=== PATIENT | female | born 1935 | race Caucasian/White ===

== ENCOUNTER 2016-09-07 10:32 | Emergency (ER) | payer OTHER ==
[2016-09-07 10:42] VITALS: PULSE 94
--- NOTE | 2016-09-07 11:22 | EDPHY ---
HPI/HX/ROS/PE/MDM Narrative: CHIEF COMPLAINT: Cough, myalgia. HPI: The patient is an 80-year-old female who presents with bloody cough and myalgia since yesterday. She does have a chronic cough from her asthma but yesterday she began to cough up bloody streaks. She admits chest pain from the coughing. She has a mild fever. She denies diarrhea, chills, or other complaints. REVIEW OF SYSTEMS: Aside from elements discussed in the HPI, a comprehensive 10-point review of systems was reviewed and is negative. PMH: Asthma. SOCIAL HISTORY: . PHYSICAL EXAM: General: Patient is alert, in no acute distress. ENT: Eyes are normal to inspection. ENT inspection normal. Neck: Normal inspection. Full range of motion. Respiratory: No respiratory distress. Breath sounds normal bilaterally. Scattered rhonchi and rales bilaterally. Cardiovascular: Regular rate and rhythm. Strong peripheral pulses. Abdomen: The abdomen is nontender to palpation. There are no peritoneal signs. There are normal bowel sounds. Back: Normal to inspection. No tenderness to palpation. Skin: Normal color. No rash. Warm and dry. Extremities: Normal appearance. Full range of motion. Neuro: Oriented x3. Normal motor function. Normal sensory function. Portions of this note were transcribed by an ED scribe. I personally performed the history, physical exam, and medical decision making; and confirm the accuracy of the information in the transcribed note. ED Course: An IV was established and labs ordered. Chest x-ray and EKG obtained. WBC elevated at 11.05. Patient negative for influenza. EKG was ordered and interpreted by myself. Please see [facility] system for official reading. Study: PA and Lateral Chest X-ray Indication: Trauma, Chest pain Results: I viewed the images myself on the PACS system. The radiologist interpretation is: New multilobar bibasilar airspace consolidation. Bronchopneumonia versus aspiration. MDM: This is an 80-year-old female with low-grade fever, significant coughing with mild blood streaks since yesterday. Chest x-ray is suspicious for bronchopneumonia which I believe is consistent with her symptoms. I considered acute coronary syndrome but the patient has a normal troponin and EKG and chest pain does not seem typical for cardiac disease. I also considered PE, but the patient does not have any risk factors for PE, she is not hypoxic nor tachycardic, she does not have a troponin leak, and her chest pain is not pleuritic. Her flu swab is negative. I will treat the patient with azithromycin and she will require close follow-up as an outpatient. I offered her admission to the hospital for observation and further workup but she declines. - Data Points Laboratory Results: Laboratory Results 09/07/16 11:25 09/07/16 11:25 09/07/16 09/07/16 09/07/16 11:35 11:25 11:25 WBC 11.05 10^3/uL H 10^3/uL (3.80-9.50) RBC 3.65 10^6/uL L 10^6/uL (4.18-5.33) Hgb 11.5 g/dL L g/dL (12.6-16.3) Hct 33.4 % L % (38.0-47.0) MCV 91.5 fL fL (81.5-99.8) MCH 31.5 pg pg (27.9-34.1) MCHC 34.4 g/dL g/dL (32.4-36.7) RDW 13.4 % % (11.5-15.2) Plt Count 169 10^3/uL 10^3/uL (150-400) MPV 9.9 fL fL (8.7-11.7) Neut % (Auto) 83.3 % H % (39.3-74.2) Lymph % (Auto) 8.1 % L % (15.0-45.0) Ralls % (Auto) 5.2 % % (4.5-13.0) Eos % (Auto) 2.3 % % (0.6-7.6) Baso % (Auto) 0.3 % % (0.3-1.7) Nucleat RBC Rel Count 0.0 % % (0.0-0.2) Absolute Neuts (auto) 9.20 10^3/uL H 10^3/uL (1.70-6.50) Absolute Lymphs (auto) 0.90 10^3/uL L 10^3/uL (1.00-3.00) Absolute Monos (auto) 0.58 10^3/uL 10^3/uL (0.30-0.80) Absolute Eos (auto) 0.25 10^3/uL 10^3/uL (0.03-0.40) Absolute Basos (auto) 0.03 10^3/uL 10^3/uL (0.02-0.10) Absolute Nucleated RBC 0.00 10^3/uL 10^3/uL (0-0.01) Immature Gran % 0.8 % % (0.0-1.1) Immature Gran # 0.09 10^3/uL 10^3/uL (0.00-0.10) Sodium 132 mEq/L L mEq/L (134-144) Potassium 4.0 mEq/L mEq/L (3.5-5.2) Chloride 100 mEq/L mEq/L (97-110) Carbon Dioxide 24 mEq/l mEq/l (22-31) Anion Gap 8 mEq/L mEq/L (8-16) BUN 14 mg/dL mg/dL (7-23) Creatinine 0.7 mg/dL mg/dL (0.6-1.0) Estimated GFR > 60 Glucose 105 mg/dL H mg/dL (70-100) Calcium 8.8 mg/dL mg/dL (8.5-10.4) Troponin I 0.012 ng/mL ng/mL (0-0.034) Influenza Typ A,B (DFA) NEGATIVE FOR FLU (NEGATIVE) General Time Seen by Provider: 09/07/16 11:21 Initial Vital Signs: Initial Vital Signs Temperature (C) 36.6 C 09/07/16 10:35 Heart Rate 94 09/07/16 10:35 Respiratory Rate 18 09/07/16 10:35 Blood Pressure 126/100 H 09/07/16 10:35 O2 Sat (%) 95 09/07/16 10:35 O2 Delivery Mode Room Air Allergies/Adverse Reactions: methadone Allergy (Mild, Verified 09/07/16 10:44) GI upset oxycodone HCl [From OxyContin] Allergy (Mild, Verified 09/07/16 10:44) GI upset topiramate Allergy (Mild, Verified 09/07/16 10:44) Other-Enter Comments BRITNEY Inhibitors Allergy (Verified 09/07/16 10:37) Other-Enter Comments amitriptyline Allergy (Verified 09/07/16 10:37) Other-Enter Comments moxifloxacin HCl [From Avelox] Allergy (Verified 09/07/16 10:37) Vomiting IODINE DYE Allergy (Severe, Uncoded 09/07/16 10:44) Swelling/neck,face,throat all narcotics Allergy (Uncoded 01/01/15 14:54) "I don't do well with them" Home Medications: Medication Instructions Recorded Atorvastatin Calcium [Lipitor 10 10 mg PO DAILY 01/01/15 mg (*)] Beclomethasone Qvar 40 [Qvar 40 1 puffs [facility] 01/01/15 (*)] Fluticasone Propionate [Flovent 50 mcg [facility] 01/01/15 [place]] Levothyroxine [Synthroid 75 mcg 75 mcg PO DAILY06 01/01/15 (*)] Omeprazole [Prilosec 20 mg] 20 mg PO DAILY 01/01/15 Raloxifene HCl [Evista] 60 mg PO DAILY 01/01/15 Zolpidem Tartrate [Ambien 5MG (*)] 5 mg PO HS PRN 01/01/15 Ascorbic Acid [Vitamin C 500 mg 1,000 mg PO DAILY 11/20/15 (*)] Calcium Carbonate/Vitamin D3 1 each PO DAILY 11/20/15 [Calcium 600 + Vit D 400 Softgl] Cholecalciferol Vit D3 [Vitamin D3 2,000 units PO DAILY 11/20/15 2000 units] Glucosamine HCl 1,500 mg PO DAILY 11/20/15 Magnesium Oxide [Magnesium Oxide 400 mg PO DAILY 11/20/15 400 mg (*)] Multivitamins [Multivitamin (*)] 1 each PO DAILY 11/20/15 Brea-3 Fatty Acids/Fish Oil 1 each PO DAILY 11/20/15 [Brea 3 1,000 mg Softgel] Oxymetazoline HCl [Afrin Nasal 1 spray [place]ACH[place]ARE BID 11/20/15 [place]] AZITHROMYCIN [Z-PACK] 250 mg PO DAILY #6 tab 09/07/16 Gabapentin [Neurontin 300 MG (*)] 300 mg PO HS 09/07/16 Departure - Departure Disposition: Home, Routine, Self-Care Clinical Impression: Pneumonia Qualifiers: Pneumonia type: due to unspecified organism Laterality: unspecified laterality Lung location: unspecified part of lung Qualified Code(s): J18.9 - Pneumonia, unspecified organism Condition: Good Instructions: Pneumonia (ED) Additional Instructions: Take the antibiotics as prescribed. Follow up with your primary care provider in the next 2-3 days if symptoms are not improving. Return to the emergency department for any serious worsening of condition. Referrals: Yany Berg MD [Primary Care Provider] - As per Instructions Prescriptions: AZITHROMYCIN [Z-PACK] 250 mg PO DAILY #6 tab Report Scribed for: Vincent Newman Report Scribed by: George Kovacs Date of Report: 09/07/16 Time of Report: 11:22
[2016-09-07 11:39] LABS: % IMMATURE GRANULYOCYTES 0.8 % (0.0-1.1); ABSOLUTE IMMATURE GRANULOCYTES 0.09 10^3/uL (0.00-0.10); ADD DIFF? NO; ADD MORPH? NO; ADD SCAN? NO; ATYPICAL LYMPHOCYTE FLAG 10 (0-99); FRAGMENT RBC FLAG 0 (0-99); HEMATOCRIT 33.4 % (38.0-47.0); HEMOGLOBIN 11.5 g/dL (12.6-16.3); LEFT SHIFT FLG 10 (0-99); LIPEMIA HEMOLYSIS FLAG 90 (0-99); MEAN CELL HEMOGLOBIN 31.5 pg (27.9-34.1); MEAN CELL HEMOGLOBIN CONCENTR. 34.4 g/dL (32.4-36.7); MEAN CELL VOLUME 91.5 fL (81.5-99.8); MEAN PLATELET VOLUME 9.9 fL (8.7-11.7); PLATELET CLUMPS FLAG 20 (0-99); PLATELET COUNT 169 10^3/uL (150-400); RED BLOOD CELL COUNT 3.65 10^6/uL (4.18-5.33); RED CELL DISTRIBUTION WIDTH 13.4 % (11.5-15.2)
[2016-09-07 12:01] LABS: ANION GAP 8 mEq/L (8-16); CALCIUM 8.8 mg/dL (8.5-10.4); CARBON DIOXIDE 24 mEq/l (22-31); CHLORIDE 100 mEq/L (97-110); CREATININE 0.7 mg/dL (0.6-1.0); GLOMERULAR FILTRATION RATE > 60; GLUCOSE 105 mg/dL (70-100); SODIUM 132 mEq/L (134-144)
[2016-09-07 12:12] LABS: TROPONIN I 0.012 ng/mL (0-0.034)
--- NOTE | 2016-09-07 12:12 | CPEKG ---
Heart Rate: 90 RR Interval: 667 P-R Interval: 164 QRSD Interval: 84 QT Interval: 372 QTC Interval: 455 P [place]: 59 QRS [place]: 37 T Wave [place]: 36 EKG Severity - NORMAL ECG - EKG Impression: SINUS RHYTHM Electronically Signed By: Vincent Newman 07-Sep-2016 14:49:06
[2016-09-07 14:16] VITALS: BP 149/93; RESP 16; TEMP 98.6; O2SAT 93
== END 2016-09-07 14:16 | disposition home or self-care (01) ==
DX: J18.9 Pneumonia, unspecified organism (principal); J45.909 Unspecified asthma, uncomplicated

== ENCOUNTER → 2016-10-07 | Outpatient (CLI) | payer OTHER | LOC: BMCIMAGING 14:26 | PROVIDERS: ATTEND Internal Medicine | DX: Z13.83 Encounter for screening for respiratory disorder NEC (principal) ==

== ENCOUNTER 2017-01-06 15:51 | Emergency (ER) | payer OTHER ==
[2017-01-06] MEDS ORDERED: ASPIRIN 81 MG CHEWABLE TAB PO ONE (16:09)
[2017-01-06] MEDS ORDERED: NITROGLYCERIN 0.4 MG BTL SL PRN (16:09)
--- NOTE | 2017-01-06 16:11 | EDPHY ---
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 She states that she has had chest pressure for the entire week that she attributed to her esophagitis however today it turned into more pain in her left upper chest and axilla. No neck or back pain. She denies shortness of breath. She denies any diaphoresis. She does feel slightly nauseous and lightheaded. Symptoms are worsened by lying flat. They are not worsened by exertion. REVIEW OF SYSTEMS: Constitutional: denies: chills, fever, recent illness, recent injury EENTM: denies: blurred vision, double vision, nose congestion Respiratory: denies: cough, shortness of breath Cardiac: See HPI Gastrointestinal/Abdominal: denies: abdominal pain, diarrhea, nausea, vomiting, blood streaked stools Genitourinary: denies: dysuria, frequency, hematuria, pain Musculoskeletal: denies: joint pain, muscle pain Skin: denies: lesions, rash, jaundice, bruising Neurological: denies: headache, numbness, paresthesia, tingling, dizziness, weakness Hematologic/Lymphatic: denies: blood clots, easy bleeding, easy bruising Immunologic/allergic: denies: HIV/AIDS, transplant EXAM: GENERAL: Well-appearing, well-nourished and in no acute distress. HEAD: Atraumatic, normocephalic. EYES: Pupils equal round and reactive to light, extraocular movements intact, sclera anicteric, conjunctiva are normal. ENT: TMs normal, nares patent, oropharynx clear without exudates. Moist mucous membranes. NECK: Normal range of motion, supple without lymphadenopathy or JVD. LUNGS: Breath sounds clear to auscultation bilaterally and equal. No wheezes rales or rhonchi. HEART: Regular rate and rhythm without murmurs, rubs or gallops. ABDOMEN: Soft, nontender, normoactive bowel sounds. No guarding, no rebound. No masses appreciated. BACK: No CVA tenderness, no spinal tenderness, step-offs or deformities EXTREMITIES: Normal range of motion, no pitting or edema. No clubbing or cyanosis. NEUROLOGICAL: Cranial nerves II through XII grossly intact. Normal speech, normal gait. 5/5 strength, normal movement in all extremities, normal sensation PSYCH: Normal mood, normal affect. SKIN: Warm, dry, normal turgor, no visible rashes or lesions. Source: Patient, Family, Old records - Personal History Current Tetanus/Diphtheria Vaccine: Unsure Current Tetanus Diphtheria and Acellular Pertussis (TDAP): Unsure - Medical/Surgical History Hx Asthma: Yes Hx Chronic Respiratory Disease: No Hx Diabetes: No Hx Cardiac Disease: No Hx Renal Disease: No Hx Cirrhosis: No Hx Alcoholism: No Hx HIV/AIDS: No Hx Splenectomy or Spleen Trauma: No Other PMH: BILAT MASECTOMY 2013,2005, KNEE SURGERY. 5 BOUTS OF CANCER,COPD, CHF , Mitral valve stenosis, HTN, Hyperlipidemia - Family History Significant Family History: No pertinent family hx - Social History Smoking Status: Never smoked Alcohol Use: Sober Drug Use: None Constitutional: Initial Vital Signs Temperature (C) 36.3 C 01/06/17 15:55 Heart Rate 82 01/06/17 15:55 Respiratory Rate 16 01/06/17 15:55 Blood Pressure 160/80 H 01/06/17 15:55 O2 Sat (%) 96 01/06/17 15:55 O2 Delivery Mode Room Air Allergies/Adverse Reactions: Iodine and Iodide Containing Produc Allergy (Severe, Verified 01/06/17 18:58) Swelling/neck,face,throat methadone Allergy (Mild, Verified 09/07/16 10:44) GI upset oxycodone HCl [From OxyContin] Allergy (Mild, Verified 09/07/16 10:44) GI upset topiramate Allergy (Mild, Verified 09/07/16 10:44) Other-Enter Comments BRITNEY Inhibitors Allergy (Verified 09/07/16 10:37) Other-Enter Comments amitriptyline Allergy (Verified 09/07/16 10:37) Other-Enter Comments moxifloxacin HCl [From Avelox] Allergy (Verified 09/07/16 10:37) Vomiting IODINE DYE Allergy (Severe, Uncoded 09/07/16 10:44) Swelling/neck,face,throat all narcotics Allergy (Uncoded 01/01/15 14:54) "I don't do well with them" Home Medications: Medication Instructions Recorded Albuterol [Proventil Inhaler HFA 1 - 2 puffs IH Q4H PRN 01/06/17 (*)] Atorvastatin Calcium [Lipitor 10 10 mg PO DAILY 01/06/17 mg (*)] Beclomethasone Qvar 80 [Qvar 80 1 puffs IH BIDI 01/06/17 (*)] Cholecalciferol Vit D3 [Vitamin D3 2,000 units PO DAILY 01/06/17 (*)] DILTIAZEM HCL [DILTIAZEM 24HR ER] 180 mg PO DAILY 01/06/17 Dexlansoprazole [Dexilant] 60 mg PO DAILY 01/06/17 Gabapentin [Neurontin 300 MG (*)] 300 mg PO DAILY PRN 01/06/17 Herbals/Supplements -Info Only 1 ea PO DAILY 01/06/17 Levothyroxine [Synthroid 75 mcg 75 mcg PO DAILY06 01/06/17 (*)] Ranitidine HCl 300 mg PO DAILY 01/06/17 Zolpidem Tartrate [Ambien 5MG (*)] 5 mg PO HS PRN 01/06/17 Medical Decision Making - Diagnostics EKG Interpretation: An EKG obtained and was read and documented in trace view. Please see trace view for full reading and report. Sinus rhythm, unchanged from previous Imaging Results: Imaging Impressions Chest X-Ray 01/06/17 16:09 Impression: Nothing acute identified. No evidence for recurrent pneumonia. ED Course/Re-evaluation: 5:45 p.m. we discussed the test results. Patient is reassured. She is pain- free after nitroglycerin. I recommended admission for further rule out. The patient agrees. She would like to have a echo done. Her last 1 was last year. 6:00 p.m. I discussed the case with Dr. Barboza who will admit to the medical service. 7:00 p.m. the patient was seen by Dr. Barboza who will discharge her with GI cocktail and increased proton pump inhibitor. Differential Diagnosis: Partial list of the Differential diagnosis considered include but were not limited to; acute coronary disease, CHF exacerbation, esophagitis and although unlikely based on the history and physical exam, I also considered PE, pneumonia , dissection. - Data Points Laboratory Results: Laboratory Results 01/06/17 16:07 01/06/17 16:07 01/06/17 01/06/17 01/06/17 16:07 16:07 16:07 WBC 4.82 10^3/uL 10^3/uL (3.80-9.50) RBC 4.18 10^6/uL 10^6/uL (4.18-5.33) Hgb 12.8 g/dL g/dL (12.6-16.3) Hct 38.2 % % (38.0-47.0) MCV 91.4 fL fL (81.5-99.8) MCH 30.6 pg pg (27.9-34.1) MCHC 33.5 g/dL g/dL (32.4-36.7) RDW 13.2 % % (11.5-15.2) Plt Count 198 10^3/uL 10^3/uL (150-400) MPV 9.2 fL fL (8.7-11.7) Neut % (Auto) 59.3 % % (39.3-74.2) Lymph % (Auto) 26.8 % % (15.0-45.0) [place] % (Auto) 10.8 % % (4.5-13.0) Eos % (Auto) 2.1 % % (0.6-7.6) Baso % (Auto) 0.6 % % (0.3-1.7) Nucleat RBC Rel Count 0.0 % % (0.0-0.2) Absolute Neuts (auto) 2.86 10^3/uL 10^3/uL (1.70-6.50) Absolute Lymphs (auto) 1.29 10^3/uL 10^3/uL (1.00-3.00) Absolute Monos (auto) 0.52 10^3/uL 10^3/uL (0.30-0.80) Absolute Eos (auto) 0.10 10^3/uL 10^3/uL (0.03-0.40) Absolute Basos (auto) 0.03 10^3/uL 10^3/uL (0.02-0.10) Absolute Nucleated RBC 0.00 10^3/uL 10^3/uL (0-0.01) Immature Gran % 0.4 % % (0.0-1.1) Immature Gran # 0.02 10^3/uL 10^3/uL (0.00-0.10) PT 13.2 SEC SEC (12.0-15.0) INR 1.01 (0.83-1.16) APTT 25.4 SEC SEC (23.0-38.0) D-Dimer < 0.27 ug/mLFEU ug/mLFEU (0.00-0.50) Sodium 138 mEq/L mEq/L (134-144) Potassium 4.1 mEq/L mEq/L (3.5-5.2) Chloride 100 mEq/L mEq/L (97-110) Carbon Dioxide 28 mEq/l mEq/l (22-31) Anion Gap 10 mEq/L mEq/L (8-16) BUN 14 mg/dL mg/dL (7-23) Creatinine 0.8 mg/dL mg/dL (0.6-1.0) Estimated GFR > 60 Glucose 86 mg/dL mg/dL (70-100) Calcium 9.1 mg/dL mg/dL (8.5-10.4) Total Bilirubin 0.8 mg/dL mg/dL (0.1-1.4) Conjugated Bilirubin 0.3 mg/dL mg/dL (0.0-0.5) Unconjugated Bilirubin 0.5 mg/dL mg/dL (0.0-1.1) AST 22 IU/L IU/L (14-46) ALT 29 IU/L IU/L (9-52) Alkaline Phosphatase 35 IU/L L IU/L (38-126) Troponin I < 0.012 ng/mL ng/mL (0-0.034) NT-Pro-B Natriuret Pep 569 pg/mL H pg/mL (0-450) Total Protein 6.8 g/dL g/dL (6.3-8.2) Albumin 4.3 g/dL g/dL (3.5-5.0) Lipase 66.0 IU/L IU/L (23-300) Medications Given: Discontinued Medications Al Hydroxide/Mg Hydroxide (Maalox Susp) 30 ml PO ONCE ONE Stop: 01/06/17 19:01 Last Admin: 01/06/17 19:12 Dose: 30 ml Aspirin (Aspirin) 324 mg PO EDNOW ONE Stop: 01/06/17 16:10 Last Admin: 01/06/17 16:25 Dose: Not Given Hyoscyamine Sulfate (Levsin, Hyomax-Sl) 0.25 mg PO ONCE ONE Stop: 01/06/17 19:01 Last Admin: 01/06/17 19:13 Dose: 0.25 mg Lidocaine (Lidocaine 2% Viscous) 15 ml PO ONCE ONE Stop: 01/06/17 19:01 Last Admin: 01/06/17 19:12 Dose: 15 ml Departure - Departure Disposition: Home, Routine, Self-Care Clinical Impression: GERD with esophagitis Chest pain Qualifiers: Chest pain type: unspecified Qualified Code(s): R07.9 - Chest pain, unspecified Condition: Fair
--- NOTE | 2017-01-06 16:14 | CPEKG ---
Heart Rate: 75 RR Interval: 800 P-R Interval: 172 QRSD Interval: 86 QT Interval: 392 QTC Interval: 438 P Cl[place]: 60 QRS [place]: 37 T Wave [place]: 35 EKG Severity - ABNORMAL ECG - EKG Impression: SINUS RHYTHM EKG Impression: similar to previous Electronically Signed By: Jasiel Vasquez 06-Jan-2017 16:32:17
[2017-01-06 16:20] LABS: % IMMATURE GRANULYOCYTES 0.4 % (0.0-1.1); ABSOLUTE IMMATURE GRANULOCYTES 0.02 10^3/uL (0.00-0.10); ADD DIFF? NO; ADD MORPH? NO; ADD SCAN? NO; ATYPICAL LYMPHOCYTE FLAG 20 (0-99); FRAGMENT RBC FLAG 0 (0-99); HEMATOCRIT 38.2 % (38.0-47.0); HEMOGLOBIN 12.8 g/dL (12.6-16.3); LEFT SHIFT FLG 0 (0-99); LIPEMIA HEMOLYSIS FLAG 80 (0-99); MEAN CELL HEMOGLOBIN 30.6 pg (27.9-34.1); MEAN CELL HEMOGLOBIN CONCENTR. 33.5 g/dL (32.4-36.7); MEAN CELL VOLUME 91.4 fL (81.5-99.8); MEAN PLATELET VOLUME 9.2 fL (8.7-11.7); PLATELET CLUMPS FLAG 0 (0-99); PLATELET COUNT 198 10^3/uL (150-400); RED BLOOD CELL COUNT 4.18 10^6/uL (4.18-5.33); RED CELL DISTRIBUTION WIDTH 13.2 % (11.5-15.2)
[2017-01-06 16:28] LABS: ALANINE AMINOTRANSFERASE 29 IU/L (9-52); ALBUMIN 4.3 g/dL (3.5-5.0); ALKALINE PHOSPHATASE 35 IU/L (38-126); ANION GAP 10 mEq/L (8-16); APTT 25.4 SEC (23.0-38.0); ASPARTATE AMINOTRANSFERASE 22 IU/L (14-46); BILIRUBIN,TOTAL 0.8 mg/dL (0.1-1.4); BILIRUBIN-CONJUGATED 0.3 mg/dL (0.0-0.5); BILIRUBIN-UNCONJUGATED 0.5 mg/dL (0.0-1.1); CALCIUM 9.1 mg/dL (8.5-10.4); CARBON DIOXIDE 28 mEq/l (22-31); CHLORIDE 100 mEq/L (97-110); CREATININE 0.8 mg/dL (0.6-1.0); GLOMERULAR FILTRATION RATE > 60; GLUCOSE 86 mg/dL (70-100); INR 1.01 (0.83-1.16); POTASSIUM 4.1 mEq/L (3.5-5.2); PROTIME(PATIENT) 13.2 SEC (12.0-15.0); SODIUM 138 mEq/L (134-144); TOTAL PROTEIN 6.8 g/dL (6.3-8.2)
[2017-01-06 16:40] LABS: TROPONIN I < 0.012 ng/mL (0-0.034)
[2017-01-06] MEDS ORDERED: ONDANSETRON DISINTEGRATING 4 MG TAB PO PRN (18:16)
[2017-01-06] MEDS ORDERED: ONDANSETRON 4 MG/2 ML VIAL IVP PRN (18:16)
[2017-01-06] MEDS ORDERED: ACETAMINOPHEN 325 MG TAB PO PRN (18:16)
[2017-01-06] MEDS ORDERED: ALBUTEROL 200 PUFFS/18 GM MDI IH PRN (18:18)
[2017-01-06] MEDS ORDERED: ZOLPIDEM TARTRATE 5 MG TAB PO PRN (18:18)
[2017-01-06] MEDS ORDERED: GABAPENTIN 300 MG CAP PO PRN (18:18)
[2017-01-06] MEDS ORDERED: BECLOMETHASONE QVAR 80 MDI IH SCH (18:30)
[2017-01-06] MEDS ORDERED: MAG HYDROX/AL HYDROX/SIMETH 30 ML UDCUP PO ONE (19:00)
[2017-01-06] MEDS ORDERED: HYOSCYAMINE SULFATE 0.125 MG TAB PO ONE (19:00)
[2017-01-06] MEDS ORDERED: LIDOCAINE 2% VISCOUS 15 ML UDCUP PO ONE (19:00)
--- NOTE | 2017-01-06 19:42 | PDGENHP ---
History and Physical - Chief Complaint Acute chest pain - History of Present Illness consultation history and physical Consulting provider: Dr. Vasquez Reason for consultation: Acute chest pain HPI: 81-year-old female presenting with acute chest pain characterized as burning pain located in her left chest radiating into her left axilla with associated nausea and lightheadedness, exacerbated by lying supine no exertional component. She reports to me that the character of her symptoms is exactly the same as her chronic esophagitis and on the day of presentation it has been increasing in severity and not responding to a combination of daily proton pump inhibitor, nightly H2 sushant, PRN gaviscon, and PRN Tums. She reports that the onset of symptoms was at least 1 week ago and duration has been constant thereafter. The symptoms escalate in the afternoons. She reports that the discomfort was somewhat alleviated by sublingual nitroglycerin received in the emergency department. She has not recently seen any of her outpatient medical providers for this issue. She has not been taking any nonsteroidal anti-inflammatory medications she has noted that her bilateral knee pain has been chronically worsening without any access to any as needed pain medications. History Information - Allergies/Home Medication List Allergies/Adverse Reactions: Iodine and Iodide Containing Produc Allergy (Severe, Verified 01/06/17 18:58) Swelling/neck,face,throat methadone Allergy (Mild, Verified 09/07/16 10:44) GI upset oxycodone HCl [From OxyContin] Allergy (Mild, Verified 09/07/16 10:44) GI upset topiramate Allergy (Mild, Verified 09/07/16 10:44) Other-Enter Comments BRITNEY Inhibitors Allergy (Verified 09/07/16 10:37) Other-Enter Comments amitriptyline Allergy (Verified 09/07/16 10:37) Other-Enter Comments moxifloxacin HCl [From Avelox] Allergy (Verified 09/07/16 10:37) Vomiting IODINE DYE Allergy (Severe, Uncoded 09/07/16 10:44) Swelling/neck,face,throat all narcotics Allergy (Uncoded 01/01/15 14:54) "I don't do well with them" Home Medications: Albuterol [Proventil Inhaler HFA (*)] 1 - 2 puffs IH Q4H PRN 01/06/17 [Last Taken Unknown] Atorvastatin Calcium [Lipitor 10 mg (*)] 10 mg PO DAILY 01/06/17 [Last Taken 12/18] Beclomethasone Qvar 80 [Qvar 80 (*)] 1 puffs IH BIDI 01/06/17 [Last Taken ] Cholecalciferol Vit D3 [Vitamin D3 (*)] 2,000 units PO DAILY 01/06/17 [Last Taken 01/06/17] DILTIAZEM HCL [DILTIAZEM 24HR ER] 180 mg PO DAILY 01/06/17 [Last Taken 01/06/17] Dexlansoprazole [Dexilant] 60 mg PO DAILY 01/06/17 [Last Taken 01/06/17] Gabapentin [Neurontin 300 MG (*)] 300 mg PO DAILY PRN 01/06/17 [Last Taken Unknown] Herbals/Supplements -Info Only 1 ea PO DAILY 01/06/17 [Last Taken Unknown] Levothyroxine [Synthroid 75 mcg (*)] 75 mcg PO DAILY06 01/06/17 [Last Taken 12/18] Ranitidine HCl 300 mg PO DAILY 01/06/17 [Last Taken 01/06/17] Zolpidem Tartrate [Ambien 5MG (*)] 5 mg PO HS PRN 01/06/17 [Last Taken Unknown] I have personally reviewed and updated: family history, medical history, social history, surgical history - Past Medical History Additional medical history: Mild to moderate mitral valve stenosis, moderate to severe mitral regurgitation. Pulmonary hypertension. Lymphoma in remission. Asthma/ COPD. Breast cancer status post radiation therapy. Radiation induced esophagitis - Surgical History Additional surgical history: mastectomy. Bilateral total knee replacement. Cardiac catheterization 2010 - Family History Additional family history: no recent sick family contacts, many first-degree relatives with coronary artery disease all after age 65 - Social History Smoking Status: Never smoked Alcohol Use: Sober Drug Use: None Additional social history: independent in her ADLs comma get shortness of breath with ambulating stairs Review of Systems ROS: 10pt was reviewed & negative except for what was stated in HPI & below Cardiac: Reports: chest pain Respiratory: Reports: shortness of breath Gastrointestinal: Reports: nausea Physical Exam Temp Pulse Resp BP Pulse Ox 36.3 C 74 16 149/76 H 94 01/06/17 15:55 01/06/17 18:00 01/06/17 18:00 01/06/17 18:00 01/06/17 18:00 Constitutional: no apparent distress, appears nourished, not in pain Eyes: PERRL, anicteric sclera, EOMI Ears, Nose, Mouth, Throat: moist mucous membranes, hearing normal, ears appear normal, no oral mucosal ulcers Cardiovascular: systolic murmur ( 2/6 systolic murmur at the apex), No irregularly irregular, No tachycardia, No edema Respiratory: no respiratory distress, no rales or rhonchi, clear to auscultation Gastrointestinal: normoactive bowel sounds, soft, non-tender abdomen ( in the midepigastric area), no palpable masses, No distension Skin: warm, normal color, no rashes or abrasions, no fluctuance, no induration, other ( no vesicular lesions over the chest), No mottled Musculoskeletal: other ( no tenderness to palpation over the anterior chest wall , full range of motion of the shoulders without any pain) Neurologic: AAOx3, sensation intact bilaterally, No weakness Psychiatric: interacting appropriately, not anxious, not encephalopathic, thought process linear Lab Data & Imaging Review 01/06/17 16:07 01/06/17 16:07 WBC 4.82 10^3/uL (3.80-9.50) 01/06/17 16:07 RBC 4.18 10^6/uL (4.18-5.33) 01/06/17 16:07 Hgb 12.8 g/dL (12.6-16.3) 01/06/17 16:07 Hct 38.2 % (38.0-47.0) 01/06/17 16:07 MCV 91.4 fL (81.5-99.8) 01/06/17 16:07 MCH 30.6 pg (27.9-34.1) 01/06/17 16:07 MCHC 33.5 g/dL (32.4-36.7) 01/06/17 16:07 RDW 13.2 % (11.5-15.2) 01/06/17 16:07 Plt Count 198 10^3/uL (150-400) 01/06/17 16:07 MPV 9.2 fL (8.7-11.7) 01/06/17 16:07 Neut % (Auto) 59.3 % (39.3-74.2) 01/06/17 16:07 Lymph % (Auto) 26.8 % (15.0-45.0) 01/06/17 16:07 [place] % (Auto) 10.8 % (4.5-13.0) 01/06/17 16:07 Eos % (Auto) 2.1 % (0.6-7.6) 01/06/17 16:07 Baso % (Auto) 0.6 % (0.3-1.7) 01/06/17 16:07 Nucleat RBC Rel Count 0.0 % (0.0-0.2) 01/06/17 16:07 Absolute Neuts (auto) 2.86 10^3/uL (1.70-6.50) 01/06/17 16:07 Absolute Lymphs (auto) 1.29 10^3/uL (1.00-3.00) 01/06/17 16:07 Absolute Monos (auto) 0.52 10^3/uL (0.30-0.80) 01/06/17 16:07 Absolute Eos (auto) 0.10 10^3/uL (0.03-0.40) 01/06/17 16:07 Absolute Basos (auto) 0.03 10^3/uL (0.02-0.10) 01/06/17 16:07 Absolute Nucleated RBC 0.00 10^3/uL (0-0.01) 01/06/17 16:07 Immature Gran % 0.4 % (0.0-1.1) 01/06/17 16:07 Immature Gran # 0.02 10^3/uL (0.00-0.10) 01/06/17 16:07 PT 13.2 SEC (12.0-15.0) 01/06/17 16:07 INR 1.01 (0.83-1.16) 01/06/17 16:07 APTT 25.4 SEC (23.0-38.0) 01/06/17 16:07 D-Dimer < 0.27 ug/mLFEU (0.00-0.50) 01/06/17 16:07 Sodium 138 mEq/L (134-144) 01/06/17 16:07 Potassium 4.1 mEq/L (3.5-5.2) 01/06/17 16:07 Chloride 100 mEq/L (97-110) 01/06/17 16:07 Carbon Dioxide 28 mEq/l (22-31) 01/06/17 16:07 Anion Gap 10 mEq/L (8-16) 01/06/17 16:07 BUN 14 mg/dL (7-23) 01/06/17 16:07 Creatinine 0.8 mg/dL (0.6-1.0) 01/06/17 16:07 Estimated GFR > 60 01/06/17 16:07 Glucose 86 mg/dL (70-100) 01/06/17 16:07 Calcium 9.1 mg/dL (8.5-10.4) 01/06/17 16:07 Total Bilirubin 0.8 mg/dL (0.1-1.4) 01/06/17 16:07 Conjugated Bilirubin 0.3 mg/dL (0.0-0.5) 01/06/17 16:07 Unconjugated Bilirubin 0.5 mg/dL (0.0-1.1) 01/06/17 16:07 AST 22 IU/L (14-46) 01/06/17 16:07 ALT 29 IU/L (9-52) 01/06/17 16:07 Alkaline Phosphatase 35 IU/L (38-126) L 01/06/17 16:07 Troponin I < 0.012 ng/mL (0-0.034) 01/06/17 16:07 NT-Pro-B Natriuret Pep 569 pg/mL (0-450) H 01/06/17 16:07 Total Protein 6.8 g/dL (6.3-8.2) 01/06/17 16:07 Albumin 4.3 g/dL (3.5-5.0) 01/06/17 16:07 Lipase 66.0 IU/L (23-300) 01/06/17 16:07 Visualized and Interpreted Chest x-ray results: Yes Chest X-Ray results: no infiltrate ( hiatal hernia present) Visualized and Interpreted EKG results: Yes EKG Interpretation: Positive for: other ( normal sinus rhythm, Q-wave in leads V2 and V3) Assessment & Plan Assessment: 81-year-old female presenting with acute chest pain in the setting of radiation induced esophagitis and hiatal hernia Plan: 1. Chest pain. Acute, new problem this provider, no further workup indicated. Patient ruled out for acute coronary syndrome with negative troponin and no ischemic changes on EKG, ruled out for pulmonary embolism with negative D-dimer , ruled out for infectious process with normal chest x-ray and normal labs. -I suspect that the most likely cause is gastrointestinal in origin, either esophagitis or reflux from hiatal hernia -reviewed outside records including 10/28/[address] Cyril Goins, demonstrating absolutely no coronary artery disease -reviewed outside records including discharge summary by Dr. Shannon Delong, indicates that patient had PACs but no Afib during observation o/n on tele -per patient report, she underwent a stress test 1 year ago and was reportedly normal -I believe that the possibility of her symptoms being cardiac in origin is exceptionally low given that she has been experiencing them for the past week and she has no elevation in her cardiac enzymes -I believe that further cardiac risk stratification at this point would be low yield and if such risk stratification is to be pursued, does not need to be pursued urgently at this time and the patient can have her symptoms reassessed from GI standpoint as that is the most likely etiology 2. Esophagitis. Acute worsening, new problem this provider, further workup is indicated. Patient reports a history of radiation-induced esophagitis and she also has reported and radiographic history of hiatal hernia. She has been taking a combination of proton pump inhibitor and scheduled H2 sushant without notable benefit. -recommended to the patient that she temporarily increase her proton pump inhibitor to twice daily and continue her H2 sushant -discussed with Dr. Vasquez, recommended he give her a GI cocktail containing lidocaine and then, if successful, provide her with a prescription for this as needed medication moving forward -also recommended to the patient that she contact her regular gastroenterology office of Dr. Pepe and that she schedule an outpatient appointment or upper endoscopy in the near future -if her symptoms continue despite upper endoscopy not revealing active esophagitis, then would consider the possibility of esophageal spasm given her response to sublingual nitroglycerin and further manometry testing may be indicated 3. Mitral regurgitation. Moderate to severe, with resultant pulmonary hypertension, with RVSP 60 mmHg last year, normal EF -recommend that she have her annual screening echocardiogram performed as an outpatient as there is no clear connection to her current symptoms and her underlying pulmonary hypertension and valvulopathy -discussed possible cardiothoracic surgery options with the patient and she will either pursue the practice in [place] verses consider evaluation locally by Dr. Bower Counseled the patient and her regarding the issues outlined above and after full discussion, we all agreed that further observation and diagnostic workup are not indicated and the patient should safely follow up with her outpatient GI and Cardiology providers to obtain the after mentioned testing modalities.
[2017-01-06 20:03] VITALS: BP 146/72; PULSE 76; RESP 18; TEMP 98.4; O2SAT 96
[2017-01-07] MEDS ORDERED: LEVOTHYROXINE 75 MCG TAB PO SCH (06:00)
[2017-01-07] MEDS ORDERED: DILTIAZEM CD 180 MG CAP PO SCH (09:00)
[2017-01-07] MEDS ORDERED: ENOXAPARIN 40 MG/0.4 ML SYR SC SCH (09:00)
[2017-01-07] MEDS ORDERED: Herbals/Supplements -Info Only PO SCH (09:00)
[2017-01-07] MEDS ORDERED: PANTOPRAZOLE SODIUM 40 MG TAB PO SCH (09:00)
[2017-01-07] MEDS ORDERED: FAMOTIDINE 20 MG TAB PO SCH (09:00)
[2017-01-07] MEDS ORDERED: CHOLECALCIFEROL VIT D3 2,000 UNITS TAB/CAP PO SCH (09:00)
[2017-01-07] MEDS ORDERED: ATORVASTATIN CALCIUM 10 MG TAB PO SCH (09:00)
== END 2017-01-06 20:02 | disposition home or self-care (01) ==
LOC: UNDOADMOB 18:08
DX: K21.0 Gastro-esophageal reflux disease with esophagitis (principal); J45.909 Unspecified asthma, uncomplicated; I11.0 Hypertensive heart disease with heart failure; I50.9 Heart failure, unspecified; Z85.3 Personal history of malignant neoplasm of breast
CPT/HCPCS: J1650

== ENCOUNTER 2017-01-17 05:50 | Day surgery (SDC) | payer OTHER ==
[2017-01-17] MEDS ORDERED: LIDOCAINE 1% 2 ML INJ ONE (06:04)
[2017-01-17] MEDS ORDERED: LIDOCAINE 1% 2 ML INJ ID PRN (06:18)
[2017-01-17] MEDS ORDERED: LR 1,000 ML IV ONE (06:18)
[2017-01-17] MEDS ORDERED: MIDAZOLAM 2 MG/2 ML VIAL IVP ONE (07:18)
--- NOTE | 2017-01-17 07:18 | PDANEPAE ---
ANE History of Present Illness Heartburn ANE Past Medical History - Cardiovascular History Hx Hypertension: No Hx Arrhythmias: Yes Hx Chest Pain: No Hx Coronary Artery / Peripheral Vascular Disease: Yes Hx CHF / Valvular Disease: Yes Hx Palpitations: No Cardiovascular History Comment: cad. pvd. rheumatic heart disease. hyperlipidemia. tricupsid regurgitation. aortic stenosis. mitral stenosis. mitral regurgitation - Pulmonary History Hx COPD: No Hx Asthma/Reactive Airway Disease: Yes Hx Recent Upper Respiratory Infection: No Hx Oxygen in Use at Home: No Hx Sleep Apnea: No Sleep Apnea Screening Result - Last Documented: Negative Pulmonary History Comment: asthma uses inhalers- instructed her to bring to hospital - Neurologic History Hx Cerebrovascular Accident: No Hx Seizures: No Hx Dementia: No Neurologic History Comment: headaches/ migraines occ - Endocrine History Hx Diabetes: No Endocrine History Comment: hypothyroidism - Renal History Hx Renal Disorders: No - Liver History Hx Hepatic Disorders: No - Neurological & Psychiatric Hx Hx Neurological and Psychiatric Disorders: Yes Neurological / Psychiatric History Comment: insomnia - Cancer History Hx Cancer: Yes Cancer History Comment: breast cancer 2013, 06/2005. lumpectomy. radiation after lumpectomy. 4 weeks of chemo with lymphoma - Congenital Disorder History Hx Congenital Disorders: No - GI History Hx Gastrointestinal Disorders: Yes Gastrointestinal History Comment: reflux since radiation. constipation uses mg to stay regular - Other Health History Other Health History: none - Chronic Pain History Chronic Pain: Yes (bilateral knee pain) - Surgical History Prior Surgeries: bilateral mastectomy. bilateral total knee arthroplasty. 6 total knee surgeries. rita ANE Review of Systems - Exercise capacity METS (RN): 2 METS (SOB with flight of stairs) ANE Patient History - Allergies Allergies/Adverse Reactions: Iodine and Iodide Containing Produc Allergy (Severe, Verified 01/06/17 18:58) Swelling/neck,face,throat methadone Allergy (Mild, Verified 09/07/16 10:44) GI upset oxycodone HCl [From OxyContin] Allergy (Mild, Verified 09/07/16 10:44) GI upset topiramate Allergy (Mild, Verified 09/07/16 10:44) Other-Enter Comments BRITNEY Inhibitors Allergy (Verified 09/07/16 10:37) Other-Enter Comments amitriptyline Allergy (Verified 09/07/16 10:37) Other-Enter Comments moxifloxacin HCl [From Avelox] Allergy (Verified 09/07/16 10:37) Vomiting IODINE DYE Allergy (Severe, Uncoded 09/07/16 10:44) Swelling/neck,face,throat all narcotics Allergy (Uncoded 01/01/15 14:54) "I don't do well with them" - Home Medications Home Medications: Albuterol [Proventil Inhaler HFA (*)] 1 - 2 puffs IH Q4H PRN 01/06/17 [Last Taken 01/17/17 05:00] Atorvastatin Calcium [Lipitor 10 mg (*)] 10 mg PO DAILY 01/06/17 [Last Taken 20:00] Beclomethasone Qvar 80 [Qvar 80 (*)] 1 puffs IH BIDI 01/06/17 [Last Taken 05:00] Cholecalciferol Vit D3 [Vitamin D3 (*)] 2,000 units PO DAILY 01/06/17 [Last Taken 01/07/17] DILTIAZEM HCL [DILTIAZEM 24HR ER] 180 mg PO DAILY 01/06/17 [Last Taken 01/16/17 20:00] Dexlansoprazole [Dexilant] 60 mg PO DAILY 01/06/17 [Last Taken 01/16/17 14:00] Gabapentin [Neurontin 300 MG (*)] 300 mg PO DAILY PRN 01/06/17 [Last Taken 01/16 20:00] Herbals/Supplements -Info Only 1 ea PO DAILY 01/06/17 [Last Taken 01/07/17] Levothyroxine [Synthroid 75 mcg (*)] 75 mcg PO DAILY06 01/06/17 [Last Taken 08:00] Ranitidine HCl 300 mg PO DAILY 01/06/17 [Last Taken 01/16/17 20:00] Zolpidem Tartrate [Ambien 5MG (*)] 5 mg PO HS PRN 01/06/17 [Last Taken 01/16/17 20:00] - NPO status NPO Since - Liquids (Date): 01/16/17 NPO Since - Liquids (Time): 23:00 NPO Since - Solids (Date): 01/16/17 NPO Since - Solids (Time): 18:00 - Anes Hx Anes Hx: no prior problems - Smoking Hx Smoking Status: Never smoked - Family Anes Hx Family Hx Anesthesia Complications: none ANE Labs/Vital Signs - Vital Signs Blood Pressure: 174/76 Heart Rate: 86 Respiratory Rate: 20 O2 Sat (%): 97 Height: 170.18 cm Weight: 62.596 kg ANE Physical Exam - Airway Neck exam: FROM Mallampati Score: Class 2 Mouth exam: normal dental/mouth exam - Pulmonary Pulmonary: no respiratory distress - Cardiovascular Cardiovascular: regular rate and rhythym - ASA Status ASA Status: III ANE Anesthesia Plan Anesthesia Plan: MAC
[2017-01-17] MEDS ORDERED: PROPOFOL 200 MG/20 ML VIAL ONE ×2 (07:58)
[2017-01-17] MEDS ORDERED: LIDOCAINE 2% 5 ML SDV ONE (08:52)
--- NOTE | 2017-01-17 08:58 | PDGENHP ---
History & Physical Chief Complaint: cc: chest pain/heartburn History of Present Illness: 81 year old female presents with GERD/heartburn Pertinent Past, Social, Family History: FaMHx: No CRC. SoHx: No cigs. PMHx: hypothyrodism + Pulmonary HTN, Relevant Physical Exam: HEENT: anicteric. CV: RRR +s1s2. Lungs: CTAB No w/r/ r. ABD: soft, nt, + BS. No guarding or rebound Cardiorespiratory Assessment: ASA3
[2017-01-17] MEDS ORDERED: INDOMETHACIN 50 MG SUPP PR PRN (09:00)
[2017-01-17] MEDS ORDERED: NS 500 ML IV SCH (09:00)
--- NOTE | 2017-01-17 09:16 | POSTANESTH ---
Post Anesthetic Evaluation Cardiovascular Status: Normal, Stable Respiratory Status: Normal, Stable Level of Consciousness/Mental Status: Can Participate in Eval Pain Control: Adequate, Prn Tx Ordered Nausea/Vomiting Control: Adequate, Prn Tx Ordered
[2017-01-17] MEDS ORDERED: ONDANSETRON 4 MG/2 ML VIAL IVP PRN (09:17)
[2017-01-17] MEDS ORDERED: NALOXONE HCL 0.4 MG/ML INJ IVP PRN (09:17)
--- NOTE | 2017-01-17 09:25 | POSTOPPROG ---
Post Op Note Date of Operation: 01/17/17 Surgeon: Dayo Tsang Anesthesia: IV Sedation Pre-op Diagnosis: heartburn Post-op Diagnosis: heartburn, hh, gastic polys, gastritis Indication: heartburn Procedure: egd with bx Findings: hh, + gastric polyps, gastritis Inf/Abcess present in the surg proc area at time of surgery?: No
[2017-01-17 09:36] VITALS: BP 144/83; RESP 18; O2SAT 96
[2017-01-17 10:32] VITALS: TEMP 97.9
[2017-01-17 10:34] VITALS: PULSE 71
--- NOTE | 2017-01-17 14:14 | GPN ---
[f rep st] PROCEDURE NOTE DATE OF PROCEDURE: 01/17/2017 PROCEDURE PERFORMED: Esophagogastroduodenoscopy with biopsy. INDICATION: The patient is an 81-year-old female who presents for evaluation of heartburn/epigastric abdominal pain. She presents for further evaluation. CONSENT: Risks, benefits, and alternatives of the procedure were discussed in great detail with the patient. Risks of infection, bleeding, perforation, and sedation were discussed. All questions answered and informed consent obtained. MEDICATIONS: Propofol. Please see Anesthesiology record for details. ESTIMATED BLOOD LOSS: Insignificant. ESOPHAGOGASTRODUODENOSCOPY EXAMINATION: The Olympus upper endoscope was introduced into the mouth and advanced to the esophagus. The proximal, mid, and distal esophagus were normal in appearance. Biopsies taken from mid esophagus to rule out eosinophilic esophagitis. The stomach was entered and closely examined, including retroflexed views of the angulus, cardia, and fundus. The patient was noted to have a large hiatal hernia. In the stomach, the mucosa in the antrum and body of stomach was erythematous in a patchy distribution and biopsies were taken. Multiple small gastric polyps were seen along the greater curvature and biopsies were taken. The duodenal bulb and second portion of the duodenum were normal in appearance. IMPRESSION: 1. Biopsies taken to rule out eosinophilic esophagitis. 2. Hiatal hernia. 3. Gastric polyps status post biopsy. 4. Gastritis, status post biopsies. RECOMMENDATIONS: 1. Suspect her symptoms may be secondary to gastroesophageal reflux disease due to her significant hiatal hernia. Would recommend full-dose PPI therapy twice a day for 6 weeks than daily. 2. Await biopsy results. 3. Follow up in the office if symptoms dont resolve. /[id number]/MODL MTDD
== END 2017-01-17 10:35 | disposition home or self-care (01) ==
LOC: FSGY 05:50
PROVIDERS: ATTEND Internal Medicine Gastroenterology
PROC: 0DJ08ZZ Inspection of Upper Intestinal Tract, Via Natural or Artificial Opening Endoscopic (ICD-10-PCS; principal; 2017-01-17 07:30)
PROC: 0DB58ZX Excision of Esophagus, Via Natural or Artificial Opening Endoscopic, Diagnostic (ICD-10-PCS; principal; 2017-01-17 07:30)
PROC: 0DB68ZX Excision of Stomach, Via Natural or Artificial Opening Endoscopic, Diagnostic (ICD-10-PCS; principal; 2017-01-17 07:30)
DX: K44.9 Diaphragmatic hernia without obstruction or gangrene (principal); R12 Heartburn; K31.7 Polyp of stomach and duodenum; K31.9 Disease of stomach and duodenum, unspecified; I27.2 Other secondary pulmonary hypertension; I35.0 Nonrheumatic aortic (valve) stenosis
CPT/HCPCS: J2704

== ENCOUNTER 2017-02-23 13:34 | Inpatient (IN) | payer OTHER ==
--- NOTE | 2017-02-23 14:04 | EDPHY ---
H & P Stated Complaint: "coughing up blood" Time Seen by Provider: 02/23/17 13:48 HPI/ROS: CHIEF COMPLAINT: Hemoptysis HISTORY OF PRESENT ILLNESS: The patient is an 81-year-old female presenting with hemoptysis that started last night and continued this morning. The patient has a chronic cough, but states her cough has worsened. Her cough is loose and productive. She states it feels similar to previous pneumonia. She has associated lightheadedness and mid chest pain. The patient was admitted 01/06/17 with chest pain related to her radiation induced esophagitis. She had a normal work up at that time and followed up with her architectural drafter, Dr. Tsang. He performed an EGD 01/17/17 and discovered an ulcer. Patient denies abdominal pain, dysuria, or bloody stool. No lower extremity pain or swelling at night. REVIEW OF SYSTEMS: A 10 point review of systems was performed and is negative with the exception of the elements mentioned in the history of present illness. Past Medical History: Asthma, Hypertension, Mitral valve stenosis, Lymphoma in remission, Breast cancer s/p radiation therapy, Radiation induced esophagitis. PCP: Dr. Berg Past Surgical History: Cardiac catheterization 2010, Lumpectomy, Bilateral Mastectomy Family History: Noncontributory. Social History: Nonsmoker. No alcohol. at bedside. Adult Physical: General Appearance: Alert, no acute distress. Pulse ox 91% on room air. Eyes: Pupils equal and round, no conjunctival injection, no discharge. ENT, Mouth: Mucous membranes are moist, no oropharyngeal erythema or edema. Neck: No lymphadenopathy, supple. Respiratory: Diminished breath sounds at the left base. Cardiovascular: Regular rate and rhythm; 3/6 holosystolic murmur. Gastrointestinal: Abdomen is soft and non tender, no masses or organomegaly, bowel sounds normal. Skin: Warm and dry, no rashes, normal color. Back: Nontender to palpation over the thoracolumbar spine. Extremities: No lower extremity edema, no calf tenderness or swelling. Neurological: Alert and oriented. Moving all four extremities easily and equally. Psychiatric: Normal affect. Source: Patient - Personal History Current Tetanus Diphtheria and Acellular Pertussis (TDAP): Yes - Medical/Surgical History Hx Asthma: Yes Hx Chronic Respiratory Disease: Yes Hx Diabetes: No Hx Cardiac Disease: No Hx Renal Disease: No Hx Cirrhosis: No Hx Alcoholism: No Hx HIV/AIDS: No Hx Splenectomy or Spleen Trauma: No Other PMH: BILAT MASECTOMY 2013,2004, KNEE SURGERY. 5 BOUTS OF CANCER,COPD, CHF , Mitral valve stenosis, HTN, Hyperlipidemia, ulcerated esophagus - Social History Smoking Status: Never smoked Constitutional: Initial Vital Signs Temperature (C) 36.9 C 02/23/17 13:40 Heart Rate 99 02/23/17 13:40 Respiratory Rate 18 02/23/17 13:40 Blood Pressure 114/62 02/23/17 13:40 O2 Sat (%) 91 L 02/23/17 13:40 O2 Delivery Mode Nasal Cannula O2 (L/minute) 2 Allergies/Adverse Reactions: BRITNEY Inhibitors Allergy (Severe, Verified 02/25/17 08:25) Swelling/neck,face,throat Iodine and Iodide Containing Produc Allergy (Severe, Verified 01/06/17 18:58) Swelling/neck,face,throat methadone Allergy (Mild, Verified 09/07/16 10:44) GI upset oxycodone HCl [From OxyContin] Allergy (Mild, Verified 09/07/16 10:44) GI upset topiramate Allergy (Mild, Verified 09/07/16 10:44) Other-Enter Comments amitriptyline Allergy (Verified 09/07/16 10:37) Other-Enter Comments moxifloxacin HCl [From Avelox] Allergy (Verified 09/07/16 10:37) Vomiting all narcotics Allergy (Uncoded 01/01/15 14:54) "I don't do well with them" Home Medications: Medication Instructions Recorded Albuterol [Proventil Inhaler HFA 1 - 2 puffs IH Q4H PRN 01/06/17 (*)] Atorvastatin Calcium [Lipitor 10 10 mg PO DAILY 01/06/17 mg (*)] Beclomethasone Qvar 80 [Qvar 80 1 puffs IH BIDI 01/06/17 (*)] Cholecalciferol Vit D3 [Vitamin D3 2,000 units PO DAILY 01/06/17 (*)] DILTIAZEM HCL [DILTIAZEM 24HR ER] 180 mg PO HS 01/06/17 Gabapentin [Neurontin 300 MG (*)] 600 mg PO HS PRN 01/06/17 Herbals/Supplements -Info Only 1 ea PO DAILY 01/06/17 Levothyroxine [Synthroid 75 mcg 75 mcg PO DAILY06 01/06/17 (*)] Ranitidine HCl 300 mg PO HS 01/06/17 Zolpidem Tartrate [Ambien 5MG (*)] 5 mg PO HS PRN 01/06/17 Multivitamins [Multivitamin (*)] 1 each PO DAILY 02/23/17 Omeprazole [Prilosec 20 mg] 20 mg PO DAILY 02/23/17 Raloxifene HCl [Evista] 60 mg PO DAILY 02/23/17 Azithromycin 500 mg PO DAILY #5 tablet 02/25/17 Cefuroxime Axetil [Ceftin (*)] 500 mg PO BID #20 tab 02/25/17 Medical Decision Making - Diagnostics Imaging: Discussed imaging studies w/ adoption manager Radiologist, I viewed and interpreted images myself ED Course/Re-evaluation: Patient presents with hemoptysis. I reviewed her medical records from her last visit to the ED, 01/06/17. Patient's symptoms were related to her esophagitis at that time. She was discharged home. She had EGD 01/17/17. Plan today includes lab work--CBC, Chem, and PT/INR. Chest x-ray ordered. The 12 lead EKG was interpreted by myself: Sinus rhythm. Similar to previous. See hard copy and/or "tracemaster" electronic copy for interpretation. 3:04 p.m.: Patient's lab work is unremarkable. She has some light red colored sputum in a cup at her bedside. Chest x-ray shows left sided pneumonia and possible right sided pneumonia. 3:20 p.m.: I discussed findings with the patient. Plan to admit the patient for treatment of her pneumonia. Patient and her agree with the plan. She was given ceftriaxone and azithromycin for community-acquired pneumonia. Think that her hemoptysis is related to the ammonia. I do not think that she has a GI bleed. 3:33 p.m.: I spoke to the hospitalist, Dr. Davis, who accepts the patient for admission. Oxygen saturation 91% on room air. Differential Diagnosis: Shortness of breath including but not limited to pulmonary infectious process, COPD, asthma, pulmonary embolus and congestive heart failure. - Data Points Laboratory Results: Laboratory Results 02/24/17 05:15 02/24/17 05:15 Microbiology Results: MICROBIOLOGY 02/23/17 20:00 Unspecified - Final 02/23/17 20:00 Unspecified Sputum Culture - Preliminary Yeast Species Medications Given: Discontinued Medications Acetaminophen (Tylenol 650/20.3ml Oral Liquid) 650 mg PO Q4 PRN PRN Reason: Pain, Mild/Fever, Can Take PO Stop: 08/22/17 19:14 Last Admin: 02/24/17 22:09 Dose: 650 mg Atorvastatin Calcium (Lipitor) 10 mg PO DAILY ANDREI Stop: 08/23/17 08:59 Last Admin: 02/25/17 09:39 Dose: 10 mg Azithromycin (Zithromax) 500 mg PO DAILY ANDREI PRN Reason: Protocol Stop: 03/26/17 15:44 Last Admin: 02/25/17 09:39 Dose: 500 mg Beclomethasone Dipropionate (Qvar 80) 1 puffs IH BID ANDREI Stop: 08/22/17 20:59 Last Admin: 02/25/17 09:00 Dose: 1 puffs Cholecalciferol (Vitamin D) 2,000 units PO DAILY ANDREI Stop: 08/23/17 08:59 Last Admin: 02/25/17 09:42 Dose: 2,000 units Diltiazem HCl (Cardizem Er Q24hr) 180 mg PO HS ANDREI Stop: 08/22/17 20:59 Last Admin: 02/24/17 22:03 Dose: 180 mg Enoxaparin Sodium (Lovenox) 40 mg SC DAILY ANDREI Stop: 08/23/17 08:59 Last Admin: 02/25/17 09:38 Dose: 40 mg Furosemide (Lasix Injection) 20 mg IVP ONCE ONE Stop: 02/23/17 18:29 Last Admin: 02/23/17 19:54 Dose: 20 mg Gabapentin (Neurontin) 600 mg PO HS PRN PRN Reason: NEUROPATHY Stop: 08/22/17 18:31 Last Admin: 02/24/17 23:01 Dose: 600 mg Azithromycin 500 mg/ Dextrose 255 mls @ 255 mls/hr IV EDNOW ONE PRN Reason: Protocol Stop: 02/23/17 16:54 Last Admin: 02/23/17 17:48 Dose: 255 mls Ceftriaxone Sodium/Dextrose (Rocephin 1 Gm (Premix)) 50 mls @ 100 mls/hr IV EDNOW ONE PRN Reason: Protocol Stop: 02/23/17 16:24 Last Admin: 02/23/17 16:08 Dose: 50 mls Ceftriaxone Sodium/Dextrose (Rocephin 1 Gm (Premix)) 50 mls @ 100 mls/hr IV DAILY ANDREI PRN Reason: Protocol Stop: 03/26/17 15:59 Last Admin: 02/25/17 09:38 Dose: 50 mls Levothyroxine Sodium (Synthroid) 75 mcg PO DAILY06 ANDREI Stop: 08/23/17 05:59 Last Admin: 02/25/17 06:58 Dose: 75 mcg Miscellaneous Medication (Ranitidine Hcl [Ranitidine Hcl]) 300 mg PO HS ANDREI Stop: 08/22/17 20:59 Last Admin: 02/25/17 05:23 Dose: Not Given Multivitamins (Tab-A-Hellen) 1 each PO DAILY ANDREI Stop: 08/23/17 08:59 Last Admin: 02/25/17 09:40 Dose: 1 each Pantoprazole Sodium (Protonix) 40 mg PO DAILY ANDREI Stop: 08/23/17 08:59 Last Admin: 02/25/17 09:40 Dose: 40 mg Raloxifene HCl (Evista) 60 mg PO DAILY ANDREI Stop: 08/23/17 08:59 Last Admin: 02/25/17 09:42 Dose: 60 mg Zolpidem Tartrate (Ambien) 5 mg PO HS PRN PRN Reason: Sleep/Insomnia Stop: 08/22/17 18:31 Last Admin: 02/24/17 22:08 Dose: 5 mg Departure - Departure Disposition: [facility] Inpatient Acute Clinical Impression: Pneumonia Qualifiers: Pneumonia type: due to unspecified organism Laterality: left Lung location: lower lobe of lung Qualified Code(s): J18.1 - Lobar pneumonia, unspecified organism Condition: Fair Report Scribed for: Tiffanie Kirby Report Scribed by: Kate Penaloza Date of Report: 02/23/17 Time of Report: 14:04 Physician Review and Approval Statement: 02/23/17 14:04 Portions of this note were transcribed by the medical manager. I, Dr. Tiffanie Kirby, personally performed the history, physical exam, and medical decision- making; and confirmed the accuracy of the information in the transcribed note.
[2017-02-23 14:15] LABS: % IMMATURE GRANULYOCYTES 0.4 % (0.0-1.1); ABSOLUTE IMMATURE GRANULOCYTES 0.03 10^3/uL (0.00-0.10); ADD DIFF? NO; ADD MORPH? NO; ADD SCAN? NO; ATYPICAL LYMPHOCYTE FLAG 0 (0-99); FRAGMENT RBC FLAG 0 (0-99); HEMATOCRIT 35.7 % (38.0-47.0); HEMOGLOBIN 12.2 g/dL (12.6-16.3); LEFT SHIFT FLG 70 (0-99); LIPEMIA HEMOLYSIS FLAG 90 (0-99); MEAN CELL HEMOGLOBIN CONCENTR. 34.2 g/dL (32.4-36.7); MEAN CELL VOLUME 90.8 fL (81.5-99.8); MEAN PLATELET VOLUME 9.5 fL (8.7-11.7); PLATELET CLUMPS FLAG 0 (0-99); PLATELET COUNT 199 10^3/uL (150-400); RED BLOOD CELL COUNT 3.93 10^6/uL (4.18-5.33); RED CELL DISTRIBUTION WIDTH 13.2 % (11.5-15.2)
[2017-02-23 14:24] LABS: ANION GAP 9 mEq/L (8-16); CALCIUM 8.7 mg/dL (8.5-10.4); CARBON DIOXIDE 23 mEq/l (22-31); CHLORIDE 96 mEq/L (97-110); CREATININE 0.7 mg/dL (0.6-1.0); GLOMERULAR FILTRATION RATE > 60; GLUCOSE 110 mg/dL (70-100); SODIUM 128 mEq/L (134-144)
[2017-02-23 14:29] LABS: INR 1.27 (0.83-1.16); PROTIME(PATIENT) 15.9 SEC (12.0-15.0)
--- NOTE | 2017-02-23 14:50 | CPEKG ---
Heart Rate: 85 RR Interval: 706 P-R Interval: 168 QRSD Interval: 88 QT Interval: 388 QTC Interval: 462 P Mantol[place]: 49 QRS Mantoloking: 35 T Wave Mantoloking: 22 EKG Severity - OTHERWISE NORMAL ECG - EKG Impression: SINUS RHYTHM EKG Impression: MINIMAL ST ELEVATION, ANTERIOR LEADS Electronically Signed By: Tiffanie Kirby 23-Feb-2017 21:04:13
[2017-02-23] MEDS ORDERED: AZITHROMYCIN IV 500 MG in D5W 250 ML IV ONE (15:55)
--- NOTE | 2017-02-23 18:21 | PDGENHP ---
History and Physical - Chief Complaint cough, SOB - History of Present Illness 81-year-old female with cough and hemoptysis over the last 2 days. She has a hx of Asthma but does not report any asthma exacerbation in years. She has valvular insufficiency, but no diagnosed CHF. She has not had a fever. She denies CP, palpitations, or leg swelling. She reports dyspnea on exertion. She denies orthopnea. She denies wheezing The patient was admitted 01/06/17 with chest pain related to her radiation induced esophagitis. She had a normal work up at that time and followed up with her room service manager, Dr. Tsang. He performed an EGD 01/17/17 and found an ulcer. Patient denies abdominal pain, dysuria, or bloody stool. CXR showed left sided and possibly right sided pneumonia. There was no leukocytosis. She was started on Rocephin and Azithromycin. Past Medical History: Asthma, Hypertension, Mitral valve stenosis, Lymphoma in remission, Breast cancer s/p radiation therapy, Radiation induced esophagitis. Valvular insufficiency Past Surgical History: Cardiac catheterization 2010, Lumpectomy, Mastectomy Family History: Noncontributory. Social History: Nonsmoker. No alcohol. History Information - Allergies/Home Medication List Allergies/Adverse Reactions: Iodine and Iodide Containing Produc Allergy (Severe, Verified 01/06/17 18:58) Swelling/neck,face,throat methadone Allergy (Mild, Verified 09/07/16 10:44) GI upset oxycodone HCl [From OxyContin] Allergy (Mild, Verified 09/07/16 10:44) GI upset topiramate Allergy (Mild, Verified 09/07/16 10:44) Other-Enter Comments BRITNEY Inhibitors Allergy (Verified 09/07/16 10:37) Other-Enter Comments amitriptyline Allergy (Verified 09/07/16 10:37) Other-Enter Comments moxifloxacin HCl [From Avelox] Allergy (Verified 09/07/16 10:37) Vomiting IODINE DYE Allergy (Severe, Uncoded 09/07/16 10:44) Swelling/neck,face,throat all narcotics Allergy (Uncoded 01/01/15 14:54) "I don't do well with them" Home Medications: Albuterol [Proventil Inhaler HFA (*)] 1 - 2 puffs IH Q4H PRN 01/06/17 [Last Taken 02/23/17] Atorvastatin Calcium [Lipitor 10 mg (*)] 10 mg PO DAILY 01/06/17 [Last Taken ] Beclomethasone Qvar 80 [Qvar 80 (*)] 1 puffs IH BIDI 01/06/17 [Last Taken ] Cholecalciferol Vit D3 [Vitamin D3 (*)] 2,000 units PO DAILY 01/06/17 [Last Taken 4 Days Ago] DILTIAZEM HCL [DILTIAZEM 24HR ER] 180 mg PO HS 01/06/17 [Last Taken 02/22/17] Gabapentin [Neurontin 300 MG (*)] 600 mg PO HS PRN 01/06/17 [Last Taken 02/22/17 ] Herbals/Supplements -Info Only 1 ea PO DAILY 01/06/17 [Last Taken 4 Days Ago] Levothyroxine [Synthroid 75 mcg (*)] 75 mcg PO DAILY06 01/06/17 [Last Taken ] Ranitidine HCl 300 mg PO HS 01/06/17 [Last Taken 02/22/17] Zolpidem Tartrate [Ambien 5MG (*)] 5 mg PO HS PRN 01/06/17 [Last Taken 02/22/17] Multivitamins [Multivitamin (*)] 1 each PO DAILY 02/23/17 [Last Taken 4 Days Ago ] Omeprazole [Prilosec 20 mg] 20 mg PO DAILY 02/23/17 [Last Taken 02/23/17] Raloxifene HCl [Evista 60mg (RX)] 60 mg PO DAILY 02/23/17 [Last Taken 4 Days Ago ] I have personally reviewed and updated: family history, medical history, social history - Past Medical History Additional medical history: Mild to moderate mitral valve stenosis, moderate to severe mitral regurgitation. Pulmonary hypertension. Lymphoma in remission. Asthma/ COPD. Breast cancer status post radiation therapy. Radiation induced esophagitis - Surgical History Additional surgical history: mastectomy. Bilateral total knee replacement. Cardiac catheterization 2010 - Family History Additional family history: no recent sick family contacts, many first-degree relatives with coronary artery disease all after age 65 - Social History Smoking Status: Never smoked Additional social history: independent in her ADLs comma get shortness of breath with ambulating stairs Review of Systems ROS: 10pt was reviewed & negative except for what was stated in HPI & below Physical Exam Temp Pulse Resp BP Pulse Ox 36.6 C 73 16 129/56 H 92 02/23/17 16:55 02/23/17 16:55 02/23/17 16:55 02/23/17 16:55 02/23/17 16:55 O2 (L/minute) 2 Constitutional: no apparent distress, appears nourished, not in pain Eyes: PERRL, EOMI Ears, Nose, Mouth, Throat: moist mucous membranes, hearing normal, ears appear normal, No dry mucous membranes Cardiovascular: regular rate and rhythym, systolic murmur, edema (trace LE edema ), No JVD Respiratory: reduced air movement, rhonchi, No expiratory wheeze Gastrointestinal: normoactive bowel sounds, soft, non-tender abdomen Skin: warm, normal color Neurologic: AAOx3, sensation intact bilaterally Psychiatric: interacting appropriately, not anxious, not encephalopathic, thought process linear Lab Data & Imaging Review 02/23/17 14:02 02/23/17 14:02 WBC 8.49 10^3/uL (3.80-9.50) 02/23/17 14:02 RBC 3.93 10^6/uL (4.18-5.33) L 02/23/17 14:02 Hgb 12.2 g/dL (12.6-16.3) L 02/23/17 14:02 Hct 35.7 % (38.0-47.0) L 02/23/17 14:02 MCV 90.8 fL (81.5-99.8) 02/23/17 14:02 MCH 31.0 pg (27.9-34.1) 02/23/17 14:02 MCHC 34.2 g/dL (32.4-36.7) 02/23/17 14:02 RDW 13.2 % (11.5-15.2) 02/23/17 14:02 Plt Count 199 10^3/uL (150-400) 02/23/17 14:02 MPV 9.5 fL (8.7-11.7) 02/23/17 14:02 Neut % (Auto) 86.2 % (39.3-74.2) H 02/23/17 14:02 Lymph % (Auto) 6.8 % (15.0-45.0) L 02/23/17 14:02 [place] % (Auto) 6.1 % (4.5-13.0) 02/23/17 14:02 Eos % (Auto) 0.0 % (0.6-7.6) L 02/23/17 14:02 Baso % (Auto) 0.5 % (0.3-1.7) 02/23/17 14:02 Nucleat RBC Rel Count 0.0 % (0.0-0.2) 02/23/17 14:02 Absolute Neuts (auto) 7.32 10^3/uL (1.70-6.50) H 02/23/17 14:02 Absolute Lymphs (auto) 0.58 10^3/uL (1.00-3.00) L 02/23/17 14:02 Absolute Monos (auto) 0.52 10^3/uL (0.30-0.80) 02/23/17 14:02 Absolute Eos (auto) 0.00 10^3/uL (0.03-0.40) L 02/23/17 14:02 Absolute Basos (auto) 0.04 10^3/uL (0.02-0.10) 02/23/17 14:02 Absolute Nucleated RBC 0.00 10^3/uL (0-0.01) 02/23/17 14:02 Immature Gran % 0.4 % (0.0-1.1) 02/23/17 14:02 Immature Gran # 0.03 10^3/uL (0.00-0.10) 02/23/17 14:02 PT 15.9 SEC (12.0-15.0) H 02/23/17 14:02 INR 1.27 (0.83-1.16) H 02/23/17 14:02 APTT 29.0 SEC (23.0-38.0) 02/23/17 14:02 Sodium 128 mEq/L (134-144) L 02/23/17 14:02 Potassium 4.0 mEq/L (3.5-5.2) 02/23/17 14:02 Chloride 96 mEq/L (97-110) L 02/23/17 14:02 Carbon Dioxide 23 mEq/l (22-31) 02/23/17 14:02 Anion Gap 9 mEq/L (8-16) 02/23/17 14:02 BUN 19 mg/dL (7-23) 02/23/17 14:02 Creatinine 0.7 mg/dL (0.6-1.0) 02/23/17 14:02 Estimated GFR > 60 02/23/17 14:02 Glucose 110 mg/dL (70-100) H 02/23/17 14:02 Calcium 8.7 mg/dL (8.5-10.4) 02/23/17 14:02 Assessment & Plan Assessment: #? Pneumonia vs other process related to vascular insufficiency #Cough #Hyponatremia, acute to subacute #Weakness and Deconditioning Plan: Admit Rocephin and Azithromycin were started earlier today and I will not continue them yet until further w/u is sent. She does not report pedal edema but has trace edema. She has wet cough. No Leukocytosis or fever. Given her Hyponatremia and her pulm/CV presentation, I suspect that she may have volume overload possibly CHF from her valvular insufficiency. I will do a trial of Lasix 20mg IV x 1. She does not have any active wheezing. Will check a procalcitonin and BNP. PC should be able to guide need for ongoing abx in a pt that may have another reason for her symptoms. check TTE If Na does not respond and volume status becomes euvolemic, then consider obtaining urine studies Cont appropriate meds DVT proph Full code (confirmed today)
[2017-02-23] MEDS ORDERED: ALBUTEROL 3 ML DEYVIAL IH PRN (18:28)
[2017-02-23] MEDS ORDERED: FUROSEMIDE 20 MG/2 ML VIAL IVP ONE (18:28)
[2017-02-23] MEDS ORDERED: ONDANSETRON DISINTEGRATING 4 MG TAB PO PRN (18:28)
[2017-02-23] MEDS ORDERED: ACETAMINOPHEN 325 MG TAB PO PRN (18:28)
[2017-02-23] MEDS ORDERED: ONDANSETRON 4 MG/2 ML VIAL IVP PRN (18:28)
[2017-02-23 19:59] LABS: PROCALCITONIN 0.52 ng/mL (0.02-0.10)
[2017-02-23] MEDS: BECLOMETHASONE QVAR 80 MDI IH SCH (20:01)
[2017-02-23] MEDS: GABAPENTIN 300 MG CAP PO PRN (20:53)
[2017-02-23] MEDS: ZOLPIDEM TARTRATE 5 MG TAB PO PRN (20:53)
[2017-02-23] MEDS: DILTIAZEM CD 180 MG CAP PO SCH (20:53)
[2017-02-23] MEDS: ACETAMINOPHEN 650 MG/20.3 ML UDCUP PO PRN (20:54)
[2017-02-23] MEDS: RANITIDINE HCL 300 MG PO SCH (20:56)
[2017-02-24] MEDS: LEVOTHYROXINE 75 MCG TAB PO SCH (05:00)
[2017-02-24 05:46] LABS: % IMMATURE GRANULYOCYTES 0.6 % (0.0-1.1); ABSOLUTE IMMATURE GRANULOCYTES 0.04 10^3/uL (0.00-0.10); ADD DIFF? NO; ADD MORPH? NO; ADD SCAN? NO; ATYPICAL LYMPHOCYTE FLAG 0 (0-99); FRAGMENT RBC FLAG 0 (0-99); HEMATOCRIT 31.2 % (38.0-47.0); HEMOGLOBIN 10.5 g/dL (12.6-16.3); LEFT SHIFT FLG 40 (0-99); LIPEMIA HEMOLYSIS FLAG 80 (0-99); MEAN CELL HEMOGLOBIN 31.1 pg (27.9-34.1); MEAN CELL HEMOGLOBIN CONCENTR. 33.7 g/dL (32.4-36.7); MEAN CELL VOLUME 92.3 fL (81.5-99.8); MEAN PLATELET VOLUME 9.8 fL (8.7-11.7); PLATELET CLUMPS FLAG 0 (0-99); PLATELET COUNT 155 10^3/uL (150-400); RED BLOOD CELL COUNT 3.38 10^6/uL (4.18-5.33); RED CELL DISTRIBUTION WIDTH 13.2 % (11.5-15.2)
[2017-02-24 06:06] LABS: ANION GAP 7 mEq/L (8-16); CALCIUM 7.9 mg/dL (8.5-10.4); CARBON DIOXIDE 25 mEq/l (22-31); CHLORIDE 98 mEq/L (97-110); CREATININE 0.7 mg/dL (0.6-1.0); GLOMERULAR FILTRATION RATE > 60; GLUCOSE 89 mg/dL (70-100); SODIUM 130 mEq/L (134-144)
[2017-02-24] MEDS: ENOXAPARIN 40 MG/0.4 ML SYR SC SCH (08:09)
[2017-02-24] MEDS: MULTIVITAMINS 1 EACH TAB PO SCH (08:10)
[2017-02-24] MEDS: PANTOPRAZOLE SODIUM 40 MG TAB PO SCH (08:10)
[2017-02-24] MEDS: RALOXIFENE HCL 60 MG TAB PO SCH (08:10)
[2017-02-24] MEDS: CHOLECALCIFEROL VIT D3 2,000 UNITS TAB/CAP PO SCH (08:10)
[2017-02-24] MEDS: ATORVASTATIN CALCIUM 10 MG TAB PO SCH (08:10)
[2017-02-24] MEDS: BECLOMETHASONE QVAR 80 MDI IH SCH ×2 (08:13→21:58)
[2017-02-24] MEDS ORDERED: Herbals/Supplements -Info Only PO SCH (09:00)
--- NOTE | 2017-02-24 15:47 | HOSPPROG ---
Hospitalist Progress Note Assessment/Plan: * Hemoptysis/cough/SOB -pneumonia vs. mitral stenosis vs. PE -CT chest most c/w pneumonia -PE less likely and IV contrast allergy - hold off on V/Q * Pneumonia -Ceftriaxone, azithro * Severe MS with severe pulm HTN -question contribution of MS to hemoptysis -consult cardiology - d/w [place] * Breast Ca s/p bilateral mastectomy * Lymphoma - in remission * Radiation induces esophagitis/ulcer Subjective: Feeling better Objective: Vital Signs Temp Pulse Resp BP Pulse Ox 36.6 C 80 16 132/59 H 99 02/24/17 12:01 02/24/17 12:01 02/24/17 12:01 02/24/17 12:01 02/24/17 12:01 Microbiology 02/23/17 20:00 - Final Unspecified Laboratory Results 02/24/17 05:15 02/24/17 05:15 02/23/17 02/24/17 02/25/17 05:59 05:59 05:59 Intake Total 1205 Output Total 1000 Balance 205 PT 15.9 SEC (12.0-15.0) H 02/23/17 14:02 INR 1.27 (0.83-1.16) H 02/23/17 14:02 CT chest - most c/w PNA - Physical Exam Constitutional: no apparent distress, appears nourished, not in pain Cardiovascular: regular rate and rhythym, no murmur, rub, or gallop Respiratory: no respiratory distress, no rales or rhonchi, clear to auscultation Gastrointestinal: normoactive bowel sounds, soft, non-tender abdomen, no palpable masses Skin: no rashes or abrasions, no fluctuance, no induration Neurologic: AAOx3, sensation intact bilaterally Psychiatric: interacting appropriately, not anxious, not encephalopathic, thought process linear ICD10 Worksheet Patient Problems: Problems Problem Status Onset Pneumonia Acute Chest pain Acute Chronic sinus infection Acute GERD with esophagitis Acute
[2017-02-24] MEDS: AZITHROMYCIN 250 MG TAB PO SCH (16:05)
--- NOTE | 2017-02-24 17:51 | GCON ---
[f rep st] CONSULTATION CARDIOLOGY CONSULTATION DATE OF CONSULTATION: 02/24/2017 INDICATIONS: Valvular heart disease, current admission with pneumonia. HISTORY OF PRESENT ILLNESS: The patient is 81 years old. She is typically followed as an outpatien t by Dr. Pankaj Encinas. Her cardiovascular history is significant for known rheumatic heart disease. She has known moderate to severe mitral stenosis, which has been followed now for number of years da ting back to 2010, at which point it was discovered. She has never had a history of atrial fibrilla tion. She has no history of coronary artery disease. She is currently admitted with left-sided pne umonia involving the lingula and left lower lobe. She states that she has had problems with mild exertional dyspnea now for several months. She notic es this mostly when she is going up and down the stairs. She has no resting symptoms and denies ort hopnea, PND, and edema. She does have reactive airway disease. Over the last 2 days, she has felt significantly worse. She has had worsening shortness of breath associated with cough productive of brownish-reddish sputum. She has also felt extremely fatigued and spent most of the day yesterday i n bed. Because of severe weakness and the above symptoms, she came to the emergency department here . On arrival here, she was hemodynamically stable. Room air saturations were 91%. She was afebril e here, although did note a temperature up to almost 100 degrees at home. Her initial chest x-ray d emonstrated a fairly dense consolidation of the left lingula and left lower lobe and suggestion of r ight lower lobe infiltrate. Subsequently, she was started on antibiotics to include azithromycin. She states that she feels a little bit better today. She has never had difficulties with pneumonia in the past. She denies anginal quality chest discomfort. She notes that she has not had significa nt palpitations, dizziness, or lightheadedness. She was seen by Dr. Encinas fairly recently. An echocardiogram was performed on February 09. This demo nstrated a normal ejection fraction of 60% to 65% with pseudonormalized mitral inflows and normal wa ll motion. There was evidence of moderate aortic stenosis with a mean transaortic pressure gradient in the 20s. There was severe mitral stenosis with a mean gradient of 11 and a calculated mitral va lve area 1.8 sq cm. Additionally, she had moderate to severe tricuspid regurgitation and severely e levated estimated right ventricular systolic pressures at 70-75 mmHg. PAST MEDICAL HISTORY: 1. Rheumatic heart disease as described above. It should be noted that her valvular heart disease dates back to 2010. At that time, she underwent a transesophageal echocardiogram indicating mild rh eumatic mitral stenosis and moderate to severe mitral and tricuspid insufficiency with a normal ejec tion fraction. Cardiac catheterization done during that same time frame indicated a mean transmitra l pressure gradient of 9 mmHg consistent with moderate mitral stenosis. Coronary angiography did no t indicate any significant coronary artery disease. Her mean pulmonary artery pressure was 28 mmHg with a peak pulmonary artery pressure of 40 and a pulmonary capillary wedge pressure of 18 mmHg. 2. History of reactive airway disease. 3. Hypertension. 4. Hypothyroidism. 5. History of esophagitis. 6. History of breast cancer. This was initially diagnosed in the . Apparently, she had a lumpe ctomy and XRT done. She has never had chemotherapy. Subsequently in the to early , she had a bilateral mastectomy done due to recurrent malignancy. 7. History of lymphoma, status post chemotherapy, currently in remission. PAST SURGICAL HISTORY: She has had bilateral total knee arthroplasties. Apparently, she has multip le redo operations on her right knee. Additionally, she has had bilateral mastectomies. ALLERGIES: To iodine. SOCIAL HISTORY: She is and accompanied by her . Apparently, they work very part-luis e currently. She is a nonsmoker, uses alcohol rarely. She used to exercise, however, currently ruvalcaba s not exercise as she is limited by knee pain. CURRENT MEDICATIONS: These are detailed on the chart and not repeated here. FAMILY HISTORY: At this point is noncontributory. REVIEW OF SYSTEMS: A full 10-point review of systems was performed and is otherwise negative. PHYSICAL EXAMINATION: VITAL SIGNS: Blood pressure of 132/59 with a mean of 83, heart rate is 80, O 2 saturations are 99% on 2 L nasal cannula oxygen, 91% on room air. GENERAL: She is a very thin wh ite female, in no acute distress. Her current weight is 62.5 kg. HEENT: Normocephalic, atraumatic . She has anicteric sclerae. Pharynx unremarkable. Carotids 2+ bilaterally with no bruits. She h as no jugular venous distention. RESPIRATORY: She speaks in full sentences. She is breathing easi ly. On auscultation, she has clear lung parker bilaterally. CARDIAC: Precordial inspection is rem arkable for residual changes from her bilateral mastectomy. On auscultation, she has a regular rate and rhythm with a 2/6 mid peaking systolic ejection murmur at the right upper sternal border and a 2/6 holosystolic murmur at the left lower sternal border. No 3rd or 4th heart sounds are noted. Fr equent ectopy is appreciated. ABDOMEN: Soft, nontender, without masses. EXTREMITIES: Well perfus ed with no lower extremity edema. VASCULATURE: She has 2+ radial, dorsal pedal, and posterior tibi al pulses with nonpalpable aorta. DATABASE: Her electrocardiogram demonstrates normal sinus rhythm without significant ST or T change s. Heart rate is 85 beats per minute. Her chest x-ray demonstrates a dense infiltrate in the left lingula and left lower lobe and possibly in the right lower lobe. She had a chest CT scan done afte r I interviewed her. This demonstrates multilobular broncho pneumonia, worse on the left than the r ight. There is no indication of congestive heart failure. She has a large hiatal hernia. White bl ood cell count 6.25, hematocrit 31.2 (on arrival 35.7), platelet count is 155,000. INR is 1.27. Ch emistry indicates sodium 140, potassium 4.0, BUN 16, creatinine 0.7, and terminal proBNP 3630. Proc alcitonin 0.52. IMPRESSION: The patient is a pleasant 81-year-old female currently admitted with left-sided communi ty-acquired pneumonia involving predominantly the lingula and left lower lobe pneumonia. She presen ts initially with cough and hemoptysis. She appears to be responding to appropriate antibiotic ther apy. She does have significant valvular heart disease characterized by severe mitral stenosis, mode rate to severe aortic stenosis, moderate mitral regurgitation, and moderate to severe tricuspid regu rgitation. This appears to be complicated by significant elevations in her estimated right ventricu lar systolic pressure now at 70 mmHg. Despite this, there is no clear indication of overt congestiv e heart failure at the present time. She does have a history of dyspnea in the months leading up to this current presentation. Previous echocardiogram, echocardiography in the distant past, and righ t heart catheterization demonstrated only mild to moderate pulmonary hypertension, which has clearly worsened recently. Additionally, she has multiple other comorbidities, which include her history o f breast cancer with recurrence treated with radiation therapy and surgery and history of lymphoma t reated with chemotherapy, as well as primary pulmonary disease. Additionally, she appears to be cayden y frail. RECOMMENDATIONS: 1. I will defer to her primary team regarding treatment of her bronchopneumonia. She appears to be responding. 2. Once she is discharged from the hospital, I have encouraged her to follow up with Dr. Pankaj Encinas for ongoing management of her valvular heart disease. 3. I explained to her and her family that based on her echocardiogram there is a high likelihood th at her valvular heart disease has progressed over the last several years now to the point when one w ould consider surgical intervention in light of her developing pulmonary hypertension and tricuspid regurgitation. I also stated to them that at the present time it is not clear to me whether or not she is truly a candidate for this type of operation given her overall health, frail stature, and hiren or chest wall surgery and radiation. 4. During this hospitalization, I do not think she needs any escalation of care, particularly chio f[place]on at her cardiovascular disease. Thank you for this consultation. /[id number]/MODL
[2017-02-24] MEDS: DILTIAZEM CD 180 MG CAP PO SCH (22:03)
[2017-02-24] MEDS: ZOLPIDEM TARTRATE 5 MG TAB PO PRN (22:08)
[2017-02-24] MEDS: ACETAMINOPHEN 650 MG/20.3 ML UDCUP PO PRN (22:09)
[2017-02-24] MEDS: GABAPENTIN 300 MG CAP PO PRN (23:01)
[2017-02-25 05:16] LABS: % IMMATURE GRANULYOCYTES 0.4 % (0.0-1.1); ABSOLUTE IMMATURE GRANULOCYTES 0.02 10^3/uL (0.00-0.10); ADD DIFF? NO; ADD MORPH? NO; ADD SCAN? NO; ATYPICAL LYMPHOCYTE FLAG 0 (0-99); FRAGMENT RBC FLAG 0 (0-99); HEMATOCRIT 31.2 % (38.0-47.0); HEMOGLOBIN 10.4 g/dL (12.6-16.3); LEFT SHIFT FLG 0 (0-99); LIPEMIA HEMOLYSIS FLAG 80 (0-99); MEAN CELL HEMOGLOBIN CONCENTR. 33.3 g/dL (32.4-36.7); MEAN CELL VOLUME 93.1 fL (81.5-99.8); PLATELET CLUMPS FLAG 0 (0-99); PLATELET COUNT 170 10^3/uL (150-400); RED BLOOD CELL COUNT 3.35 10^6/uL (4.18-5.33); RED CELL DISTRIBUTION WIDTH 13.2 % (11.5-15.2)
[2017-02-25] MEDS: RANITIDINE HCL 300 MG PO SCH (05:23)
[2017-02-25 05:37] LABS: ANION GAP 7 mEq/L (8-16); CALCIUM 8.4 mg/dL (8.5-10.4); CARBON DIOXIDE 26 mEq/l (22-31); CHLORIDE 101 mEq/L (97-110); CREATININE 0.6 mg/dL (0.6-1.0); GLOMERULAR FILTRATION RATE > 60; GLUCOSE 85 mg/dL (70-100); POTASSIUM 3.6 mEq/L (3.5-5.2); SODIUM 134 mEq/L (134-144)
[2017-02-25] MEDS: LEVOTHYROXINE 75 MCG TAB PO SCH (06:58)
[2017-02-25] MEDS: BECLOMETHASONE QVAR 80 MDI IH SCH (09:00)
[2017-02-25 09:02] VITALS: TEMP 97.4
[2017-02-25 09:07] VITALS: RESP 16; O2SAT 95
[2017-02-25] MEDS: ENOXAPARIN 40 MG/0.4 ML SYR SC SCH (09:38)
[2017-02-25] MEDS: ATORVASTATIN CALCIUM 10 MG TAB PO SCH (09:39)
[2017-02-25] MEDS: AZITHROMYCIN 250 MG TAB PO SCH (09:39)
[2017-02-25] MEDS: PANTOPRAZOLE SODIUM 40 MG TAB PO SCH (09:40)
[2017-02-25] MEDS: MULTIVITAMINS 1 EACH TAB PO SCH (09:40)
[2017-02-25] MEDS: RALOXIFENE HCL 60 MG TAB PO SCH (09:42)
[2017-02-25] MEDS: CHOLECALCIFEROL VIT D3 2,000 UNITS TAB/CAP PO SCH (09:42)
--- NOTE | 2017-02-25 10:44 | SOAPPROG ---
SOAP Progress Note Assessment/Plan: Assessment: Mrs. Park is an 81-year-old female admitted with left lingular and lower lobe community-acquired pneumonia. She has extensive and severe valvular heart disease as noted on her echocardiogram. Based on review of serial echocardiograms appears that her valvular heart disease has progressed now to the point where she has developed pulmonary hypertension. Certainly, this would generally indicate the need for surgical management of her valvular heart disease. At a minimum, it looks as if she would require a mitral valve replacement, aortic valve replacement and tricuspid valve repair. The status of her coronary arteries is not entirely clear. Additionally, she does have multiple comorbidities and certainly is a little on the frail side. Therefore, having only known her for less than 1 day, I am not sure that she is a candidate for this type of cardiovascular surgery. This was discussed with her at length today. I suggested to her that her cardiovascular and pulmonary status needs more investigation and consideration could be given to performance of a right left heart catheterization, erick and full PFTs to help make this decision. Fortunately, her valvular heart disease appears to be stable and really is not contributing to her current hospitalization. She also appears to be recovering nicely from her pneumonia. Recommendations: 1. I will defer to her primary team regarding management of her pneumonia however she does appear that she might be at a point now where 1 could consider hospital discharge. 2. I did talk to her primary vegetable tester Dr. Pankaj Encinas regarding my thoughts. He will follow up with her as an outpatient her and may consider further diagnostic testing. 3. At the present time I do not think she requires any additional medical therapy tailored her valvular heart disease. 02/25/17 10:41 Subjective: She appears to be doing very well today. She is on room air at the present time. She notes that her cough has improved. She has not experienced any chest discomfort. Objective: Vital Signs Temp Pulse Resp BP Pulse Ox 36.3 C 83 16 111/69 95 02/25/17 07:25 02/25/17 09:05 02/25/17 09:05 02/25/17 07:25 02/25/17 09:05 Laboratory Results 02/25/17 03:52 02/25/17 03:52 02/24/17 02/25/17 02/26/17 05:59 05:59 05:59 Intake Total 450 Balance 450 PT 15.9 SEC (12.0-15.0) H 02/23/17 14:02 INR 1.27 (0.83-1.16) H 02/23/17 14:02 Physical Exam - Physical Exam General Appearance: WD/WN, no apparent distress Respiratory: lungs clear Cardiac/Chest: regular rate, rhythm, systolic murmur (2/6 systolic ejection murmur) Peripheral Pulses: 2+: carotid (R), carotid (L) ICD10 Worksheet Patient Problems: Problems Problem Status Onset Pneumonia Acute Chest pain Acute Chronic sinus infection Acute GERD with esophagitis Acute
[2017-02-25 11:47] VITALS: BP 141/68; PULSE 72
--- NOTE | 2017-02-25 15:59 | GDS ---
[f rep st] DISCHARGE SUMMARY DISCHARGE DIAGNOSES: 1. Community-acquired pneumonia. 2. Severe mitral stenosis. 3. Moderate to severe aortic stenosis. 4. Rheumatic heart disease. 5. Severe pulmonary hypertension. 6. Breast cancer, status post bilateral mastectomy. 7. Radiation induced esophagitis. 8. Lymphoma. HISTORY: The patient is an 81-year-old female with a history rheumatic fever as a child. She had k nown multivalvular disease for many years, but this has recently progressed quite dramatically, and she now has severe mitral stenosis and moderate to severe aortic stenosis. She follows with Dr. Melissa gordon. Her most recent echo also showed development of significant pulmonary hypertension. At this poi nt she does have indications for valve replacement surgery, which would be a mitral and aortic valve replacement and a tricuspid valve repair. She presents to the hospital with hemoptysis, cough and shortness of breath. Upon presentation, the hospital differential diagnosis includes pneumonia versus hemoptysis due to h er mitral stenosis. She had some antibiotics and a dose of IV Lasix. A subsequent CT chest really looked more consistent with bronchopneumonia. Cardiology was consulted, and they reviewed her most recent echocardiograms. It is clear consideration for valve surgery is indicated, however they do n ot believe it is contributing to her acute hospitalization, and this is all mostly pneumonia. She r eceived ceftriaxone, IV azithromycin, and transitioned to oral antibiotics at discharge. Feeling mu ch better. Cough is improved with less blood. Doing a triple valve surgery on her does require a careful consideration of risks versus benefits. She is elderly, somewhat frail, and has a history of radiation to her chest, which would all be sign ificant comorbidities. Since there are no acute issues with the valvular disease, Dr. Umaña spoke w ith Dr. Encinas. The patient will discharge and follow up with him as an outpatient to have ongoing di scussions of risks/benefit ratio and whether or not to pursue valve surgery. DISCHARGE MEDICATIONS: Please see computer record for full detailed list. NEW MEDICATIONS: 1. Ceftin 500 mg p.o. twice daily x5 days. 2. Azithromycin 500 mg p.o. daily for 5 days. DISCHARGE INSTRUCTIONS: Follow up with Dr. Encinas, Cardiology, at [facility] to discuss r isks, benefits, calculation regarding indicated valve surgery. Greater than 30 minutes' of time was spent arranging this discharge. The patient was seen and exami gricel by me on the day of discharge. /[id number]/MODL
== END 2017-02-25 13:00 | disposition home or self-care (01) | DRG 194 ==
LOC: INTOOBSV 15:34 → F1N 16:33 → OBSVTOIN 02-24 12:50 → F2W 02-24 15:55
PROVIDERS: ADMIT Family Medicine; ATTEND Family Medicine
DX: J18.9 Pneumonia, unspecified organism (principal); E87.1 Hypo-osmolality and hyponatremia; I05.0 Rheumatic mitral stenosis; J45.909 Unspecified asthma, uncomplicated; I10 Essential (primary) hypertension; J44.9 Chronic obstructive pulmonary disease, unspecified; E78.5 Hyperlipidemia, unspecified; E03.9 Hypothyroidism, unspecified; I27.2 Other secondary pulmonary hypertension; Z96.653 Presence of artificial knee joint, bilateral; Z85.3 Personal history of malignant neoplasm of breast; Z90.13 Acquired absence of bilateral breasts and nipples; Z85.72 Personal history of non-Hodgkin lymphomas
CPT/HCPCS: 96365; 96366; G0378; J0456; J0696; J1650; J1940

== ENCOUNTER → 2017-03-14 | Outpatient (CLI) | payer OTHER | LOC: BMCIMAGING 10:39 | PROVIDERS: ATTEND Internal Medicine | DX: R05 Cough (principal); R91.8 Other nonspecific abnormal finding of lung field ==

== ENCOUNTER 2017-03-23 09:40 | Day surgery (SDC) | payer OTHER ==
[2017-03-23] MEDS ORDERED: BENZOCAINE UNIT DOSE SPRAY HURRICAINE MM ONE (09:51)
[2017-03-23] MEDS ORDERED: NS 500 ML IV ONE (09:51)
--- NOTE | 2017-03-23 11:10 | PDANEPAE ---
ANE History of Present Illness here for BETH. Severe MS. Mild . pulm HTN ANE Past Medical History - Cardiovascular History Hx Hypertension: No Hx Arrhythmias: Yes Hx Chest Pain: No Hx Coronary Artery / Peripheral Vascular Disease: Yes Hx CHF / Valvular Disease: Yes Hx Palpitations: No Cardiovascular History Comment: cad. pvd. rheumatic heart disease. hyperlipidemia. tricupsid regurgitation. aortic stenosis. mitral stenosis. mitral regurgitation - Pulmonary History Hx COPD: No Hx Asthma/Reactive Airway Disease: Yes Hx Recent Upper Respiratory Infection: No Hx Oxygen in Use at Home: No Hx Sleep Apnea: No Pulmonary History Comment: asthma uses inhalers- instructed her to bring to hospital - Neurologic History Hx Cerebrovascular Accident: No Hx Seizures: No Hx Dementia: No Neurologic History Comment: headaches/ migraines occ - Endocrine History Hx Diabetes: No Endocrine History Comment: hypothyroidism - Renal History Hx Renal Disorders: No - Liver History Hx Hepatic Disorders: No - Neurological & Psychiatric Hx Hx Neurological and Psychiatric Disorders: Yes Neurological / Psychiatric History Comment: insomnia - Cancer History Hx Cancer: Yes Cancer History Comment: breast cancer 06/2005. lumpectomy. radiation after lumpectomy. 4 weeks of chemo with lymphoma - Congenital Disorder History Hx Congenital Disorders: No - GI History Hx Gastrointestinal Disorders: Yes Gastrointestinal History Comment: reflux since radiation. constipation uses mg to stay regular - Other Health History Other Health History: none - Chronic Pain History Chronic Pain: Yes (bilateral knee pain) - Surgical History Prior Surgeries: bilateral mastectomy. bilateral total knee arthroplasty. 6 total knee surgeries. rita ANE Review of Systems Review of systems is: negative Review of Systems: - Exercise capacity Exercise capacity: <4 METS ANE Patient History - Allergies Allergies/Adverse Reactions: BRITNEY Inhibitors Allergy (Severe, Verified 02/25/17 08:25) Swelling/neck,face,throat Iodine and Iodide Containing Produc Allergy (Severe, Verified 01/06/17 18:58) Swelling/neck,face,throat methadone Allergy (Mild, Verified 09/07/16 10:44) GI upset oxycodone HCl [From OxyContin] Allergy (Mild, Verified 09/07/16 10:44) GI upset topiramate Allergy (Mild, Verified 09/07/16 10:44) Other-Enter Comments amitriptyline Allergy (Verified 09/07/16 10:37) Other-Enter Comments moxifloxacin HCl [From Avelox] Allergy (Verified 09/07/16 10:37) Vomiting all narcotics Allergy (Uncoded 01/01/15 14:54) "I don't do well with them" - Home Medications Home medications: home medication list seen and reviewed Home Medications: Albuterol [Proventil Inhaler HFA (*)] 1 - 2 puffs IH Q4H PRN 01/06/17 [Last Taken 1 Day Ago ~03/22/17] Atorvastatin Calcium [Lipitor 10 mg (*)] 10 mg PO DAILY 01/06/17 [Last Taken 1 Day Ago ~03/22/17] Beclomethasone Qvar 80 [Qvar 80 (*)] 1 puffs IH BIDI 01/06/17 [Last Taken ] Cholecalciferol Vit D3 [Vitamin D3 (*)] 2,000 units PO DAILY 01/06/17 [Last Taken 1 Day Ago ~03/22/17] DILTIAZEM HCL [DILTIAZEM 24HR ER] 180 mg PO HS 01/06/17 [Last Taken 1 Day Ago ~ 03/22/17] Gabapentin [Neurontin 300 MG (*)] 600 mg PO HS PRN 01/06/17 [Last Taken 1 Day Ago ~03/22/17] Herbals/Supplements -Info Only 1 ea PO DAILY 01/06/17 [Last Taken 1 Day Ago ~] Levothyroxine [Synthroid 75 mcg (*)] 75 mcg PO DAILY06 01/06/17 [Last Taken 1 Day Ago ~03/22/17] Ranitidine HCl 300 mg PO HS 01/06/17 [Last Taken 1 Day Ago ~03/22/17] Zolpidem Tartrate [Ambien 5MG (*)] 5 mg PO HS PRN 01/06/17 [Last Taken 02/22/17] Multivitamins [Multivitamin (*)] 1 each PO DAILY 02/23/17 [Last Taken 1 Day Ago ~03/22/17] Omeprazole [Prilosec 20 mg] 20 mg PO DAILY 02/23/17 [Last Taken 1 Day Ago ~03/22] Raloxifene HCl [Evista] 60 mg PO DAILY 02/23/17 [Last Taken 1 Day Ago ~03/22/17] - NPO status NPO Status: no food or drink >8 hours - Anes Hx Anes Hx: no prior problems - Smoking Hx Smoking Status: Never smoked - Family Anes Hx Family Hx Anesthesia Complications: none ANE Labs/Vital Signs - Vital Signs Height: 170.18 cm Weight: 61.235 kg ANE Physical Exam - Airway Neck exam: FROM Mallampati Score: Class 1 - Pulmonary Pulmonary: no respiratory distress - Cardiovascular Cardiovascular: regular rate and rhythym - ASA Status ASA Status: IV ANE Anesthesia Plan Anesthesia Plan: GA with mask
[2017-03-23] MEDS ORDERED: PROPOFOL 200 MG/20 ML VIAL ONE ×2 (11:12→11:52)
--- NOTE | 2017-03-23 12:29 | POSTANESTH ---
Post Anesthetic Evaluation Cardiovascular Status: Normal, Stable Respiratory Status: Normal, Stable Level of Consciousness/Mental Status: Can Participate in Eval Pain Control: Adequate, Prn Tx Ordered Nausea/Vomiting Control: Adequate, Prn Tx Ordered Complications Possibly Related to Anesthesia: None Noted
--- NOTE | 2017-03-23 13:38 | GPN ---
[f rep st] PROCEDURE NOTE DATE OF PROCEDURE: 03/23/2017 PROCEDURE PERFORMED: Transesophageal echocardiogram. INDICATION FOR PROCEDURE: Mitral stenosis and mitral regurgitation, with symptoms of dyspnea coupled with aortic and tricuspid valve disease. PROCEDURE IN DETAIL: After informed consent was obtained, the patient was brought to the cardiac vas cular procedure suite. The patient was consented for both BETH as well as anesthesia. Once consents were signed, a bite block was in place. Once an appropriate level of sedation was achieved, a BETH probe was passed without incident. Images were obtained of all cardiac structures. Please see complete 2D echocardiogram report for details. There was evidence of severe mitral stenosis with mean gradient of 13 mmHg and severe mitral regurgit ation. There was evidence of moderate aortic stenosis, severe tricuspid regurgitation and severe pul monary hypertension with RV systolic pressure of approximately 70 mmHg. The patient tolerated the procedure well. There were no postoperative complications. I reviewed the findings with the patient as well as her . PLAN: 1. The patient will see me back in the office next week on March 31, 2017. 2. The patient will consider multivalve surgery versus ongoing medical management. /[id number]/MODL
== END 2017-03-23 13:26 | disposition home or self-care (01) ==
LOC: FCATH 09:40
PROVIDERS: ATTEND Internal Medicine Cardiovascular Disease
PROC: B245ZZ4 Ultrasonography of Left Heart, Transesophageal (ICD-10-PCS; principal; 2017-03-23)
DX: I34.0 Nonrheumatic mitral (valve) insufficiency (principal); I07.1 Rheumatic tricuspid insufficiency; I27.2 Other secondary pulmonary hypertension; I25.10 Atherosclerotic heart disease of native coronary artery without angina pectoris; E78.5 Hyperlipidemia, unspecified; I73.9 Peripheral vascular disease, unspecified; I10 Essential (primary) hypertension; J45.909 Unspecified asthma, uncomplicated; Z85.3 Personal history of malignant neoplasm of breast; Z79.51 Long term (current) use of inhaled steroids; E03.9 Hypothyroidism, unspecified; Z92.3 Personal history of irradiation
CPT/HCPCS: J2704

== ENCOUNTER 2017-06-13 20:16 | Inpatient (IN) | payer OTHER ==
--- NOTE | 2017-06-13 20:26 | EDPHY ---
H & P Stated Complaint: CP/Nausea - flulike symptoms Time Seen by Provider: 06/13/17 20:25 - Personal History Current Tetanus/Diphtheria Vaccine: Yes Current Tetanus Diphtheria and Acellular Pertussis (TDAP): Yes Tetanus Vaccine Date: April 2017 - Medical/Surgical History Hx Asthma: Yes Hx Chronic Respiratory Disease: Yes Hx Diabetes: No Hx Cardiac Disease: No Hx Renal Disease: No Hx Cirrhosis: No Hx Alcoholism: No Hx HIV/AIDS: No Hx Splenectomy or Spleen Trauma: No Other PMH: BILAT MASECTOMY 2013,2005, KNEE SURGERY. 5 BOUTS OF CANCER,COPD, CHF , Mitral valve stenosis, HTN, Hyperlipidemia, ulcerated esophagus - Social History Smoking Status: Never smoked Constitutional: Initial Vital Signs Temperature (C) 37.0 C 06/13/17 20:19 Heart Rate 102 H 06/13/17 20:19 Respiratory Rate 18 06/13/17 20:19 Blood Pressure 176/93 H 06/13/17 20:19 O2 Sat (%) 95 06/13/17 20:19 O2 Delivery Mode Room Air Allergies/Adverse Reactions: BRITNEY Inhibitors Allergy (Severe, Verified 02/25/17 08:25) Swelling/neck,face,throat Iodine and Iodide Containing Produc Allergy (Severe, Verified 01/06/17 18:58) Swelling/neck,face,throat methadone Allergy (Mild, Verified 09/07/16 10:44) GI upset oxycodone HCl [From OxyContin] Allergy (Mild, Verified 09/07/16 10:44) GI upset topiramate Allergy (Mild, Verified 09/07/16 10:44) Other-Enter Comments amitriptyline Allergy (Verified 09/07/16 10:37) Other-Enter Comments moxifloxacin HCl [From Avelox] Allergy (Verified 09/07/16 10:37) Vomiting Opioids - Morphine Analogues Allergy (Verified 06/13/17 20:23) all narcotics Allergy (Uncoded 01/01/15 14:54) "I don't do well with them" Home Medications: Medication Instructions Recorded Albuterol [Proventil Inhaler HFA 1 - 2 puffs IH Q4H PRN 01/06/17 (*)] Atorvastatin Calcium [Lipitor 10 10 mg PO DAILY 01/06/17 mg (*)] Beclomethasone Qvar 80 [Qvar 80 1 puffs IH BIDI 01/06/17 (*)] Cholecalciferol Vit D3 [Vitamin D3 2,000 units PO DAILY 01/06/17 (*)] DILTIAZEM HCL [DILTIAZEM 24HR ER] 180 mg PO HS 01/06/17 Gabapentin [Neurontin 300 MG (*)] 600 mg PO HS PRN 01/06/17 Herbals/Supplements -Info Only 1 ea PO DAILY 01/06/17 Levothyroxine [Synthroid 75 mcg 75 mcg PO DAILY06 01/06/17 (*)] Ranitidine HCl 300 mg PO HS 01/06/17 Zolpidem Tartrate [Ambien 5MG (*)] 5 mg PO HS PRN 01/06/17 Multivitamins [Multivitamin (*)] 1 each PO DAILY 02/23/17 Omeprazole [Prilosec 20 mg] 20 mg PO DAILY 02/23/17 Raloxifene HCl [Evista] 60 mg PO DAILY 02/23/17 Cefuroxime Axetil [Ceftin (*)] 500 mg PO BID #20 tab 02/25/17 Medical Decision Making ED Course/Re-evaluation: CHIEF COMPLAINT: Nausea, diarrhea, esophagitis HISTORY OF PRESENT ILLNESS: The patient is an 81 y/o female with a history of rheumatic heart disease, valvular disease, hypertension, esophagitis, breast cancer, and lymphoma complaining of nausea and malaise onset today. She developed nausea around mid day and has been unable to eat anything since breakfast. She denies vomiting, but now has diarrhea and mild abdominal cramping during bowel movements. She also describes some upper abdominal pain extending along her esophagus that feels the same as her chronic esophagitis. She used Carafate at home without improvement. She denies dyspnea, lightheadedness, diaphoresis, fever. No history of CAD. REVIEW OF SYSTEMS: A 10 point review of systems was performed and is negative with the exception of the elements mentioned in the history of present illness. PHYSICAL EXAM: HR, BP, O2 Sat, RR. Temp noted General Appearance: Alert, well hydrated, appropriate, and non-toxic appearing. Head: Atraumatic without scalp tenderness or obvious injury Eyes: Pupils equal, round, reactive to light and accommodation, EOMI, no trauma , no injection. Nose: Atraumatic, no rhinorrhea, clear. Throat: There is no erythema or exudates, no lesions, normal tonsils, mucus membranes moist. Right-sided cheilosis. Neck: Supple, nontender, no lymphadenopathy. Respiratory: No retractions, no distress, no wheezes, and no accessory muscle use. Lungs are clear to auscultation bilaterally. Cardiovascular: Regular rate and rhythm, no murmurs, rubs, or gallops. Good capillary refill all extremities. Gastrointestinal: Abdomen is soft, mild diffuse tenderness, non-distended, no masses, no rebound, no guarding, no peritoneal signs. Musculoskeletal: Normal active ROM of all extremities, atraumatic. Neurological: Alert, appropriate, and interactive. The patient has non-focal cranial nerves, motor, sensory, and cerebellar exam. Skin: No rashes, good turgor, no nodules on palpation. Past medical history: Rheumatic heart disease, lymphoma, mitral and aortic valve disease, breast cancer, chronic radiation-induced esophagitis Past surgical history: Bilateral total knee replacements, TAVR 05/17/17 at [facility], bilateral mastectomy, hysterectomy, cholecystectomy Family history: noncontributory Social history: , at bedside. Nonsmoker. Rare-alcohol use. Prior medical records reviewed including admission 02/24/17 for pneumonia. DIAGNOSTICS/PROCEDURES/CRITICAL CARE TIME: The 12 lead EKG was interpreted by myself. Sinus rhythm, low voltage V1, V2, otherwise similar to prior EKG. See hard copy and/or "tracemaster" electronic copy for interpretation. DIFFERENTIAL DIAGNOSIS: The differential diagnosis for the patient's nausea included but was not limited to gastroenteritis, gastritis, appendicitis, and medication side effect. MEDICAL DECISION MAKING: This is an 81 y/o female with a history of rheumatic heart disease and chronic radiation-induced esophagitis who presents with a several-hour history of nausea and malaise. She has some associated esophageal pain. Her exam is unremarkable. Plan for IV, labs, EKG, and symptomatic management. GI cocktail, and 4mg IV Zofran administered. Reassessed patient and discussed work up. Her esophageal pain has resolved with GI cocktail. Patient's labs show: hyponatremia 120, hypokalemia 3.4, hypochloremia 84. She will require admission for repletion. She continues to have a normal neuro exam. Plan for slow drip of 1L IV NS with [address] Barboza accepts admission. - Data Points Laboratory Results: Laboratory Results 06/13/17 20:35 06/13/17 20:35 06/13/17 06/13/17 20:35 20:35 WBC 4.93 10^3/uL 10^3/uL (3.80-9.50) RBC 3.61 10^6/uL L 10^6/uL (4.18-5.33) Hgb 11.1 g/dL L g/dL (12.6-16.3) Hct 31.3 % L % (38.0-47.0) MCV 86.7 fL fL (81.5-99.8) MCH 30.7 pg pg (27.9-34.1) MCHC 35.5 g/dL g/dL (32.4-36.7) RDW 13.2 % % (11.5-15.2) Plt Count 156 10^3/uL 10^3/uL (150-400) MPV 9.1 fL fL (8.7-11.7) Neut % (Auto) 82.0 % H % (39.3-74.2) Lymph % (Auto) 8.3 % L % (15.0-45.0) Benzie % (Auto) 8.3 % % (4.5-13.0) Eos % (Auto) 0.6 % % (0.6-7.6) Baso % (Auto) 0.6 % % (0.3-1.7) Nucleat RBC Rel Count 0.0 % % (0.0-0.2) Absolute Neuts (auto) 4.04 10^3/uL 10^3/uL (1.70-6.50) Absolute Lymphs (auto) 0.41 10^3/uL L 10^3/uL (1.00-3.00) Absolute Monos (auto) 0.41 10^3/uL 10^3/uL (0.30-0.80) Absolute Eos (auto) 0.03 10^3/uL 10^3/uL (0.03-0.40) Absolute Basos (auto) 0.03 10^3/uL 10^3/uL (0.02-0.10) Absolute Nucleated RBC 0.00 10^3/uL 10^3/uL (0-0.01) Immature Gran % 0.2 % % (0.0-1.1) Immature Gran # 0.01 10^3/uL 10^3/uL (0.00-0.10) Sodium 120 mEq/L L mEq/L (134-144) Potassium 3.4 mEq/L L mEq/L (3.5-5.2) Chloride 84 mEq/L L mEq/L (97-110) Carbon Dioxide 28 mEq/l mEq/l (22-31) Anion Gap 8 mEq/L mEq/L (8-16) BUN 7 mg/dL mg/dL (7-23) Creatinine 0.5 mg/dL L mg/dL (0.6-1.0) Estimated GFR > 60 Glucose 116 mg/dL H mg/dL (70-100) Calcium 9.0 mg/dL mg/dL (8.5-10.4) Total Bilirubin 0.7 mg/dL mg/dL (0.1-1.4) Conjugated Bilirubin 0.2 mg/dL mg/dL (0.0-0.5) Unconjugated Bilirubin 0.5 mg/dL mg/dL (0.0-1.1) AST 52 IU/L H IU/L (14-46) ALT 53 IU/L H IU/L (9-52) Alkaline Phosphatase 87 IU/L IU/L (38-126) Total Protein 6.3 g/dL g/dL (6.3-8.2) Albumin 3.8 g/dL g/dL (3.5-5.0) Lipase 34 IU/L IU/L (23-300) Medications Given: Discontinued Medications Al Hydroxide/Mg Hydroxide (Maalox Susp) 30 ml PO ONCE ONE Stop: 06/13/17 20:38 Last Admin: 06/13/17 20:43 Dose: 30 ml Hyoscyamine Sulfate (Levsin, Hyomax-Sl) 0.25 mg PO ONCE ONE Stop: 06/13/17 20:38 Last Admin: 06/13/17 20:43 Dose: 0.25 mg Lidocaine (Lidocaine 2% Viscous) 15 ml PO ONCE ONE Stop: 06/13/17 20:38 Last Admin: 06/13/17 20:43 Dose: 15 ml Ondansetron HCl (Zofran) 4 mg IVP EDNOW ONE Stop: 06/13/17 20:49 Last Admin: 06/13/17 20:50 Dose: 4 mg Departure - Departure Disposition: [facility] Inpatient Acute Clinical Impression: Hyponatremia, Lethargy, Hypochloremia, Gastroenteritis, Hypokalemia, Nausea Diarrhea Qualifiers: Diarrhea type: unspecified type Qualified Code(s): R19.7 - Diarrhea, unspecified Condition: Fair Instructions: Gastroenteritis (ED), Acute Nausea and Vomiting (ED) Additional Instructions: 1. Take Zofran as prescribed when needed for nausea and vomiting. 2. Increase fluid intake. 3. Follow up with your primary care provider for unimproved symptoms over the next 2-3 days. 4. Return to the ED for worsening of condition. Referrals: Yany Berg MD [Primary Care Provider] - As per Instructions Report Scribed for: Darek Queen Report Scribed by: Dorys Wheat Date of Report: 06/13/17 Time of Report: 20:50
--- NOTE | 2017-06-13 20:31 | CPEKG ---
Heart Rate: 104 RR Interval: 577 P-R Interval: 172 QRSD Interval: 96 QT Interval: 360 QTC Interval: 474 P [place]: 56 QRS [place]: 48 T Wave [place]: 46 EKG Severity - OTHERWISE NORMAL ECG - EKG Impression: SINUS TACHYCARDIA Electronically Signed By: Darek Queen 13-Jun-2017 20:41:27
[2017-06-13] MEDS ORDERED: LIDOCAINE 2% VISCOUS 15 ML UDCUP PO ONE (20:37)
[2017-06-13] MEDS ORDERED: MAG HYDROX/AL HYDROX/SIMETH 30 ML UDCUP PO ONE (20:37)
[2017-06-13] MEDS ORDERED: HYOSCYAMINE SULFATE 0.125 MG TAB PO ONE (20:37)
[2017-06-13] MEDS ORDERED: ONDANSETRON 4 MG/2 ML VIAL ONE (20:39)
[2017-06-13 20:44] LABS: % IMMATURE GRANULYOCYTES 0.2 % (0.0-1.1); ABSOLUTE IMMATURE GRANULOCYTES 0.01 10^3/uL (0.00-0.10); ADD DIFF? NO; ADD MORPH? NO; ADD SCAN? NO; ATYPICAL LYMPHOCYTE FLAG 10 (0-99); FRAGMENT RBC FLAG 0 (0-99); HEMATOCRIT 31.3 % (38.0-47.0); HEMOGLOBIN 11.1 g/dL (12.6-16.3); LEFT SHIFT FLG 0 (0-99); LIPEMIA HEMOLYSIS FLAG 90 (0-99); MEAN CELL HEMOGLOBIN 30.7 pg (27.9-34.1); MEAN CELL HEMOGLOBIN CONCENTR. 35.5 g/dL (32.4-36.7); MEAN CELL VOLUME 86.7 fL (81.5-99.8); MEAN PLATELET VOLUME 9.1 fL (8.7-11.7); PLATELET CLUMPS FLAG 0 (0-99); PLATELET COUNT 156 10^3/uL (150-400); RED BLOOD CELL COUNT 3.61 10^6/uL (4.18-5.33); RED CELL DISTRIBUTION WIDTH 13.2 % (11.5-15.2)
[2017-06-13] MEDS ORDERED: ONDANSETRON 4 MG/2 ML VIAL IVP ONE (20:48)
[2017-06-13 20:58] LABS: ALANINE AMINOTRANSFERASE 53 IU/L (9-52); ALBUMIN 3.8 g/dL (3.5-5.0); ALKALINE PHOSPHATASE 87 IU/L (38-126); ANION GAP 8 mEq/L (8-16); ASPARTATE AMINOTRANSFERASE 52 IU/L (14-46); BILIRUBIN,TOTAL 0.7 mg/dL (0.1-1.4); BILIRUBIN-CONJUGATED 0.2 mg/dL (0.0-0.5); BILIRUBIN-UNCONJUGATED 0.5 mg/dL (0.0-1.1); CARBON DIOXIDE 28 mEq/l (22-31); CHLORIDE 84 mEq/L (97-110); CREATININE 0.5 mg/dL (0.6-1.0); GLOMERULAR FILTRATION RATE > 60; GLUCOSE 116 mg/dL (70-100); POTASSIUM 3.4 mEq/L (3.5-5.2); SODIUM 120 mEq/L (134-144); TOTAL PROTEIN 6.3 g/dL (6.3-8.2)
[2017-06-13] MEDS ORDERED: NS W/ 20 KCl/L 1,000 ML IV SCH (21:45)
[2017-06-13] MEDS ORDERED: POTASSIUM Cl (KCl) 100 ML IV ONE (22:18)
[2017-06-13] MEDS ORDERED: NS 1,000 ML IV SCH (22:30)
[2017-06-13] MEDS ORDERED: ONDANSETRON 4 MG/2 ML VIAL IVP PRN (22:34)
[2017-06-13] MEDS ORDERED: MBX SOLN 30 ML BOTTLE PO PRN (23:03)
[2017-06-13] MEDS: ACETAMINOPHEN 325 MG TAB PO PRN (23:29)
--- NOTE | 2017-06-14 00:37 | PDGENHP ---
History and Physical - Chief Complaint Chest pain - History of Present Illness 81 yo F w/ hx of esophagitis, s/p recent TAVR, rheumatic mitral stenosis, pHTN, HTN, hypothyroid and asthma presents with chest discomfort. Patient has a known history of esophagitis and feels this has been flaring up. She takes pantoprazole 20 mg BID for this. She tried sucralfate at home but had no relief so she came to the ED. In the ED her pain was relieved by a GI cocktail. Due to this pain she has been eating poorly. She also reports an episode of loose stools on day of admission. Of note, she started HCTZ in May after a recent TAVR. Serum sodium was 120 when checked in the ED so she was admitted for management of this.l History Information - Allergies/Home Medication List Allergies/Adverse Reactions: BRITNEY Inhibitors Allergy (Severe, Verified 02/25/17 08:25) Swelling/neck,face,throat Iodine and Iodide Containing Produc Allergy (Severe, Verified 01/06/17 18:58) Swelling/neck,face,throat methadone Allergy (Mild, Verified 09/07/16 10:44) GI upset oxycodone HCl [From OxyContin] Allergy (Mild, Verified 09/07/16 10:44) GI upset topiramate Allergy (Mild, Verified 09/07/16 10:44) Other-Enter Comments amitriptyline Allergy (Verified 09/07/16 10:37) Other-Enter Comments moxifloxacin HCl [From Avelox] Allergy (Verified 09/07/16 10:37) Vomiting Opioids - Morphine Analogues Allergy (Verified 06/13/17 20:23) all narcotics Allergy (Uncoded 01/01/15 14:54) "I don't do well with them" Home Medications: Albuterol [Proventil Inhaler HFA (*)] 2 puffs IH BID 01/06/17 [Last Taken 08:00] Atorvastatin Calcium [Lipitor 10 mg (*)] 10 mg PO DAILY 01/06/17 [Last Taken 05/20 08:00] Beclomethasone Qvar 80 [Qvar 80 (*)] 1 puffs IH BIDI 01/06/17 [Last Taken 08:00] Cholecalciferol Vit D3 [Vitamin D3 (*)] 2,000 units PO DAILY 01/06/17 [Last Taken 06/13/17 08:00] Gabapentin [Neurontin 300 MG (*)] 600 mg PO HS 01/06/17 [Last Taken 06/12/17 21: 00] Herbals/Supplements -Info Only 1 ea PO DAILY 01/06/17 [Last Taken 1 Day Ago ~] Levothyroxine [Synthroid 75 mcg (*)] 75 mcg PO DAILY06 01/06/17 [Last Taken 05/20 08:00] Zolpidem Tartrate [Ambien 5MG (*)] 5 mg PO HS PRN 01/06/17 [Last Taken 06/12/17 21:00] Multivitamins [Multivitamin (*)] 1 tab PO DAILY 02/23/17 [Last Taken 06/13/17 08 :00] Raloxifene HCl [Evista] 60 mg PO DAILY 02/23/17 [Last Taken 06/13/17 08:00] Ascorbic Acid [Vitamin C 500 mg (*)] 1,000 mg PO DAILY 06/13/17 [Last Taken 05/20 08:00] Aspirin EC [Aspirin EC 81 mg (*)] 81 mg PO HS 06/13/17 [Last Taken 06/12/17 21: 00] Calcium Carb W/Vit D [Calcium Carb W/Vit D 500/200 (*)] 500 mg PO DAILY [Last Taken 06/13/17 08:00] Clopidogrel Bisulfate [Plavix (*)] 75 mg PO DAILY 06/13/17 [Last Taken 06/13/17 08:00] Diltiazem HCl [Diltiazem 24Hr Cd] 240 mg PO HS 06/13/17 [Last Taken 06/12/17 21: 00] Hydrochlorothiazide [HCTZ (*)] 25 mg PO DAILY 06/13/17 [Last Taken 06/13/17 08: 00] Pantoprazole Sodium [Protonix] 20 mg PO BID 06/13/17 [Last Taken 06/13/17 08:00] celeCOXIB [Celebrex (*)] 200 mg PO DAILY 06/13/17 [Last Taken 06/13/17 08:00] I have personally reviewed and updated: family history, medical history - Past Medical History Additional medical history: Mild to moderate mitral valve stenosis, moderate to severe mitral regurgitation. Pulmonary hypertension. Lymphoma in remission. Asthma/ COPD. Breast cancer status post radiation therapy. Radiation induced esophagitis - Surgical History Additional surgical history: mastectomy. Bilateral total knee replacement. Cardiac catheterization 2010 - Family History Additional family history: no recent sick family contacts, many first-degree relatives with coronary artery disease all after age 65 - Social History Smoking Status: Never smoked Additional social history: independent in her ADLs comma get shortness of breath with ambulating stairs Review of Systems Review of Systems: ROS: 10pt was reviewed & negative except for what was stated in HPI & below Physical Exam Physical Exam: Temp Pulse Resp BP Pulse Ox 37.1 C 98 16 155/87 H 91 L 06/13/17 22:57 06/13/17 22:57 06/13/17 22:57 06/13/17 22:57 06/13/17 22:57 Constitutional: no apparent distress, not in pain Eyes: PERRL, EOMI Ears, Nose, Mouth, Throat: moist mucous membranes, no oral mucosal ulcers Cardiovascular: regular rate and rhythym, systolic murmur Respiratory: no respiratory distress, clear to auscultation Gastrointestinal: normoactive bowel sounds, soft, non-tender abdomen Skin: warm, normal color Neurologic: AAOx3, CN II-XII Intact Psychiatric: interacting appropriately, not anxious Lab Data & Imaging Review 06/13/17 20:35 06/13/17 23:50 WBC 4.93 10^3/uL (3.80-9.50) 06/13/17 20:35 RBC 3.61 10^6/uL (4.18-5.33) L 06/13/17 20:35 Hgb 11.1 g/dL (12.6-16.3) L 06/13/17 20:35 Hct 31.3 % (38.0-47.0) L 06/13/17 20:35 MCV 86.7 fL (81.5-99.8) 06/13/17 20:35 MCH 30.7 pg (27.9-34.1) 06/13/17 20:35 MCHC 35.5 g/dL (32.4-36.7) 06/13/17 20:35 RDW 13.2 % (11.5-15.2) 06/13/17 20:35 Plt Count 156 10^3/uL (150-400) 06/13/17 20:35 MPV 9.1 fL (8.7-11.7) 06/13/17 20:35 Neut % (Auto) 82.0 % (39.3-74.2) H 06/13/17 20:35 Lymph % (Auto) 8.3 % (15.0-45.0) L 06/13/17 20:35 Weber % (Auto) 8.3 % (4.5-13.0) 06/13/17 20:35 Eos % (Auto) 0.6 % (0.6-7.6) 06/13/17 20:35 Baso % (Auto) 0.6 % (0.3-1.7) 06/13/17 20:35 Nucleat RBC Rel Count 0.0 % (0.0-0.2) 06/13/17 20:35 Absolute Neuts (auto) 4.04 10^3/uL (1.70-6.50) 06/13/17 20:35 Absolute Lymphs (auto) 0.41 10^3/uL (1.00-3.00) L 06/13/17 20:35 Absolute Monos (auto) 0.41 10^3/uL (0.30-0.80) 06/13/17 20:35 Absolute Eos (auto) 0.03 10^3/uL (0.03-0.40) 06/13/17 20:35 Absolute Basos (auto) 0.03 10^3/uL (0.02-0.10) 06/13/17 20:35 Absolute Nucleated RBC 0.00 10^3/uL (0-0.01) 06/13/17 20:35 Immature Gran % 0.2 % (0.0-1.1) 06/13/17 20:35 Immature Gran # 0.01 10^3/uL (0.00-0.10) 06/13/17 20:35 Sodium REJ 06/13/17 23:50 Potassium REJ 06/13/17 23:50 Chloride REJ 06/13/17 23:50 Carbon Dioxide REJ 06/13/17 23:50 Anion Gap REJ 06/13/17 23:50 BUN REJ 06/13/17 23:50 Creatinine REJ 06/13/17 23:50 Estimated GFR REJ 06/13/17 23:50 Glucose REJ 06/13/17 23:50 Serum Osmolality 255 mosmo/kg (280-297) L 06/13/17 20:35 Calcium REJ 06/13/17 23:50 Total Bilirubin 0.7 mg/dL (0.1-1.4) 06/13/17 20:35 Conjugated Bilirubin 0.2 mg/dL (0.0-0.5) 06/13/17 20:35 Unconjugated Bilirubin 0.5 mg/dL (0.0-1.1) 06/13/17 20:35 AST 52 IU/L (14-46) H 06/13/17 20:35 ALT 53 IU/L (9-52) H 06/13/17 20:35 Alkaline Phosphatase 87 IU/L (38-126) 06/13/17 20:35 Total Protein 6.3 g/dL (6.3-8.2) 06/13/17 20:35 Albumin 3.8 g/dL (3.5-5.0) 06/13/17 20:35 Lipase 34 IU/L (23-300) 06/13/17 20:35 Urine Osmolality 367 mosmo/kg (300-900) 06/13/17 22:20 Ur Random Sodium 140 mEq/L (30-90) H 06/13/17 22:20 Visualized and Interpreted EKG results: Yes EKG Interpretation: Positive for: other (Sinus tachycardia) Assessment & Plan Assessment: 81 yo F w/ hx of esophagitis, s/p recent TAVR, rheumatic mitral stenosis, pHTN, HTN, hypothyroid and asthma presents with hyponatremia and esophagitis. Plan: 1. Hypotonic hyponatremia - Likely hypovolemic in setting of poor PO intake 2/2 esophagitis in combination with newly started HCTZ. - Will start NS @ 100 mls/hr - Check Osms, Maria Fernanda - Recheck BMP at midnight and again in the morning to target slow correction - Hold HCTZ 2. Esophagitis - Seems poorly controlled at this time. Possible flaring due to stress of recent TAVR as well as fairly regular NSAID use to treat arthritis pain. Patient takes pantoprazole 20 mg PO BID as outpatient. - Recommend stop NSAID use - Increase PPI to 40 mg PO BID - GI cocktail PRN for symptomatic relief 3. Fatigue, diarrhea - Possibly a viral process, but appears mild noting no BMs since she has been here. I will defer infectious work-up unless significant diarrhea is noted here. 4. s/p TAVR - TAVR performed 05/17/17. She is now on DAPT for this. 5. Hx rheumatic mitral stenosis - Follows with Dr. Encinas. 6. Asthma - Well controlled, on Qvar and albuterol PRN as outpatient. 7. pHTN - Last RVSP 65-75 mm Hg. 8. Hypothyroid - On LTX as outpatient. Diet - Cardiac Code - DNR Ppx - LMWH, low dose noting age Dispo - Admit to inpatient status noting significant hyponatremia and need for slow correction and frequent lab monitoring.
[2017-06-14] MEDS ORDERED: CALCIUM CARBONATE 500 MG CHEWABLE TAB PO PRN (01:40)
[2017-06-14] MEDS ORDERED: CALCIUM CARBONATE 500 MG CHEWABLE TAB PO ONE (01:51)
[2017-06-14] MEDS: MBX SOLN 30 ML BOTTLE PO PRN ×2 (03:55→09:30)
[2017-06-14 05:51] LABS: ANION GAP 9 mEq/L (8-16); CALCIUM 8.2 mg/dL (8.5-10.4); CARBON DIOXIDE 23 mEq/l (22-31); CHLORIDE 85 mEq/L (97-110); CREATININE 0.5 mg/dL (0.6-1.0); GLOMERULAR FILTRATION RATE > 60; GLUCOSE 112 mg/dL (70-100); POTASSIUM 3.5 mEq/L (3.5-5.2)
[2017-06-14 05:56] LABS: % IMMATURE GRANULYOCYTES 0.5 % (0.0-1.1); ABSOLUTE IMMATURE GRANULOCYTES 0.02 10^3/uL (0.00-0.10); ADD DIFF? NO; ADD MORPH? NO; ADD SCAN? NO; ATYPICAL LYMPHOCYTE FLAG 30 (0-99); FRAGMENT RBC FLAG 0 (0-99); HEMATOCRIT 28.8 % (38.0-47.0); HEMOGLOBIN 10.4 g/dL (12.6-16.3); LEFT SHIFT FLG 0 (0-99); LIPEMIA HEMOLYSIS FLAG 90 (0-99); MEAN CELL HEMOGLOBIN CONCENTR. 36.1 g/dL (32.4-36.7); MEAN CELL VOLUME 85.7 fL (81.5-99.8); MEAN PLATELET VOLUME 9.3 fL (8.7-11.7); PLATELET CLUMPS FLAG 10 (0-99); PLATELET COUNT 159 10^3/uL (150-400); RED BLOOD CELL COUNT 3.36 10^6/uL (4.18-5.33); RED CELL DISTRIBUTION WIDTH 13.1 % (11.5-15.2)
[2017-06-14 06:12] LABS: SODIUM 117 mEq/L (134-144)
[2017-06-14] MEDS: PANTOPRAZOLE SODIUM 40 MG TAB PO SCH ×2 (08:42→20:34)
[2017-06-14] MEDS ORDERED: ALTEPLASE 2 MG VIAL IVP PRN (08:49)
[2017-06-14] MEDS ORDERED: ENOXAPARIN 30 MG/0.3 ML SYR SC SCH (09:00)
--- NOTE | 2017-06-14 09:29 | SOAPPROG ---
SOAP Progress Note Assessment/Plan: Assessment:Plan: Hyponatremia Symptomatic Worsening Has been given IVF overnite Now down to 115 Was on HCTZ, recently added by [facility], Dr. Encinas Now discontinued Will place pic 3% acutely due to MS symptoms and declining levels Patient at high risk for falls Discussed with RN Consult dictated 06/14/17 09:27 Objective: Vital Signs Temp Pulse Resp BP Pulse Ox 36.5 C 91 16 167/81 H 99 06/14/17 04:15 06/14/17 04:15 06/14/17 04:15 06/14/17 04:15 06/14/17 04:15 Laboratory Results 06/14/17 04:02 06/14/17 08:35 06/13/17 06/14/17 06/15/17 05:59 05:59 05:59 Intake Total 550 Output Total 250 Balance 300 ICD10 Worksheet Patient Problems: Problems Problem Status Onset Diarrhea Acute Gastroenteritis Acute Hypochloremia Acute Hypokalemia Acute Hyponatremia Acute Lethargy Acute Nausea Acute Chest pain Acute Chronic sinus infection Acute GERD with esophagitis Acute Pneumonia Acute
[2017-06-14] MEDS ORDERED: SODIUM Cl 3% 500 ML IV SCH (09:30)
--- NOTE | 2017-06-14 10:30 | GCON ---
[f rep st] CONSULTATION NEPHROLOGY CONSULT DATE OF CONSULTATION: 06/14/2017 REASON FOR CONSULTATION: Hyponatremia. ASSESSMENT: 1. Acute worsening of Hyponatremia, likely related to recent use of hydrochlorothiazide. 2. Underlying hyponatremia, possible SAIDH versus other etiology 3. History of transcatheter aortic valve replacement procedure with [address] Davila at [facility] in [place]. 4. History of breast cancer, lymphoma, and uterine cancer. Plan 1. Discontinue IV fluid. 2. Fluid restrict. 3. Frequent blood draws to monitor rate of correction 4. Placement of PICC line to permit frequent blood draws and possibly the administration of 3% saline. 5. Keep off hydrochlorothiazide and list that as an allergy. 6. Fall precautions. HISTORY: The patient is an 81-year-old female who comes in through the emergency room yesterday in the early evening, with approximately an 8-hour history of nausea. She had been eating and drinking reaonably well up until her onset of symptoms 8 hours prior to her being seen by Dr. Queen. She evidently had a good breakfast. Because of her nausea and esophageal pain, she and her had been trying to keep up a healthy amount of fluid intake which she had been able to keep down. In the emergency room her vital signs were stable.. Following admission to the emergency room, she was found to have a sodium level of 120. The presumptive diagnosis of hypovolemic hyponatremia was made. The patient was started on IV fluids. With IV fluids, the patient's sodium level came down further to a level of 117 this morning. IV fluids were discontinued. Our group was contacted by Dr. Harry to consult on the patient because of her worsening hyponatremia. The patient has no prior history of hyponatremia per her report. However, on review of her prior labs, she has had documented hyponatremia going back all the way to October of 2013 when she had a sodium level of 131. She had TAVR procedure with Dr. Davila due to rheumatic heart disease. This was done 3 weeks ago up in [place]. As part of her convalescence, she was started on diuretics in the form of hydrochlorothiazide by Dr. Encinas. Her sodium level on June 06 was 130. Yesterday when she presented to the emergency room it had gone down to 120. She was symptomatic with this level, with her reporting confusion, nausea, and some agitation. Patient's other medical problems are remarkable for mitral stenosis, pulmonary hypertension, hypothyroidism, asthma, lymphoma, breast cancer, endometrial cancer, degenerative joint disease. She has a history of hypertension and CHF. She has history of esophagitis that is ulcerative in nature and felt to be related to prior radiation therapy to her chest. She has chronic pain and discomfort related to this. She has had breast cancer, with mastectomy in 2004 as well as 2013. She has had complications with lymphoma and endometrial cancer as described. She has hyperlipidemia. Although she has a diagnosis of COPD, she has never been a smoker. She has no other lung disease on review of the chart. OUTPATIENT MEDICATIONS: Have included albuterol, atorvastatin, Qvar, vitamin D3 , diltiazem, gabapentin, herbal supplements, levothyroxine, ranitidine, zolpidem , multivitamin, omeprazole, raloxifene, and hydrochlorothiazide. ALLERGIES: Opioids, moxifloxacin, amitriptyline, topiramate, oxycodone, methadone, iodine, and BRITNEY inhibitors. SURGICAL HISTORY: TAVR procedure as described, mastectomies, hysterectomy, bilateral total knee replacements, as well as cardiac catheterization. FAMILY HISTORY: Noncontributory. SOCIAL HISTORY: She typically is independent in her ADLs. Has no cognitive difficulties per 's report. REVIEW OF SYSTEMS: Limited due to the patient's current agitated state. Her main complaint is esophageal pain. PHYSICAL EXAMINATION: VITAL SIGNS: Temp 36.5, pulse 91, respirations 16, blood pressure 167/81, satting 99% on 2 L nasal cannula. APPEARANCE: Mild distress. SKIN: Unremarkable. NEUROLOGIC: She is confused. She is perseverating. NECK: Unremarkable. HEENT: Head is atraumatic, normocephalic. HEART: Regular with a soft systolic murmur. LUNGS: Clear. ABDOMEN: Benign. Positive bowel sounds. No obvious organomegaly or masses. EXTREMITIES: No edema noted. LABS: Sodium of 117 this morning, now reported down to 115. Urine studies show a urine sodium of 140 and urine osmolality of 367. TSH has not been ordered at the present time. Random cortisol will be requested. ASSESSMENT: Hyponatremia in the face of recent addition of hydrochlorothiazide. The patient had a baseline sodium level that was low. 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 Without prior evaluation when she was experiencing thos lab values, the etiology of her chronic hyponatremia is purely speculative. Currently she has acute worsening with euvolemic hyponatremia based on examination. She has been on HCTZ, which certainly is the etiology for her acute worsening. It does not look like she has been on any other medications that would have a negative influence on sodium or fluid balance. Management will be based on fluid restriction and removal of the precipitating agent, hydrochlorothiazide. Given her symptoms and worsening hyponatremia, I think 3% is indicated. She is pretty confused. Her sodium level is falling. With hydrochlorothiazide, it is unlikely that she will reverse quickly. On review of her medications, there is nothing else obvious that would be precipitating this change in sodium level. Certainly, her history of nausea and some loose stool could contribute to additional inappropriate ADH release which she may have at baseline, but it does not explain the severity of her hyponatremia. She has no evidence for a hypovolemic component to her problem. /[id number]/MODL MTDD
[2017-06-14 10:32] LABS: CORTISOL-AM 23.6 ug/dL (4.5-22.7)
--- NOTE | 2017-06-14 10:46 | ASMTCMCOM ---
CM Note CM Note Notes: 06/14/2017 Case Management Note Met w/pt and Tray [phone]. They live in a home and have housekeeping and lawn care services. Pt has recent admission to to [facility] and was d/c independent. Per pt plans to attend cardiac rehab as recovery progresses. There are no PT or OT evals ordered at this time. Case management d/c poc: to be determined though anticipating independent d/c when medically stable. Case management to follow. Date Signed: 06/14/2017 10:46 AM Electronically Signed By:Anca Rojas RN
--- NOTE | 2017-06-14 11:06 | PDMN ---
Medical Necessity Medical necessity: Pt meets IP criteria per MD; est los >2 mn for eval/tx of significant hypotonic hyponatremia & need for slow correction/frequent lab monitoring; hx esophagitis, recent TAVR, rheumatic mitral stenosis; per H&P & order 06/14/17
--- NOTE | 2017-06-14 15:38 | CPEKG ---
Heart Rate: 105 RR Interval: 571 P-R Interval: 176 QRSD Interval: 98 QT Interval: 364 QTC Interval: 482 P Kathleen: 52 QRS Kathleen: 58 T Wave Kathleen: 44 EKG Severity - BORDERLINE ECG - EKG Impression: SINUS TACHYCARDIA WITH IRREGULAR RATE 85-127 Electronically Signed By: Yin Alford 14-Jun-2017 18:38:29
--- NOTE | 2017-06-14 16:26 | HOSPPROG ---
Hospitalist Progress Note Assessment/Plan: # Acute severe hyponatremia- patient presented with serum sodium 120-> dropped to 115 after normal saline Cause suspected to be hydrochlorothiazide outpatient with baseline mild hyponatremia- patient confused and symptomatic this a.m. - transfer to ICU - place PICC line - start 3% normal saline per Nephrology - q.4 sodium checks # acute tachycardia- heart rates elevated in the 100's EKG (personally reviewed and interpreted) appears like multifocal atrial tachycardia - continue to monitor # Chest pain thought secondary to esophagitis- recurrent complaint for this patient- oxygen saturations 93% on RA - continue twice daily PPI # s/p TAVR - TAVR performed 05/17/17 - cont ASA and plavix # Hx rheumatic mitral stenosis - Follows with Dr. Encinas. # Asthma - Well controlled - cont Qvar and albuterol # pHTN - Last RVSP 65-75 mm Hg. # Hypothyroid - On LTX as outpatient. # Diet - Cardiac # Code - DNR # Ppx - LMWH, low dose noting age # Dispo - > 2MN as requiring ICU level monitoring and care I have discussed the case with the RN - we will continue to monitor intermittent tachycardia Subjective: denies pain Objective: Vital Signs Temp Pulse Resp BP Pulse Ox 38.0 C 110 H 23 H 166/75 H 93 06/14/17 16:00 06/14/17 16:00 06/14/17 16:00 06/14/17 16:00 06/14/17 16:00 Laboratory Results 06/14/17 04:02 06/13/17 06/14/17 06/15/17 05:59 05:59 05:59 Intake Total 550 Output Total 250 Balance 300 - Physical Exam Constitutional: appears nourished Eyes: anicteric sclera Ears, Nose, Mouth, Throat: moist mucous membranes Cardiovascular: regular rate and rhythym, systolic murmur Respiratory: no respiratory distress Gastrointestinal: normoactive bowel sounds Genitourinary: no bladder fullness Skin: warm Musculoskeletal: No asymmetric calves Neurologic: No AAOx3 Psychiatric: interacting appropriately Lymph, Heme, Immunologic: no cervical LAD ICD10 Worksheet Patient Problems: Problems Problem Status Onset Diarrhea Acute Gastroenteritis Acute Hypochloremia Acute Hypokalemia Acute Hyponatremia Acute Lethargy Acute Nausea Acute Chest pain Acute Chronic sinus infection Acute GERD with esophagitis Acute Pneumonia Acute
[2017-06-14] MEDS ORDERED: BECLOMETHASONE QVAR 80 MDI IH SCH (18:00)
[2017-06-14] MEDS: DILTIAZEM CD 120 MG CAP PO SCH (20:33)
[2017-06-14] MEDS: ASPIRIN EC 81 MG TAB PO SCH (20:33)
[2017-06-14] MEDS: GABAPENTIN 300 MG CAP PO SCH (20:33)
[2017-06-14] MEDS ORDERED: NON-FORMULARY NEW DRUG (Diltiazem Hcl [Diltiazem 24hr Cd] 240 MG) PO SCH (21:00)
[2017-06-14] MEDS ORDERED: ALBUTEROL 60 PUFFS/8 GM MDI IH SCH (21:00)
[2017-06-14] MEDS: ALBUTEROL 200 PUFFS/18 GM MDI IH SCH (21:54)
[2017-06-14] MEDS: BECLOMETHASONE QVAR 80 MDI IH SCH (21:54)
[2017-06-15 04:38] LABS: ANION GAP 9 mEq/L (8-16); CALCIUM 7.8 mg/dL (8.5-10.4); CARBON DIOXIDE 21 mEq/l (22-31); CHLORIDE 91 mEq/L (97-110); CREATININE 0.6 mg/dL (0.6-1.0); GLOMERULAR FILTRATION RATE > 60; GLUCOSE 84 mg/dL (70-100); POTASSIUM 3.1 mEq/L (3.5-5.2); SODIUM 121 mEq/L (134-144)
[2017-06-15 04:47] LABS: ALBUMIN 2.9 g/dL (3.5-5.0); MAGNESIUM 1.8 mg/dL (1.6-2.3)
[2017-06-15] MEDS: LEVOTHYROXINE 75 MCG TAB PO SCH (07:45)
[2017-06-15] MEDS: ALBUTEROL 200 PUFFS/18 GM MDI IH SCH (08:10)
[2017-06-15] MEDS: BECLOMETHASONE QVAR 80 MDI IH SCH ×2 (08:11→21:18)
[2017-06-15] MEDS: CLOPIDOGREL BISULFATE 75 MG TAB PO SCH (08:57)
[2017-06-15] MEDS: MULTIVITAMINS 1 EACH TAB PO SCH (08:57)
[2017-06-15] MEDS: ATORVASTATIN CALCIUM 10 MG TAB PO SCH (08:57)
[2017-06-15] MEDS: PANTOPRAZOLE SODIUM 40 MG TAB PO SCH ×2 (08:57→20:05)
[2017-06-15] MEDS: RALOXIFENE HCL 60 MG TAB PO SCH (08:58)
[2017-06-15] MEDS: CHOLECALCIFEROL VIT D3 1,000 UNITS TAB PO SCH (08:58)
[2017-06-15] MEDS: CALCIUM CARB W/VIT D 500 MG TAB PO SCH (08:58)
[2017-06-15] MEDS: ENOXAPARIN 40 MG/0.4 ML SYR SC SCH (08:58)
[2017-06-15] MEDS ORDERED: Herbals/Supplements -Info Only PO SCH (09:00)
[2017-06-15] MEDS: ACETAMINOPHEN 325 MG TAB PO PRN (10:05)
[2017-06-15] MEDS ORDERED: POTASSIUM CL 20 MEQ TAB PO ONE (10:27)
[2017-06-15] MEDS ORDERED: PROTOCOL POTASSIUM 1 DOSE MISC PRN (10:28)
[2017-06-15] MEDS ORDERED: PROTOCOL MAGNESIUM 1 DOSE IV PRN (10:28)
--- NOTE | 2017-06-15 11:48 | SOAPPROG ---
SOAP Progress Note Assessment/Plan: Assessment: 1. Hyponatremia. TSH nl. Ur lytes c/w SIADH or thiazide. Correcting slowly. Had 3% yesterday. Goal Na 126 or less by this evening. Some risk of rapid correction once thiazide wears off. q4h Na levels today. 1.5 L FR. Plan: 06/15/17 11:46 Subjective: Confusion better this am per . Legs still feel a little weak. Objective: Vital Signs Temp Pulse Resp BP Pulse Ox 36.6 C 87 12 112/65 96 06/15/17 10:00 06/15/17 10:00 06/15/17 10:00 06/15/17 10:00 06/15/17 10:00 Laboratory Results 06/14/17 04:02 06/15/17 07:55 06/14/17 06/15/17 06/16/17 05:59 05:59 05:59 Intake Total 550 868 Output Total 250 400 Balance 300 468 Comfortable older wf in bed RRR, no m/g/r CTAB Abdom soft, nt No edema ICD10 Worksheet Patient Problems: Problems Problem Status Onset Chronic sinus infection Acute Chest pain Acute GERD with esophagitis Acute Pneumonia Acute Gastroenteritis Acute Hyponatremia Acute Lethargy Acute Hypochloremia Acute Hypokalemia Acute Nausea Acute Diarrhea Acute
--- NOTE | 2017-06-15 17:49 | HOSPPROG ---
Hospitalist Progress Note Assessment/Plan: # Acute severe hyponatremia- patient presented with serum sodium 120-> dropped to 115 -> improved to 122 this am after 3% NS Cause suspected to be hydrochlorothiazide outpatient with baseline mild hyponatremia- patient confused and symptomatic transferred to ICU for 3% - used 3% normal saline per Nephrology overnight - fluid restriction - encourage solute intake - q.4 sodium checks - nephrology following # Acute encephalopathy 2/2 severe hyponatremia - patient mentation markedly improved with sodium at 122 - A& Ox3 this am - cont to monitor # acute tachycardia- heart rates elevated in the 100's - settled some overnight EKG (personally reviewed and interpreted) sinus 70-90's - continue to monitor # Chest pain thought secondary to esophagitis- recurrent complaint for this patient- oxygen saturations 93% on RA - continue twice daily PPI # s/p TAVR - TAVR performed 05/17/17 - cont ASA and plavix # Hx rheumatic mitral stenosis - Follows with Dr. Encinas. # Asthma - Well controlled - cont Qvar and albuterol # pHTN - Last RVSP 65-75 mm Hg. # Hypothyroid - On LTX as outpatient. # Diet - Cardiac # Code - DNR # Ppx - LMWH, low dose noting age # Dispo - > 2MN as requiring ICU level monitoring and care I have discussed the case with Dr. Barros - we will transfer to SDU as sodiums improved continue close monitoring Subjective: feeling much better Objective: Vital Signs Temp Pulse Resp BP Pulse Ox 36.9 C 70 68 H 111/57 L 19 L 06/15/17 16:00 06/15/17 16:00 06/15/17 16:00 06/15/17 16:00 06/15/17 16:00 Laboratory Results 06/14/17 04:02 06/15/17 15:45 06/14/17 06/15/17 06/16/17 05:59 05:59 05:59 Intake Total 550 868 Output Total 250 400 Balance 300 468 - Physical Exam Constitutional: no apparent distress Eyes: anicteric sclera Ears, Nose, Mouth, Throat: moist mucous membranes Cardiovascular: regular rate and rhythym, systolic murmur Respiratory: no respiratory distress, No expiratory wheeze Gastrointestinal: normoactive bowel sounds Genitourinary: no bladder fullness Skin: warm Musculoskeletal: No asymmetric calves Neurologic: AAOx3 Psychiatric: interacting appropriately Lymph, Heme, Immunologic: no cervical LAD ICD10 Worksheet Patient Problems: Problems Problem Status Onset Diarrhea Acute Gastroenteritis Acute Hypochloremia Acute Hypokalemia Acute Hyponatremia Acute Lethargy Acute Nausea Acute Chest pain Acute Chronic sinus infection Acute GERD with esophagitis Acute Pneumonia Acute
[2017-06-15] MEDS ORDERED: SODIUM Cl 3% 500 ML IV SCH (18:00)
[2017-06-15] MEDS: AZITHROMYCIN 250 MG TAB PO SCH (20:04)
[2017-06-15] MEDS: DILTIAZEM CD 120 MG CAP PO SCH (20:04)
[2017-06-15] MEDS: GABAPENTIN 300 MG CAP PO SCH (20:05)
[2017-06-15] MEDS: ASPIRIN EC 81 MG TAB PO SCH (20:09)
[2017-06-15 20:36] LABS: POTASSIUM 3.4 mEq/L (3.5-5.2)
[2017-06-15 20:37] LABS: POTASSIUM 3.4 mEq/L (3.5-5.2); SODIUM 120 mEq/L (134-144)
[2017-06-15] MEDS ORDERED: POTASSIUM CL 10 MEQ TAB PO ONE (20:39)
[2017-06-15] MEDS: ZOLPIDEM TARTRATE 5 MG TAB PO PRN (20:50)
[2017-06-15] MEDS: ALBUTEROL 200 PUFFS/18 GM MDI IH PRN (21:18)
[2017-06-15] MEDS: LEVALBUTEROL 1.25 MG/3 ML DEYVIAL IH SCH (21:18)
[2017-06-16] MEDS: ACETAMINOPHEN 325 MG TAB PO PRN ×3 (00:33→11:23)
[2017-06-16] MEDS ORDERED: D5W 1,000 ML IV ONE (01:30)
[2017-06-16] MEDS: LEVALBUTEROL 1.25 MG/3 ML DEYVIAL IH SCH ×3 (05:07→20:26)
--- NOTE | 2017-06-16 05:24 | GCON ---
[f rep st] CONSULTATION PULMONARY CRITICAL CARE CONSULTATION REASON FOR CONSULTATION: Intensive care unit evaluation and management of hyponatremia, asthma, acut e bronchitis. HISTORY: The patient is an 81-year-old, who is well known to me from the office. She was admitted o n 06/13 with altered mental status, dizziness, and nausea. She was found to have a sodium of 120. T his subsequently fell to a low of 115. She does have a history of chronic hyponatremia in the 130 ra nge. However, she was recently placed on hydrochlorothiazide which may have been the etiology of a r ecent more severe drop. She was treated with hypertonic saline and came up initially. She was 122 t his morning but has fallen back to 118. She is on a fluid restriction. Hypertonic saline is being r e-initiated. She is feeling better. Her dizziness and her lethargy seemingly as her dizziness, conf usion, and lethargy have improved. She also complains of cough and mucus. This has been increased recently. She saw her primary care matt ozuna, who was going to start her on an antibiotic yesterday, but she did not start this secondary to being in the hospital. She does say she is coughing more, bringing up some brownish mucus, has lo w-grade temperatures, and generally is feeling poorly. She did have pneumonia in February. This was m ultifocal. Followup x-ray showed significant improvement after her discharge. PAST MEDICAL HISTORY: Remarkable for mitral valve disease status post recent TAVR. Her valve diseas e has been associated with pulmonary hypertension. She has a history of asthma/reversible airways ob struction. She is on QVAR and albuterol for this. There is a history of breast cancer, lymphoma, an d esophagitis secondary to radiation. PAST SURGICAL HISTORY: Knee replacement, mastectomy. DRUG ALLERGIES: Multiple: Please see her current records. SOCIAL HISTORY: The patient is , lives with a very supportive . She did smoke cigaret sharan in the past, none recently. Alcohol is denied. She is generally followed at the [facility]. REVIEW OF SYSTEMS: A 10-point review of systems is negative except as outlined above. FAMILY HISTORY: Noncontributory. PHYSICAL EXAMINATION: GENERAL: Reveals an elderly woman who is lying comfortably in bed. She is or iented and alert, states that she is feeling better. VITAL SIGNS: Blood pressure is 115/60, heart r ate 69 with sinus rhythm on the monitor. Respiratory rate is 16. On room air saturations are 99%. She is afebrile. HEENT: Unremarkable for lymphadenopathy or thyromegaly. There is no obvious jugul ar venous distention. The. CHEST: Clear anteriorly. There are a few scattered expiratory wheezes posteriorly, with some central bronchial congestion. There is no evidence of consolidation, no rales , no rhonchi. HEART: Regular in rate and rhythm. There is systolic murmur present. There are no g allops. P2 does not appear to be significantly increased. ABDOMEN: Soft, nontender. Bowel sounds are present. There is no organomegaly. EXTREMITIES: Unremarkable for edema, cords, or tenderness. NEUROLOGIC: Examination is nonfocal. Mentation is intact. DATABASE: White blood cell count is 4300, hematocrit 28.8. Platelets are 159,000. Current sodium i s 118, down from 122 this morning. Potassium is 3.1. Calcium is 7.8, phosphorus 2.6, magnesium 1.8. Chest x-ray: Not done yet. ASSESSMENT: 1. Hyponatremia. This is being managed by Renal. She is currently on 83% sodium drip. Sodium is b eing followed closely. Hydrochlorothiazide may be contributing; however, there is also a history of chronic hyponatremia. Occult pneumonia, if present, may also be playing a role? She does have sympt oms consistent with at least acute bronchitis. She last had pneumonia in February of 2017. 2. Acute bronchitis. The patient has had increased cough, wheezing, and colored mucus over the last week or longer. She was supposed to be treated as an outpatient with oral antibiotics, amoxicillin. Antibiotics were not started because she came into the hospital. She does she does use her regular bronchodilator treatments. It is unclear if these are helping currently. Antibiotics will be added to her regimen: Azithromycin at 500 mg per day for 5 days maximum. 3. Status post recent transcatheter aortic valve replacement. Doing well. On aspirin and Plavix. History of mitral valve disease. 4. History of pulmonary hypertension secondary to valvular heart disease. PLAN AND RECOMMENDATIONS: The patient will be kept in the intensive care unit. Sodium will be follo wed. Hypertonic saline will be continued. Bronchodilator therapy will be changed to Xopenex with in creased QVAR. A chest x-ray will be obtained. Azithromycin will be started for bronchitis. Laboratory will be followed. Please see the problem specific plans as outlined above. Further plans and recommendations will be made based on her progress over the next 12-24 hours. /[id number]/MODL
[2017-06-16] MEDS: LEVOTHYROXINE 75 MCG TAB PO SCH (06:05)
[2017-06-16 07:01] LABS: ALBUMIN 2.5 g/dL (3.5-5.0); ANION GAP 7 mEq/L (8-16); CALCIUM 7.6 mg/dL (8.5-10.4); CARBON DIOXIDE 22 mEq/l (22-31); CHLORIDE 93 mEq/L (97-110); CREATININE 0.6 mg/dL (0.6-1.0); GLOMERULAR FILTRATION RATE > 60; GLUCOSE 165 mg/dL (70-100); MAGNESIUM 1.9 mg/dL (1.6-2.3); POTASSIUM 3.6 mEq/L (3.5-5.2); SODIUM 122 mEq/L (134-144)
[2017-06-16] MEDS ORDERED: POTASSIUM CL 10 MEQ TAB PO ONE (07:20)
[2017-06-16] MEDS: ONDANSETRON DISINTEGRATING 4 MG TAB PO PRN ×2 (08:07→11:24)
[2017-06-16] MEDS: ALBUTEROL 200 PUFFS/18 GM MDI IH PRN ×2 (09:05→20:27)
[2017-06-16] MEDS: CLOPIDOGREL BISULFATE 75 MG TAB PO SCH (09:13)
[2017-06-16] MEDS: AZITHROMYCIN 250 MG TAB PO SCH (09:13)
[2017-06-16] MEDS: PANTOPRAZOLE SODIUM 40 MG TAB PO SCH ×2 (09:13→20:40)
[2017-06-16] MEDS: ENOXAPARIN 40 MG/0.4 ML SYR SC SCH (09:13)
[2017-06-16] MEDS: CALCIUM CARB W/VIT D 500 MG TAB PO SCH (09:13)
[2017-06-16] MEDS: MULTIVITAMINS 1 EACH TAB PO SCH (09:13)
[2017-06-16] MEDS: CHOLECALCIFEROL VIT D3 1,000 UNITS TAB PO SCH (09:13)
[2017-06-16] MEDS: ATORVASTATIN CALCIUM 10 MG TAB PO SCH (09:13)
[2017-06-16] MEDS: RALOXIFENE HCL 60 MG TAB PO SCH (09:13)
[2017-06-16] MEDS: BECLOMETHASONE QVAR 80 MDI IH SCH ×2 (09:16→20:27)
[2017-06-16] MEDS ORDERED: BISACODYL 10 MG SUPP PR PRN (10:31)
[2017-06-16] MEDS ORDERED: MAGNESIUM HYDROXIDE 30 ML UDCUP PO PRN (10:31)
[2017-06-16] MEDS ORDERED: POLYETHYLENE GLYCOL 3350 17 GM PKT PO PRN (10:31)
[2017-06-16] MEDS ORDERED: LACTULOSE 20 GM/30 ML UDCUP PO PRN (10:31)
[2017-06-16] MEDS: MBX SOLN 30 ML BOTTLE PO PRN ×2 (12:25→16:25)
--- NOTE | 2017-06-16 14:25 | PDINTPN ---
Uke Driver Progress Note Assessment/Plan: Assessment: Hyponatremia: Sodiums continue to go up and down a bit with therapy. Currently 123. On fluid restriction. Now off of IV fluids. She does have a history of chronic mild hyponatremia. Current problems are acute on chronic, likely secondary to thiazide diuretics. Bronchitis, history of asthma. Symptoms improved today with bronchopulmonary therapies. On azithromycin. Possibly has some nausea secondary to this. Will decrease... Status post recent TAVR. Hemodynamics fine, stable. History of pulmonary hypertension: Secondary to valvular heart disease. DVT prophylaxis: On enoxaparin. History of other medical problems as outlined in the HPI: Stable. Plan: The patient will be kept in the intensive care unit for now. Sodium will be followed closely with adjustments made in fluids based on the results. Fluid restriction will be maintained. Three times daily salt tablet could be considered. Other medications will be continued. Bronchopulmonary therapies will be maintained. Azithromycin will be decreased to 250 mg per day. 25 min of critical care time spent directly with the patient. Discussed with the patient and her , hospitalist, nursing, the ICU multi disciplinary team. Subjective: Nauseated today. Otherwise feels okay. Not confused Objective: Vital Signs Temp Pulse Resp BP Pulse Ox 36.6 C 69 21 H 122/50 H 98 06/16/17 08:00 06/16/17 12:00 06/16/17 12:00 06/16/17 12:00 06/16/17 12:00 Laboratory Results 06/14/17 04:02 06/16/17 09:55 06/15/17 06/16/17 06/17/17 05:59 05:59 05:59 Intake Total 868 2350 Output Total 400 300 Balance 468 2050 Laboratory Tests 06/16/17 06:05 Calcium 7.6 L Phosphorus 1.8 L D Magnesium 1.9 Albumin 2.5 L CXR: Vague increased markings, airway thickening. No obvious pneumonia. Physical Exam - Physical Exam General Appearance: alert, no apparent distress EENT: PERRL/EOMI, other (On room air) Neck: normal inspection Respiratory: lungs clear (Anteriorly), decreased breath sounds (At the bases), rales (Few scattered rales posteriorly), wheezing (Rare, decreased), No rhonchi (No wolf rhonchi, some central congestion) Cardiac/Chest: regular rate, rhythm Abdomen: normal bowel sounds, non-tender, soft Skin: warm/dry, pallor Extremities: No pedal edema Neuro/Psych: no motor/sensory deficits, No cognition abnormalities ICD10 Worksheet Patient Problems: Problems Problem Status Onset Chronic sinus infection Acute Chest pain Acute GERD with esophagitis Acute Pneumonia Acute Gastroenteritis Acute Hyponatremia Acute Lethargy Acute Hypochloremia Acute Hypokalemia Acute Nausea Acute Diarrhea Acute
--- NOTE | 2017-06-16 14:29 | HOSPPROG ---
Hospitalist Progress Note Assessment/Plan: # Acute severe hyponatremia- patient presented with serum sodium 120-> dropped to 115 -> improved to 122 this am after 3% NS patient rapidly corrected to 129 overnight and was corrected with D5W - > 122 Cause suspected to be hydrochlorothiazide outpatient with baseline mild hyponatremia- - continue fluid restriction - encourage solute intake- anticipate self correction overnight - q.4 sodium checks - nephrology managing # Acute encephalopathy 2/2 severe hyponatremia - patient mentation markedly improved with sodium at 122 - A& Ox3 this am - cont to monitor # acute tachycardia- resolved- TELE (personally reviewed and interpreted) sinus 70-90's - continue to monitor # Acute bronchitis - oral Abx started # Chest pain thought secondary to esophagitis- recurrent complaint for this patient- oxygen saturations 93% on RA - continue twice daily PPI # s/p TAVR - TAVR performed 05/17/17 - cont ASA and plavix # Hx rheumatic mitral stenosis - Follows with Dr. Encinas. # Asthma - Well controlled - cont Qvar and albuterol # pHTN - Last RVSP 65-75 mm Hg. # Hypothyroid - On LTX as outpatient. # Diet - Cardiac # Code - DNR # Ppx - LMWH, low dose noting age # Dispo - > 2MN as requiring ICU level monitoring and care I have discussed the case with Dr. Barros - patient will remain in SDU for sodium monitoring Subjective: feels tired today Objective: Vital Signs Temp Pulse Resp BP Pulse Ox 36.6 C 69 21 H 122/50 H 98 06/16/17 08:00 06/16/17 12:00 06/16/17 12:00 06/16/17 12:00 06/16/17 12:00 Laboratory Results 06/14/17 04:02 06/16/17 09:55 06/15/17 06/16/17 06/17/17 05:59 05:59 05:59 Intake Total 868 2350 Output Total 400 300 Balance 468 2049 - Physical Exam Constitutional: appears nourished Eyes: anicteric sclera Ears, Nose, Mouth, Throat: moist mucous membranes Cardiovascular: regular rate and rhythym Respiratory: no respiratory distress, No expiratory wheeze Gastrointestinal: normoactive bowel sounds Genitourinary: no bladder fullness Skin: warm Musculoskeletal: No asymmetric calves Neurologic: AAOx3 Psychiatric: interacting appropriately Lymph, Heme, Immunologic: no cervical LAD ICD10 Worksheet Patient Problems: Problems Problem Status Onset Diarrhea Acute Gastroenteritis Acute Hypochloremia Acute Hypokalemia Acute Hyponatremia Acute Lethargy Acute Nausea Acute Chest pain Acute Chronic sinus infection Acute GERD with esophagitis Acute Pneumonia Acute
[2017-06-16] MEDS ORDERED: AZITHROMYCIN 250 MG TAB PO SCH (14:45)
[2017-06-16] MEDS ORDERED: K PHOS 20 MMOL in D5W 250 ML IV ONE (15:00)
[2017-06-16] MEDS ORDERED: PROTOCOL K PHOSPHATE 1 DOSE IV PRN (15:12)
--- NOTE | 2017-06-16 15:32 | SOAPPROG ---
SOAP Progress Note Assessment/Plan: Assessment/Plan: 1. Hyponatremia. TSH nl. Ur lytes c/w SIADH or thiazide. Correcting slowly. Had 3% yesterday then d5 due to overcorrection May allow sodium to normalize May go to q6-8h checks once >125mg/dL. 1.2L FR Hold lasix for now Monitor mental status I/O's 06/16/17 15:29 Subjective: Patient c/o some nausea. Feels that its related to reflux due to antibiotics as this happened in the past. present at bedside. No confusion today. Objective: Vital Signs Temp Pulse Resp BP Pulse Ox 36.6 C 69 21 H 122/50 H 98 06/16/17 08:00 06/16/17 12:00 06/16/17 12:00 06/16/17 12:00 06/16/17 12:00 Laboratory Results 06/14/17 04:02 06/16/17 14:55 06/15/17 06/16/17 06/17/17 05:59 05:59 05:59 Intake Total 868 2350 Output Total 400 300 Balance 468 2050 Physical Exam - Physical Exam General Appearance: alert, mild distress EENT: PERRL/EOMI, normal ENT inspection Neck: non-tender, full range of motion, supple Respiratory: chest non-tender, lungs clear, normal breath sounds Cardiac/Chest: normal peripheral pulses, regular rate, rhythm, other (No edema) Abdomen: normal bowel sounds, non-tender, soft Skin: normal color, warm/dry, pallor Extremities: normal range of motion, non-tender Neuro/Psych: no motor/sensory deficits, alert, normal mood/affect ICD10 Worksheet Patient Problems: Problems Problem Status Onset Diarrhea Acute Gastroenteritis Acute Hypochloremia Acute Hypokalemia Acute Hyponatremia Acute Lethargy Acute Nausea Acute Chest pain Acute Chronic sinus infection Acute GERD with esophagitis Acute Pneumonia Acute
[2017-06-16] MEDS ORDERED: CALCIUM CARBONATE 500 MG CHEWABLE TAB PO PRN (15:59)
[2017-06-16 19:00] LABS: POTASSIUM 4.1 mEq/L (3.5-5.2); SODIUM 124 mEq/L (134-144)
[2017-06-16] MEDS: ASPIRIN EC 81 MG TAB PO SCH (20:28)
[2017-06-16] MEDS: ZOLPIDEM TARTRATE 5 MG TAB PO PRN (21:09)
[2017-06-16] MEDS: SENNOSIDES/DOCUSATE SODIUM TAB PO SCH (21:09)
[2017-06-16] MEDS: DILTIAZEM CD 120 MG CAP PO SCH (21:09)
[2017-06-16] MEDS: GABAPENTIN 300 MG CAP PO SCH (21:09)
[2017-06-17] MEDS: LEVALBUTEROL 1.25 MG/3 ML DEYVIAL IH SCH ×2 (05:13→15:11)
[2017-06-17 07:40] LABS: ALBUMIN 2.7 g/dL (3.5-5.0); ANION GAP 8 mEq/L (8-16); CALCIUM 8.2 mg/dL (8.5-10.4); CARBON DIOXIDE 22 mEq/l (22-31); CHLORIDE 102 mEq/L (97-110); CREATININE 0.6 mg/dL (0.6-1.0); GLOMERULAR FILTRATION RATE > 60; GLUCOSE 88 mg/dL (70-100); MAGNESIUM 1.9 mg/dL (1.6-2.3); POTASSIUM 4.8 mEq/L (3.5-5.2); SODIUM 132 mEq/L (134-144)
[2017-06-17 08:03] VITALS: O2SAT 96
[2017-06-17] MEDS: BECLOMETHASONE QVAR 80 MDI IH SCH (08:19)
[2017-06-17] MEDS: PANTOPRAZOLE SODIUM 40 MG TAB PO SCH (08:46)
--- NOTE | 2017-06-17 09:14 | SOAPPROG ---
CHARLETTE Progress Note Assessment/Plan: Assessment:Plan: Hyponatremia-better -correcting appropriately now that effect of the HCTZ has worn off -continue current medications and fluid restriction -is stable or improving on labs later today, she could go home with outpatient Na levels on Tuesday -I gave her a lab slip for a standing order for this -her fluid restriction can be adjusted as an outpatient based on those levels -if recurrent low Na levels are identified as an outpatient, then urine studies can be done to see if patient has an underlying SIADH -this is very likely given her recurrent low Na levels documented since 2013 in hospital EMR lab data -given her valvular heart disease, she could have a cardiac etiology for her low Na, but this would be less likely, I think -thiazide diuretics were added to her allergy list -detailed discussion with patient and was undertaken describing etiology, aggravating factors, management etc -we will follow up by phone based on her response and lab monitoring 06/17/17 09:09 Subjective: slightly dizzy with standing Objective: Vital Signs Temp Pulse Resp BP Pulse Ox 36.6 C 68 13 120/58 L 96 06/17/17 08:00 06/17/17 08:00 06/17/17 08:00 06/17/17 08:00 06/17/17 08:00 Laboratory Results 06/14/17 04:02 06/17/17 06:15 06/16/17 06/17/17 06/18/17 05:59 05:59 05:59 Intake Total 2350 1600 Output Total 300 1450 Balance 2050 150 Physical Exam - Physical Exam General Appearance: WD/WN, alert, no apparent distress, thin EENT: normal ENT inspection Neck: normal inspection Respiratory: lungs clear, normal breath sounds, No respiratory distress Cardiac/Chest: regular rate, rhythm Abdomen: normal bowel sounds Skin: normal color, warm/dry Extremities: No swelling Neuro/Psych: no motor/sensory deficits, alert, normal mood/affect ICD10 Worksheet Patient Problems: Problems Problem Status Onset Diarrhea Acute Gastroenteritis Acute Hypochloremia Acute Hypokalemia Acute Hyponatremia Acute Lethargy Acute Nausea Acute Chest pain Acute Chronic sinus infection Acute GERD with esophagitis Acute Pneumonia Acute
[2017-06-17] MEDS: SENNOSIDES/DOCUSATE SODIUM TAB PO SCH (09:38)
[2017-06-17] MEDS: CHOLECALCIFEROL VIT D3 1,000 UNITS TAB PO SCH (09:39)
[2017-06-17] MEDS: CALCIUM CARB W/VIT D 500 MG TAB PO SCH (09:40)
[2017-06-17] MEDS: RALOXIFENE HCL 60 MG TAB PO SCH (09:40)
[2017-06-17] MEDS: LEVOTHYROXINE 75 MCG TAB PO SCH (09:40)
[2017-06-17] MEDS: ATORVASTATIN CALCIUM 10 MG TAB PO SCH (09:41)
[2017-06-17] MEDS: ENOXAPARIN 40 MG/0.4 ML SYR SC SCH (09:41)
[2017-06-17] MEDS: CLOPIDOGREL BISULFATE 75 MG TAB PO SCH (09:41)
[2017-06-17] MEDS: MULTIVITAMINS 1 EACH TAB PO SCH (09:41)
[2017-06-17 11:58] VITALS: BP 121/61; TEMP 98
[2017-06-17] MEDS ORDERED: SODIUM CHLORIDE 1,000 MG TAB PO SCH (12:00)
--- NOTE | 2017-06-17 13:22 | SOAPPROG ---
SOAP Progress Note Assessment/Plan: Assessment: Hyponatremia: Improving, sodium 132 today, to start on sodium chloride tablets. Probably home later after next sodium. She does have a history of chronic mild hyponatremia. Current problems are acute on chronic, likely secondary to thiazide diuretics. Bronchitis, history of asthma. Symptoms improved with bronchopulmonary therapies and azithromycin. Status post recent TAVR. Hemodynamics fine, stable. History of pulmonary hypertension: Secondary to valvular heart disease. DVT prophylaxis: On enoxaparin. Reflux, Hx of esophagitis History of other medical problems as outlined in the HPI: Stable. Plan: Await next sodium level. Probably home today on inhaled therapies and fluid restriction. Last dose of azithromycin to be given today in the hospital. She may go home on salt tablets: Will clarify with Renal. For outpatient sodium lab draws. Subjective: Feels better. Complains a headache. Decreased nausea. Objective: Vital Signs Temp Pulse Resp BP Pulse Ox 36.7 C 71 17 121/61 H 96 06/17/17 11:56 06/17/17 11:56 06/17/17 11:56 06/17/17 11:56 06/17/17 11:56 Laboratory Results 06/14/17 04:02 06/17/17 06:15 06/16/17 06/17/17 06/18/17 05:59 05:59 05:59 Intake Total 2350 1600 Output Total 300 1450 Balance 2050 150 Physical Exam - Physical Exam General Appearance: alert, no apparent distress EENT: other (On room air) Neck: normal inspection (No JVD) Respiratory: lungs clear (Anteriorly), wheezing (Minimal), No rales, No rhonchi Cardiac/Chest: regular rate, rhythm Abdomen: normal bowel sounds, non-tender, soft Skin: warm/dry, pallor Extremities: No pedal edema Neuro/Psych: no motor/sensory deficits, No cognition abnormalities ICD10 Worksheet Patient Problems: Problems Problem Status Onset Chronic sinus infection Acute Chest pain Acute GERD with esophagitis Acute Pneumonia Acute Gastroenteritis Acute Hyponatremia Acute Lethargy Acute Hypochloremia Acute Hypokalemia Acute Nausea Acute Diarrhea Acute
[2017-06-17 15:11] VITALS: PULSE 73; RESP 19
--- NOTE | 2017-06-18 05:25 | GDS ---
[f rep st] DISCHARGE SUMMARY DISCHARGE DIAGNOSES: 1. Hyponatremia due to hydrochlorothiazide. 2. 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 3. Metabolic encephalopathy. 4. Acute bronchitis. 5. Esophagitis with persistent chest pains. 6. Status post recent TAVR for aortic stenosis. 7. Rheumatic mitral stenosis. 8. Asthma. 9. Pulmonary hypertension. HISTORY: The patient is an 81-year-old female, who came to the emergency room complaining of chest p ain as she had recently had a TAVR and was concerned that this may be a complication of that. Her ch est pain rapidly resolved with a GI cocktail and eventually it was determined this was a chronic ches t pain for her that has been attributed to her esophagitis. Routine laboratory studies; however, xiomara wed hyponatremia with a sodium of 120 so she was admitted to the hospital. Sodium was somewhat diffi cult to resolve and she did require 3% normal saline and Nephrology saw her in consultation. She has been recently started on hydrochlorothiazide which was felt to be contributing to her hyponat remia. On the day of discharge her sodium is 131. She has been cleared by Nephrology to discharge home. Th ey are hopeful that discontinuation of hydrochlorothiazide plus fluid restriction will be enough to m aintain her sodiums within range. They are not recommending salt tablets at discharge. I recommend she liberally salt her food. She will be followed closely as an outpatient with repeat Chem 7 recomm ended this upcoming Tuesday. Regarding her esophagitis, her proton pump inhibitor was increased to Protonix 40 mg p.o. twice daily . We also discussed possible discontinuing her NSAID; however, it is essential for her to control he r knee pain so it was decided to continue it at this time; however, that should continue to be monito red. Her last EGD was here in January and was relatively unremarkable. She has really had no change in her esophagitis symptom pattern since that time. DISCHARGE MEDICATIONS: Please see computer record for full detailed list. New medications are Janine nix increased to 40 mg p.o. twice daily, hydrochlorothiazide I discontinued. ADDITIONAL DISCHARGE INSTRUCTIONS: 1. Fluid restriction 1200 cc per day. 2. Salt food liberally. 3. Recheck sodium levels this upcoming Tuesday. 4. Hydrochlorothiazide added to her allergy list due to the severe adverse reaction. Greater than 30 minutes' time spent arranging this discharge. Patient seen and examined by me on day of discharge. /[id number]/MODL
== END 2017-06-17 15:10 | disposition home or self-care (01) | DRG 640 ==
LOC: F2W 22:44 → F2N 06-14 10:47
PROVIDERS: ADMIT Internal Medicine; ATTEND Internal Medicine
PROC: 02HV33Z Insertion of Infusion Device into Superior Vena Cava, Percutaneous Approach (ICD-10-PCS; principal; 2017-06-14)
DX: E87.1 Hypo-osmolality and hyponatremia (principal); T50.2X5A Adverse effect of carbonic-anhydrase inhibitors, benzothiadiazides and other diuretics, initial encounter; G93.41 Metabolic encephalopathy; E22.2 Syndrome of inappropriate secretion of antidiuretic hormone; K20.9 Esophagitis, unspecified; J44.0 Chronic obstructive pulmonary disease with (acute) lower respiratory infection; J20.9 Acute bronchitis, unspecified; I27.20 Pulmonary hypertension, unspecified; I05.0 Rheumatic mitral stenosis; E03.9 Hypothyroidism, unspecified; E78.5 Hyperlipidemia, unspecified; Z66 Do not resuscitate; Z85.42 Personal history of malignant neoplasm of other parts of uterus; Z85.3 Personal history of malignant neoplasm of breast; Z96.653 Presence of artificial knee joint, bilateral; Z92.3 Personal history of irradiation; Z95.2 Presence of prosthetic heart valve; Z85.72 Personal history of non-Hodgkin lymphomas
CPT/HCPCS: C1751; J1650; J2405

== ENCOUNTER → 2017-08-30 | Outpatient (CLI) | payer OTHER | LOC: BMCIMAGING 09:46 | PROVIDERS: ATTEND Internal Medicine | DX: J18.1 Lobar pneumonia, unspecified organism (principal) ==

== ENCOUNTER → 2017-09-09 | Outpatient (CLI) | payer OTHER | LOC: BMCIMAGING 12:44 | PROVIDERS: ATTEND Physician Assistant Medical | DX: J32.0 Chronic maxillary sinusitis (principal) ==

== ENCOUNTER → 2017-09-21 | Outpatient (CLI) | payer OTHER | LOC: BMCIMAGING 10:56 | PROVIDERS: ATTEND Internal Medicine | DX: J98.4 Other disorders of lung (principal); K44.9 Diaphragmatic hernia without obstruction or gangrene; Z95.2 Presence of prosthetic heart valve ==

== ENCOUNTER → 2017-09-24 | Outpatient (CLI) | payer OTHER | LOC: BMCIMAGING 10:23 | PROVIDERS: ATTEND Family Medicine | DX: J18.9 Pneumonia, unspecified organism (principal) ==

== ENCOUNTER → 2017-10-31 | Outpatient (CLI) | payer OTHER | LOC: BMCIMAGING 09:15 | PROVIDERS: ATTEND Internal Medicine | DX: J18.9 Pneumonia, unspecified organism (principal); K44.9 Diaphragmatic hernia without obstruction or gangrene; I51.7 Cardiomegaly ==

== ENCOUNTER → 2017-11-22 | Outpatient (CLI) | payer OTHER | LOC: BHFA 13:15 | PROVIDERS: ATTEND Internal Medicine Cardiovascular Disease | DX: I05.0 Rheumatic mitral stenosis (principal) ==

== ENCOUNTER → 2017-12-13 | Outpatient (CLI) | payer OTHER | LOC: BHFA 13:15 | PROVIDERS: ATTEND Physician Assistant Medical | DX: I27.20 Pulmonary hypertension, unspecified (principal); I10 Essential (primary) hypertension; R11.0 Nausea; I05.0 Rheumatic mitral stenosis ==

== ENCOUNTER 2018-01-02 09:55 | Emergency (ER) | payer OTHER ==
[2018-01-02] MEDS ORDERED: ONDANSETRON 4 MG/2 ML VIAL IVP ONE (10:07)
--- NOTE | 2018-01-02 10:07 | EDPHY ---
H & P Stated Complaint: on fe infusion/now with constipation/nausea Time Seen by Provider: 01/02/18 10:05 HPI/ROS: HPI: This 82-year-old female who presents with Chief Complaint: on fe infusion/now with constipation/nausea Location: Abdomen Quality: Bloating, pain Duration: 4 days Signs and Symptoms: no fever, + nausea, no vomiting, no hematemesis, no blood in stool, no abdominal bloating, no diarrhea, no back pain, no urinary symptoms , no vaginal bleeding/discharge, no indigestion, no chest pain, no shortness of breath Timing: Worsening Severity: Moderate Context: Patient has an extensive medical history of multiple surgeries including cardiac valve replacement and is on Eliquis 2.5 mg twice daily. She is also receiving iron infusions last . She reports that she has had problems with constipation in the past uneven had a bowel obstruction. She is followed by Dr. Kaiser it has been over 10 years since she had her last colonoscopy. She has not had been able to have a bowel movement in over 4 days despite using [id number] remedies including magnesium stool softeners. Patient reports that she is only able to pass tiny hard dark palpable is a of stool daily. She was able to eat breakfast this morning without any difficulty. She has had her gallbladder removed as well as of total abdominal hysterectomy. Patient reports that she has had increased abdominal bloating associated with abdominal pain that is moderate in nature and generalized. Nothing makes the pain better or worse. Patient reports that she feels mild dizziness when changing positions from sitting to standing. Denies that the room is spinning, headache, tinnitus. Modifying Factors: See above Comment: ROS: see HPI Constitutional: No fever, no chills, no weight loss Eyes: No blurred vision Respiratory: No shortness of breath, no cough Cardiovascular: No chest pain, no palpitations Gastrointestinal: + nausea, no vomiting, no diarrhea, no hematemesis, no blood in stool Genitourinary: No dysuria, no blood in urine Extremities: No myalgias, no edema Neurologic: No weakness, no numbness Skin: No rashes, no petechiae Hematologic: No bruising, no bleeding MEDICAL/SURGICAL/SOCIAL HISTORY: Medical/Surgical history: BILAT MASTECTOMY 2013,2004, KNEE SURGERY 5 BOUTS OF CANCER,COPD, CHF, Mitral valve stenosis, HTN, Hyperlipidemia, ulcerated esophagus, cardiac valve replaced Social history: retired. Family history noncontributory. CONSTITUTIONAL: Extremely polite and cooperative elderly white female awake and alert, no obvious distress HEENT: Atraumatic and normocephalic, PERRL, EOMI. Nares patent; no rhinorrhea; no nasal mucosal edema. Tympanic membranes clear. Oropharynx clear, no exudate and moist pink mucosa. Airway patent. No lymphadenopathy. No meningismus. Cardiovascular: Normal S1/S2, regular rate, regular rhythm, without murmur rub or gallop. PULMONARY/CHEST: Symmetrical and nontender. Clear to auscultation bilaterally. Good air movement. No accessory muscle usage. ABDOMEN: Soft, mildly distended, mildly generalized tenderness, no rebound, no guarding, no peritoneal signs, no masses or organomegaly. No CVAT. Bowel sounds heard x4 EXTREMITIES: 2/2 pulses, strength 5/5, no deformities, no clubbing, no cyanosis or edema. NEUROLOGICAL: no focal neuro deficits. GCS 15. SKIN: Warm and dry, no erythema. no rash. Good capillary refill. Source: Patient, Old records Exam Limitations: No limitations - Personal History Current Tetanus Diphtheria and Acellular Pertussis (TDAP): Yes Tetanus Vaccine Date: April 2017 - Medical/Surgical History Hx Asthma: Yes Hx Chronic Respiratory Disease: Yes Hx Diabetes: No Hx Cardiac Disease: Yes Hx Renal Disease: No Hx Cirrhosis: No Hx Alcoholism: No Hx HIV/AIDS: No Hx Splenectomy or Spleen Trauma: No Other PMH: BILAT MASECTOMY 2013,2005, KNEE SURGERY. 5 BOUTS OF CANCER,COPD, CHF , Mitral valve stenosis, HTN, Hyperlipidemia, ulcerated esophagus cardiac valve replaced - Social History Smoking Status: Never smoked Constitutional: Initial Vital Signs Temperature (C) 36.4 C 01/02/18 10:03 Heart Rate 72 01/02/18 10:03 Respiratory Rate 18 01/02/18 10:03 Blood Pressure 142/93 H 01/02/18 10:03 O2 Sat (%) 96 01/02/18 10:03 O2 Delivery Mode Room Air Allergies/Adverse Reactions: BRITNEY Inhibitors Allergy (Severe, Verified 01/02/18 10:02) Swelling/neck,face,throat Iodine and Iodide Containing Produc Allergy (Severe, Verified 01/02/18 10:02) Swelling/neck,face,throat methadone Allergy (Mild, Verified 01/02/18 10:02) GI upset oxycodone HCl [From OxyContin] Allergy (Mild, Verified 01/02/18 10:02) GI upset topiramate Allergy (Mild, Verified 01/02/18 10:02) Other-Enter Comments amitriptyline Allergy (Verified 01/02/18 10:02) Other-Enter Comments moxifloxacin HCl [From Avelox] Allergy (Verified 01/02/18 10:02) Vomiting Opioids - Morphine Analogues Allergy (Verified 01/02/18 10:02) Thiazides Allergy (Verified 01/02/18 10:02) Other-Enter Comments all narcotics Allergy (Uncoded 01/01/15 14:54) "I don't do well with them" thiazide Allergy (Uncoded 06/17/17 08:30) Home Medications: Medication Instructions Recorded Albuterol [Proventil Inhaler HFA 2 puffs IH BID 01/06/17 (*)] Atorvastatin Calcium [Lipitor 10 10 mg PO DAILY 01/06/17 mg (*)] Beclomethasone Qvar 80 [Qvar 80] 1 puffs IH BIDI 01/06/17 Cholecalciferol Vit D3 [Vitamin D3 2,000 units PO DAILY 01/06/17 (*)] Gabapentin [Neurontin 300 MG (*)] 600 mg PO HS 01/06/17 Herbals/Supplements -Info Only 1 ea PO DAILY 01/06/17 Levothyroxine [Synthroid 75 mcg 75 mcg PO DAILY06 01/06/17 (*)] Zolpidem Tartrate [Ambien 5MG (*)] 5 mg PO HS PRN 01/06/17 Multivitamins [Multivitamin (*)] 1 tab PO DAILY 02/23/17 Raloxifene HCl [Evista] 60 mg PO DAILY 02/23/17 Ascorbic Acid [Vitamin C 500 mg 1,000 mg PO DAILY 06/13/17 (*)] Aspirin EC [Aspirin EC 81 mg (*)] 81 mg PO HS 06/13/17 Calcium Carb W/Vit D [Calcium Carb 500 mg PO DAILY 06/13/17 W/Vit D 500/200 (*)] Diltiazem HCl [Diltiazem 24Hr Cd] 240 mg PO HS 06/13/17 celeCOXIB [Celebrex (*)] 200 mg PO DAILY 06/13/17 Pantoprazole Sodium [Protonix 40mg 40 mg PO BID #60 tab 06/17/17 (*)] Eliquis 01/02/18 Medical Decision Making - Diagnostics Imaging Results: Imaging Impressions Abdomen CT 01/02/18 10:08 Impression: 1. Constipation. No bowel obstruction or localized intra-abdominal process. 2. Sigmoid diverticulosis. No evidence of acute diverticulitis. 3. Large hiatal hernia is unchanged. 4. Mild biliary dilation is unchanged since 2016, and may be the patient's postcholecystectomy baseline. Findings discussed with Emergency Department physician, Yesi Santos PA-C on January 02, 2018 at 1242 hours. ED Course/Re-evaluation: Vital signs reviewed and stable upon arrival. EKG, labs, CT abdomen and pelvis scan, IV medications ordered Patient given IV Zofran upon arrival. Patient has an iodine allergy but able to have contrast if she is given Solu- Medrol and Benadryl. 1020: Patient given IV Solu-Medrol 125 and IV Benadryl 50 mg EKG my read shows ST prominence but no acute ischemic changes. Reviewed with attending and compared to old ECG. Labs reviewed. No signs of leukocytosis/anemia/platelet dysfunction/DOMINIQUE/ elevated LFTs/pancreatitis. Sodium 130-no mental status changes. 1242: Called by radiologist who advised that CT abdomen and pelvis scan shows constipation. Chronic hiatal hernia. No signs of obstruction, colitis, appendicitis. 1300: Fleets enema performed with good results. Given magnesium citrate 150 mL in the emergency room. Started on MiraLax daily. This patient was seen under the supervision of my secondary supervising physician. I evaluated care for this patient independently. Discussed this patient with Dr. Queen who did not see the patient. Differential Diagnosis: Abdominal pain including but not limited to appendicitis, cholecystitis, gastritis and urinary tract infection. - Data Points Laboratory Results: Laboratory Results 01/02/18 10:27 01/02/18 10:27 01/02/18 01/02/18 10:27 10:27 WBC 6.96 10^3/uL 10^3/uL (3.80-9.50) RBC 4.75 10^6/uL 10^6/uL (4.18-5.33) Hgb 12.9 g/dL g/dL (12.6-16.3) Hct 40.3 % % (38.0-47.0) MCV 84.8 fL fL (81.5-99.8) MCH 27.2 pg L pg (27.9-34.1) MCHC 32.0 g/dL L g/dL (32.4-36.7) RDW 20.8 % H % (11.5-15.2) Plt Count 242 10^3/uL 10^3/uL (150-400) MPV 9.5 fL fL (8.7-11.7) Neut % (Auto) 80.8 % H % (39.3-74.2) Lymph % (Auto) 8.2 % L % (15.0-45.0) Moore % (Auto) 8.3 % % (4.5-13.0) Eos % (Auto) 1.4 % % (0.6-7.6) Baso % (Auto) 0.3 % % (0.3-1.7) Nucleat RBC Rel Count 0.0 % % (0.0-0.2) Absolute Neuts (auto) 5.62 10^3/uL 10^3/uL (1.70-6.50) Absolute Lymphs (auto) 0.57 10^3/uL L 10^3/uL (1.00-3.00) Absolute Monos (auto) 0.58 10^3/uL 10^3/uL (0.30-0.80) Absolute Eos (auto) 0.10 10^3/uL 10^3/uL (0.03-0.40) Absolute Basos (auto) 0.02 10^3/uL 10^3/uL (0.02-0.10) Absolute Nucleated RBC 0.00 10^3/uL 10^3/uL (0-0.01) Immature Gran % 1.0 % % (0.0-1.1) Immature Gran # 0.07 10^3/uL 10^3/uL (0.00-0.10) RBC/WBC/PLT Morphology TNP Platelet Estimate TNP Sodium 130 mEq/L L mEq/L (135-145) Potassium 4.6 mEq/L mEq/L (3.3-5.0) Chloride 94 mEq/L L mEq/L (97-110) Carbon Dioxide 26 mEq/l mEq/l (22-31) Anion Gap 10 mEq/L mEq/L (8-16) BUN 20 mg/dL mg/dL (7-23) Creatinine 0.7 mg/dL mg/dL (0.6-1.0) Estimated GFR > 60 Glucose 95 mg/dL mg/dL (70-100) Calcium 9.1 mg/dL mg/dL (8.5-10.4) Total Bilirubin 0.7 mg/dL mg/dL (0.1-1.4) Conjugated Bilirubin 0.4 mg/dL mg/dL (0.0-0.5) Unconjugated Bilirubin 0.3 mg/dL mg/dL (0.0-1.1) AST 24 IU/L IU/L (14-46) ALT 28 IU/L IU/L (9-52) Alkaline Phosphatase 49 IU/L IU/L (38-126) Total Protein 6.8 g/dL g/dL (6.3-8.2) Albumin 4.1 g/dL g/dL (3.5-5.0) Lipase 110 IU/L IU/L (23-300) Medications Given: Discontinued Medications Diphenhydramine HCl (Benadryl Injection) 50 mg IVP EDNOW ONE Stop: 01/02/18 10:19 Last Admin: 01/02/18 10:39 Dose: 50 mg Magnesium Citrate (Magnesium Citrate) 150 ml PO ONCE ONE Stop: 01/02/18 12:44 Last Admin: 01/02/18 13:35 Dose: 150 ml Methylprednisolone Sodium Succinate (Solu-Medrol) 125 mg IVP EDNOW ONE Stop: 01/02/18 10:19 Last Admin: 01/02/18 10:39 Dose: 125 mg Ondansetron HCl (Zofran) 4 mg IVP EDNOW ONE Stop: 01/02/18 10:08 Last Admin: 01/02/18 10:38 Dose: 4 mg Departure - Departure Disposition: Home, Routine, Self-Care Clinical Impression: Constipation by delayed colonic transit Condition: Good Instructions: Polyethylene Glycol 3350 (By mouth), Constipation (ED) Additional Instructions: Take MiraLax daily for the next 7 days and then use daily as needed for constipation. Mix MiraLax with Gatorade. Follow-up with Gastroenterology as needed. Referrals: Yany Berg MD [Primary Care Provider] - 3-4 days, if not improved
[2018-01-02] MEDS ORDERED: methylPREDNISolone SOD SUCC 125 MG/2 ML VIAL IVP ONE (10:18)
--- NOTE | 2018-01-02 10:21 | CPEKG ---
Heart Rate: 64 RR Interval: 938 P-R Interval: 160 QRSD Interval: 84 QT Interval: 416 QTC Interval: 430 P Lawson: 44 QRS Lawson: 61 T Wave Lawson: 63 EKG Severity - NORMAL ECG - EKG Impression: SINUS RHYTHM Electronically Signed By: Darek Queen 02-Jan-2018 13:15:52
[2018-01-02 10:46] LABS: PLATELET COUNT 242 10^3/uL (150-400)
[2018-01-02] MEDS ORDERED: IOPAMIDOL (ISOVUE-300) 100 ML BTL ONE (11:20)
[2018-01-02] MEDS ORDERED: MAGNESIUM CITRATE 300 ML BOTTLE PO ONE (12:43)
[2018-01-02 14:38] VITALS: BP 156/77
== END 2018-01-02 14:52 | disposition home or self-care (01) ==
DX: K59.01 Slow transit constipation (principal); J44.9 Chronic obstructive pulmonary disease, unspecified; I11.0 Hypertensive heart disease with heart failure; I50.9 Heart failure, unspecified; Z79.82 Long term (current) use of aspirin; Z90.49 Acquired absence of other specified parts of digestive tract; Z90.710 Acquired absence of both cervix and uterus
CPT/HCPCS: 74177; 93005; 96374; 96375; 99285; J1200; J2405; J2930; Q9967

== ENCOUNTER 2018-01-30 | Inpatient (IN) | payer OTHER | END 2018-02-18 15:52 | disposition home or self-care (01) | DRG 907 | PROVIDERS: ADMIT Surgery | PROC: 0DQN0ZZ Repair Sigmoid Colon, Open Approach (ICD-10-PCS; principal; 2018-01-30) | PROC: 0DNN0ZZ Release Sigmoid Colon, Open Approach (ICD-10-PCS; principal; 2018-01-30) | PROC: 0DBN0ZZ Excision of Sigmoid Colon, Open Approach (ICD-10-PCS; principal; 2018-01-30) | PROC: 0DB68ZX Excision of Stomach, Via Natural or Artificial Opening Endoscopic, Diagnostic (ICD-10-PCS; 2018-01-30) | PROC: 0DJD8ZZ Inspection of Lower Intestinal Tract, Via Natural or Artificial Opening Endoscopic (ICD-10-PCS; 2018-01-30) | PROC: 0DB98ZX Excision of Duodenum, Via Natural or Artificial Opening Endoscopic, Diagnostic (ICD-10-PCS; 2018-01-30) | PROC: B246ZZ4 Ultrasonography of Right and Left Heart, Transesophageal (ICD-10-PCS; 2018-02-10) | PROC: 5A2204Z Restoration of Cardiac Rhythm, Single (ICD-10-PCS; 2018-02-10) | DX: K91.71 Accidental puncture and laceration of a digestive system organ or structure during a digestive system procedure (principal); K57.20 Diverticulitis of large intestine with perforation and abscess without bleeding; K65.9 Peritonitis, unspecified; I50.31 Acute diastolic (congestive) heart failure; A04.72 Enterocolitis due to Clostridium difficile, not specified as recurrent; D62 Acute posthemorrhagic anemia; I48.0 Paroxysmal atrial fibrillation; D50.9 Iron deficiency anemia, unspecified; E87.1 Hypo-osmolality and hyponatremia; K56.7 Ileus, unspecified; K44.9 Diaphragmatic hernia without obstruction or gangrene; K59.8 Other specified functional intestinal disorders; K29.70 Gastritis, unspecified, without bleeding; I27.20 Pulmonary hypertension, unspecified; K31.7 Polyp of stomach and duodenum; E78.5 Hyperlipidemia, unspecified; E03.9 Hypothyroidism, unspecified; Z85.3 Personal history of malignant neoplasm of breast; Z95.2 Presence of prosthetic heart valve; Z96.659 Presence of unspecified artificial knee joint; Z92.3 Personal history of irradiation; Z85.72 Personal history of non-Hodgkin lymphomas | CPT/HCPCS: 97110-GP; 97116-GP; 97162-GP; 97164-GP; 97165-GO; 97530-GO; 97530-GP; 97535-GO; G8978-GP-CI; G8978-GP-CK; G8979-GP-CH; G8979-GP-CI; G8980-GP-CI; G8987-GO-CK; G8988-GO-CJ; J0696; J1100; J1170; J1335; J1650; J1885; J1940; J2405; J2543; J2550; J2704; J2765; J3010; J3475 ==

== ENCOUNTER 2018-02-27 16:01 | Inpatient (IN) | payer OTHER ==
--- NOTE | 2018-02-27 16:53 | EDPHY ---
H & P Time Seen by Provider: 02/27/18 16:35 HPI/ROS: Chief complaint. Dizzy, headache, nausea HPI. Patient is an 82-year-old female with fairly complicated recent medical history. The patient's complaints today include dizziness that are worse with standing and some nausea and headache. She also has slight fever. Slight shortness of breath. Patient in January was undergoing workup for anemia. She had an upper GI and colonoscopy. During the colonoscopy she had a colon perforation. She went to surgery and had antibiotics. She developed C difficile. She then subsequently developed atrial fibrillation. Upper GI showed an ulcerated esophagus. She was treated for C diff in her diarrhea has resolved however she now has dark black tarry stools. Her symptoms in her abdomen or worse with eating in terms of bowel movement. She has some left anterior chest discomfort. She notes that her ankles are much more swollen today than the last few days. There has been no recent head injury. She is on Coumadin. ROS Constitutional. Fever Eyes. no problems with vision ENT. no sore throat, no nasal drainage Cardiovascular. Chest discomfort Respiratory. Shortness of breath Abdominal. Black tarry stools . no problems urinating MS. no calf pain/swelling, no neck/back pain, no joint pain Skin. no rash Lymph. no swollen glands Neuro. Dizzy on standing and slight headache Past Medical/Surgical History: Past medical history is significant for non-Hodgkin's lymphoma, TAVR, mitral valve you a plasty, congestive heart failure, COPD, hypertension, dyslipidemia, ulcerated esophagus, bilateral mastectomy Social History: , nonsmoker, no alcohol Smoking Status: Never smoked Physical Exam: General Appearance: Alert well-developed female mild distress vital signs are stable significant for O2 saturation 91% Eyes: Pupils equal and round no pallor or injection. ENT, Mouth: Mucous membranes are moist. Respiratory: There are no retractions, lungs are clear to auscultation. Cardiovascular: Regular rate and rhythm. Gastrointestinal: Abdomen is soft and nontender, no masses, bowel sounds normal. Rectal exam shows scant stool in the rectum. No obvious blood. Neurological: Awake and alert, sensory and motor exams grossly normal. Skin: Warm and dry, no rashes. Musculoskeletal: Neck is supple nontender. Extremities symmetrical, full range of motion. Psychiatric: Patient is oriented X 3, there is no agitation. Constitutional: Initial Vital Signs Temperature (C) 36.6 C 02/27/18 16:07 Heart Rate 63 02/27/18 16:07 Respiratory Rate 18 02/27/18 16:07 Blood Pressure 139/91 H 02/27/18 16:07 O2 Sat (%) 91 L 02/27/18 16:07 O2 Delivery Mode Room Air Allergies/Adverse Reactions: BRITNEY Inhibitors Allergy (Severe, Verified 02/27/18 16:06) Swelling/neck,face,throat Iodine and Iodide Containing Produc Allergy (Severe, Verified 02/27/18 16:06) Swelling/neck,face,throat methadone Allergy (Mild, Verified 02/27/18 16:06) GI upset oxycodone HCl [From OxyContin] Allergy (Mild, Verified 02/27/18 16:06) GI upset topiramate Allergy (Mild, Verified 02/27/18 16:06) Other-Enter Comments amitriptyline Allergy (Verified 02/27/18 16:06) Other-Enter Comments moxifloxacin HCl [From Avelox] Allergy (Verified 02/27/18 16:06) Vomiting Opioids - Morphine Analogues Allergy (Verified 02/27/18 16:06) Thiazides Allergy (Verified 02/27/18 16:06) Other-Enter Comments all narcotics Allergy (Uncoded 01/30/18 22:34) "I don't do well with them" thiazide Allergy (Uncoded 01/30/18 22:34) Home Medications: Medication Instructions Recorded Albuterol [Proventil Inhaler HFA 2 puffs IH BID PRN 01/06/17 (*)] Atorvastatin Calcium [Lipitor 10 10 mg PO HS 01/06/17 mg (*)] Cholecalciferol Vit D3 [Vitamin D3 2,000 units PO DAILY 01/06/17 (*)] Gabapentin [Neurontin 300 MG (*)] 300 mg PO HS 01/06/17 Levothyroxine [Synthroid 75 mcg 75 mcg PO DAILY06 01/06/17 (*)] Zolpidem Tartrate [Ambien 5MG (*)] 5 mg PO HS PRN 01/06/17 Multivitamins [Multivitamin (*)] 1 tab PO DAILY 02/23/17 Raloxifene HCl [Evista] 60 mg PO DAILY 02/23/17 Aspirin EC [Aspirin EC 81 mg (*)] 81 mg PO HS 06/13/17 Pantoprazole Sodium [Protonix 40mg 40 mg PO BID #60 tab 06/17/17 (*)] Amiodarone HCl [Pacerone (*)] 200 mg PO DAILY #30 tab 02/18/18 Metoprolol Tartrate [Lopressor 50 50 mg PO BID #60 tab 02/18/18 mg (*)] Sucralfate 1 gm PO ACHS #120 tablet 02/18/18 Warfarin Sodium [Coumadin 2.5MG 1.25 mg PO DAILY16 #30 tab 02/18/18 (*)] Ascorbic Acid [C-1000] 2,000 mg PO DAILY 02/27/18 Beclomethasone Qvar 40 [Qvar 40 2 inh IH BID 02/27/18 Redihaler (*)] Calcium Carbonate/Vitamin D3 2 each PO DAILY 02/27/18 [Calcium 600 + D3 Softgel] Magnesium Oxide [Magnesium Oxide 400 mg PO HS 02/27/18 400 mg (*)] Medical Decision Making - Diagnostics EKG Interpretation: EKG interpreted by me shows normal sinus rhythm with normal interval and axis. QRS is normal. There is ST-T changes be to through the 4. Arrhythmia mild arrhythmia. Rate is 63 These anterior septal changes are new since previous EKG June 2017 Imaging Results: Imaging Impressions Chest X-Ray 02/27/18 17:20 Impression: 1. Grossly stable small left effusion with associated atelectasis. 2. Stable mild pulmonary edema. Head CT 02/27/18 18:30 Impression: 1. Mild atrophy. 2. No acute hemorrhage, hydrocephalus, or mass effect. 3. Cerebrovascular atherosclerosis. 4. No definite acute infarct. 5. Moderate microvascular ischemic gliosis. 6. Mild sinusitis with fluid in the right ethmoid and sphenoid sinuses. Findings and recommendations discussed with Emergency Department physician, Dr. Froylan Fisher at 1908 hours on February 27, 2018. Final report concurs with initial preliminary interpretation. Chest x-ray interpreted by me shows left pleural effusion that was present 3 weeks ago and appears to be about the same. Evidence of mild CHF Noncontrast head CT shows no intracranial hemorrhage. Mild sinusitis in the right ethmoid and sphenoid sinuses Procedures: IV normal saline, monitor ED Course/Re-evaluation: Hemoccult testing is negative Troponin is 0.02 Re-evaluation 6:25 p.m.. Patient, , and I discussed imaging, lab, EKG findings. We discussed treatment plan including recommendation for admission. She expresses understanding and agreement Patient is stable but continues to complain of right frontal headache. Noncontrast head CT is ordered Serial evaluations patient remained stable. The patient, her and I discussed treatment plan including recommendation for admission. They agree I consulted discussed case with Dr. Phillip brito, hospitalist, who agrees to the admission Differential Diagnosis: Patient has recent extensive complicated past medical history. She has some chest discomfort evidence of continuing left pleural effusion. Evidence for congestive heart failure. No evidence for intracranial bleeding. Right-sided headache probably explain by sinus disease. She does have EKG changes but negative troponin. I also considered GI bleed but her hemoccult testing was negative - Data Points Laboratory Results: Laboratory Results 02/27/18 16:39 02/27/18 16:39 02/27/18 02/27/18 02/27/18 18:07 16:39 16:39 WBC RBC Hgb Hct MCV MCH MCHC RDW Plt Count MPV Neut % (Auto) Lymph % (Auto) [place] % (Auto) Eos % (Auto) Baso % (Auto) Nucleat RBC Rel Count Absolute Neuts (auto) Absolute Lymphs (auto) Absolute Monos (auto) Absolute Eos (auto) Absolute Basos (auto) Absolute Nucleated RBC Immature Gran % Immature Gran # PT INR APTT Sodium 130 mEq/L L mEq/L (135-145) Potassium 4.7 mEq/L mEq/L (3.3-5.0) Chloride 98 mEq/L mEq/L (97-110) Carbon Dioxide 27 mEq/l mEq/l (22-31) Anion Gap 5 mEq/L L mEq/L (8-16) BUN 14 mg/dL mg/dL (7-23) Creatinine 0.7 mg/dL mg/dL (0.6-1.0) Estimated GFR > 60 Glucose 88 mg/dL mg/dL (70-100) Calcium 8.7 mg/dL mg/dL (8.5-10.4) POC Troponin I 0.02 ng/mL ng/mL (0.00-0.08) NT-Pro-B Natriuret Pep 1660 pg/mL H pg/mL (0-450) Stool Occult Bld Scrn NEGATIVE (NEGATIVE) 02/27/18 02/27/18 16:39 16:39 WBC 5.91 10^3/uL 10^3/uL (3.80-9.50) RBC 2.78 10^6/uL L 10^6/uL (4.18-5.33) Hgb 7.9 g/dL L g/dL (12.6-16.3) Hct 25.2 % L % (38.0-47.0) MCV 90.6 fL fL (81.5-99.8) MCH 28.4 pg pg (27.9-34.1) MCHC 31.3 g/dL L g/dL (32.4-36.7) RDW 19.5 % H % (11.5-15.2) Plt Count 334 10^3/uL 10^3/uL (150-400) MPV 9.8 fL fL (8.7-11.7) Neut % (Auto) 67.8 % % (39.3-74.2) Lymph % (Auto) 18.6 % % (15.0-45.0) [place] % (Auto) 9.0 % % (4.5-13.0) Eos % (Auto) 2.7 % % (0.6-7.6) Baso % (Auto) 0.7 % % (0.3-1.7) Nucleat RBC Rel Count 0.0 % % (0.0-0.2) Absolute Neuts (auto) 4.01 10^3/uL 10^3/uL (1.70-6.50) Absolute Lymphs (auto) 1.10 10^3/uL 10^3/uL (1.00-3.00) Absolute Monos (auto) 0.53 10^3/uL 10^3/uL (0.30-0.80) Absolute Eos (auto) 0.16 10^3/uL 10^3/uL (0.03-0.40) Absolute Basos (auto) 0.04 10^3/uL 10^3/uL (0.02-0.10) Absolute Nucleated RBC 0.00 10^3/uL 10^3/uL (0-0.01) Immature Gran % 1.2 % H % (0.0-1.1) Immature Gran # 0.07 10^3/uL 10^3/uL (0.00-0.10) PT 24.0 SEC H SEC (12.0-15.0) INR 2.15 H (0.83-1.16) APTT 36.4 SEC SEC (23.0-38.0) Sodium Potassium Chloride Carbon Dioxide Anion Gap BUN Creatinine Estimated GFR Glucose Calcium POC Troponin I NT-Pro-B Natriuret Pep Stool Occult Bld Scrn Point of Care Test Results: Chemistry 02/27/18 18:07 POC Troponin I 0.02 ng/mL ng/mL (0.00-0.08) Departure - Departure Disposition: [facility] Inpatient Acute Clinical Impression: Chest pain Qualifiers: Chest pain type: unspecified Qualified Code(s): R07.9 - Chest pain, unspecified CHF (congestive heart failure) Qualifiers: Heart failure type: unspecified Condition: Fair
[2018-02-27 17:26] LABS: PLATELET COUNT 334 10^3/uL (150-400)
--- NOTE | 2018-02-27 17:26 | CPEKG ---
Test Reason : OPEN Blood Pressure : / mmHG Vent. Rate : 063 BPM Atrial Rate : 061 BPM P-R Int : 168 ms QRS Dur : 088 ms QT Int : 455 ms P-R-T Axes : 034 034 027 degrees QTc Int : 466 ms Sinus rhythm Anteroseptal infarct, age indeterminate Confirmed by Froylan Fisher ([id number]) on 02/27/2018 5:26:02 PM Referred By: Confirmed By:Froylan Fisher
[2018-02-27 17:43] LABS: INR 2.15 (0.83-1.16)
[2018-02-27] MEDS ORDERED: ONDANSETRON DISINTEGRATING 4 MG TAB PO PRN (20:18)
[2018-02-27] MEDS ORDERED: ONDANSETRON 4 MG/2 ML VIAL IVP PRN (20:18)
[2018-02-27] MEDS ORDERED: ACETAMINOPHEN 325 MG TAB PO PRN (20:18)
[2018-02-27] MEDS ORDERED: ZOLPIDEM TARTRATE 5 MG TAB PO PRN (21:43)
[2018-02-27] MEDS ORDERED: ALBUTEROL 60 PUFFS/8 GM MDI IH PRN (21:43)
[2018-02-27] MEDS: ACETAMINOPHEN 650 MG/20.3 ML UDCUP PO PRN (22:06)
--- NOTE | 2018-02-27 22:38 | GHP ---
[f rep st] HISTORY AND PHYSICAL DATE OF ADMISSION: 02/27/2018 CC: dizziness Primary family practitioner, Dr. Encinas. HISTORY OF PRESENT ILLNESS: An 82-year-old female with severe valvular heart disease, recent C. diff infection and colonic perforation presents with dizziness and headache today. Discharged from [facility] 02/18 after prolonged hospitalization where she had rectal bleeding and underwent endoscopy 2017 that was complicated by a perforated colon. s/p emergent laparotomy and partial colectomy. Then had rapid atrial fibrillation with failed BETH cardioversion and was started on amiodarone. Positive for C. diff on 02/14; completed 2 weeks of oral vancomycin. Today, called Dr. Encinas for dizziness, mild nausea, and headache. No fevers, but dry cough. Has had substernal chest pressure all day with no associated radiation, diaphoresis, numbness, or tingling. She thinks it is indigestion or her esophagitis. Per , is eating more than when she left the hospital, taking in plenty of fluids. No dysuria. Having formed stools. Ankles and feet are more swollen than normal. REVIEW OF SYSTEMS: I completed a 10-point review of systems, negative except as noted in HPI. PMH: Severe valvular heart disease including severe MR and MS. Status post TAVR in 2017 in [place]. Mitral balloon valvuloplasty, hiatal hernia, paroxysmal atrial fibrillation, hypertension, hyperlipidemia, recent C. diff infection, colon perforation during colonoscopy, COPD, congestive heart failure , hyperlipidemia. Esophagitis, pulmonary hypertension, hypothyroidism. PAST SURGICAL HISTORY: Bilateral mastectomy, partial colectomy, bilateral knee replacement. SOCIAL HISTORY: Is independent with her ADLs. She lives with her . No alcohol, tobacco, or illicits. FAMILY HISTORY: Many first-degree relatives with coronary artery disease after age 65. HOME MEDICATIONS: Qvar 2 puffs inhaled twice daily, magnesium oxide, vitamin D3 , gabapentin 300 mg at bedtime, Protonix 40 mg twice daily, multivitamin, metoprolol 50 mg twice daily, Synthroid 75 mcg daily, Ambien 5 mg at bedtime p.r.n., Coumadin 1.25 mg daily, sucralfate 1 g with meals, Avista 60 mg daily, atorvastatin 10, aspirin 81, vitamin C 2000 daily, amiodarone 200 daily, albuterol. ALLERGIES: See medication reconciliation. PHYSICAL EXAMINATION: VITAL SIGNS: Temperature 36.7, blood pressure is 139/91 , repeat 168/75, heart rate in the 60s, respirations 20, 94% on room air. GENERAL: She is well-appearing, in no acute distress. HEENT: Mildly dry mucous membranes. CV: Regular rate and rhythm. Murmur present throughout, +1 ankle and foot edema bilateral legs. LUNGS: Decreased breath sounds, left base , but no crackles. ABDOMEN: Soft. Surgical incision healing well. Minimal epigastric tenderness. No rebound or guarding. : No suprapubic tenderness. MUSCULOSKELETAL: 5/5 upper and lower extremity strength. NEURO: 2 through 12 intact. PSYCH: Alert and oriented x3. LABS: WBC 7.9/25 (8.4/25 on 02/11), platelets 334. INR is 2, PT is 24. Sodium 131, potassium 4.7, chloride 98, carbon dioxide 27, creatinine 0.7, calcium 8.7. BNP is 1660, last 550 in October. T[address] 0[address]02. [address] head, no acute hemorrhage. Moderate microvascular ischemic gliosis. Mild sinusitis with fluid in the right ethmoid and sigmoid sinuses. Chest x-ray is personally reviewed by me. Left pleural effusion similar as on imaging 2017. EKG: T-wave inversion V1 through V4, new compared to EKG 02/10. Echocardiogram 02/08/2018: Borderline concentric LVH. Normal LV function. EF is 57. LA, moderately severely dilated. Right atrium is dilated. Moderate mitral valve calcification, moderate to severe MR. Severe MV stenosis. Aortic valve is a bioprosthesis, which is normal. Severe TR. RVSP is 83 mmHg. ASSESSMENT AND PLAN: 1. Dizziness: vague symptoms. c/o dry cough, but no signs PNA, afebrile. Normal orthostatics.Recently treated for C. difficile; having formed stools. Creatinine is normal and sodium and is stable. UA pending. Head CT is negative for acute hemorrhage. H/H slightly down, negative FOBT. /Repeat in morning, ifdown, may need transfusion. 2. Chest discomfort: New anterior T-wave inversions. Troponin is negative. Rrepeat both. Recent echo showed normal ejection fraction, no wall motion abnormalities. May warrant ischemic evaluation and could be contributing to dizziness. 3. Severe valvular heart disease: severe MR/MS. s/p TAVR, MV valvuloplasty. Feet/ankle swelling, small pleural effusion. BNP is up a bit. Start low-dose PO Lasix with h/o severe hyponatremia from diuretics in past. Consult cardiology in morning. 4. Paroxysmal atrial fibrillation: amiodarone, beta sushant. Recheck h/h, then restart Coumadin. 5. Hypertension. home medications. 6. Hyperlipidemia. Statin. 7. C. difficile. completed course of vancomycin. 8. Recent colonic perforation: s/p partial colectomy. Incision is healing well. 9. Esophagitis: PPI, Sucralfate. 10. Diet: Cardiac 2 g sodium. 11. Deep venous thrombosis prophylaxis, on Coumadin. DISPOSITION: Patient warrants inpatient admission given dizziness, new EKG changes requiring further labs and cardiac evaluation. /[id number]/MODL MTDD
[2018-02-27] MEDS ORDERED: GABAPENTIN 300 MG CAP PO SCH (23:45)
[2018-02-27] MEDS ORDERED: ATORVASTATIN CALCIUM 10 MG TAB PO SCH (23:45)
[2018-02-27] MEDS: PANTOPRAZOLE SODIUM 40 MG TAB PO SCH (23:58)
[2018-02-27] MEDS: METOPROLOL TARTRATE 50 MG TAB PO SCH (23:58)
[2018-02-28 04:31] LABS: INR 2.46 (0.83-1.16); PROTIME(PATIENT) 26.6 SEC (12.0-15.0)
[2018-02-28] MEDS ORDERED: LEVOTHYROXINE 75 MCG TAB PO SCH (06:00)
--- NOTE | 2018-02-28 08:58 | ASMTLACE ---
DONTAE Acuity / Level of Answers: Yes Care: Did the patient have an inpatient admission? Comorbidities - select Answers: Any tumor (including all that apply lymphoma or leukemia) Chronic pulmonary disease Congestive heart failure Opioid dependence / Chronic pain Other Notes: HTN; HLD # of Emergency department Answers: 1-2 visits in the last 6 months Score: 15 Date Signed: 02/28/2018 08:58 AM Electronically Signed By:Caroline Rodriguez
[2018-02-28] MEDS ORDERED: CHOLECALCIFEROL VIT D3 2,000 UNITS TAB/CAP PO SCH (09:00)
[2018-02-28] MEDS ORDERED: RALOXIFENE HCL 60 MG TAB PO SCH (09:00)
[2018-02-28] MEDS ORDERED: BECLOMETHASONE QVAR 40 REDIHALER 120 INH/10.6 GM MDI IH SCH (09:00)
[2018-02-28] MEDS ORDERED: CALCIUM CARB W/VIT D 500 MG TAB PO SCH (09:00)
[2018-02-28] MEDS ORDERED: ASCORBIC ACID 500 MG TAB PO SCH (09:00)
[2018-02-28] MEDS ORDERED: AMIODARONE HCL 200 MG TAB PO SCH (09:00)
[2018-02-28] MEDS ORDERED: FUROSEMIDE 20 MG TAB PO SCH (09:00)
[2018-02-28 09:20] VITALS: BP 138/64
[2018-02-28] MEDS: SUCRALFATE 1 GM TAB PO SCH ×2 (09:21→11:46)
[2018-02-28] MEDS: METOPROLOL TARTRATE 50 MG TAB PO SCH (09:21)
[2018-02-28] MEDS: MULTIVITAMINS 1 EACH TAB PO SCH (09:22)
[2018-02-28] MEDS: PANTOPRAZOLE SODIUM 40 MG TAB PO SCH (09:22)
--- NOTE | 2018-02-28 10:28 | PDCARPN ---
Cardiology Progress Note Chief Complaint: Dizziness was chief complaint yesterday Assessment/Plan: Assessment: Patient is an 82 y/o female with history of TAVR, mitral valve balloon valvuloplasty for MS (severe), but concomitant MR (moderate to severe) limited the level of aggressiveness attempted with the MS history, pAF (on coumadin with [id number] score of 4-5 (if "CHF is added)), breast cancer s/p radiation, colon perforation s/p partial colectomy, C. diff colitis, HTN, HLP, and COPD, who presented back to [facility] with complaints of dizziness. Chest discomfort was noted, but the patient felt that this might be her "gastritis". No cardiovascular symptoms were voiced today. Outpatient notes from Dr. Leiva (01-09-18) as well as recent inpatient notes from mid February 2018 after colonoscopy and partial colectomy were reviewed. Telemetry today with normal sinus rhythm and a rate of 60-65 bpm. The patient's was at bedside. Over the weekend, the patient's reported that she was "...not herself...", which came to a head yesterday with the dizziness that was noted. Call to [facility] yesterday (to discuss with Dr. Hiram Encinas/Huang's nurse) with recommendations , given the symptoms, to go to the ER for assessment. In the ER, chief complaint of dizziness was voiced. ECG with normal sinus rhythm. No cardiac biomarker elevation was noted, and no dynamic ST/T wave changes were noted on ECG (from the ER). Plan: (1) Would continue the patient on Amiodarone for the time being - this will/ should assist with maintenance of normal sinus rhythm (crucial given the patient 's mitral valve history) (2) Would continue therapy on lopressor for heart rate/rhythm control (3) Synthroid should continue with history of hypothyroidism (4) Statins should continue for HLP history (and maintain annual assessment of cholesterol and LFTs) (5) ASA therapy should continue - there is an elevated bleeding risk with both ASA and coumadin (6) Would cycle the troponins and obtain ECG today - if there are changes noted (elevation to biomarkers or dynamic ST/T wave changes, further discussion about invasive left heart cath should be undertaken - would consider treating the acute issues (ensure electrolytes are well within normal, hydration is good, volume status is good) - - consideration for outpatient stress testing, after further discussion about options with given results - what does the patient want? She is a "full code" but the degree of mitral valve pathology is of great concern, and she is a very elevated surgical risk for valve surgery (this being the reason TAVR was performed) (7) We will communicate with Dr. Hiram Encinas today about this patient Subjective: No cardiovascular complaints today. Patient still has mild dizziness, but feels better than yesterday Reviewed/Discussed With: hospitalist Objective: Vital Signs (8 Hrs) Temp Pulse Resp BP Pulse Ox 02/28/18 09:43 66 14 92 02/28/18 09:19 36.6 C 71 20 138/64 H 92 Intake/Output (24 Hrs) 02/27/18 02/28/18 03/01/18 05:59 05:59 05:59 Intake Total 0 Output Total 350 850 Balance -350 -850 Intake: Oral (ml) 0 Output: Urine (ml) 350 850 Toilet 350 850 Other: Weight 60.5 kg Number of Voids 1 Urinal 4 Number of Stools Urinal 0 Result Diagrams: 02/28/18 03:10 02/28/18 03:10 Cardiac Labs: Cardiac Lab Results (72 Hrs) 02/28/18 03:10 Troponin I < 0.012 Telemetry: normal sinus rhythm at 60- 65 bpm - Physical Exam Constitutional: WDWN, healthy appearing, no apparent distress, cachectic Eyes: PERRL, EOMI Ears, Nose, Mouth, Throat: moist mucous membranes Cardiovascular: regular rate and rhythm, systolic murmur (III/ RK), pulses symmetric bilat, No jugular vein distention Peripheral Pulses: 2+: dorsalis-pedis (R), dorsalis-pedis (L) Respiratory: clear to auscultate bilat, no crackles, no wheezes Gastrointestinal: normoactive bowel sounds Skin: no rashes, no edema Musculoskeletal: no muscular tenderness Neurologic: AAOx3, CN II-XII grossly intact Psychiatric: cooperative, interactive, following commands ICD10 Worksheet Patient Problems: Problems Problem Status Onset CHF (congestive heart failure) Acute Chest pain Acute Chronic sinus infection Acute Diarrhea Acute GERD with esophagitis Acute Gastroenteritis Acute Hypochloremia Acute Hypokalemia Acute Hyponatremia Acute Lethargy Acute Nausea Acute Pneumonia Acute
--- NOTE | 2018-02-28 11:42 | PDMN ---
Medical Necessity Medical necessity: [facility] Cardiology: 82 y/o w/ dizziness and chest discomfort w/ new anterior Twave inversions. Anemia H/H 7.2/22.7. Cardiology consulted. Cont to cycle troponins and further EKG testing, possible heart cath dependent on results. Recently d/c from prolonged hospitalization for colon perf, emergent surgery, developed cardiac problems. Pt warrants IP admit given dizziness, new EKG changes requiring further labs and cardiac eval. Hx COPD, CHF, Pulm HTN, hypothyroid, severe valvular heart disease w/ severe MR and MS, TAVR in 2017, recent cdiff.
[2018-02-28] MEDS: ACETAMINOPHEN 650 MG/20.3 ML UDCUP PO PRN (11:46)
--- NOTE | 2018-02-28 13:37 | PDDCSUM ---
Discharge Summary Discharge Summary: Admission Date: 02/27/2018 Discharge Date: 02/28/2018 Admission Diagnosis: Dizziness Discharge Diagnosis: Anemia, A Fib, Valvular Heart Disease Consults: Cardiology Procedure: EKG, Head CT, and CXR Followup: With PCP to recheck H/H within next 2-3 days Hospital Course: Xavier Trevino is an 82 y/o female with history of TAVR, mitral valve balloon valvuloplasty for MS (severe), but concomitant MR (moderate to severe) limited the level of aggressiveness attempted with the MS history, pAF (on coumadin with [id number] score of 4-5 (if "CHF is added)), breast cancer s/p radiation, colon perforation s/p partial colectomy, C. diff colitis, HTN, HLP, and COPD, who presented back to [facility] with complaints of dizziness. Chest discomfort was noted, but the patient felt that this might be her "gastritis". In the ER, chief complaint of dizziness was voiced. ECG with normal sinus rhythm. No cardiac biomarker elevation was noted, and no dynamic ST/T wave changes were noted on ECG. Case was discussed with cardiology who recommend continuing patient on Amiodarone, Lopressor, statin, and ASA. Due to lack of elevated troponin and ECG changes they recommended discharge with possible outpatient stress testing in the future. Patient had recent colon perforation s/p partial colectomy. Hgb 7.2 on admission and plan for this to be monitored by PCP after discharge. Time Spent on discharge was >35 minutes with >50% of time spent on education and counseling of patient and family
[2018-02-28] MEDS ORDERED: WARFARIN SODIUM 2.5 MG TAB PO SCH (16:00)
[2018-02-28] MEDS ORDERED: ASPIRIN EC 81 MG TAB PO SCH (21:00)
--- NOTE | 2018-03-01 13:10 | CPEKG ---
Test Reason : Blood Pressure : / mmHG Vent. Rate : 062 BPM Atrial Rate : 062 BPM P-R Int : 178 ms QRS Dur : 087 ms QT Int : 444 ms P-R-T Axes : 051 054 033 degrees QTc Int : 451 ms Sinus rhythm Low voltage, extremity leads Confirmed by Live Alex ([id number]) on 03/01/2018 1:10:23 PM Referred By: Confirmed By:Live Alex
--- NOTE | 2018-03-01 13:13 | CPEKG ---
Test Reason : OPEN Blood Pressure : / mmHG Vent. Rate : 066 BPM Atrial Rate : 066 BPM P-R Int : 174 ms QRS Dur : 090 ms QT Int : 441 ms P-R-T Axes : 056 052 032 degrees QTc Int : 463 ms Sinus rhythm Atrial premature complex Low voltage, extremity leads Confirmed by Live Alex ([id number]) on 03/01/2018 1:12:41 PM Referred By: Confirmed By:Live Alex
== END 2018-02-28 12:52 | disposition home or self-care (01) | DRG 812 ==
LOC: F2W 21:28
PROVIDERS: ADMIT Internal Medicine; ATTEND Internal Medicine
DX: D64.9 Anemia, unspecified (principal); I48.0 Paroxysmal atrial fibrillation; I11.0 Hypertensive heart disease with heart failure; I50.9 Heart failure, unspecified; C85.90 Non-Hodgkin lymphoma, unspecified, unspecified site; J44.9 Chronic obstructive pulmonary disease, unspecified; E03.9 Hypothyroidism, unspecified; E78.5 Hyperlipidemia, unspecified; Z95.2 Presence of prosthetic heart valve; Z79.01 Long term (current) use of anticoagulants; Z96.653 Presence of artificial knee joint, bilateral
CPT/HCPCS: 84484-PO

== ENCOUNTER 2018-03-07 20:28 | Inpatient (IN) | payer OTHER ==
--- NOTE | 2018-03-07 21:17 | EDPHY ---
H & P Stated Complaint: Poss pneumonia, fever, cough, nausea Time Seen by Provider: 03/07/18 20:59 HPI/ROS: CHIEF COMPLAINT: Fever, cough HISTORY OF PRESENT ILLNESS: The patient is an 82-year-old female who presents to the emergency department with her complaining of a cough and fever today any increased shortness of breath. She has a complicated history including severe valvular heart disease status post TAVR in 2017, paroxysmal atrial fibrillation on and amiodarone, recent C diff infection complicated by colonic perforation during colonoscopy and open laparotomy. This was 2 months ago. 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 Kaiser. Over the the 2 days she has began to have cough and today has had a fever. She is also hypoxic on room air. She typically wears oxygen at night only. She does have a history of COPD and CHF. Severity: Moderate Modifying factors: None REVIEW OF SYSTEMS: Constitutional: See HPI EENTM: denies: blurred vision, double vision, nose congestion Respiratory: See HPI Cardiac: denies: chest pain, irregular heart rate, lightheadedness, palpitations Gastrointestinal/Abdominal: denies: abdominal pain, diarrhea, nausea, vomiting, blood streaked stools Genitourinary: denies: dysuria, frequency, hematuria, pain Musculoskeletal: denies: joint pain, muscle pain Skin: denies: lesions, rash, jaundice, bruising Neurological: denies: headache, numbness, paresthesia, tingling, dizziness, weakness Hematologic/Lymphatic: denies: blood clots, easy bleeding, easy bruising Immunologic/allergic: denies: HIV/AIDS, transplant 10 systems reviewed and negative except as noted EXAM: GENERAL: no acute distress. HEAD: Atraumatic, normocephalic. EYES: Pupils equal round and reactive to light, extraocular movements intact, sclera anicteric, conjunctiva are normal. ENT: TMs normal, nares patent, oropharynx clear without exudates. Moist mucous membranes. NECK: Normal range of motion, supple without lymphadenopathy or JVD. LUNGS: Right lower lobe rhonchi, no wheezing HEART: Regular rate and rhythm without murmurs, rubs or gallops. ABDOMEN: Soft, nontender, normoactive bowel sounds. No guarding, no rebound. No masses appreciated. BACK: No CVA tenderness, no spinal tenderness, step-offs or deformities EXTREMITIES: Normal range of motion, no pitting or edema. No clubbing or cyanosis. NEUROLOGICAL: Cranial nerves II through XII grossly intact. Normal speech, normal gait. 5/5 strength, normal movement in all extremities, normal sensation , normal reflexes PSYCH: Normal mood, normal affect. SKIN: Warm, dry, normal turgor, no visible rashes or lesions. Source: Patient Exam Limitations: No limitations - Personal History Current Tetanus Diphtheria and Acellular Pertussis (TDAP): Yes Tetanus Vaccine Date: April 2017 - Medical/Surgical History Hx Asthma: Yes Hx Chronic Respiratory Disease: Yes Hx Diabetes: No Hx Cardiac Disease: Yes Hx Renal Disease: No Hx Cirrhosis: No Hx Alcoholism: No Hx HIV/AIDS: No Hx Splenectomy or Spleen Trauma: No Other PMH: BILAT MASECTOMY 2013,2004, KNEE SURGERY. 5 BOUTS OF CANCER,COPD, CHF , Mitral valve stenosis, HTN, Hyperlipidemia, ulcerated esophagus cardiac valve replaced - Family History Significant Family History: No pertinent family hx - Social History Smoking Status: Never smoked Alcohol Use: Sober Drug Use: None Constitutional: Initial Vital Signs Temperature (C) 38.1 C 03/07/18 20:35 Heart Rate 93 03/07/18 20:35 Respiratory Rate 18 03/07/18 20:35 Blood Pressure 167/78 H 03/07/18 20:35 O2 Sat (%) 85 L 03/07/18 20:35 O2 Delivery Mode Nasal Cannula O2 (L/minute) 2 Allergies/Adverse Reactions: BRITNEY Inhibitors Allergy (Severe, Verified 03/07/18 20:35) Swelling/neck,face,throat Iodine and Iodide Containing Produc Allergy (Severe, Verified 03/07/18 20:35) Swelling/neck,face,throat methadone Allergy (Mild, Verified 03/07/18 20:35) GI upset oxycodone HCl [From OxyContin] Allergy (Mild, Verified 03/07/18 20:35) GI upset topiramate Allergy (Mild, Verified 03/07/18 20:35) Other-Enter Comments amitriptyline Allergy (Verified 03/07/18 20:35) Other-Enter Comments moxifloxacin HCl [From Avelox] Allergy (Verified 03/07/18 20:35) Vomiting Opioids - Morphine Analogues Allergy (Verified 03/07/18 20:35) Thiazides Allergy (Verified 03/07/18 20:35) Other-Enter Comments all narcotics Allergy (Uncoded 03/07/18 20:35) "I don't do well with them" thiazide Allergy (Uncoded 03/07/18 20:35) Home Medications: Medication Instructions Recorded Albuterol [Proventil Inhaler HFA 2 puffs IH BID 01/06/17 (*)] Atorvastatin Calcium [Lipitor 10 10 mg PO HS 01/06/17 mg (*)] Cholecalciferol Vit D3 [Vitamin D3 2,000 units PO DAILY 01/06/17 (*)] Levothyroxine [Synthroid 75 mcg 75 mcg PO DAILY06 01/06/17 (*)] Zolpidem Tartrate [Ambien 5MG (*)] 5 mg PO HS 01/06/17 Multivitamins [Multivitamin (*)] 1 tab PO DAILY 02/23/17 Raloxifene HCl [Evista] 60 mg PO DAILY 02/23/17 Aspirin EC [Aspirin EC 81 mg (*)] 81 mg PO HS 06/13/17 Pantoprazole Sodium [Protonix 40mg 40 mg PO BID #60 tab 06/17/17 (*)] Amiodarone HCl [Pacerone (*)] 200 mg PO DAILY #30 tab 02/18/18 Metoprolol Tartrate [Lopressor 50 50 mg PO BID #60 tab 02/18/18 mg (*)] Warfarin Sodium [Coumadin 2.5MG 1.25 mg PO DAILY16 #30 tab 02/18/18 (*)] Ascorbic Acid [C-1000] 1,000 mg PO DAILY 02/27/18 Magnesium Oxide [Magnesium Oxide 400 mg PO HS 02/27/18 400 mg (*)] Amiodarone HCl [Pacerone (*)] 200 mg PO DAILY 03/07/18 Fluticasone Propionate [Flovent 100 mcg IH DAILY 03/07/18 Diskus] Gabapentin [Neurontin 300 MG (*)] 600 mg PO HS 03/07/18 Calcium Carb W/Vit D [Calcium Carb 1,000 mg PO DAILY 03/08/18 W/Vit D 500/200 (*)] Calcium Polycarbophil [FIBERCON] 1,250 mg PO HS 03/08/18 Fluticasone Propionate [Flovent 1 puffs IH BID 03/08/18 Diskus] Sucralfate 1 gm PO 1700 03/08/18 Medical Decision Making - Diagnostics Imaging: Discussed imaging studies w/ call center professional Radiologist ED Course/Re-evaluation: Patient has bilateral basilar infiltrates on x-ray consistent with her fever and cough. I will start her on cefepime for likely hospital-acquired pneumonia. She also has hyponatremic. I discussed the case with Dr. Stanford who will admit to the hospital service. She recommends Levaquin. The patient is very concerned about recurrence of C diff. Her chart lists a historical allergy to moxifloxacin but the patient does not remember this and does not think she has had an allergic reaction to that antibiotic. I have not given her saline boluses because of her hyponatremia and because of her history of CHF. Also she has been hypertensive and not tachycardic. Differential Diagnosis: Partial list of the Differential diagnosis considered include but were not limited to; pneumonia, electrolyte abnormality, sepsis and although unlikely based on the history and physical exam, I also considered severe sepsis, PE, acute coronary disease, dissection, CHF exacerbation. I discussed these differential diagnoses and the plan with the patient as well as the usual and expected course. The patient understands that the diagnosis is provisional and that in medicine we are not always correct and that further workup is often warranted. Usual and customary warnings were given. All of the patient's questions were answered. The patient was instructed to return to the emergency department should the symptoms at all worsen or return, otherwise to followup with the physician as we discussed. - Data Points Laboratory Results: Laboratory Results 03/07/18 20:52 03/07/18 20:52 Microbiology Results: MICROBIOLOGY 03/07/18 20:52 Blood Blood Culture - Preliminary Gram Positive Cocci Chains 03/07/18 20:52 Blood Blood Panel (PCR) - Final Streptococcus Pneumoniae 03/07/18 22:15 Nasal, Sinus - Swab Respiratory Panel (PCR) - Final No Organism Detected Medications Given: Acetaminophen (Tylenol 650/20.3ml Oral Liquid) 650 mg PO Q4HRS PRN PRN Reason: Pain, Mild/Fever, Can Take PO Stop: 09/04/18 10:22 Last Admin: 03/08/18 15:29 Dose: 650 mg Albuterol (Proventil Inhaler) 2 puffs IH BID ANDREI Stop: 09/04/18 09:44 Last Admin: 03/08/18 10:20 Dose: Not Given Amiodarone HCl (Amiodarone Hcl) 200 mg PO DAILY ANDREI Stop: 09/04/18 09:44 Last Admin: 03/08/18 10:04 Dose: 200 mg Ascorbic Acid (Vitamin C) 1,000 mg PO DAILY ANDREI Stop: 09/04/18 10:44 Last Admin: 03/08/18 10:41 Dose: 1,000 mg Calcium Carbonate (Tums) 500 mg PO TID PRN PRN Reason: Indigestion Stop: 09/04/18 12:04 Last Admin: 03/08/18 15:31 Dose: 500 mg Calcium/Vitamin D (Calcium Carb W/Vit D) 1,000 mg PO DAILY ANDREI Stop: 09/04/18 09:44 Last Admin: 03/08/18 10:04 Dose: 1,000 mg Cholecalciferol (Vitamin D) 2,000 units PO DAILY ANDREI Stop: 09/04/18 09:44 Last Admin: 03/08/18 10:04 Dose: 2,000 units Ceftriaxone Sodium 2 gm/ (Sodium Chloride) 50 mls @ 100 mls/hr IV DAILY ANDREI Stop: 04/07/18 11:29 Last Admin: 03/08/18 12:02 Dose: 50 mls Metoprolol Tartrate (Lopressor) 50 mg PO BID ANDREI Stop: 09/04/18 09:44 Last Admin: 03/08/18 10:05 Dose: 50 mg Multivitamins (Tab-A-Hellen) 1 each PO DAILY ANDREI Stop: 09/04/18 09:44 Last Admin: 03/08/18 10:05 Dose: 1 each Pantoprazole Sodium (Protonix) 40 mg PO BID ANDREI Stop: 09/04/18 09:44 Last Admin: 03/08/18 10:04 Dose: 40 mg Raloxifene HCl (Evista) 60 mg PO DAILY ANDREI Stop: 09/04/18 09:44 Last Admin: 03/08/18 10:04 Dose: 60 mg Warfarin Sodium (Coumadin) 1.25 mg PO DAILY16 ANDREI Stop: 09/04/18 15:59 Last Admin: 03/08/18 15:29 Dose: 1.25 mg Discontinued Medications Levofloxacin/Dextrose (Levaquin 750 Mg (Premix)) 150 mls @ 100 mls/hr IV EDNOW ONE PRN Reason: Protocol Stop: 03/07/18 23:38 Last Admin: 03/07/18 22:33 Dose: 150 mls Magnesium Sulfate (Magnesium Sulf 2 Gm (Premix)) 50 mls @ 50 mls/hr IV ONCE ONE Stop: 03/08/18 10:45 Last Admin: 03/08/18 10:05 Dose: 50 mls Miscellaneous Medication (Ascorbic Acid [C-1000]) 1,000 mg PO DAILY ANDREI Stop: 09/04/18 09:44 Last Admin: 03/08/18 10:46 Dose: Not Given Miscellaneous Medication (Fluticasone Propionate [Flovent Diskus]) 100 mcg IH DAILY ANDREI Stop: 09/04/18 09:44 Last Admin: 03/08/18 10:20 Dose: Not Given Departure - Departure Disposition: [facility] Acute Clinical Impression: Hyponatremia Sepsis Qualifiers: Sepsis type: sepsis due to unspecified organism Qualified Code(s): A41.9 - Sepsis, unspecified organism Pneumonia of both lower lobes Qualifiers: Pneumonia type: due to unspecified organism Qualified Code(s): J18.1 - Lobar pneumonia, unspecified organism Condition: Fair
[2018-03-07 21:19] LABS: PLATELET COUNT 343 10^3/uL (150-400)
[2018-03-07 21:36] LABS: INR 1.42 (0.83-1.16); PROTIME(PATIENT) 17.5 SEC (12.0-15.0)
[2018-03-07] MEDS ORDERED: ACETAMINOPHEN 325 MG TAB PO PRN (22:21)
[2018-03-07] MEDS ORDERED: ONDANSETRON 4 MG/2 ML VIAL IVP PRN (22:21)
--- NOTE | 2018-03-07 23:26 | PDGENHP ---
History and Physical - Chief Complaint Fever, shortness of breath - History of Present Illness Source-patient is able to provide majority of the history appears reliable. at bedside supplements details. EMR was reviewed and case discussed with ED provider. HPI-very pleasant 82-year-old female with a significant cardiac history while on valvular heart disease including severe MR status post mitral balloon valvuloplasty and TAVR 2016, paroxysmal atrial fibrillation, HTN, HLD, CHF, pulmonary hypertension, anemia with recent transfusion, recent hospital stays related to complications of colonoscopy with perforation status post partial colectomy and subsequent development of C diff colitis now treated who presents emergency department today with complaints of fever and shortness of breath with pleuritic chest pain that started this afternoon suddenly. Patient reports that she ate breakfast and shortly after she had pretty rapid decline including generalized weakness, fatigue, fevers, shortness of breath, pleuritic chest pain and a very minimal nonproductive cough. Patient also reports that she has noticed increasing lower extremity edema. She denies any orthopnea or PND. Patient normally wears oxygen only at HS but she tried to wear a little bit during the daytime and this did seem to improve her symptoms. Patient denies any recent sick contact exposures. She did just have transfusion in the last several days for anemia which is followed by Dr. Kaiser. In the emergency department, patient was noted to be hypoxic in the mid 80s. She developed a fever to 38.1F. She denies significant cough this generalized malaise fatigue. She has had decreased appetite since breakfast. She denies any dark concentrated urine she last voided before she left home for the ED. She denies any diarrhea, nausea, vomiting, dysuria. History Information - Allergies/Home Medication List Allergies/Adverse Reactions: BRITNEY Inhibitors Allergy (Severe, Verified 03/07/18 20:35) Swelling/neck,face,throat Iodine and Iodide Containing Produc Allergy (Severe, Verified 03/07/18 20:35) Swelling/neck,face,throat methadone Allergy (Mild, Verified 03/07/18 20:35) GI upset oxycodone HCl [From OxyContin] Allergy (Mild, Verified 03/07/18 20:35) GI upset topiramate Allergy (Mild, Verified 03/07/18 20:35) Other-Enter Comments amitriptyline Allergy (Verified 03/07/18 20:35) Other-Enter Comments moxifloxacin HCl [From Avelox] Allergy (Verified 03/07/18 20:35) Vomiting Opioids - Morphine Analogues Allergy (Verified 03/07/18 20:35) Thiazides Allergy (Verified 03/07/18 20:35) Other-Enter Comments all narcotics Allergy (Uncoded 03/07/18 20:35) "I don't do well with them" thiazide Allergy (Uncoded 03/07/18 20:35) Home Medications: Albuterol [Proventil Inhaler HFA (*)] 2 puffs IH BID PRN 01/06/17 [Last Taken 08:00] Atorvastatin Calcium [Lipitor 10 mg (*)] 10 mg PO HS 01/06/17 [Last Taken ] Cholecalciferol Vit D3 [Vitamin D3 (*)] 2,000 units PO DAILY 01/06/17 [Last Taken 02/27/18] Gabapentin [Neurontin 300 MG (*)] 300 mg PO HS 01/06/17 [Last Taken 02/26/18] Levothyroxine [Synthroid 75 mcg (*)] 75 mcg PO DAILY06 01/06/17 [Last Taken 06:00] Zolpidem Tartrate [Ambien 5MG (*)] 5 mg PO HS PRN 01/06/17 [Last Taken 02/26/18] Multivitamins [Multivitamin (*)] 1 tab PO DAILY 02/23/17 [Last Taken 02/27/18] Raloxifene HCl [Evista] 60 mg PO DAILY 02/23/17 [Last Taken 02/27/18] Aspirin EC [Aspirin EC 81 mg (*)] 81 mg PO HS 06/13/17 [Last Taken 02/26/18] Ascorbic Acid [C-1000] 2,000 mg PO DAILY 02/27/18 [Last Taken 02/27/18] Beclomethasone Qvar 40 [Qvar 40 Redihaler (*)] 2 inh IH BID 02/27/18 [Last Taken 02/27/18 09:00] Calcium Carbonate/Vitamin D3 [Calcium 600 + Vit D 400 Softgl] 2 each PO DAILY [Last Taken 02/27/18] Magnesium Oxide [Magnesium Oxide 400 mg (*)] 400 mg PO HS 02/27/18 [Last Taken 02/26/18] Amiodarone HCl [Pacerone (*)] 200 mg PO DAILY 03/07/18 [Last Taken Unknown] Apixaban [Eliquis] 2.5 mg PO BID 03/07/18 [Last Taken Unknown] Fluticasone Propionate [Flovent Diskus] 100 mcg IH DAILY 03/07/18 [Last Taken Unknown] Gabapentin [Neurontin 300 MG (*)] 300 mg PO BID 03/07/18 [Last Taken Unknown] Ondansetron Odt [Zofran Odt 4 mg (*)] 4 mg PO TID PRN 03/07/18 [Last Taken Unknown] Ranitidine HCl 300 mg PO DAILY 03/07/18 [Last Taken Unknown] I have personally reviewed and updated: family history, medical history, social history, surgical history - Past Medical History Additional medical history: severe mitral valve stenosis, moderate to severe mitral regurgitation s/p balloon valvuloplasty, status post TAVR 2016. Pulmonary hypertension. Lymphoma in remission. Asthma/ COPD. Breast cancer status post radiation therapy, mastectomy. Radiation induced esophagitis. hypothyroidism. esophagitis. CHF - normal systolic function echo 02/2018 with severe Mitral valve stenosis. HLD, HTN. hiatal hernia. c diff 02/14/2018 s/p PO vanco. gerd. Paroxysmal atrial fibrillation - Surgical History Additional surgical history: Bilateral mastectomy. Bilateral total knee replacement. Cardiac catheterization 2010. Colonoscopy with complicated by perforation status post partial colectomy - Family History Additional family history: many first-degree relatives with coronary artery disease all after age 65 - Social History Smoking Status: Never smoked Alcohol Use: Sober Drug Use: None Additional social history: Independent in her ADLs, get shortness of breath with ambulating stairs. and lives with her . Cor status-full. Advanced directives in place. Review of Systems Review of Systems: ROS: 10pt was reviewed & negative except for what was stated in HPI & below Constitutional: Reports: chills, fever, malaise, weakness (Generalized). Denies : diaphoresis, recent illness EENMT: Denies: ear discharge, blurred vision, nose congestion, sore throat Cardiac: Reports: chest pain (Pleuritic in nature central), edema (Patient notes increasing swelling in her feet and legs.). Denies: lightheadedness, palpitations, syncope Respiratory: Reports: cough (Rare nonproductive), shortness of breath. Denies: orthopnea, wheezing Gastrointestinal: Reports: no symptoms, other (Decreased appetite since breakfast.). Denies: vomitting, abdominal pain, nausea Genitourinary: Reports: no symptoms Muscolosketal: Reports: no symptoms Skin: Reports: no symptoms Neurological: Reports: headache, weakness (Generalized weakness). Denies: numbness, tingling Hematologic/Lymphatic: Reports: anemia (The recent transfusion) Physical Exam Physical Exam: Selected Entries 03/07/18 20:35 Blood Pressure Automatic Method Heart Rate 93 Respiratory 18 Rate O2 Sat (%) 85 L Temperature (C) 38.1 C Blood Pressure 167/78 H Mean Arterial 107 H Pressure (MAP) O2 Delivery Room Air Mode Temperature Oral Source Temp Pulse Resp BP Pulse Ox 37.0 C 84 20 136/65 H 96 03/07/18 22:38 03/07/18 23:13 03/07/18 22:38 03/07/18 23:13 03/07/18 23:13 O2 (L/minute) 2 Constitutional: no apparent distress, not in pain, chronically ill appearing, other Eyes: PERRL, anicteric sclera, EOMI, No scleral injection Ears, Nose, Mouth, Throat: dry mucous membranes, other (No nasal discharge), No poor dentition Cardiovascular: regular rate and rhythym (Occasional irregular beat.), systolic murmur, diastolic murmur, pulses symmetric bilaterally, edema (Trace pretibial pitting edema. Her feet do not have any edema present.), No JVD Peripheral Pulses: 2+: dorsalis-pedis (R), dorsalis-pedis (L) Respiratory: no respiratory distress, no rales or rhonchi, reduced air movement (Diminished breath sounds bibasilarly. Occasional crackles.), inspiratory crackles (Basilar), No expiratory wheeze Gastrointestinal: normoactive bowel sounds, soft, non-tender abdomen, no palpable masses, No tenderness, No distension Genitourinary: no bladder tenderness, No alex in urethra Skin: warm, no rashes or abrasions, other (Pallor), No mottled, No rash Musculoskeletal: generalized weakness (Patient requires low bit of assistance to sit up. ) Neurologic: AAOx3, other (Patient is fatigued. She does not recall all of the specific details of events earlier today home. Her is supplementing some of the details. Overall she is still fairly reliable.) Psychiatric: interacting appropriately, not encephalopathic, thought process linear, anxious, other (Patient is thought process content and questions are overall appropriate.), No depressed, No flat affect Lab Data & Imaging Review 03/08/18 03:44 03/08/18 03:44 WBC 13.00 10^3/uL (3.80-9.50) H 03/07/18 20:52 RBC 3.62 10^6/uL (4.18-5.33) L 03/07/18 20:52 Hgb 10.5 g/dL (12.6-16.3) L 03/07/18 20:52 Hct 32.2 % (38.0-47.0) L 03/07/18 20:52 MCV 89.0 fL (81.5-99.8) 03/07/18 20:52 MCH 29.0 pg (27.9-34.1) 03/07/18 20:52 MCHC 32.6 g/dL (32.4-36.7) 03/07/18 20:52 RDW 18.6 % (11.5-15.2) H 03/07/18 20:52 Plt Count 343 10^3/uL (150-400) 03/07/18 20:52 MPV 9.6 fL (8.7-11.7) 03/07/18 20:52 Neut % (Auto) 90.4 % (39.3-74.2) H 03/07/18 20:52 Lymph % (Auto) 3.8 % (15.0-45.0) L 03/07/18 20:52 [place] % (Auto) 4.7 % (4.5-13.0) 03/07/18 20:52 Eos % (Auto) 0.0 % (0.6-7.6) L 03/07/18 20:52 Baso % (Auto) 0.3 % (0.3-1.7) 03/07/18 20:52 Nucleat RBC Rel Count 0.0 % (0.0-0.2) 03/07/18 20:52 Absolute Neuts (auto) 11.75 10^3/uL (1.70-6.50) H 03/07/18 20:52 Absolute Lymphs (auto) 0.49 10^3/uL (1.00-3.00) L 03/07/18 20:52 Absolute Monos (auto) 0.61 10^3/uL (0.30-0.80) 03/07/18 20:52 Absolute Eos (auto) 0.00 10^3/uL (0.03-0.40) L 03/07/18 20:52 Absolute Basos (auto) 0.04 10^3/uL (0.02-0.10) 03/07/18 20:52 Absolute Nucleated RBC 0.00 10^3/uL (0-0.01) 03/07/18 20:52 Immature Gran % 0.8 % (0.0-1.1) 03/07/18 20:52 Immature Gran # 0.10 10^3/uL (0.00-0.10) 03/07/18 20:52 RBC/WBC/PLT Morphology TNP 03/07/18 20:52 Platelet Estimate TNP 03/07/18 20:52 PT 17.5 SEC (12.0-15.0) H 03/07/18 20:52 INR 1.42 (0.83-1.16) H 03/07/18 20:52 APTT 27.6 SEC (23.0-38.0) 03/07/18 20:52 VBG Lactic Acid 1.1 mmol/L (0.7-2.1) 03/07/18 20:52 Sodium 124 mEq/L (135-145) L 03/07/18 20:52 Potassium 4.5 mEq/L (3.3-5.0) 03/07/18 20:52 Chloride 93 mEq/L (97-110) L 03/07/18 20:52 Carbon Dioxide 23 mEq/l (22-31) 03/07/18 20:52 Anion Gap 8 mEq/L (8-16) 03/07/18 20:52 BUN 12 mg/dL (7-23) 03/07/18 20:52 Creatinine 0.6 mg/dL (0.6-1.0) 03/07/18 20:52 Estimated GFR > 60 03/07/18 20:52 Glucose 97 mg/dL (70-100) 03/07/18 20:52 Calcium 8.5 mg/dL (8.5-10.4) 03/07/18 20:52 Total Bilirubin 1.7 mg/dL (0.1-1.4) H 03/07/18 20:52 Imaging Review: AP Upright and Lateral Chest March 07, 2018 Clinical Indications: Fever, cough, and shortness of breath in an 82-year-old female; comparison to prior studies of February 27, 2018 and February 05, 2018. Findings: The heart is enlarged, and there is pulmonary venous redistribution. Small bilateral pleural effusions are suspected. Postoperative changes of valvular replacement are seen. Basilar opacities are seen bilaterally, more pronounced on the left side, and demonstrating progression compared to the older studies. An element of hyperexpansion is seen suggesting airways disease. Impression: 1. Congestive heart failure. 2. Increased left alveolar opacity could reflect superimposed pneumonia. 3. Right basilar opacity is probably atelectasis. 4. Suspect airways disease. Dictated By: Sidney Neely MD Visualized and Interpreted Chest x-ray results: Yes Visualized and Interpreted EKG results: Yes EKG additional interpertation: Normal sinus rhythm in the 80s. No acute ST changes. QTC 469. Assessment & Plan Assessment: 82-year-old female with past medical history significant for severe valvular heart disease, PAF, HTN, HLD, COPD, CHF, pulmonary hypertension, lymphoma, hypothyroidism and recent bout of C diff who presents to the emergency department today with complaints of rapidly progressive symptoms of dyspnea and fever. #Bilateral Pneumonia - s/p 1 dose levaquin. hx of recent c diff infection. ID consult also requested for abx recs as patient expresses significant concerns she may contract again. Respiratory PCR ordered. #Hypoxia - supplemental oxygen prn. #hyponatremia - available labs from 02/28/2018 showed the patient's sodium was actually normal 135. I suspect that this episode of hyponatremia is more acute. Patient does appear little bit dry on her mucous membranes but she denies any concentrated urine. She has only had declined oral intake since after lunch. Her chest x-ray does show a little bit increased pulmonary vascular congestion and cardiomegaly with effusion. This could represent some hypervolemic hyponatremia. Patient has endorsed some increased lower extremity edema recently however I noted to her that there is no edema on her feet at this time. She has denied any orthopnea. Discussed with patient consideration for some gentle IV fluid hydration via pump on manage closely however she reports a history of admission to the ICU for severe hyponatremia in 2017 and she has declined any IV fluids to run tonight. She reports that she is able to hydrate orally and she will plan to continue to do that at this time. We will obtain some urine studies. Patient's BNP is over 3000. Will repeat labs in the morning and check additional electrolytes as well. # chest pain - patient describes a pleuritic type pattern. Given her extensive cardiac history I did obtain add on troponin as well as EKG which were nondiagnostic for any acute cardiac issues ongoing. Again suspect this is mostly pleuritic related to patient's pneumonia and hypoxia with some increased work of breathing. Will continue to monitor patient on telemetry. I did not added any aspirin given her recent transfusion and anemia. # anemia - patient with recent transfusion per Dr. Kaiser on outpatient basis. She is undergoing further evaluation of her anemia. She has a previous history of lymphoma in remission. Chronic medical issues #Valvular heart disease - patient is status post have her as well as a MR balloon angioplasty but has severe mitral valve stenosis. #Hiatal hernia - sucralfate ACHS, protonix BID #PAF - currently NSR. contineu amiodarone, metoprolol #HTN - bps minimally elevated. continue home antihypertensives as per med rec #HLD - continue statin. #History C diff - patient is significantly concerned regarding lauren C diff again. She did receive a dose of Levaquin in the emergency department however she is on on amiodarone (QT prolonging) and Coumadin which may cause elevation in INR. Given patient's concerns and her just recent treatment of C diff on will request Infectious Disease consultation for recommendations regarding potential need for prophylaxis or change and antibiotic therapy for pneumonia. #COPD - continue p.r.n. Nebs. qvar, flovent #CHF - patient declines any IV fluids. She does have evidence of CHF on chest x -ray hold addition to her bilateral pneumonia. BNP is elevated. She has noted some increased swelling over the last several days. Consider trial of diuresis pending repeat sodium. #Hypothyroidism - resume patient's levothyroxine #Pulmonary hypertension - oxygen supplementation at HS. #Anemia - H&H at this time is stable. She does not require any transfusions. Will monitor CBC. No evidence of active bleeding. # hx breast ca - continue raloxifine HCL. FEN - holding IV fluids as noted above. Electrolyte monitoring replacement if needed. Cardiac diet ordered. PPX-SCDs. Patient is on Coumadin. Cor status-full Disposition-patient admitted to inpatient status on the medical floor placed in PCU overflow. Anticipate greater than 2 midnight stays given the significance of patient's hypoxia bilateral pneumonia compound by her significant chronic medical issues.
[2018-03-08] MEDS ORDERED: ALBUTEROL 3 ML DEYVIAL IH PRN (04:23)
[2018-03-08 04:26] LABS: PLATELET COUNT 291 10^3/uL (150-400)
[2018-03-08] MEDS ORDERED: CEFEPIME HCL 2 GM in NS 100 ML IV SCH ×2 (06:00→14:00)
[2018-03-08] MEDS ORDERED: FLUTICASONE PROPIONATE 100 MCG IH SCH ×2 (09:45→21:00)
[2018-03-08] MEDS ORDERED: ASCORBIC ACID 1000 MG PO SCH (09:45)
[2018-03-08] MEDS ORDERED: MAGNESIUM SULF 2 GM/WATER 50 ML IV ONE (09:46)
[2018-03-08] MEDS: CHOLECALCIFEROL VIT D3 1,000 UNITS TAB PO SCH (10:04)
[2018-03-08] MEDS: PANTOPRAZOLE SODIUM 40 MG TAB PO SCH ×2 (10:04→20:20)
[2018-03-08] MEDS: AMIODARONE HCL 200 MG TAB PO SCH (10:04)
[2018-03-08] MEDS: CALCIUM CARB W/VIT D 500 MG TAB PO SCH (10:04)
[2018-03-08] MEDS: RALOXIFENE HCL 60 MG TAB PO SCH (10:04)
[2018-03-08] MEDS: MULTIVITAMINS 1 EACH TAB PO SCH (10:05)
[2018-03-08] MEDS: METOPROLOL TARTRATE 50 MG TAB PO SCH ×2 (10:05→20:19)
--- NOTE | 2018-03-08 10:11 | HOSPPROG ---
Hospitalist Progress Note Assessment/Plan: #Strep PNA: cough, elevated WBC. Hospitalized February with perforated bowel, IV abx. Ceftriaxone (LQ/Azithro high-risk with prolonged QTc). #Strep pneumo bacteremia: CTX. ID consulted #Acute hypoxic resp failure: from PNA. Has some edema #Recent C diff: ppx Vanc while on abx #Permanent a fib: amiodarone, BB. Watch INR with coumadin + abx. Ensure K, Mg repleted #Recent bowel perforation: healed #VHD: euvolemic. h/o AVR, MV valvuloplasty #Hyponatremia: #Esophagitis: resume home meds #Compensated DHF: BNP up, but not clinically overload. #Chronic anemia: s/p transfusion Tuesday #h/o lymphoma, breast cancer: sees Dr. Kaiser #Hypothyroidism: LT4 #Diet: cardiac, 1500ml fluid #Disp: inpatient admission for IV abx, serial labs Subjective: weak today. Objective: Vital Signs Temp Pulse Resp BP Pulse Ox 37.1 C 85 16 132/66 H 94 03/08/18 07:27 03/08/18 05:00 03/08/18 05:00 03/08/18 07:27 03/08/18 05:00 Microbiology 03/07/18 22:15 Respiratory Panel (PCR) - Final Nasal, Sinus - Swab No Organism Detected Laboratory Results 03/08/18 03:44 03/08/18 03:44 03/07/18 03/08/18 03/09/18 05:59 05:59 05:59 Intake Total 550 Output Total 1200 200 Balance -650 -200 PT 17.5 SEC (12.0-15.0) H 03/07/18 20:52 INR 1.42 (0.83-1.16) H 03/07/18 20:52 - Time Spent With Patient Time Spent with Patient: greater than 35 minutes Time Spent with Patient: Greater than 35 minutes spent on this patients care, greater than 50% of time spent counseling, educating, and coordinating care regarding the above mentioned plan. - Physical Exam Constitutional: no apparent distress Eyes: PERRL Ears, Nose, Mouth, Throat: moist mucous membranes Cardiovascular: regular rate and rhythym, edema (trace) Respiratory: other (decreased BS left base) Gastrointestinal: normoactive bowel sounds Genitourinary: no bladder fullness Skin: warm Musculoskeletal: generalized weakness Neurologic: AAOx3, CN II-XII Intact Psychiatric: interacting appropriately ICD10 Worksheet Patient Problems: Problems Problem Status Onset Hyponatremia Acute Pneumonia of both lower lobes Acute Sepsis Acute chronic disease mgmt/transitional care Acute CHF (congestive heart failure) Acute Chest pain Acute Chronic sinus infection Acute Diarrhea Acute GERD with esophagitis Acute Gastroenteritis Acute Hypochloremia Acute Hypokalemia Acute Lethargy Acute Nausea Acute Pneumonia Acute
[2018-03-08] MEDS: ALBUTEROL 60 PUFFS/8 GM MDI IH SCH ×2 (10:20→20:31)
[2018-03-08] MEDS: ASCORBIC ACID 500 MG TAB PO SCH (10:41)
[2018-03-08] MEDS: ACETAMINOPHEN 650 MG/20.3 ML UDCUP PO PRN ×2 (10:41→15:29)
--- NOTE | 2018-03-08 11:53 | ASMTCASEMG ---
Living Arrangements What is your living Answers: With Spouse arrangement? Who do you live with? Type Of Residence What kind of residence do Answers: House you live in? Discharge Plan Comments Coordination Status Comments Notes: Pts case discussed in morning rounds w/ tx team. Pt is a 82 y/o female admitted for pneumonia, hyponatremia and sepsis. Pt was recently at [facility] on 02/27/18 to 02/28/18 for CP/CHF. Pt was d/c without any needs at this time. For this admission, ID has been consulted. Dr. Fisher will be ordering therapies to eval. Transitional care is following. Needs are TBD at this time. CM to follow. Plan: TBD Date Signed: 03/08/2018 11:53 AM Electronically Signed By:FREDY Davidson
[2018-03-08] MEDS: CALCIUM CARBONATE 500 MG CHEWABLE TAB PO PRN ×2 (12:23→15:31)
--- NOTE | 2018-03-08 14:40 | PDMN ---
Medical Necessity Medical necessity: [facility] M282 Pneumonia, 82 y/o w/ b/l pneumonia, ID consult, pt w / hypoxia (85% RA-oxygen required to maintain sats), hyponatremia, chest pain, serial troponins ordered, anemia. blood/sputum cx and Resp panel ordered, blood panel by PCR + for strep bacteremia pneumonia. IV antibx started, pt on fluid restrict d/t cardiac hx. elevated WBC 13.23, H/H 9.2/28.5, Na, 124, Anticipate >2MN stays given significance of patient's hypoxia, bilat pneumonia compounded by sig chronic medical issues. PT/OT consults. Sig med hx severe valvular heart disease, PAF, HTN, HLD, COPD, CHF, Pulm HTN, lymphoma, hypothyroidism, recent Cdiff
[2018-03-08] MEDS: WARFARIN SODIUM 2.5 MG TAB PO SCH (15:29)
--- NOTE | 2018-03-08 16:10 | GCON ---
INFECTIOUS DISEASE CONSULTATION REFERRING PHYSICIAN: Rachell Stanford MD REASON FOR CONSULTATION: Pneumococcal bacteremia and pneumonia. HISTORY OF PRESENT ILLNESS: This is an 82-year-old woman with multiple medical problems, including a remote history of B-cell lymphoma, multivalvular heart disease, atrial fibrillation, whose recent medical history is pertinent for a hospitalization from January 30 to February 18, following a colon perforation from colonoscopy requiring a partial colectomy. There was no gross fecal contamination, and the patient received a 7-day course of ceftriaxone and Flagyl. Patient's postoperative course was complicated by C diff diagnosed . She completed her oral vancomycin about a week or 2 prior to this current hospitalization. She was also hospitalized overnight from the to the for dizziness. Overnight, she was admitted for fever and malaise and a cough times a couple days. She had presented to the emergency room after she developed a cough. In the emergency room, she underwent a chest x-ray, which demonstrated a left lower lobe infiltrate. She also had lab work, which showed a mildly elevated white count at 13. A respiratory panel PCR was negative, and the patient was started on empiric antibiotics, given a dose of levofloxacin. Earlier today, she was transitioned to ceftriaxone due to drug interactions with Levaquin and amiodarone. Her blood cultures subsequently grew 1 out of 2 pneumococcus this morning, and her sputum is pending, but had 1+ GPCs. She states that she feels slightly improved today but still has a persistent cough. She has had increased frequency of her bowel movements, but no loose stools. She denies any chest pain. She has a productive cough for yellow sputum. PAST MEDICAL HISTORY: COPD with pulmonary hypertension, valvular heart disease , status post TAVR and mitral valve balloon valvuloplasty but has residual mitral stenosis, moderate mitral regurgitation, and moderate tricuspid regurgitation. She has atrial fibrillation, on amiodarone. She had breast cancer, status post mastectomy, lumpectomy and radiation. She has a remote history of B-cell lymphoma in 1999. PAST SURGICAL HISTORY: Cholecystectomy, hysterectomy, right mastectomy, lumpectomy, mitral valve repair, TAVR, and total knee arthroplasty. ALLERGIES: No antibiotic allergies. She has allergy to hydrochlorothiazide, iodine, and narcotics. MEDICATIONS: She got a dose of Levaquin 750 x1; now is on vancomycin 125 p.o. b.i.d.; Coumadin 1.25 daily; and ceftriaxone 2 g IV daily. FAMILY HISTORY: Positive for coronary artery disease. SOCIAL HISTORY: Patient is . She is originally from [place] but has been in [place] for 50 years. She never smoked. No recent travel. REVIEW OF SYSTEMS: A complete 10-point review of systems was performed and is negative, except as mentioned in the HPI. PHYSICAL EXAM: VITAL SIGNS: T-max 38.8, T-current 37.1, blood pressure 132/66, heart rate 85, respiratory rate 16, saturation 94% on room air when I was examining her. GENERAL: This is a pleasant, articulate woman, lying in bed, coughing intermittently. HEENT: No conjunctival hemorrhages. She had some mild pallor. Oropharynx: Fair dentition. No oral ulcerations or exudate. She had moist mucous membranes. NECK: Supple. CARDIOVASCULAR: Irregularly irregular with a blowing systolic murmur, possible diastolic murmur. CHEST: Coarse breath sounds throughout with possible decreased breath sounds in the left base. ABDOMEN: Slightly distended. Bowel sounds were present. Midline surgical scar is well healed. No tenderness. : No Myrick. No suprapubic tenderness. No flank pain. EXTREMITIES: She had no edema. No peripheral stigmata of endocarditis. NEUROLOGIC: She is alert and oriented x4, moving all 4 extremities equally. LABORATORY DATA: White count 13, hematocrit 28, platelets of 291, 88% neutrophils. Creatinine is 0.5. Sodium 127, procalcitonin 0.62. Troponin was flat. Chest x-ray was personally reviewed by me, which showed some volume overload and possible left lower lobe infiltrate. ASSESSMENT: 82-year-old woman with a complex medical history and recent hospitalization complicated by Clostridium difficile, who presents to the hospital with fever and cough, subsequently found to have a left lower lobe pneumonia and pneumococcal bacteremia. Agree with avoiding coadministration of agents that prolong the QT with ongoing amiodarone therapy. In addition, she is on Coumadin therapy. Therefore, minimizing drug-drug interactions with Coumadin. 1. Agree with ceftriaxone 2 g IV daily and discussed with patient that she will need IV antibiotics to complete her therapy of 10 days. 2. Agree with resuming vancomycin at 125 b.i.d. to prevent recurrence of Clostridium difficile. We will plan to complete continue this for 1 week after she completes ceftriaxone. 3. Discussed the risks and benefits of PICC line, as well as antibiotic toxicity with the patient at bedside. Will reassess the patient tomorrow, likely with placement of PICC line. 4. Repeat blood cultures with underlying prior valve repairs and abnormal heart exam. 5. Monitor INR closely Thank you for this consultation. We will continue to see you on a daily basis. Care coordinated with Dr. Fisher. Greater than 70 minutes spent on this patients care, greater than 50% of time spent counseling, educating, and coordinating care regarding the above mentioned plan. /[id number]/MODL MTDD
[2018-03-08] MEDS: SUCRALFATE 1 GM TAB PO SCH (18:06)
[2018-03-08] MEDS: ATORVASTATIN CALCIUM 10 MG TAB PO SCH (20:19)
[2018-03-08] MEDS: ASPIRIN EC 81 MG TAB PO SCH (20:19)
[2018-03-08] MEDS: GABAPENTIN 300 MG CAP PO SCH (20:19)
[2018-03-08] MEDS: MAGNESIUM OXIDE 400 MG TAB PO SCH (20:20)
[2018-03-08] MEDS: VANCOMYCIN 125 MG/2.5 ML UDL PO SCH (20:20)
[2018-03-08] MEDS: ZOLPIDEM TARTRATE 5 MG TAB PO SCH (20:20)
[2018-03-08] MEDS: CALCIUM POLYCARBOPHIL 1250 MG PO SCH (20:21)
[2018-03-08] MEDS: FLUTICASONE HFA 110 MCG MDI IH SCH (20:24)
[2018-03-09 04:12] LABS: INR 2.11 (0.83-1.16); PROTIME(PATIENT) 23.7 SEC (12.0-15.0)
[2018-03-09] MEDS: LEVOTHYROXINE 75 MCG TAB PO SCH (06:08)
[2018-03-09] MEDS: CHOLECALCIFEROL VIT D3 1,000 UNITS TAB PO SCH (08:41)
[2018-03-09] MEDS: MULTIVITAMINS 1 EACH TAB PO SCH (08:41)
[2018-03-09] MEDS: METOPROLOL TARTRATE 50 MG TAB PO SCH ×2 (08:42→20:21)
[2018-03-09] MEDS: PANTOPRAZOLE SODIUM 40 MG TAB PO SCH ×2 (08:42→20:20)
[2018-03-09] MEDS: ASCORBIC ACID 500 MG TAB PO SCH (08:42)
[2018-03-09] MEDS: CALCIUM CARB W/VIT D 500 MG TAB PO SCH (08:42)
[2018-03-09] MEDS: AMIODARONE HCL 200 MG TAB PO SCH (08:42)
[2018-03-09] MEDS: RALOXIFENE HCL 60 MG TAB PO SCH (08:43)
[2018-03-09] MEDS: VANCOMYCIN 125 MG/2.5 ML UDL PO SCH ×2 (09:00→20:20)
--- NOTE | 2018-03-09 09:04 | HOSPPROG ---
Hospitalist Progress Note Assessment/Plan: #Strep PNA/bacteremia: IV Ceftriaxone, Day 3/10 (LQ/Azithro high-risk with prolonged QTc). Leukocytosis resolved. #Acute hypoxic resp failure: from PNA. Small effusion, stable on RA #Recent C diff: Vanc PO BID for prophylaxis up to 1 week after complete CTX #Permanent a fib: amiodarone, BB. Watch INR with coumadin + abx. Ensure K, Mg repleted #Recent bowel perforation: healed #VHD: euvolemic. h/o AVR, MV valvuloplasty #Hyponatremia: h/o SIADH. 1500ml restriction. Up to 129 #Esophagitis: resume home meds #Compensated DHF: BNP up, but not clinically overload. #Chronic anemia: s/p transfusion Tuesday #h/o lymphoma, breast cancer: sees Dr. Kaiser #Hypothyroidism: LT4 #Diet: cardiac, 1500ml fluid #Disp: inpatient admission for IV abx, serial labs Subjective: some blood in sputum Objective: Vital Signs Temp Pulse Resp BP Pulse Ox 36.9 C 69 18 143/56 H 94 03/09/18 03:56 03/09/18 03:56 03/09/18 08:00 03/09/18 03:56 03/09/18 08:00 Microbiology 03/08/18 10:45 - Final Sputum, Expectorated Laboratory Results 03/09/18 03:43 03/09/18 03:43 03/08/18 03/09/18 03/10/18 05:59 05:59 05:59 Intake Total 550 1604 Output Total 1200 850 Balance -650 754 PT 23.7 SEC (12.0-15.0) H 03/09/18 03:43 INR 2.11 (0.83-1.16) H 03/09/18 03:43 - Physical Exam Constitutional: no apparent distress Eyes: PERRL Ears, Nose, Mouth, Throat: moist mucous membranes Cardiovascular: regular rate and rhythym, edema (trace ankle edema) Gastrointestinal: normoactive bowel sounds Genitourinary: no bladder fullness Skin: warm Musculoskeletal: full muscle strength Neurologic: AAOx3, CN II-XII Intact Psychiatric: interacting appropriately ICD10 Worksheet Patient Problems: Problems Problem Status Onset Hyponatremia Acute Pneumonia of both lower lobes Acute Sepsis Acute CHF (congestive heart failure) Acute Chest pain Acute Chronic sinus infection Acute Diarrhea Acute GERD with esophagitis Acute Gastroenteritis Acute Hypochloremia Acute Hypokalemia Acute Lethargy Acute Nausea Acute Pneumonia Acute
[2018-03-09] MEDS: ALBUTEROL 60 PUFFS/8 GM MDI IH SCH ×2 (09:29→20:45)
[2018-03-09] MEDS: FLUTICASONE HFA 110 MCG MDI IH SCH ×2 (09:29→20:45)
[2018-03-09] MEDS ORDERED: GUAIFENESIN/DM 10 ML UDCUP PO PRN (09:55)
[2018-03-09] MEDS: guaiFENesin 600 MG TAB.ER PO SCH ×2 (10:38→20:21)
[2018-03-09] MEDS ORDERED: ALTEPLASE 2 MG VIAL IVP PRN (11:01)
--- NOTE | 2018-03-09 11:06 | PCMIDPN ---
Assessment/Plan: 1. Pneumococcal pneumonia with concomitant bacteremia in patient with history of TAVR: Given presence of an artificial valve, would prefer to repeat blood cultures to document clearance. Do not feel she requires an echocardiogram. Will treat with 14 days total of ceftriaxone; inter agency formal be done today. She received the Prevnar 13 last year. Counseled her to get a flu vaccine moving forward. Will also obtain immunoglobulins today given history of lymphoma to see if this is a contributor to invasive pneumococcal disease, although she is certainly at risk given her medical history and age. Add liver function tests the lab work in the morning in the setting of ceftriaxone therapy. 2. History of C difficile: Continue oral vancomycin as is, to complete 1 week after cessation of antibiotics. Subjective: In good spirits. Feeling better. Anxious to go home. Objective: Ceftriaxone 2 g IV daily day 2 Vancomycin 125 mg p.o. Twice daily T-max 37 degrees Vital Signs Temp Pulse Resp BP Pulse Ox 36.9 C 69 17 143/56 H 95 03/09/18 03:56 03/09/18 09:30 03/09/18 09:30 03/09/18 03:56 03/09/18 09:30 Microbiology 03/08/18 10:45 - Final Sputum, Expectorated Laboratory Results 03/09/18 03:43 03/09/18 03:43 03/08/18 03/09/18 03/10/18 05:59 05:59 05:59 Intake Total 550 1604 Output Total 1200 850 Balance -650 754 Blood culture March 0708/07 bottles with Streptococcus pneumoniae, susceptibilities are pending - Physical Exam General Appearance: alert, no apparent distress, cachetic EENT: pharynx normal, No thrush Respiratory: other (Diminished breath sounds right and left base) Cardiac/Chest: regular rate, rhythm Abdomen: non-tender, soft Skin: No rash ICD10 Worksheet Patient Problems: Problems Problem Status Onset Hyponatremia Acute Pneumonia of both lower lobes Acute Sepsis Acute CHF (congestive heart failure) Acute Chest pain Acute Chronic sinus infection Acute Diarrhea Acute GERD with esophagitis Acute Gastroenteritis Acute Hypochloremia Acute Hypokalemia Acute Lethargy Acute Nausea Acute Pneumonia Acute
--- NOTE | 2018-03-09 11:10 | PDIAF ---
- Diagnosis Diagnosis: Pneumococcal pneumonia/bacteremia Code Status: Full Code - Medication Management Discharge Medications: Medications to Continue on Transfer Albuterol [Proventil Inhaler HFA (*)] 2 puffs IH BID 01/06/17 [Last Taken 08:00] Atorvastatin Calcium [Lipitor 10 mg (*)] 10 mg PO HS 01/06/17 [Last Taken ] Cholecalciferol Vit D3 [Vitamin D3 (*)] 2,000 units PO DAILY 01/06/17 [Last Taken 02/27/18] Levothyroxine [Synthroid 75 mcg (*)] 75 mcg PO DAILY06 01/06/17 [Last Taken 06:00] Zolpidem Tartrate [Ambien 5MG (*)] 5 mg PO HS 01/06/17 [Last Taken 02/26/18] Multivitamins [Multivitamin (*)] 1 tab PO DAILY 02/23/17 [Last Taken 02/27/18] Raloxifene HCl [Evista] 60 mg PO DAILY 02/23/17 [Last Taken 02/27/18] Aspirin EC [Aspirin EC 81 mg (*)] 81 mg PO HS 06/13/17 [Last Taken 02/26/18] Pantoprazole Sodium [Protonix 40mg (*)] 40 mg PO BID #60 tab 06/17/17 [Last Taken 02/27/18 09:00] Amiodarone HCl [Pacerone (*)] 200 mg PO DAILY #30 tab 02/18/18 [Last Taken 02/26] Metoprolol Tartrate [Lopressor 50 mg (*)] 50 mg PO BID #60 tab 02/18/18 [Last Taken 02/27/18 09:00] Warfarin Sodium [Coumadin 2.5MG (*)] 1.25 mg PO DAILY16 #30 tab 02/18/18 [Last Taken 02/26/18] Ascorbic Acid [C-1000] 1,000 mg PO DAILY 02/27/18 [Last Taken 02/27/18] Magnesium Oxide [Magnesium Oxide 400 mg (*)] 400 mg PO HS 02/27/18 [Last Taken 02/26/18] Amiodarone HCl [Pacerone (*)] 200 mg PO DAILY 03/07/18 [Last Taken Unknown] Fluticasone Propionate [Flovent Diskus] 100 mcg IH DAILY 03/07/18 [Last Taken Unknown] Gabapentin [Neurontin 300 MG (*)] 600 mg PO HS 03/07/18 [Last Taken Unknown] Calcium Carb W/Vit D [Calcium Carb W/Vit D 500/200 (*)] 1,000 mg PO DAILY [Last Taken Unknown] Calcium Polycarbophil [FIBERCON] 1,250 mg PO HS 03/08/18 [Last Taken Unknown] Fluticasone Hfa 110 Mcg [Flovent 110 MCG Hfa MDI (*)] 1 puffs IH BID 03/08/18 [ Last Taken Unknown] Sucralfate 1 gm PO 1700 03/08/18 [Last Taken Unknown] Car Detailer Antibiotics: Ceftriaxone 2 g IV daily Car Detailer Antibiotic Stop Date: 03/21/18 Discharge Medications: Refer to the Discharge Home Medication list for PRN reason. PICC Care - Routine: Yes - Orders Isolation Type: CDIFF Isolation, Contact Isolation - Labs/Radiology CBC w/diff Date: 03/15/18 (Fax to Dr. Gill [phone]) CMP Date: 03/15/18 (See above) - Follow Up Care Current Providers and Referrals: Yany Berg MD [Primary Care Provider] - As per Instructions Nitza Gill MD [Medical Doctor] - (At the [facility], with Yaquelin Gudino NP March 16 at 8:30 a.m. In the morning)
--- NOTE | 2018-03-09 15:18 | ASMTCMCOM ---
CM Note CM Note Notes: Pts case discussed in tx rounds. GABE spoke to Dr. Cruz regarding d/c POC. Pt will require ivabx until 03/21. Pt prefers to come to [facility] outpatient infusion center instead of having home infusion. CM arranged for pt to come to outpatient infusion for 11AM every day until 03/21. CM informed pt that she will need to check in at the emergency room area the first time she comes to infusion. No other needs at this time. CM available for changes. Plan: Independent Date Signed: 03/09/2018 03:17 PM Electronically Signed By:FREDY Davidson
[2018-03-09] MEDS: WARFARIN SODIUM 2.5 MG TAB PO SCH (16:12)
[2018-03-09] MEDS: SUCRALFATE 1 GM TAB PO SCH (17:43)
[2018-03-09] MEDS: GABAPENTIN 300 MG CAP PO SCH (20:20)
[2018-03-09] MEDS: ASPIRIN EC 81 MG TAB PO SCH (20:21)
[2018-03-09] MEDS: ATORVASTATIN CALCIUM 10 MG TAB PO SCH (20:21)
[2018-03-09] MEDS: ACETAMINOPHEN 650 MG/20.3 ML UDCUP PO PRN (21:10)
[2018-03-09] MEDS: ZOLPIDEM TARTRATE 5 MG TAB PO SCH (21:11)
[2018-03-09] MEDS: CALCIUM POLYCARBOPHIL 1250 MG PO SCH (22:00)
[2018-03-09] MEDS: MAGNESIUM OXIDE 400 MG TAB PO SCH (22:00)
[2018-03-10] MEDS: LEVOTHYROXINE 75 MCG TAB PO SCH (05:26)
[2018-03-10 06:25] LABS: INR 1.96 (0.83-1.16); PROTIME(PATIENT) 22.4 SEC (12.0-15.0)
[2018-03-10] MEDS: ASCORBIC ACID 500 MG TAB PO SCH (08:50)
[2018-03-10] MEDS: CALCIUM CARB W/VIT D 500 MG TAB PO SCH (08:52)
[2018-03-10] MEDS: guaiFENesin 600 MG TAB.ER PO SCH (08:52)
[2018-03-10] MEDS: VANCOMYCIN 125 MG/2.5 ML UDL PO SCH (08:53)
[2018-03-10] MEDS: MULTIVITAMINS 1 EACH TAB PO SCH (08:53)
[2018-03-10] MEDS: AMIODARONE HCL 200 MG TAB PO SCH (08:53)
[2018-03-10] MEDS: RALOXIFENE HCL 60 MG TAB PO SCH (08:53)
[2018-03-10] MEDS: PANTOPRAZOLE SODIUM 40 MG TAB PO SCH (08:53)
[2018-03-10] MEDS: FLUTICASONE HFA 110 MCG MDI IH SCH ×2 (08:54→10:10)
[2018-03-10] MEDS: METOPROLOL TARTRATE 50 MG TAB PO SCH (08:54)
[2018-03-10] MEDS: CHOLECALCIFEROL VIT D3 1,000 UNITS TAB PO SCH (08:56)
--- NOTE | 2018-03-10 09:33 | PCMIDPN ---
Assessment/Plan: 1. Pneumococcal pneumonia with concomitant bacteremia in patient with history of TAVR: Repeat blood cultures pending. Continue ceftriaxone as is. Patient will go home today in follow-up in our clinic. Again, counseled her about the importance of a flu vaccine moving forward. 2. History of C difficile with worsening diarrhea: Patient's diarrhea is clearly worse, although she has no abdominal pain, fever, or leukocytosis. For now, given history will increase vancomycin to four times daily for 14 days, then back down to twice daily for a week after completion of antibiotic therapy. 03/10/18 09:30 Subjective: Having some diarrhea. Patient tells me"it's different from last time."Denies abdominal pain. Has a good appetite and ate all of her breakfast. Eager to go home. Objective: Ceftriaxone 2 g IV daily through March 21 Vancomycin 125 mg p.o. Twice daily No fevers Vital Signs Temp Pulse Resp BP Pulse Ox 36.9 C 69 20 162/70 H 92 03/10/18 08:00 03/10/18 08:00 03/10/18 08:00 03/10/18 08:00 03/10/18 08:00 Microbiology 03/08/18 10:45 - Final Sputum, Expectorated Sputum Culture - Final Laboratory Results 03/10/18 05:35 03/10/18 05:35 03/09/18 03/10/18 03/11/18 05:59 05:59 05:59 Intake Total 1604 750 Output Total 850 Balance 754 750 Repeat blood cultures pending March 07 blood cultures 2/4 bottles with pneumococcus, ceftriaxone KHOI less than 0.0625 - Physical Exam General Appearance: alert, no apparent distress Extremities: other (PICC line looks fine) Skin: No rash ICD10 Worksheet Patient Problems: Problems Problem Status Onset Hyponatremia Acute Pneumonia of both lower lobes Acute Sepsis Acute chronic disease mgmt/transitional care Acute CHF (congestive heart failure) Acute Chest pain Acute Chronic sinus infection Acute Diarrhea Acute GERD with esophagitis Acute Gastroenteritis Acute Hypochloremia Acute Hypokalemia Acute Lethargy Acute Nausea Acute Pneumonia Acute
[2018-03-10] MEDS: ALBUTEROL 60 PUFFS/8 GM MDI IH SCH (10:10)
[2018-03-10 11:31] VITALS: BP 150/62
[2018-03-10] MEDS ORDERED: VANCOMYCIN 125 MG/2.5 ML UDL PO SCH ×2 (12:00→16:00)
[2018-03-10] MEDS: ACETAMINOPHEN 650 MG/20.3 ML UDCUP PO PRN (13:31)
--- NOTE | 2018-03-10 16:33 | GDS ---
IN-HOSPITAL CONSULTANTS: Desi Cruz MD, with Infectious Disease. DISCHARGE DIAGNOSIS: 1. Streptococcal bacteremia. 2. Acute hypoxic respiratory failure. 3. Pneumonia. HISTORY OF PRESENT ILLNESS: The patient is a pleasant 82-year-old female with a past medical history of atrial fibrillation and transcatheter aortic valve replacement, who presented to the [facility] on 03/07/2018 with complaints of fever, shortness of breath, and cough. Her chest x-r ay showed a left-sided opacity felt to be suggestive of pneumonia. Her blood cultures subsequently g rew out streptococcal pneumoniae bacteria. Infectious Disease was consulted on her case. Repeat blo od cultures have shown no growth to date. With her history of aortic valve replacement, it was recomm ended that she complete 14 days of IV antibiotic therapy with ceftriaxone, and this has been arranged for her to be done in the outpatient setting. Overall, the patient has done quite well and has wean ed off any supplemental oxygen, which she states she does use at nighttime at home. She has a recent history of C diff colitis and on the day of discharge today was noting more frequent bowel movements . She had been on prophylactic vancomycin at a twice a day dosing. This was adjusted to 4 times a d ay and recommended to continue this for 2 weeks and then reduce down to twice a day for 1 additional week and then stop thereafter. Outpatient followup with Infectious Disease has been already arranged for. Otherwise, it was felt that she was stable for discharge to her home where she lives with her at the time of discharge. HOSPITAL COURSE BY PROBLEM: 1. Bacteremia, streptococcal pneumoniae noted in 2 out of 2 cultures from 03/07/2018. Repeat blood cultures performed on 03/09/2018 are showing no growth to date. The plan at discharge is to complete a 14-day course of IV ceftriaxone. 2. Pneumonia, streptococcal pneumoniae. Antibiotics as detailed above. 3. Acute hypoxic respiratory failure, resolved. I recommend that she resume her oxygen as she does at home at nighttime but has been within normal limits on room air at this time. 4. Clostridium difficile colitis, history of recent Clostridium difficile colitis with likely recurr ence. She will continue with vancomycin 125 mg 4 times a day for 2 additional weeks and then reduce down to twice a day for 1 week thereafter. Followup with Infectious Disease has been arranged for. 5. Hyponatremia, stable at 130 today. 6. Atrial fibrillation. Patient is anticoagulated with Coumadin with her INR at 1.96 today. I have recommended a repeat INR in 3 days, which is done through her cardiology office at [facility] S he is also on amiodarone 200 mg daily as well as metoprolol tartrate 50 mg twice a day. 7. History of recent bowel perforation. No intestinal complaints during this hospitalization. 8. History of lymphoma. Patient is followed by Dr. Lima in the outpatient setting. 9. Hypothyroidism. She was continued on levothyroxine at 75 mcg daily. 10. Deep venous thrombosis prophylaxis. Patient was anticoagulated during this hospitalization. DISPOSITION: Patient appears stable for discharge home today. EXAM: VITAL SIGNS: On day of discharge, temperature 36.9, blood pressure 162/70, heart rate 69, res pirations 20, saturating 92% on room air. GENERAL: Patient appears comfortable. She is sitting upr ight in bed, awake, alert, conversant, no acute distress. HEART: Irregular, murmur consistent with aortic valve replacement. LUNGS: Mild rhonchi but good breath sounds throughout without significant wheezing. ABDOMEN: Soft, nontender, nondistended. : No Myrick catheter in place. EXTREMITIES: No signific ant pitting edema. NOTABLE STUDIES: White blood cell count 6, hemoglobin 9, platelets 320. INR 1.9. Sodium 130, potas sium 4.5, chloride 98, bicarb 25, BUN 9, creatinine 0.5. Urine strep pneumonia antigen negative. Ur ine Legionella antigen negative. C diff toxin by PCR positive. Blood cultures 03/07/2018, streptoco ccal pneumonia. Blood cultures 03/09/2018, no growth to date. DISCHARGE MEDICATIONS: 1. Albuterol 2 puffs twice a day as needed. 2. Amiodarone 200 mg daily. 3. Aspirin 81 mg daily. 4. Atorvastatin 10 mg nightly. 5. Ceftriaxone 2 g daily IV. 6. Calcium and vitamin D supplementation. 7. Flovent HFA 110 one puff twice a day. 8. Gabapentin 600 mg nightly. 9. Levothyroxine 75 mcg daily. 10. Metoprolol tartrate 50 mg twice a day. 11. Evista 60 mg daily. 12. Sucralfate 1 g 4 times a day. 13. Vancomycin 125 mg 4 times a day for 2 weeks, then twice a day for 1 additional week. 14. Coumadin 1.25 mg daily. 15. Zolpidem 5 mg nightly. DISCHARGE INSTRUCTIONS: Patient is to follow up with primary care in 1 week's time as well as follow ups with Infectious Disease. 40 minutes of time dedicated to discharge efforts. /[id number]/MODL
== END 2018-03-10 13:51 | disposition home or self-care (01) | DRG 193 ==
LOC: OBSVTOIN 22:34 → F2W 23:56
PROVIDERS: ADMIT Family Medicine; ATTEND Family Medicine
PROC: 02H633Z Insertion of Infusion Device into Right Atrium, Percutaneous Approach (ICD-10-PCS; principal; 2018-03-09)
DX: J13 Pneumonia due to Streptococcus pneumoniae (principal); J96.01 Acute respiratory failure with hypoxia; R78.81 Bacteremia; A04.71 Enterocolitis due to Clostridium difficile, recurrent; E87.1 Hypo-osmolality and hyponatremia; I48.0 Paroxysmal atrial fibrillation; E03.9 Hypothyroidism, unspecified; E78.5 Hyperlipidemia, unspecified; I27.20 Pulmonary hypertension, unspecified; I11.0 Hypertensive heart disease with heart failure; I50.9 Heart failure, unspecified; J44.9 Chronic obstructive pulmonary disease, unspecified; Z79.01 Long term (current) use of anticoagulants; Z85.3 Personal history of malignant neoplasm of breast; Z95.4 Presence of other heart-valve replacement; Z85.72 Personal history of non-Hodgkin lymphomas
CPT/HCPCS: 82784-90; 87449-90; 96365; 97116-GP; 97161-GP; 97165-GO; C1751; G8978-GP-CJ; G8979-GP-CI; G8980-GP-CI; G8987-GO-CI; G8988-GO-CI; G8989-GO-CI; J0692; J0696; J1956; J3475

== ENCOUNTER → 2018-04-12 | Outpatient (CLI) | payer OTHER | LOC: BMCIMAGING 13:58 | PROVIDERS: ATTEND Internal Medicine | DX: I51.7 Cardiomegaly (principal); Z95.2 Presence of prosthetic heart valve ==

== ENCOUNTER → 2018-04-25 | Outpatient (CLI) | payer OTHER | LOC: BMCIMAGING 13:23 | PROVIDERS: ATTEND Internal Medicine | DX: J18.1 Lobar pneumonia, unspecified organism (principal); J98.11 Atelectasis ==

== ENCOUNTER 2018-05-14 23:14 | Inpatient (IN) | payer OTHER ==
--- NOTE | 2018-05-14 23:28 | EDPHY ---
H & P - Personal History Tetanus Vaccine Date: April 2017 - Medical/Surgical History Hx Asthma: Yes Hx Chronic Respiratory Disease: Yes Hx Diabetes: No Hx Cardiac Disease: Yes Hx Renal Disease: No Hx Cirrhosis: No Hx Alcoholism: No Hx HIV/AIDS: No Hx Splenectomy or Spleen Trauma: No Other PMH: BILAT MASECTOMY 2013,2004, KNEE SURGERY. 5 BOUTS OF CANCER,COPD, CHF , Mitral valve stenosis, HTN, Hyperlipidemia, ulcerated esophagus cardiac valve replaced - Social History Smoking Status: Never smoked Time Seen by Provider: 05/14/18 23:23 HPI/ROS: CHIEF COMPLAINT: Right shoulder and humerus pain post mechanical fall HISTORY OF PRESENT ILLNESS: 82-year-old female arrives via ambulance, not a trauma activation, complaining of acute right shoulder and humerus pain after she woke up, went to the bathroom slipped on the carpet and fell onto her right shoulder. She is on warfarin anticoagulation. She denies head injury or other injury. This was a mechanical episode with no syncope. She declined pre- hospital analgesia. She is complaining of pain to same location. Denies distal paresthesia. Denies midline C-spine pain. Denies chest pain or trauma. Denies back pain or trauma. Denies abdominal pain. Denies alcohol or drug use. Patient also notes ongoing cough for 3 weeks, intermittently productive, would like a chest x-ray. Denies acute dyspnea. This is unrelated to this evening's fall. PRIMARY CARE PROVIDER: Dr. Hernán Ruiz REVIEW OF SYSTEMS: 10 systems reviewed and negative with the exception of the elements mentioned in the history of present illness PAST MEDICAL/SURGICAL HISTORY: Warfarin anticoagulation . Atrial fibrillation SOCIAL HISTORY: . Lives with her . PHYSICAL EXAM 1) GENERAL: Well-developed, well-nourished, alert and oriented. Appears to be in no acute distress. Answering questions appropriately. 2) HEAD: Normocephalic, atraumatic no abrasion laceration 3) HEENT: Pupils equal, round, reactive to light bilaterally. Negative Horners. Nasopharynx, oropharynx, clear. No deformity or angulation of nose. No septal hematoma. No rhinorrhea. No oral trauma. Ears bilaterally with normal tympanic membranes. No hemotympanum. No fluid or blood in the external auditory canal. No raccoon eyes. No Mackay sign. Teeth are normally aligned with no gross malocclusion, TMJ bilaterally nontender, facial bones nontender including the zygomatic arch, maxilla mandible. 4) NECK: No cervical collar is on. Posterior cervical spine is nontender, no stepoff, no effusion. Full range of motion which does not elicit any midline cervical spine pain, no posterior midline tenderness, no step-off. 5) LUNGS: Clear to auscultation bilaterally, no wheezes, no rhonchi, no retractions. No obvious signs of trauma. No chest wall pain. No flaring, no grunting. Moving symmetrically. No crepitus. 6) HEART: [Regular rate and rhythm, 7) ABDOMEN: No guarding, no rebound, no focal tenderness, no peritoneal signs, no signs of trauma, no ecchymosis 8) MUSCULOSKELETAL: Right upper extremity: Intact skin. Tender to palpation proximal humerus and shoulder. Soft compartments. Radial ulnar median nerve function intact distally. Otherwise, Moving all extremities, no focal areas of tenderness, no obvious trauma. 9) BACK: No midline vertebral tenderness, no fluctuance, no step-off, no obvious trauma, no visual or palpable abnormality. 10) SKIN: No laceration. No abrasion DIFFERENTIAL DIAGNOSIS: In no particular order including but not limited to fracture, sprain, strain, dislocation (Nasrin,Kris Adriana) Constitutional: Initial Vital Signs Temperature (C) 36.8 C 05/14/18 23:29 Heart Rate 62 05/14/18 23:29 Respiratory Rate 16 05/14/18 23:29 Blood Pressure 138/67 H 05/14/18 23:29 O2 Sat (%) 97 05/14/18 23:29 O2 Delivery Mode Room Air Allergies/Adverse Reactions: BRITNEY Inhibitors Allergy (Severe, Verified 05/14/18 23:33) Swelling/neck,face,throat Iodine and Iodide Containing Produc Allergy (Severe, Verified 05/14/18 23:33) Swelling/neck,face,throat methadone Allergy (Mild, Verified 05/14/18 23:33) GI upset oxycodone HCl [From OxyContin] Allergy (Mild, Verified 05/14/18 23:33) GI upset topiramate Allergy (Mild, Verified 05/14/18 23:33) Other-Enter Comments amitriptyline Allergy (Verified 05/14/18 23:33) Other-Enter Comments moxifloxacin HCl [From Avelox] Allergy (Verified 05/14/18 23:33) Vomiting Opioids - Morphine Analogues Allergy (Verified 05/14/18 23:33) Thiazides Allergy (Verified 05/14/18 23:33) Other-Enter Comments all narcotics Allergy (Uncoded 05/14/18 23:33) "I don't do well with them" thiazide Allergy (Uncoded 05/14/18 23:33) Home Medications: Medication Instructions Recorded Albuterol [Proventil Inhaler HFA 2 puffs IH BID 01/06/17 (*)] Cholecalciferol Vit D3 [Vitamin D3 2,000 units PO DAILY 01/06/17 (*)] Levothyroxine [Synthroid 75 mcg 75 mcg PO DAILY06 01/06/17 (*)] Zolpidem Tartrate [Ambien 5MG (*)] 5 mg PO HS 01/06/17 Multivitamins [Multivitamin (*)] 1 tab PO DAILY 02/23/17 Raloxifene HCl [Evista] 60 mg PO DAILY 02/23/17 Aspirin EC [Aspirin EC 81 mg (*)] 81 mg PO HS 06/13/17 Amiodarone HCl [Pacerone (*)] 200 mg PO DAILY #30 tab 02/18/18 Metoprolol Tartrate [Lopressor 50 50 mg PO BID #60 tab 02/18/18 mg (*)] Warfarin Sodium [Coumadin 2.5MG 1.25 mg PO DAILY16 #30 tab 02/18/18 (*)] Ascorbic Acid [C-1000] 1,000 mg PO DAILY 02/27/18 Fluticasone Propionate [Flovent 100 mcg IH DAILY 03/07/18 Diskus] Gabapentin [Neurontin 300 MG (*)] 600 mg PO HS 03/07/18 Calcium Carb W/Vit D [Calcium Carb 1,000 mg PO DAILY 03/08/18 W/Vit D 500/200 (*)] Calcium Polycarbophil [FIBERCON] 1,250 mg PO HS 03/08/18 Fluticasone Hfa 110 Mcg [Flovent 1 puffs IH BID 03/08/18 110 MCG Hfa MDI (*)] Sucralfate 1 gm PO 1700 03/08/18 Atorvastatin Calcium 5mg Qd PO 03/11/18 Medical Decision Making - Diagnostics Imaging Results: Imaging Impressions Chest X-Ray 05/14/18 23:27 Impression: 1. Acute right humeral fracture, as-detailed. 2. Stable cardiac silhouette enlargement with sequela of prior TAVR. 3. Retrocardiac hiatal hernia. 4. Bibasilar subsegmental atelectasis. Humerus X-Ray 05/14/18 23:27 Impression: Acute, comminuted, and impacted proximal right humeral fracture. ED Course/Re-evaluation: 12:08 a.m.: Re-evaluation. Discussed with the patient her imaging studies showing a humeral neck fracture. I had a lengthy discussion with the patient her . [place] [facility] [place]. Although her lower extremities are on injured, they express concern over her ability to care for herself, her ability to control her pain at home especially considering current weather conditions (heavy snow). Plan will be admission to hospitalist for pain control. I saw this patient independently based on established practice protocols. Care of patient under supervision of secondary supervising physician Dr Maggie Shepard with whom I discussed case. Patient has a history of warfarin anticoagulation. Will check baseline laboratory studies. She shows no evidence of other trauma and denies other complaints of pain or discomfort. Specifically she denies head injury and there is no evidence of head injury on examination. 12:10 a.m.: Discussed with the patient transmitting electronic information to the on-call orthopedics including her x-rays which she consents to. I consulted electronically with Orthopedics on-call Dr. Omid Landry who agrees to consult. 12:18 a.m.: Consultation with hospitalist Dr. Dye who will admit ( Kris Alexandra) PHYSICIAN DOCUMENTATION: The patient was evaluated and managed by the Physician [employer] Bus Dispatcher. My co- signature indicates that I have reviewed this chart and I agree with the findings and plan of care as documented. I am the secondary supervising physician. (Norma Shepard) - Data Points Medications Given: Morphine Sulfate (Morphine) 1 - 2 mg IVP Q4HRS PRN PRN Reason: Pain, Severe Unable to Take PO Stop: 05/25/18 04:21 Last Admin: 05/15/18 04:29 Dose: 1 mg Tramadol HCl (Ultram) 50 mg PO Q6HRS PRN PRN Reason: Severe pain Stop: 11/11/18 01:27 Last Admin: 05/15/18 01:41 Dose: 50 mg Discontinued Medications Fentanyl (Sublimaze) 50 mcg IVP EDNOW ONE Stop: 05/14/18 23:46 Last Admin: 05/14/18 23:47 Dose: 50 mcg Promethazine HCl (Phenergan) 6.25 mg IVP ONCE ONE Stop: 05/14/18 23:46 Last Admin: 05/15/18 00:00 Dose: Not Given Departure - Departure Disposition: [facility] Inpatient Acute Clinical Impression: Humeral surgical neck fracture Qualifiers: Encounter type: initial encounter Fracture type: closed Fracture morphology: unspecified fracture morphology Fracture alignment: displaced Laterality: right Qualified Code(s): S42.211A - Unspecified displaced fracture of surgical neck of right humerus, initial encounter for closed fracture Condition: Fair
[2018-05-14] MEDS ORDERED: fentaNYL 100 MCG/2 ML INJ ONE (23:39)
[2018-05-14] MEDS ORDERED: PROMETHAZINE HCL 25 MG/ML INJ ONE (23:39)
[2018-05-14] MEDS ORDERED: fentaNYL 100 MCG/2 ML INJ IVP ONE (23:45)
[2018-05-14] MEDS ORDERED: PROMETHAZINE HCL 25 MG/ML INJ IVP ONE (23:45)
[2018-05-15] MEDS ORDERED: ONDANSETRON 4 MG/2 ML VIAL IVP PRN (00:17)
[2018-05-15] MEDS ORDERED: ONDANSETRON DISINTEGRATING 4 MG TAB PO PRN (00:17)
[2018-05-15] MEDS ORDERED: NS 1,000 ML IV SCH (00:30)
[2018-05-15 00:34] LABS: PLATELET COUNT 201 10^3/uL (150-400)
[2018-05-15 00:42] LABS: INR 2.77 (0.83-1.16); PROTIME(PATIENT) 29.2 SEC (12.0-15.0)
[2018-05-15] MEDS: traMADol 50 MG TAB PO PRN ×3 (01:41→20:17)
--- NOTE | 2018-05-15 02:22 | PDGENHP ---
History and Physical - Chief Complaint Fall - History of Present Illness 82 yo F w/ hx of AF, s/p TAVR, hyponatremia, asthma, pHTN, and hypothyroidism presents after a fall. The patient tells me took her Ambien, gabapentin, and metoprolol all together this evening. Shortly after she slipped on a rug and fell, hitting her R arm. She came to the ED due to severe pain. She denies head trauma or LOC. She is on warfarin for hx of AF. In the ED her evaluation was notable for R humeral fracture. She is being admitted for management of this. Chronic anemia, hyponatremia, and therapeutic INR also noted. At the time of my evaluation the patient is only complaining of R arm pain. Her wishes she could stop taking the Ambien but this has been challenging. Case discussed with ED physician Dr. Shepard; records reviewed and summarized above. History Information - Allergies/Home Medication List Allergies/Adverse Reactions: BRITNEY Inhibitors Allergy (Severe, Verified 05/14/18 23:33) Swelling/neck,face,throat Iodine and Iodide Containing Produc Allergy (Severe, Verified 05/14/18 23:33) Swelling/neck,face,throat methadone Allergy (Mild, Verified 05/14/18 23:33) GI upset oxycodone HCl [From OxyContin] Allergy (Mild, Verified 05/14/18 23:33) GI upset topiramate Allergy (Mild, Verified 05/14/18 23:33) Other-Enter Comments amitriptyline Allergy (Verified 05/14/18 23:33) Other-Enter Comments moxifloxacin HCl [From Avelox] Allergy (Verified 05/14/18 23:33) Vomiting Opioids - Morphine Analogues Allergy (Verified 05/14/18 23:33) Thiazides Allergy (Verified 05/14/18 23:33) Other-Enter Comments all narcotics Allergy (Uncoded 05/14/18 23:33) "I don't do well with them" thiazide Allergy (Uncoded 05/14/18 23:33) Home Medications: Albuterol [Proventil Inhaler HFA (*)] 2 puffs IH BID 01/06/17 [Last Taken 08:00] Cholecalciferol Vit D3 [Vitamin D3 (*)] 2,000 units PO DAILY 01/06/17 [Last Taken 02/27/18] Levothyroxine [Synthroid 75 mcg (*)] 75 mcg PO DAILY06 01/06/17 [Last Taken 06:00] Zolpidem Tartrate [Ambien 5MG (*)] 5 mg PO HS 01/06/17 [Last Taken 02/26/18] Multivitamins [Multivitamin (*)] 1 tab PO DAILY 02/23/17 [Last Taken 02/27/18] Raloxifene HCl [Evista] 60 mg PO DAILY 02/23/17 [Last Taken 02/27/18] Aspirin EC [Aspirin EC 81 mg (*)] 81 mg PO HS 06/13/17 [Last Taken 02/26/18] Ascorbic Acid [C-1000] 1,000 mg PO DAILY 02/27/18 [Last Taken 02/27/18] Fluticasone Propionate [Flovent Diskus] 100 mcg IH DAILY 03/07/18 [Last Taken Unknown] Gabapentin [Neurontin 300 MG (*)] 600 mg PO HS 03/07/18 [Last Taken Unknown] Calcium Carb W/Vit D [Calcium Carb W/Vit D 500/200 (*)] 1,000 mg PO DAILY [Last Taken Unknown] Calcium Polycarbophil [FIBERCON] 1,250 mg PO HS 03/08/18 [Last Taken Unknown] Fluticasone Hfa 110 Mcg [Flovent 110 MCG Hfa MDI (*)] 1 puffs IH BID 03/08/18 [ Last Taken Unknown] Sucralfate 1 gm PO 1700 03/08/18 [Last Taken Unknown] Atorvastatin Calcium 5mg Qd PO 03/11/18 [Last Taken Unknown] I have personally reviewed and updated: family history, medical history - Past Medical History Additional medical history: severe mitral valve stenosis, moderate to severe mitral regurgitation s/p balloon valvuloplasty, status post TAVR 2016. Pulmonary hypertension. Lymphoma in remission. Asthma/ COPD. Breast cancer status post radiation therapy, mastectomy. Radiation induced esophagitis. hypothyroidism. esophagitis. CHF - normal systolic function echo 02/2018 with severe Mitral valve stenosis. HLD, HTN. hiatal hernia. c diff 02/14/2018 s/p PO vanco. gerd. Paroxysmal atrial fibrillation - Surgical History Additional surgical history: Bilateral mastectomy. Bilateral total knee replacement. Cardiac catheterization 2010. Colonoscopy with complicated by perforation status post partial colectomy - Family History Additional family history: many first-degree relatives with coronary artery disease all after age 65 - Social History Smoking Status: Never smoked Additional social history: Independent in her ADLs, get shortness of breath with ambulating stairs. and lives with her . Cor status-full. Advanced directives in place. Review of Systems Review of Systems: ROS: 10pt was reviewed & negative except for what was stated in HPI & below Physical Exam Physical Exam: Temp Pulse Resp BP Pulse Ox 36.6 C 61 18 146/56 H 93 05/15/18 01:06 05/15/18 01:06 05/15/18 01:06 05/15/18 01:06 05/15/18 01:06 Constitutional: chronically ill appearing, uncomfortable Eyes: PERRL, EOMI Ears, Nose, Mouth, Throat: moist mucous membranes, no oral mucosal ulcers Cardiovascular: regular rate and rhythym, systolic murmur Respiratory: no respiratory distress, clear to auscultation Gastrointestinal: normoactive bowel sounds, soft, non-tender abdomen Skin: warm, normal color Musculoskeletal: full muscle strength, no muscle tenderness Neurologic: AAOx3, CN II-XII Intact Psychiatric: interacting appropriately, not anxious Lab Data & Imaging Review 05/15/18 00:25 05/15/18 00:25 WBC 8.43 10^3/uL (3.80-9.50) 05/15/18 00:25 RBC 3.57 10^6/uL (4.18-5.33) L 05/15/18 00:25 Hgb 10.1 g/dL (12.6-16.3) L 05/15/18 00:25 Hct 31.2 % (38.0-47.0) L 05/15/18 00:25 MCV 87.4 fL (81.5-99.8) 05/15/18 00:25 MCH 28.3 pg (27.9-34.1) 05/15/18 00:25 MCHC 32.4 g/dL (32.4-36.7) 05/15/18 00:25 RDW 14.9 % (11.5-15.2) 05/15/18 00:25 Plt Count 201 10^3/uL (150-400) 05/15/18 00:25 MPV 9.6 fL (8.7-11.7) 05/15/18 00:25 Neut % (Auto) 87.2 % (39.3-74.2) H 05/15/18 00:25 Lymph % (Auto) 6.4 % (15.0-45.0) L 05/15/18 00:25 [place] % (Auto) 4.7 % (4.5-13.0) 05/15/18 00:25 Eos % (Auto) 0.7 % (0.6-7.6) 05/15/18 00:25 Baso % (Auto) 0.6 % (0.3-1.7) 05/15/18 00:25 Nucleat RBC Rel Count 0.0 % (0.0-0.2) 05/15/18 00:25 Absolute Neuts (auto) 7.35 10^3/uL (1.70-6.50) H 05/15/18 00:25 Absolute Lymphs (auto) 0.54 10^3/uL (1.00-3.00) L 05/15/18 00:25 Absolute Monos (auto) 0.40 10^3/uL (0.30-0.80) 05/15/18 00:25 Absolute Eos (auto) 0.06 10^3/uL (0.03-0.40) 05/15/18 00:25 Absolute Basos (auto) 0.05 10^3/uL (0.02-0.10) 05/15/18 00:25 Absolute Nucleated RBC 0.00 10^3/uL (0-0.01) 05/15/18 00:25 Immature Gran % 0.4 % (0.0-1.1) 05/15/18 00:25 Immature Gran # 0.03 10^3/uL (0.00-0.10) 05/15/18 00:25 RBC/WBC/PLT Morphology TNP 05/15/18 00:25 Platelet Estimate TNP 05/15/18 00:25 PT 29.2 SEC (12.0-15.0) H 05/15/18 00:25 INR 2.77 (0.83-1.16) H 05/15/18 00:25 APTT 39.7 SEC (23.0-38.0) H 05/15/18 00:25 Sodium 128 mEq/L (135-145) L 05/15/18 00:25 Potassium 4.7 mEq/L (3.3-5.0) 05/15/18 00:25 Chloride 96 mEq/L (97-110) L 05/15/18 00:25 Carbon Dioxide 24 mEq/l (22-31) 05/15/18 00:25 Anion Gap 8 mEq/L (6-14) 05/15/18 00:25 BUN 16 mg/dL (7-23) 05/15/18 00:25 Creatinine 0.6 mg/dL (0.6-1.0) 05/15/18 00:25 Estimated GFR > 60 05/15/18 00:25 Glucose 118 mg/dL (70-100) H 05/15/18 00:25 Calcium 8.6 mg/dL (8.5-10.4) 05/15/18 00:25 Imaging Review: Imaging Impressions Chest X-Ray 05/14/18 23:27 Impression: 1. Acute right humeral fracture, as-detailed. 2. Stable cardiac silhouette enlargement with sequela of prior TAVR. 3. Retrocardiac hiatal hernia. 4. Bibasilar subsegmental atelectasis. Humerus X-Ray 05/14/18 23:27 Impression: Acute, comminuted, and impacted proximal right humeral fracture. Assessment & Plan Assessment: 82 yo F presents after a fall found to have humeral neck fracture. Plan: 1. Humeral neck fracture - XR (personally reviewed/interpreted) reveals acute, comminuted, and impacted proximal right humeral fracture. Polypharmacy (Ambien, gabapentin, metoprolol) likely contributed to her fall. - Admit for observation - Conservative pain control with APAP kimber + tramadol PRN - Orthopedic surgery consulted, appreciate assistance - Maintain NPO pending surgical evaluation 2. Chronic hyponatremia - Serum Na 128 on admission; her baseline appears to be in 128-132 range. 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 - NPO as above, consider fluid restriction afterwards - Check Osms, Gregorio - Monitor BMP 3. AF - On metoprolol and warfarin as outpatient. - Continue home medications pending reconciliation - Monitor daily INR 4. - s/p TAVR 11/14/17 5. Asthma - Well controlled, no evidence of acute exacerbation 6. Hypothyroid - Continue LTX 7. Polypharmacy - I counseled patient on dangers of taking Ambien and gabapentin at nighttime considering her advanced age. Diet - NPO pending surgical evaluation Code - Full Ppx - SCDs Dispo - Admit under observation status
[2018-05-15 05:01] LABS: PLATELET COUNT 191 10^3/uL (150-400)
[2018-05-15 05:09] LABS: INR 2.95 (0.83-1.16); PROTIME(PATIENT) 30.6 SEC (12.0-15.0)
[2018-05-15] MEDS ORDERED: ACETAMINOPHEN 500 MG TAB PO SCH (06:00)
--- NOTE | 2018-05-15 06:16 | CPEKG ---
Test Reason : OPEN Blood Pressure : / mmHG Vent. Rate : 061 BPM Atrial Rate : 061 BPM P-R Int : 186 ms QRS Dur : 097 ms QT Int : 466 ms P-R-T Axes : 085 069 070 degrees QTc Int : 470 ms Sinus rhythm Low voltage, extremity leads Minimal ST elevation, anterior leads Confirmed by Norma Shepard ([id number]) on 05/15/2018 6:16:03 AM Referred By: Confirmed By:Norma Shepard
[2018-05-15] MEDS ORDERED: ACETAMINOPHEN 160 MG/5 ML UDCUP PO SCH (06:30)
[2018-05-15] MEDS: ACETAMINOPHEN 650 MG/20.3 ML UDCUP PO SCH ×3 (07:01→21:39)
--- NOTE | 2018-05-15 09:39 | HOSPPROG ---
Hospitalist Progress Note Assessment/Plan: 82 yo F presents after a fall found to have humeral neck fracture. First encounter, chart reviewed. *humeral neck fx -ortho seeing -CT scan *gait instability w fall causing the above -concern for polypharmacy (Ambien, gabapentin) -orthopedics to see *chronic hyponatremia -Na is 126 -Urine Na is 93 -suspect she has hypervolemic hyponatremia & SIADH, fluid restrict *Afib, in sinus rhythm when I evaluated her -on OAC -INR is 2.95 -on beta sushant, rate controlled *hx of -s/p TAVR in 2017 *asthma *hypothyroid -TSH pending *polypharmacy -patient said she had a cough last night and took NyQuil w the Ambien + gabapentin -explained to the patient and her this is an unsafe combination of drugs *recent bout of pna complicated by C diff -reviewed her chest x ray which showed some atelectasis and peribronchial thickening *right elbow large skin tear -will ask wound care to see *anemia -significant drop overnight -recheck now and recheck a Na *Plan: Dr Landry ordered a CT scan for today, if she goes to OR will need FFP to reverse her INR. > 30 minutes talking w the patient and her . Avoid antibiotics. Will treat w prophylaxis oral vanco if ortho takes her to surgery and orders antibiotics. She will require another midnight stay to stabilize her sodium and if no surgery, will need good pain management. Subjective: Vondell is c/o right shoulder pain. Objective: Vital Signs Temp Pulse Resp BP Pulse Ox 36.8 C 64 18 136/61 H 87 L 05/15/18 04:04 05/15/18 04:04 05/15/18 04:04 05/15/18 04:04 05/15/18 04:04 Laboratory Results 05/15/18 04:23 05/15/18 04:23 05/14/18 05/15/18 05/16/18 05:59 05:59 05:59 Output Total 350 Balance -350 PT 30.6 SEC (12.0-15.0) H 05/15/18 04:23 INR 2.95 (0.83-1.16) H 05/15/18 04:23 - Physical Exam Constitutional: chronically ill appearing, uncomfortable, No not in pain (right shoulder) Eyes: PERRL Ears, Nose, Mouth, Throat: hearing normal Cardiovascular: regular rate and rhythym Respiratory: no respiratory distress, No no rales or rhonchi (few scattered rhonchi) Gastrointestinal: normoactive bowel sounds Skin: warm, no rashes or abrasions (has a large skin tear on right elbow), No normal color (pale) Musculoskeletal: generalized weakness Neurologic: AAOx3 Psychiatric: interacting appropriately ICD10 Worksheet Patient Problems: Problems Problem Status Onset Humeral surgical neck fracture Acute CHF (congestive heart failure) Acute Chest pain Acute Chronic sinus infection Acute Diarrhea Acute GERD with esophagitis Acute Gastroenteritis Acute Hypochloremia Acute Hypokalemia Acute Hyponatremia Acute Lethargy Acute Nausea Acute Pneumonia Acute Pneumonia of both lower lobes Acute Sepsis Acute chronic disease mgmt/transitional care Acute
[2018-05-15] MEDS ORDERED: METOPROLOL TARTRATE 50 MG TAB PO SCH ×2 (10:30→11:30)
[2018-05-15] MEDS ORDERED: ALBUTEROL 60 PUFFS/8 GM MDI IH PRN (11:17)
[2018-05-15] MEDS ORDERED: FLUTICASONE HFA 110 MCG MDI IH SCH (11:30)
[2018-05-15] MEDS: METOPROLOL TARTRATE 25 MG TAB PO SCH ×2 (12:32→20:19)
[2018-05-15] MEDS: LEVOTHYROXINE 75 MCG TAB PO SCH (12:32)
--- NOTE | 2018-05-15 14:12 | ASMTCMCOM ---
CM Note CM Note Notes: Patient admitted after fall and R humeral neck fracture. Ortho has been consulted. She is normally independent and lives with her . Discharge needs TBD. Case Management will follow. Date Signed: 05/15/2018 02:11 PM Electronically Signed By:Blanquita Vizcaino RN
--- NOTE | 2018-05-15 16:22 | PDMN ---
Medical Necessity Medical necessity: [facility] Musculoskeletal Disease GR yo w/ gait instability w/ fall causing R humeral fx, concern for polypharmacy. Ortho consulted, no surgical intervention today, will revisit w/ pt in am, pt requires another MN for pain management w/ IV and PO opioids and supportive care. Important to note, Na is dropping overnight 128-126-125. Per DISTRICT RESOURCE OFFICER "She will require another midnight stay to stabilize her sodium and if no surgery, will need good pain management." Change to IP status 05/15/18 @ 1520. Hx of AF, s/p TAVR, hyponatremia, asthma, pHTN, asthma/COPD, breast ca s/p radiation and mastectomy, afib, chronic hyonatremia and hypothyroidism
[2018-05-15] MEDS: PANTOPRAZOLE SODIUM 40 MG TAB PO SCH (20:17)
[2018-05-15] MEDS: MAGNESIUM OXIDE 400 MG TAB PO SCH (20:18)
[2018-05-15] MEDS: ATORVASTATIN CALCIUM 10 MG TAB PO SCH (20:18)
[2018-05-15] MEDS: GABAPENTIN 300 MG CAP PO SCH (20:18)
[2018-05-15] MEDS: ALBUTEROL 60 PUFFS/8 GM MDI IH PRN (20:35)
[2018-05-16] MEDS: ACETAMINOPHEN 650 MG/20.3 ML UDCUP PO SCH ×5 (02:16→21:14)
[2018-05-16 05:12] LABS: INR 2.5 (0.83-1.16)
[2018-05-16] MEDS: FLUTICASONE PROPIONATE PO SCH ×3 (05:25→20:55)
[2018-05-16] MEDS: LEVOTHYROXINE 75 MCG TAB PO SCH (05:49)
[2018-05-16] MEDS: traMADol 50 MG TAB PO PRN ×3 (05:49→21:14)
[2018-05-16] MEDS: ALBUTEROL 60 PUFFS/8 GM MDI IH PRN (08:42)
[2018-05-16] MEDS: MULTIVITAMINS 1 EACH TAB PO SCH (09:04)
[2018-05-16] MEDS: LOSARTAN POTASSIUM 50 MG TAB PO SCH (09:05)
[2018-05-16] MEDS: METOPROLOL TARTRATE 25 MG TAB PO SCH ×2 (09:05→21:12)
[2018-05-16] MEDS: CHOLECALCIFEROL VIT D3 1,000 UNITS TAB PO SCH (09:05)
[2018-05-16] MEDS: ASCORBIC ACID 500 MG TAB PO SCH (09:05)
[2018-05-16] MEDS: CALCIUM CARB W/VIT D 500 MG TAB PO SCH (09:05)
[2018-05-16] MEDS: PANTOPRAZOLE SODIUM 40 MG TAB PO SCH ×2 (09:05→21:12)
[2018-05-16] MEDS: RALOXIFENE HCL 60 MG TAB PO SCH (09:07)
--- NOTE | 2018-05-16 09:30 | GCON ---
ORTHOPEDIC CONSULTATION DATE OF CONSULTATION: 05/15/2018 TIME: 0630 CHIEF COMPLAINT: Right shoulder/arm pain. HISTORY OF PRESENT ILLNESS: 82-year-old female with multiple medical problems who presents after a m echanical fall. She tripped and fell over a rug, landing on her right arm, came to the emergency dep artment due to pain. She denied head trauma or loss of consciousness. She is on warfarin for atrial fibrillation. She was admitted from the emergency department for pain control. Also noted to have chronic anemia, hyponatremia. Patient complains only of right upper extremity pain. She denies ches t pain, shortness of breath, numbness, or tingling. PAST MEDICAL HISTORY: Includes severe mitral valve stenosis, [id number] mitral regurgitation , status post balloon valvuloplasty, status post TAVR in 2016, pulmonary hypertension, [place], asthma, COPD, breast cancer, status post radiation, mastectomy, radiation-induced esophagiti s, hypothyroidism, CHF, hyperlipidemia, hypertension, hiatal hernia, C difficile in February 2018, shon jalen with vancomycin, GERD, and paroxysmal atrial fibrillation. PAST SURGICAL HISTORY: Includes bilateral mastectomy, bilateral total knee arthroplasties, cardiac c atheterization 2010, colonoscopy complicated by perforation, and status post partial colectomy. MEDICATIONS: Reviewed. ALLERGIES: List is reviewed. SOCIAL HISTORY: Denies tobacco use. REVIEW OF SYSTEMS: 10-point review of systems is negative, except per HPI. PHYSICAL EXAM: GENERAL: Patient is slightly cachectic looking and in mild discomfort. LUNGS: She has easy nonlabored breathing. EXTREMITIES: Right upper extremity is in a sling. There is ecchymos is and swelling around the mid to proximal humerus. Sensation is intact to light touch in the axilla ry, radial, median nerves. Motor intact to AIN, PIN and interosseous nerves. She has brisk capable refill. 2+ radial pulse. LABORATORY/IMAGING: Reviewed shows baseline anemia. X-rays and CT scan reveal a comminuted slightly varus angulated, impacted proximal humerus fracture. ASSESSMENT/PLAN: 82-year-old female with a comminuted proximal humerus fracture. Given the overall alignment and the patient's long list of medical problems, I recommend nonoperative treatment. She w ill need pain control and sling use for a prolonged period of time. She will follow up for repeat x- rays and continued management in 7 to 10 days. She understands and agrees with this treatment plan. Questions answered. /[id number]/MODL
--- NOTE | 2018-05-16 09:54 | HOSPPROG ---
Hospitalist Progress Note Assessment/Plan: 82 yo F presents after a fall found to have humeral neck fracture. 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 -cont fluid restriction *Afib, in sinus rhythm when I evaluated her -on OAC (resumed today) -INR is 2.5 -on beta sushant, rate controlled *hx of -s/p TAVR in 2017 *asthma *hypothyroid -TSH 4.1 *polypharmacy -patient said she had a cough and took NyQuil w the Ambien + gabapentin -explained to the patient and her this is an unsafe combination of drugs *recent bout of pna complicated by C diff -reviewed her chest x ray which showed some atelectasis and peribronchial thickening *right elbow large skin tear -will ask wound care to see *anemia -low but stable *Plan: will likely need a SNF, Reviewed her care w Dr Landry, she will f/u with him Subjective: Xavier is tired today, not feeling quite well today. Objective: Vital Signs Temp Pulse Resp BP Pulse Ox 36.4 C 76 14 125/75 H 93 05/16/18 08:00 05/16/18 09:05 05/16/18 08:43 05/16/18 09:05 05/16/18 08:43 Laboratory Results 05/16/18 04:35 05/16/18 04:35 05/15/18 05/16/18 05/17/18 05:59 05:59 05:59 Intake Total 950 Balance 950 PT 27.0 SEC (12.0-15.0) H 05/16/18 04:35 INR 2.50 (0.83-1.16) H 05/16/18 04:35 - Physical Exam Constitutional: chronically ill appearing, uncomfortable Eyes: PERRL Ears, Nose, Mouth, Throat: hearing normal Cardiovascular: regular rate and rhythym Respiratory: no respiratory distress, reduced air movement (bases) Skin: warm Musculoskeletal: generalized weakness Neurologic: AAOx3 Psychiatric: interacting appropriately ICD10 Worksheet Patient Problems: Problems Problem Status Onset Humeral surgical neck fracture Acute CHF (congestive heart failure) Acute Chest pain Acute Chronic sinus infection Acute Diarrhea Acute GERD with esophagitis Acute Gastroenteritis Acute Hypochloremia Acute Hypokalemia Acute Hyponatremia Acute Lethargy Acute Nausea Acute Pneumonia Acute Pneumonia of both lower lobes Acute Sepsis Acute chronic disease mgmt/transitional care Acute
[2018-05-16] MEDS ORDERED: MAGNESIUM HYDROXIDE 30 ML UDCUP PO PRN (12:11)
[2018-05-16] MEDS ORDERED: BISACODYL 10 MG SUPP PR PRN (12:11)
[2018-05-16] MEDS ORDERED: LACTULOSE 20 GM/30 ML UDCUP PO PRN (12:11)
--- NOTE | 2018-05-16 13:08 | SOAPPROG ---
SO[facility] Progress Note Assessment/Plan: Assessment: 82-year-old female with a right comminuted proximal humerus fracture Plan: Recommend non operative treatment with a sling, nonweightbearing to the right upper extremity, remove sling daily to work on elbow wrist and hand range of motion, PT OT Pain control: avoid NSAIDs, minimize narcotics Follow-up in 7-10 days 05/16/18 13:06 Subjective: Sitting on the edge of bed. No acute events. Pain well controlled. Denies chest pain shortness of breath numbness tingling Objective: Vital Signs Temp Pulse Resp BP Pulse Ox 36.6 C 62 12 150/58 H 98 05/16/18 11:56 05/16/18 11:56 05/16/18 11:56 05/16/18 11:56 05/16/18 11:56 Laboratory Results 05/16/18 04:35 05/16/18 04:35 05/15/18 05/16/18 05/17/18 05:59 05:59 05:59 Intake Total 950 Balance 950 PT 27.0 SEC (12.0-15.0) H 05/16/18 04:35 INR 2.50 (0.83-1.16) H 05/16/18 04:35 Awake alert oriented x3 no acute distress Easy nonlabored breathing Sensation intact to light touch in the axillary radial median nerves Motor intact ain PIN interosseous nerves Brisk cap refill 2+ radial pulse ICD10 Worksheet Patient Problems: Problems Problem Status Onset Humeral surgical neck fracture Acute CHF (congestive heart failure) Acute Chest pain Acute Chronic sinus infection Acute Diarrhea Acute GERD with esophagitis Acute Gastroenteritis Acute Hypochloremia Acute Hypokalemia Acute Hyponatremia Acute Lethargy Acute Nausea Acute Pneumonia Acute Pneumonia of both lower lobes Acute Sepsis Acute chronic disease mgmt/transitional care Acute
[2018-05-16] MEDS: POLYETHYLENE GLYCOL 3350 17 GM PKT PO SCH (13:12)
--- NOTE | 2018-05-16 15:51 | ASMTCMCOM ---
CM Note CM Note Notes: OT rec home, PT rec HHC. Spoke with pt and about d/c planning, they request [facility] for HHC. Referral sent in [employer] and Janice alerted. CM to follow. D/c plan of care: Home with [facility] Date Signed: 05/16/2018 03:51 PM Electronically Signed By:EDGARD Salas
[2018-05-16] MEDS: SENNOSIDES/DOCUSATE SODIUM TAB PO SCH (21:11)
[2018-05-16] MEDS: GABAPENTIN 300 MG CAP PO SCH (21:11)
[2018-05-16] MEDS: MAGNESIUM OXIDE 400 MG TAB PO SCH (21:14)
[2018-05-16] MEDS: ATORVASTATIN CALCIUM 10 MG TAB PO SCH (21:14)
[2018-05-17] MEDS: ACETAMINOPHEN 650 MG/20.3 ML UDCUP PO SCH ×3 (05:08→21:11)
[2018-05-17] MEDS: LEVOTHYROXINE 75 MCG TAB PO SCH (05:09)
[2018-05-17] MEDS: ALBUTEROL 60 PUFFS/8 GM MDI IH PRN (08:08)
[2018-05-17] MEDS: RALOXIFENE HCL 60 MG TAB PO SCH (09:10)
[2018-05-17] MEDS: PANTOPRAZOLE SODIUM 40 MG TAB PO SCH ×2 (09:11→21:05)
[2018-05-17] MEDS: MULTIVITAMINS 1 EACH TAB PO SCH (09:11)
[2018-05-17] MEDS: CALCIUM CARB W/VIT D 500 MG TAB PO SCH (09:11)
[2018-05-17] MEDS: SENNOSIDES/DOCUSATE SODIUM TAB PO SCH ×2 (09:12→21:05)
[2018-05-17] MEDS: POLYETHYLENE GLYCOL 3350 17 GM PKT PO SCH (09:12)
[2018-05-17] MEDS: ASCORBIC ACID 500 MG TAB PO SCH (09:12)
[2018-05-17] MEDS: LOSARTAN POTASSIUM 50 MG TAB PO SCH (09:30)
[2018-05-17] MEDS: CHOLECALCIFEROL VIT D3 1,000 UNITS TAB PO SCH (09:32)
[2018-05-17] MEDS: METOPROLOL TARTRATE 25 MG TAB PO SCH ×2 (09:33→21:09)
[2018-05-17] MEDS: FLUTICASONE PROPIONATE PO SCH ×2 (09:45→22:11)
--- NOTE | 2018-05-17 10:07 | ASMTCMCOM ---
CM Note CM Note Notes: Today PT rec SNF. Spoke with pt and glenys Feliz about d/c planning. Pt hopes she can still go home with HHC. If pt needs SNF they choose [facility], referral sent in [employer]. CM to follow. D/c plan of care: HHC vs SNF Date Signed: 05/17/2018 10:07 AM Electronically Signed By:EDGARD Salas
--- NOTE | 2018-05-17 11:29 | HOSPPROG ---
Hospitalist Progress Note Assessment/Plan: 82 yo F presents after a fall found to have humeral neck fracture. 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 *hx of -s/p TAVR in 2017 *asthma *hypothyroid -TSH 4.1 *polypharmacy -patient said she had a cough and took NyQuil w the Ambien + gabapentin -explained to the patient and her this is an unsafe combination of drugs *recent bout of pna complicated by C diff -reviewed her chest x ray which showed some atelectasis and peribronchial thickening *right elbow large skin tear -dressing in place *anemia -low but stable *Plan: decrease dose of beta sushant, having some cough and congestion; aggressive pulm toileting, duonebs, mucinex. She'd like to go home on dc but is feeling a bit weak today, will re-evaluate in a.m. She is willing to go to [facility] if needed. Subjective: Xavier is feeling tired today, not as much energy as yesterday, had some lightheadedness earlier today. Objective: Vital Signs Temp Pulse Resp BP Pulse Ox 36.9 C 71 15 106/62 95 05/17/18 07:43 05/17/18 09:48 05/17/18 09:48 05/17/18 09:33 05/17/18 09:48 Laboratory Results 05/16/18 04:35 05/17/18 08:52 05/16/18 05/17/18 05/18/18 05:59 05:59 05:59 Intake Total 950 1000 Balance 950 1000 PT 27.0 SEC (12.0-15.0) H 05/16/18 04:35 INR 2.50 (0.83-1.16) H 05/16/18 04:35 - Physical Exam Constitutional: chronically ill appearing Eyes: PERRL Ears, Nose, Mouth, Throat: hearing normal Cardiovascular: regular rate and rhythym, systolic murmur Respiratory: no respiratory distress, rhonchi (scattered) Skin: warm Musculoskeletal: generalized weakness Neurologic: AAOx3 Psychiatric: interacting appropriately ICD10 Worksheet Patient Problems: Problems Problem Status Onset Humeral surgical neck fracture Acute CHF (congestive heart failure) Acute Chest pain Acute Chronic sinus infection Acute Diarrhea Acute GERD with esophagitis Acute Gastroenteritis Acute Hypochloremia Acute Hypokalemia Acute Hyponatremia Acute Lethargy Acute Nausea Acute Pneumonia Acute Pneumonia of both lower lobes Acute Sepsis Acute chronic disease mgmt/transitional care Acute
[2018-05-17] MEDS: WARFARIN SODIUM 2.5 MG TAB PO SCH (12:30)
[2018-05-17] MEDS: guaiFENesin 600 MG TAB.ER PO SCH ×2 (12:33→21:06)
[2018-05-17] MEDS: traMADol 50 MG TAB PO PRN ×2 (13:36→19:49)
[2018-05-17] MEDS: IPRATROPIUM/ALBUTEROL 3 ML DEYVIAL IH SCH ×2 (16:52→20:25)
[2018-05-17] MEDS: MAGNESIUM OXIDE 400 MG TAB PO SCH (21:04)
[2018-05-17] MEDS: GABAPENTIN 300 MG CAP PO SCH (21:04)
[2018-05-17] MEDS: ATORVASTATIN CALCIUM 10 MG TAB PO SCH (21:06)
[2018-05-18] MEDS: LEVOTHYROXINE 75 MCG TAB PO SCH (05:10)
[2018-05-18] MEDS: ACETAMINOPHEN 650 MG/20.3 ML UDCUP PO SCH ×3 (05:10→21:46)
[2018-05-18] MEDS: IPRATROPIUM/ALBUTEROL 3 ML DEYVIAL IH SCH ×4 (05:30→20:23)
[2018-05-18] MEDS ORDERED: WARFARIN SODIUM 2.5 MG TAB PO SCH (08:00)
[2018-05-18] MEDS: POLYETHYLENE GLYCOL 3350 17 GM PKT PO SCH (08:18)
[2018-05-18] MEDS: traMADol 50 MG TAB PO PRN ×3 (08:30→20:15)
[2018-05-18] MEDS: SENNOSIDES/DOCUSATE SODIUM TAB PO SCH ×2 (08:31→20:15)
[2018-05-18] MEDS: CALCIUM CARB W/VIT D 500 MG TAB PO SCH (08:35)
[2018-05-18] MEDS: ASCORBIC ACID 500 MG TAB PO SCH (08:36)
[2018-05-18] MEDS: guaiFENesin 600 MG TAB.ER PO SCH ×2 (08:36→20:14)
[2018-05-18] MEDS: RALOXIFENE HCL 60 MG TAB PO SCH (08:36)
[2018-05-18] MEDS: CHOLECALCIFEROL VIT D3 1,000 UNITS TAB PO SCH (08:38)
[2018-05-18] MEDS: METOPROLOL TARTRATE 25 MG TAB PO SCH ×2 (08:38→20:16)
[2018-05-18] MEDS: PANTOPRAZOLE SODIUM 40 MG TAB PO SCH ×2 (08:39→20:14)
[2018-05-18] MEDS: MULTIVITAMINS 1 EACH TAB PO SCH (08:39)
[2018-05-18] MEDS: FLUTICASONE PROPIONATE PO SCH (09:54)
[2018-05-18] MEDS: LOSARTAN POTASSIUM 50 MG TAB PO SCH (10:40)
--- NOTE | 2018-05-18 13:52 | HOSPPROG ---
Hospitalist Progress Note Assessment/Plan: 82 yo F presents after a fall found to have humeral neck fracture. 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 *hx of -s/p TAVR in 2017 *asthma -had some increasing cough yesterday but has since resolved with nebs *hypothyroid -TSH 4.1 *polypharmacy -patient said she had a cough and took NyQuil w the Ambien + gabapentin -explained to the patient and her this is an unsafe combination of drugs *recent bout of pna complicated by C diff - *right elbow large skin tear -dressing in place *anemia -low but stable *Plan: chest x ray was done this morning due to increase O2 needs, now on room air and feeling well. chest x ray shows small effusions, atelectasis, ? infiltrate. appreciate cards seeing her, will get echo and if stable. Subjective: Xavier is feeling well. Objective: Vital Signs Temp Pulse Resp BP Pulse Ox 36.8 C 84 18 117/55 L 94 05/18/18 12:28 05/18/18 12:28 05/18/18 12:28 05/18/18 12:28 05/18/18 12:28 Laboratory Results 05/16/18 04:35 05/17/18 08:52 05/17/18 05/18/18 05/19/18 05:59 05:59 05:59 Intake Total 1000 1200 Balance 1000 1200 PT 31.0 SEC (12.0-15.0) H 05/18/18 03:46 INR 3.00 (0.83-1.16) H 05/18/18 03:46 - Physical Exam Constitutional: no apparent distress, appears nourished, not in pain Eyes: PERRL Ears, Nose, Mouth, Throat: hearing normal Cardiovascular: regular rate and rhythym Respiratory: no respiratory distress, clear to auscultation Skin: warm Musculoskeletal: generalized weakness Neurologic: AAOx3 Psychiatric: interacting appropriately ICD10 Worksheet Patient Problems: Problems Problem Status Onset Humeral surgical neck fracture Acute CHF (congestive heart failure) Acute Chest pain Acute Chronic sinus infection Acute Diarrhea Acute GERD with esophagitis Acute Gastroenteritis Acute Hypochloremia Acute Hypokalemia Acute Hyponatremia Acute Lethargy Acute Nausea Acute Pneumonia Acute Pneumonia of both lower lobes Acute Sepsis Acute chronic disease mgmt/transitional care Acute
--- NOTE | 2018-05-18 13:57 | ASMTCMCOM ---
CM Note CM Note Notes: 05/18/2018 Case Management Note Met w/pt and to discuss d/c plan. Pt states that PT recommends home health care 3 x/week. Pt is uninterested in SNF rehab today. Pt has been accepted to [facility]. [facility]. Confirmed acceptance with [facility] on the phone. PCP is Dr. Ruiz Case Management d/c poc: HC RN PT OT [employer]END[employer] Case Management to follow. Date Signed: 05/18/2018 01:56 PM Electronically Signed By:Anca Rojas RN
--- NOTE | 2018-05-18 14:00 | PDCARPN ---
Cardiology Progress Note Chief Complaint: SOB Assessment/Plan: Assessment: Xavier is a 82 y/o F with a history of severe MS s/p balloon mitral valvuloplasty in 12/2017, severe s/p TAVR one year ago, PHTN, chronic hyponatremia, chronic anemia, and PAF on Coumadin. She is a admitted with fall and humerus fracture which is being treated conservatively. She admits to taking Ambien, Gabapentin, and nyquil the evening before her fall. Cards was consulted for increase SOB and the development of small bilateral pleural effusion. She also has a history of asthma and admits to a resolution in her SOB with neb treatments. She denies any lower extremity edema, PND, or orthopnea. She is denies any palpitations consistent with a.fib. Upon further questioning she thinks she may have had a syncopal event. A echo shows a EF of 60% with severe MS. Her mitral valve mean gradient has increased from 12-14 to 19-21. Her AV mean gradient has increased from 18 to 26. She also has mod to severe TR with RVSP of 107. Plan: 1. SOB- Her BNP is stable at 1,000 and she appears euvolemic today. I think this is more related to underlying pulmonary disease. 2. H/o TAVR- She is due for a echo to track her valvular disease. Plan for echo today. 3. PHTN- RVSP have increased from 80-100. Plan for out patient noc ox. 4. PAF- Regular rate and rhythm by exam. Continue Coumadin. 5. Chronic anemia- stable 6. Chronic hyponatremia-stable 7. Syncope?- monitor on tele 05/18/18 16:52 Subjective: She denies any CP. She is having mild SOB which is improved with neb treatments. Reviewed/Discussed With: hospitalist Objective: Vital Signs (8 Hrs) Temp Pulse Resp BP Pulse Ox 05/18/18 12:28 36.8 C 84 18 117/55 L 94 05/18/18 10:50 82 16 92 05/18/18 10:06 78 129/47 H 05/18/18 08:00 36.8 C 96 14 118/60 92 Intake/Output (24 Hrs) 05/17/18 05/18/18 05/19/18 05:59 05:59 05:59 Intake Total 1000 1200 Balance 1000 1200 Intake: Oral (ml) 1000 1200 Other: Number of Voids Toilet 1 1 Number of Stools Toilet 1 Result Diagrams: 05/16/18 04:35 05/17/18 08:52 - Physical Exam Constitutional: no apparent distress Respiratory: other (decreased BS at the bases) Skin: no edema Neurologic: AAOx3 ICD10 Worksheet Patient Problems: Problems Problem Status Onset Humeral surgical neck fracture Acute CHF (congestive heart failure) Acute Chest pain Acute Chronic sinus infection Acute Diarrhea Acute GERD with esophagitis Acute Gastroenteritis Acute Hypochloremia Acute Hypokalemia Acute Hyponatremia Acute Lethargy Acute Nausea Acute Pneumonia Acute Pneumonia of both lower lobes Acute Sepsis Acute chronic disease mgmt/transitional care Acute
--- NOTE | 2018-05-18 15:34 | ECHO ---
[email or web address] [address] [address] Main: [phone] Fax: Transthoracic Echocardiogram Name: KARLA STARK MR#: [id number] Study Date: 05/18/2018 Study Time: 02:11 PM Date of : 1935 Age: 82 year(s) Height: 172.7 cm (68 in.) Weight: 60.33 kg (133 lb.) BSA: 1.72 m2 Gender: Female Examination: Echo Indication: sob with history of TAVR Image Quality: Adequate Contrast: Requested by: Meagan Sánchez BP: 117 mmHg/55 mmHg Heart Rate: Rhythm: Indication: sob with history of TAVR Procedure Staff Senior Ecologist: Yesenia Loo RDCS Reading Physician: Jaime River MD Requesting Provider: Conclusions: Normal size left ventricle. Mild concentric LV hypertrophy. The ejection fraction is visually estimated to be 65 %. No regional wall motion abnormality. Normal RV function. The left atrium is severely dilated. The right atrium is moderately dilated. Severe mitral valve stenosis is present. Mitral valve mean gradient has increased from 12-14 mmhg to around 19-21 mmhg. The aortic valve is a bioprosthesis. Normal functioning aortic valve prosthesis. The aortic valve mean gradient has increased from 18 mmhg to 26 mmhg. Moderate to severe tricuspid valve regurgitation. Right ventricular systolic pressure measures 107mmHg. Compared to echo of 02/2018, today's echo showed a change in there has been an increase of pasp from 83 mmhg to now 100 mmhg and the mean mitral valve gradient has risen from 14 to 19 mmhg. Measurements: Chambers Valvular Assessment AV/MV Valvular Assessment TV/PV Normal Normal Normal Name Value Range Name Value Range Name Value Range Ao Alesia (2D): 2.8 cm (1.4 cm-2.6 AV meanP mmHg ( - ) TR Vmax: 5.04 mm/s ( - ) cm) THIERNO (VTI): 1.2 cm ( - ) TR PGmax: 102 mmHg ( - ) IVSd (2D): 1.2 cm (0.6 cm-1.1 MV E Vmax: 2.48 m/s ( - ) syst. PAP: 107 mmHg ( - ) cm) MV A Vmax: 1.91 m/s ( - ) PV Vmax: 0.91 m/s (0.6 m/s-0.9 LVDd (2D): 4.0 cm (3.9 cm-5.3 MV E/A: 1.30 ( - ) m/s) cm) MV meanP mmHg ( - ) PV PGmax: 3 mmHg ( - ) LVDs (2D): 2.4 cm (2.1 cm-4 cm) MV PHT: 0.105 s ( - ) LVPWd (2D): 1.2 cm ( - ) MVA (Vmax): 0.8 m/s ( - ) Patient: KARLA STARK Study Date: 05/18/2018 Page 1 of 3 02:11 PM LVOTd 1.9 cm 1.9 cm mm MVA (PHT): 2.1 s ( - ) LVEF (BP): 71 % (>=55 %) Visual EF: 65 % RVDd(2D): 3.2 cm (1.9 cm-3.8 cmmm) Continued Measurements: Chambers Valvular Assessment AV/MV Valvular Assessment TV/PV Name Value Name Value Name Value LADs: 4.2 cm MV DecTime: 320 m/s CVP (est.): 5 mmHg LADs Lon.7 cm MV E' Septal: 0.06 m/s LA Area: 30.0 cm2 MV E/E' Septal: 43.10 LA Volume: 103 ml MV E/E' Lateral: 38.00 LA Volume Index: 59.9 ml/m2 MV VTI: 91.20 cm RA Area: 22.2 cm2 Additional Vessels Name Value Inferior Vena Cava: 1.5 cm Findings: Left Ventricle: Normal size left ventricle. Mild concentric LV hypertrophy. Normal global systolic LV function. The ejection fraction is visually estimated to be 65 %. No regional wall motion abnormality. Grade 2 diastolic dysfunction (pseudonormalized LV filling pattern). Right Ventricle: Normal size right ventricle. Normal RV function. Left Atrium: The left atrium is severely dilated. Right Atrium: The right atrium is moderately dilated. Mitral Valve: There is severe thickening of the mitral valve leaflets. Severe mitral valve stenosis is present. Mild to moderate mitral regurgitation. Mitral valve mean gradient has increased from 12-14 mmhg to around 19-21 mmhg. Aortic Valve: The aortic valve is a bioprosthesis. Normal functioning aortic valve prosthesis. The prosthetic aortic valve is normal. The orifice motion of the prosthetic aortic valve is normal. The aortic valve mean gradient has increased from 18 mmhg to 26 mmhg. Tricuspid Valve: The tricuspid valve is normal in appearance and function. Moderate to severe tricuspid valve regurgitation. The pulmonary artery pressure is severely increased. Right ventricular systolic pressure measures 107mmHg. Pulmonic Valve: The pulmonic valve is normal in appearance and function. Mild pulmonic valve regurgitation is noted. Aorta: The aorta is normal. Normal size aortic root measuring 2.8 cm. IVC: The IVC is normal sized. Pericardium: Trivial pericardial effusion. No pleural effusion. (No Signature Object) Patient: KARLA STARK Study Date: 05/18/2018 Page 2 of 3 02:11 PM Patient: KARLA STARK Study Date: 05/18/2018 Page 3 of 3 02:11 PM [id number]
[2018-05-18] MEDS: GABAPENTIN 300 MG CAP PO SCH (20:13)
[2018-05-18] MEDS: MAGNESIUM OXIDE 400 MG TAB PO SCH (20:13)
[2018-05-18] MEDS: ATORVASTATIN CALCIUM 10 MG TAB PO SCH (20:14)
[2018-05-18] MEDS: FLUTICASONE PROPIONATE IH SCH (20:22)
[2018-05-19] MEDS: IPRATROPIUM/ALBUTEROL 3 ML DEYVIAL IH SCH ×3 (04:37→16:23)
[2018-05-19 05:53] LABS: INR 2.99 (0.83-1.16); PROTIME(PATIENT) 30.9 SEC (12.0-15.0)
[2018-05-19] MEDS: LEVOTHYROXINE 75 MCG TAB PO SCH (05:59)
[2018-05-19] MEDS: ACETAMINOPHEN 650 MG/20.3 ML UDCUP PO SCH ×2 (05:59→14:29)
[2018-05-19] MEDS: CALCIUM CARB W/VIT D 500 MG TAB PO SCH (08:42)
[2018-05-19] MEDS: MULTIVITAMINS 1 EACH TAB PO SCH (08:42)
[2018-05-19] MEDS: guaiFENesin 600 MG TAB.ER PO SCH (08:43)
[2018-05-19] MEDS: METOPROLOL TARTRATE 25 MG TAB PO SCH (08:43)
[2018-05-19] MEDS: RALOXIFENE HCL 60 MG TAB PO SCH (08:44)
[2018-05-19] MEDS: ASCORBIC ACID 500 MG TAB PO SCH (08:45)
[2018-05-19] MEDS: CHOLECALCIFEROL VIT D3 1,000 UNITS TAB PO SCH (08:46)
[2018-05-19] MEDS: PANTOPRAZOLE SODIUM 40 MG TAB PO SCH (08:46)
[2018-05-19] MEDS: SENNOSIDES/DOCUSATE SODIUM TAB PO SCH (08:46)
[2018-05-19] MEDS: LOSARTAN POTASSIUM 50 MG TAB PO SCH (08:49)
[2018-05-19] MEDS: POLYETHYLENE GLYCOL 3350 17 GM PKT PO SCH (08:49)
[2018-05-19] MEDS: WARFARIN SODIUM 2.5 MG TAB PO SCH (08:51)
[2018-05-19] MEDS: FLUTICASONE PROPIONATE IH SCH (08:54)
--- NOTE | 2018-05-19 10:56 | PDCARPN ---
Cardiology Progress Note Chief Complaint: SOB Assessment/Plan: Assessment: Xavier is a 82 y/o F with a history of severe MS s/p balloon mitral valvuloplasty in 12/2017, severe s/p TAVR one year ago, PHTN, chronic hyponatremia, chronic anemia, and PAF on Coumadin. She is a admitted with fall and humerus fracture which is being treated conservatively. She admits to taking Ambien, Gabapentin, and nyquil the evening before her fall. Cards was consulted for increase SOB and the development of small bilateral pleural effusion. She also has a history of asthma and admits to a resolution in her SOB with neb treatments. She denies any lower extremity edema, PND, or orthopnea. She is denies any palpitations consistent with a.fib. Upon further questioning she thinks she may have had a syncopal event. A echo shows a EF of 60% with severe MS. Her mitral valve mean gradient has increased from 12-14 to 19-21. Her AV mean gradient has increased from 18 to 26. She also has mod to severe TR with RVSP of 107. Plan: 1. SOB- Her BNP is stable at 1,000 and she appears euvolemic today. I think this is more related to underlying pulmonary disease. 2. Valvular disease with prior balloon mitral valvuloplasty and TAVR. Echo shows progressive MS and . Plan for F/u with Dr. Encinas in 1-2 weeks. 3. PHTN- RVSP have increased from 80 to 100. Continue night time oxygen. 4. PAF- Currently in NSR with PAC's. Continue Coumadin. 5. Chronic anemia- stable 6. Chronic hyponatremia-stable 7. Syncope?- Likely related to over medicating herself with Nyquil, Ambien, and Gabapentin. She was monitored on tele and remained in NSR with PAC's.If she has further events consider a event montior versus Linq. She is not interested in a monitor at this time. 8. Chyna fracture Ok to d/c home from a cardiac standpoint. 05/19/18 11:00 Subjective: She denies any further SOB or CP. Neb treatments are making it difficult for her to sleep. Objective: Vital Signs (8 Hrs) Temp Pulse Resp BP Pulse Ox 05/19/18 07:15 36.6 C 81 12 131/66 H 96 05/19/18 04:39 77 12 96 05/19/18 04:30 36.8 C 80 16 151/50 H 98 Intake/Output (24 Hrs) 05/18/18 05/19/18 05/20/18 05:59 05:59 05:59 Intake Total 1200 1170 Balance 1200 1170 Intake: Oral (ml) 1200 1170 Other: Number of Voids Toilet 1 2 Number of Stools Toilet 1 1 Result Diagrams: 05/16/18 04:35 05/17/18 08:52 Telemetry: NSR with frequent PAC's. - Physical Exam Constitutional: no apparent distress Cardiovascular: regular rate and rhythm, systolic murmur Respiratory: clear to auscultate bilat, no crackles, no wheezes Skin: no edema Neurologic: AAOx3 ICD10 Worksheet Patient Problems: Problems Problem Status Onset Humeral surgical neck fracture Acute CHF (congestive heart failure) Acute Chest pain Acute Chronic sinus infection Acute Diarrhea Acute GERD with esophagitis Acute Gastroenteritis Acute Hypochloremia Acute Hypokalemia Acute Hyponatremia Acute Lethargy Acute Nausea Acute Pneumonia Acute Pneumonia of both lower lobes Acute Sepsis Acute chronic disease mgmt/transitional care Acute
--- NOTE | 2018-05-19 13:07 | CPEKG ---
Test Reason : OPEN Blood Pressure : / mmHG Vent. Rate : 070 BPM Atrial Rate : 070 BPM P-R Int : 168 ms QRS Dur : 090 ms QT Int : 417 ms P-R-T Axes : 048 037 030 degrees QTc Int : 450 ms Sinus rhythm Borderline ST elevation, anterolateral leads Confirmed by Jasbir Tompkins ([id number]) on 05/19/2018 1:07:36 PM Referred By: Confirmed By:Jasbir Tompkins
[2018-05-19] MEDS: traMADol 50 MG TAB PO PRN (14:46)
[2018-05-19 15:02] VITALS: BP 126/56
--- NOTE | 2018-05-19 15:02 | PDIAF ---
- Diagnosis Code Status: Full Code - Medication Management Discharge Medications: electronically signed and located in the Home Medication List. - Orders Services needed: Home Care, Registered Nurse, Certified Hydrography Teacher, Physical Therapy, Occupational Therapy Home Care Face to Face: I certify that this patient was under my care and that I had the required [id number] encounter meeting the encounter requirements on the discharge day. My findings support the fact that the patient is homebound as defined in Home Care Face to Face Continued: CMS Chapter 7 Medicare Benefits Manual 30.1.1 , The condition of the patient is such that there exists a normal inability to leave home and consequently, leaving home would require a considerable and taxing effort. Isolation Type: None Diet Recommendation: no restrictions on diet, fluid restriction (use comment for amount) (2 liters/day) Diet Texture: Regular Texture Diet Additional Instructions: Here are your discharge instructions: 1. I have sent a prescription for the following medications to the [facility] pharmacy here at [facility]: - tramadol - metoprolol. this is a new dose for you 2. Please avoid taking ambien and nyquil, especially while you are taking tramadol. 3. Limit your fluid intake to 2 liters per day 4. You will need to follow up with several physicians: Dr Landry (orthopedics), Dr Encinas (cardiology), and your primary care doctor. 5. Adhere to the following instructions for your arm: - Non weight bearing to right upper extremity. - Constant sling except for hygiene and elbow/wrist/hand motion. Remove sling daily to wor with elbow, wrist and hand ROM PT/OT. - Follow Up Care Current Providers and Referrals: Omid Landry MD [Medical Doctor] - follow up in 1 week Rigoberto Ruiz MD [Primary Care Provider] - As per Instructions Pankaj Encinas MD [Medical Doctor] - (CALL CARDS OFFICE TO BOOK APT)
--- NOTE | 2018-05-19 15:17 | ASMTDCNOTE ---
Case Management Discharge Discharge Order Complete? Answers: Yes Patient to Obtain Answers: via Family Medications Transportation Arranged Answers: Family/Friends Family Notified Answers: Yes Discharge Comments Notes: Pt is discharging home today with her and [facility] RN/PT/OT/WASTE RECLAIMER. [facility] alerted. Date Signed: 05/19/2018 03:16 PM Electronically Signed By:EDGARD Yi
--- NOTE | 2018-05-19 15:18 | ASDISCHSUM ---
Discharge Information Plan Status:Home with Home Health Medically Cleared to Leave: Discharge Date: D/C Disposition:Home, Routine, Self-Care ADT D/C Disposition:Home Health Service Projected Discharge Date:05/19/2018 11:00 AM Transportation at D/C:Family Discharge Delay Reason: Follow-Up Date:05/19/2018 11:00 AM Discharge Slot: Final Diagnosis: Placement Information Referral Type:*Home Health Care Services Referral ID:[id number] Provider Name:[facility] Address 1:[address] [place] [address] Address 2: City:[place] Selection Factors: State:[place] Referral Type:*Longterm/SNF Referral ID:[id number] Provider Name: Address 1: Phone Number: Address 2: Fax Number: City: Selection Factors: State: Patient Contact Information Contact Name:MARSHALL Relationship: Address:[address] City:[place] Alternate Phone: State/Zip Code:[place] [address] Email: Financial Information Financial Class:Medicare Primary Plan Desc:MEDICARE INPATIENT Primary Plan Number:[id number] Secondary Plan Desc:CRUZITO WEI GODDARD Secondary Plan Number:[id number] Assessment Information LACE LACE Length of stay for Answers: 4-6 days current admission Acuity / Level of Answers: Yes Care: Did the patient have an inpatient admission? Comorbidities - select Answers: Any tumor (including all that apply lymphoma or leukemia) Chronic pulmonary disease Congestive heart failure Opioid dependence / Chronic pain Other Notes: HTN; Mitral valve stenosis # of Emergency department Answers: 3-4 visits in the last 6 months Score: 21 Date Signed: 05/19/2018 03:17 PM Electronically Signed By:EDGARD Yi [facility] CM Progress Note CM Note CM Note Notes: Patient admitted after fall and R humeral neck fracture. Ortho has been consulted. She is normally independent and lives with her . Discharge needs TBD. Case Management will follow. Date Signed: 05/15/2018 02:11 PM Electronically Signed By:Blanquita Vizcaino RN [facility] CM Progress Note CM Note CM Note Notes: OT rec home, PT rec HHC. Spoke with pt and about d/c planning, they request [facility] for HHC. Referral sent in [employer] and Janice alerted. CM to follow. D/c plan of care: Home with [facility] Date Signed: 05/16/2018 03:51 PM Electronically Signed By:EDGARD Salas [facility] CM Progress Note CM Note CM Note Notes: Today PT rec SNF. Spoke with pt and glenys Feliz about d/c planning. Pt hopes she can still go home with HHC. If pt needs SNF they choose [facility], referral sent in [employer]. CM to follow. D/c plan of care: HHC vs SNF Date Signed: 05/17/2018 10:07 AM Electronically Signed By:EDGARD Salas [facility] CM Progress Note CM Note CM Note Notes: 05/18/2018 Case Management Note Met w/pt and to discuss d/c plan. Pt states that PT recommends home health care 3 x/week. Pt is uninterested in SNF rehab today. Pt has been accepted to [facility]. Faxed updates to [facility]. Confirmed acceptance with [facility] on the phone. PCP is Dr. Ruiz Case Management d/c poc: [facility] RN PT OT GALINDO Case Management to follow. Date Signed: 05/18/2018 01:56 PM Electronically Signed By:Anca Rojas RN Case Management Discharge Plan Note Case Management Discharge Discharge Order Complete? Answers: Yes Patient to Obtain Answers: via Family Medications Transportation Arranged Answers: Family/Friends Family Notified Answers: Yes Discharge Comments Notes: Pt is discharging home today with her and [facility] RN/PT/OT/GALINDO. [facility] alerted. Date Signed: 05/19/2018 03:16 PM Electronically Signed By:EDGARD Yi Intervention Information Intervention Type:*PATEL-Signed Date of Service:05/15/2018 10:02 AM Patient Type:Observation Staff Member:Caroline Rodriguez Hours: Discipline: Severity: Comment: Intervention Type:*IM-Signed Date of Service:05/19/2018 02:31 PM Patient Type:Inpatient Staff Member:Caroline Rodriguez Hours: Discipline: Severity: Comment:
--- NOTE | 2018-05-19 17:33 | PDDCSUM ---
Discharge Summary Discharge Summary: Date of Admission: 05/15/2018 Date of Discharge: 05/19/2018 Consultants: cardiology Procedures/Studies: 1. RUE CT - comminuted, displaced, and angulated proximal right humerus fracture 2. TTE - LVEF 65%, normal RV function, severe MS (gradient increased from 12-14 to 19-21mmHg), severely dilated LA, normal functioning AV prosthesis, AV mean gradient increased from 18 to 26mmHg, severe TR, RVSP 107mmHg (from 80s on last echo) Discharge Diagnoses: 1. Right comminuted humeral neck fracture, non-operative 2. Fall with suspected syncope 3. Polypharmacy 4. Severe mitral stenosis s/p balloon valvuplasty 12/2017, now w/worsened gradients 5. Severe pulmonary hypertension, on nocturnal O2 6. Severe aortic stenosis s/p TAVR 2016, now w/worsened gradients 7. 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 Chronic atrial fibrillation on warfarin 9. Chronic anemia Brief Hospital Course: 82 yo F presents after a fall found to have proximal right humerus fracture. Dr Landry from orthopedics was consulted who recommended non-surgical management for now. She was placed in a sling and will follow up with him in 1 week. She was given a small amount of tramadol. The reason for her fall was either related to polypharmacy vs syncopal episode related to poor cardiac output. With regards to polypharmacy, she had been taking Nyquil for a cough in addition to her ambien and gabapentin. She is willing to discontinue her ambien and nyquil which I think is a good idea. I told her to use caution with the tramadol and she has been tolerating well while here. A repeat TTE (obtained for a brief period of hypoxia) showed significant worsening of her aortic and mitral valve gradients as well as very severe pulmonary hypertension. She was relatively euvolemic and a BNP was 1k. She will follow up with Dr Encinas in 1-2 weeks. Otherwise, her anticoagulation was continued at discharge for her afib. Also, her sodium level was roughly baseline for her. Medications: Please refer to EMR for complete list. Changes this admission include decrease in metoprolol from 25 BID to 6.25 BID, addition of tramadol 25- 50mg q6h PRN #20 with 0 refills. I also instructed her to discontinue her zolpidem and OTC nyquil. Follow Up Plan: 1. See Dr Encinas in 1-2 weeks 2. F/u with Dr Landry in 1 week Physical Exam: Vitals reviewed and stable. Alert and oriented. RRR with very prominent S2, harsh systolic murmur throughout precordium. Lungs clear. Abdomen soft. No JVD or leg edema.
== END 2018-05-19 16:31 | disposition home health service (06) | DRG 563 ==
LOC: EDUNIT# → F3N 05-15 00:55 → OBSVTOIN 05-15 15:20 → F2W 05-17 15:35
PROVIDERS: ADMIT Student in an Organized Health Care Education/Training Program; ATTEND Student in an Organized Health Care Education/Training Program
DX: S42.201A Unspecified fracture of upper end of right humerus, initial encounter for closed fracture (principal); E87.1 Hypo-osmolality and hyponatremia; W01.0XXA Fall on same level from slipping, tripping and stumbling without subsequent striking against object, initial encounter; Y92.012 Bathroom of single-family (private) house as the place of occurrence of the external cause; I27.20 Pulmonary hypertension, unspecified; I48.2 Chronic atrial fibrillation; D64.9 Anemia, unspecified; E03.9 Hypothyroidism, unspecified; J44.9 Chronic obstructive pulmonary disease, unspecified; I10 Essential (primary) hypertension; Z90.13 Acquired absence of bilateral breasts and nipples; Z96.653 Presence of artificial knee joint, bilateral; Z95.3 Presence of xenogenic heart valve; Z79.01 Long term (current) use of anticoagulants; Z85.3 Personal history of malignant neoplasm of breast
CPT/HCPCS: 97110-GP; 97116-GP; 97161-GP; 97166-GO; 97530-GO; 97530-GP; 97535-GO; G8978-GP-CJ; G8979-GP-CI; G8987-GO-CJ; G8988-GO-CI; J2270; J2550; J3010

== ENCOUNTER → 2018-06-07 | Outpatient (CLI) | payer OTHER | LOC: FIMAGING 11:44 | PROVIDERS: ATTEND Internal Medicine | DX: R51 Headache (principal); Z79.01 Long term (current) use of anticoagulants ==

== ENCOUNTER → 2018-06-21 | Outpatient (CLI) | payer OTHER | LOC: BMCIMAGING 12:24 | PROVIDERS: ATTEND Internal Medicine | DX: R05 Cough (principal); K44.9 Diaphragmatic hernia without obstruction or gangrene ==

== ENCOUNTER → 2018-07-18 | Outpatient (CLI) | payer OTHER | LOC: BMCIMAGING 11:20 | PROVIDERS: ATTEND Physician Assistant Medical | DX: J32.0 Chronic maxillary sinusitis (principal) ==

== ENCOUNTER → 2018-09-12 | Outpatient (CLI) | payer OTHER | LOC: BMCIMAGING 10:02 | PROVIDERS: ATTEND Internal Medicine Pulmonary Disease | DX: J18.1 Lobar pneumonia, unspecified organism (principal); I51.7 Cardiomegaly; S42.301G Unspecified fracture of shaft of humerus, right arm, subsequent encounter for fracture with delayed healing ==

== ENCOUNTER 2018-11-06 14:35 | Inpatient (IN) | payer OTHER ==
--- NOTE | 2018-11-06 14:52 | EDPHY ---
H & P Stated Complaint: Left chest pain, getting worse. Time Seen by Provider: 11/06/18 14:48 HPI/ROS: CHIEF COMPLAINT: Chest pain HISTORY OF PRESENT ILLNESS: 82-year-old female with severe mitral stenosis and atrial fibrillation on Coumadin presents with chest pain. Onset of left-sided chest pain 3 days ago. The pain was initially intermittent, without clear alleviating or aggravating factors. She awoke with moderate left-sided chest pain this morning. Today the pain has been constant and gradually increasing, now 7/10. Ongoing cough, attributed to asthma. No associated shortness of breath, dizziness or diaphoresis. No prior similar symptoms. REVIEW OF SYSTEMS: complete 10 point ROS reviewed and is negative except for the noted elements in the HPI - Personal History Current Tetanus Diphtheria and Acellular Pertussis (TDAP): Yes Tetanus Vaccine Date: April 2017 - Medical/Surgical History Hx Asthma: Yes Hx Chronic Respiratory Disease: Yes Hx Diabetes: No Hx Cardiac Disease: Yes Hx Renal Disease: No Hx Cirrhosis: No Hx Alcoholism: No Hx HIV/AIDS: No Hx Splenectomy or Spleen Trauma: No Other PMH: Bilat masectomy 2013, bilat knee replacements. five different cancers, AFIB, COPD, CHF, Mitral valve stenosis, HTN, Hyperlipidemia, ulcerated esophagus cardiac valve replaced - Social History Smoking Status: Never smoked Alcohol Use: Sober Drug Use: None Additional Social History: - Physical Exam Exam: General Appearance: Alert, pleasant Eyes: Pupils equal and round, no conjunctival pallor ENT, Mouth: Mucous membranes moist Neck: Normal inspection Respiratory: Rhonchi at the bases, partially clear with coughing Cardiovascular: Regular rate and rhythm Gastrointestinal: Abdomen is soft and nontender Neurological: A&O, nonfocal, normal gait Skin: Warm and dry Extremities: Normal inspection Psychiatric: Mood and affect normal Constitutional: Initial Vital Signs Heart Rate 76 11/06/18 14:44 Respiratory Rate 16 11/06/18 14:44 Blood Pressure 138/86 H 11/06/18 14:44 O2 Sat (%) 95 11/06/18 14:44 O2 Delivery Mode Room Air Allergies/Adverse Reactions: BRITNEY Inhibitors Allergy (Severe, Verified 05/14/18 23:33) Swelling/neck,face,throat methadone Allergy (Mild, Verified 05/14/18 23:33) GI upset oxycodone HCl [From OxyContin] Allergy (Mild, Verified 05/14/18 23:33) GI upset topiramate Allergy (Mild, Verified 05/14/18 23:33) Other-Enter Comments Iodine and Iodide Containing Produc [Iodine and Iodide Containing Products] Allergy (Unknown, Unverified 05/19/18 16:55) Swelling/neck,face,throat amitriptyline Allergy (Verified 05/14/18 23:33) Other-Enter Comments moxifloxacin HCl [From Avelox] Allergy (Verified 05/14/18 23:33) Vomiting Opioids - Morphine Analogues Allergy (Verified 05/14/18 23:33) Thiazides Allergy (Verified 05/14/18 23:33) Other-Enter Comments moxifloxacin HCl Allergy (Unknown, Uncoded 05/19/18 16:55) Vomiting oxycodone HCl Allergy (Unknown, Uncoded 05/19/18 16:55) GI upset all narcotics Allergy (Uncoded 05/14/18 23:33) "I don't do well with them" thiazide Allergy (Uncoded 05/14/18 23:33) Home Medications: Medication Instructions Recorded Cholecalciferol Vit D3 [Vitamin D3 2,000 units PO DAILY 01/06/17 (*)] Levothyroxine [Synthroid 75 mcg 75 mcg PO DAILY06 01/06/17 (*)] Multivitamins [Multivitamin (*)] 1 tab PO DAILY 02/23/17 Aspirin EC [Aspirin EC 81 mg (*)] 81 mg PO HS 06/13/17 Gabapentin [Neurontin 300 MG (*)] 300 mg PO HS PRN 03/07/18 Atorvastatin Calcium [Lipitor 10 10 mg PO HS 03/11/18 mg (*)] Ascorbic Acid [Vitamin C 500 mg 1,000 mg PO DAILY 05/15/18 (*)] Fluticasone Propionate [Flovent 2 inh PO BID 05/15/18 Diskus] Herbals/Supplements -Info Only 1 ea PO DAILY 05/15/18 Magnesium Oxide [Magnesium Oxide 400 mg PO HS 05/15/18 400 mg (*)] Pantoprazole Sodium [Protonix 40mg 40 mg PO BID 05/15/18 (*)] Warfarin Sodium [Coumadin 2.5MG 2.5 mg PO DAILY@1600 05/15/18 (*)] Metoprolol Tartrate [Lopressor 25 6.25 mg PO BID #60 tab 05/19/18 mg (*)] traMADol [Ultram 50 mg (*)] 25 - 50 mg PO Q6HRS PRN #20 tab 05/19/18 Albuterol Sulfate [Ventolin Hfa] 1 - 2 puffs IH Q4-6PRN PRN 11/06/18 Losartan Potassium [Cozaar 25 mg 25 mg PO HS 11/06/18 (*)] Zolpidem Tartrate [Ambien 5MG (*)] 10 mg PO HS PRN 11/06/18 Medical Decision Making - Diagnostics EKG Interpretation: EKG interpreted by me reveals normal sinus rhythm, rate 71, PAC, low voltage, poor R-wave progression, prominent T-waves. Similar to EKG dated 05/19/2018. Imaging Results: Imaging Impressions Chest X-Ray 11/06/18 14:48 Impression: Stable chest. Underlying hyperinflation compatible with COPD. Transverse proximal right humeral fracture, incompletely characterized. Imaging: I viewed and interpreted images myself ED Course/Re-evaluation: This patient presents with chest pain. Stat EKG reveals no evidence of ischemia or dysrhythmia. Chest x-ray is unremarkable. Initial troponin is normal. Dilaudid and Zofran IV given for pain control at patient request. Concern for acute coronary syndrome. No evidence of pneumothorax, pneumonia. Doubt PE, given therapeutic INR. Will admit to the hospitalist service. Dr. Encinas saw the patient in the emergency department and will follow the patient throughout her hospitalization. Differential Diagnosis: Differential diagnosis includes though it is not limited to pneumonia, pneumothorax, pulmonary embolism, aortic dissection, pericarditis, acute coronary syndrome. - Data Points Laboratory Results: Laboratory Results 11/06/18 14:56 11/06/18 14:56 11/06/18 11/06/18 11/06/18 15:00 14:56 14:56 WBC RBC Hgb Hct MCV MCH MCHC RDW Plt Count MPV Neut % (Auto) Lymph % (Auto) [place] % (Auto) Eos % (Auto) Baso % (Auto) Nucleat RBC Rel Count Absolute Neuts (auto) Absolute Lymphs (auto) Absolute Monos (auto) Absolute Eos (auto) Absolute Basos (auto) Absolute Nucleated RBC Immature Gran % Immature Gran # PT 22.8 SEC H SEC (12.0-15.0) INR 2.13 H (0.83-1.16) D-Dimer < 0.27 ug/mLFEU ug/mLFEU (0.00-0.50) Sodium 131 mEq/L L mEq/L (135-145) Potassium 4.5 mEq/L mEq/L (3.5-5.2) Chloride 98 mEq/L mEq/L (97-110) Carbon Dioxide 22 mEq/l mEq/l (22-31) Anion Gap 11 mEq/L mEq/L (6-14) BUN 20 mg/dL mg/dL (7-23) Creatinine 0.7 mg/dL mg/dL (0.6-1.0) Estimated GFR > 60 Glucose 104 mg/dL H mg/dL (70-100) Calcium 9.0 mg/dL mg/dL (8.5-10.4) POC Troponin I 0.02 ng/mL ng/mL (0.00-0.08) NT-Pro-B Natriuret Pep 748 pg/mL H pg/mL (0-450) 11/06/18 14:56 WBC 5.72 10^3/uL 10^3/uL (3.80-9.50) RBC 4.52 10^6/uL 10^6/uL (4.18-5.33) Hgb 13.4 g/dL g/dL (12.6-16.3) Hct 39.9 % % (38.0-47.0) MCV 88.3 fL fL (81.5-99.8) MCH 29.6 pg pg (27.9-34.1) MCHC 33.6 g/dL g/dL (32.4-36.7) RDW 16.3 % H % (11.5-15.2) Plt Count 187 10^3/uL 10^3/uL (150-400) MPV 9.6 fL fL (8.7-11.7) Neut % (Auto) 65.4 % % (39.3-74.2) Lymph % (Auto) 23.8 % % (15.0-45.0) [place] % (Auto) 8.4 % % (4.5-13.0) Eos % (Auto) 1.7 % % (0.6-7.6) Baso % (Auto) 0.5 % % (0.3-1.7) Nucleat RBC Rel Count 0.0 % % (0.0-0.2) Absolute Neuts (auto) 3.74 10^3/uL 10^3/uL (1.70-6.50) Absolute Lymphs (auto) 1.36 10^3/uL 10^3/uL (1.00-3.00) Absolute Monos (auto) 0.48 10^3/uL 10^3/uL (0.30-0.80) Absolute Eos (auto) 0.10 10^3/uL 10^3/uL (0.03-0.40) Absolute Basos (auto) 0.03 10^3/uL 10^3/uL (0.02-0.10) Absolute Nucleated RBC 0.00 10^3/uL 10^3/uL (0-0.01) Immature Gran % 0.2 % % (0.0-1.1) Immature Gran # 0.01 10^3/uL 10^3/uL (0.00-0.10) PT INR D-Dimer Sodium Potassium Chloride Carbon Dioxide Anion Gap BUN Creatinine Estimated GFR Glucose Calcium POC Troponin I NT-Pro-B Natriuret Pep Medications Given: Morphine Sulfate (Morphine) 1 - 2 mg IVP Q3HRS PRN PRN Reason: Pain, Severe Unable to Take PO Stop: 11/16/18 16:23 Last Admin: 11/06/18 19:09 Dose: 1 mg Discontinued Medications Hydromorphone HCl (Dilaudid) 0.5 mg IVP EDNOW ONE Stop: 11/06/18 15:05 Last Admin: 11/06/18 15:16 Dose: 0.5 mg Ondansetron HCl (Zofran) 4 mg IVP EDNOW ONE Stop: 11/06/18 15:05 Last Admin: 11/06/18 15:16 Dose: 4 mg Point of Care Test Results: Chemistry 11/06/18 15:00 POC Troponin I 0.02 ng/mL ng/mL (0.00-0.08) Departure - Departure Disposition: [facility] Inpatient Acute Clinical Impression: Chest pain Condition: Fair
[2018-11-06] MEDS ORDERED: ONDANSETRON 4 MG/2 ML VIAL IVP ONE (15:04)
[2018-11-06] MEDS ORDERED: HYDROmorphONE/DILAUDID 2 MG/ML INJ IVP ONE (15:04)
[2018-11-06] MEDS ORDERED: HYDROmorphONE/DILAUDID 1 MG/ML INJ ONE (15:08)
[2018-11-06 15:12] LABS: PLATELET COUNT 187 10^3/uL (150-400)
[2018-11-06 15:23] LABS: INR 2.13 (0.83-1.16); PROTIME(PATIENT) 22.8 SEC (12.0-15.0)
--- NOTE | 2018-11-06 17:48 | GHP ---
[f rep st] HISTORY AND PHYSICAL DATE OF ADMISSION: 11/06/2018 CHIEF COMPLAINT: Chest pain. HISTORY OF PRESENT ILLNESS: Xavier Trevino is an 82-year-old female with a significant cardiac history, including severe mitral regurgitation, status post mitral balloon valvuloplasty, TAVR in 2017, on chronic oral anticoagulation; atrial fibrillation; hypertension; hyperlipidemia; mild pulmonary hypertension, who is being admitted for ongoing chest pain. The chest pain has been ongoing for approximately the past 3 days. Initially, she thought it was related to her esophagitis and took her home regimen of medications for this. It persisted and it became increasingly worse today. She does not have any dyspnea on exertion, orthopnea, or nocturnal dyspnea. She denies any palpitations. It is located to the left chest wall area. It is not reproduced with palpation. She has some associated nausea and dizziness. In addition, she has lost approximately 15 pounds and has been anemic. She has had a recent workup by Dr. Kaiser. She had a full body scan recently and was called this morning by Dr. Kaiser, saying that her results are stable and no cancer is noted. For treatment of her anemia, she has been getting outpatient IV iron infusions. During my interview, she is overall feeling better. She is hopeful to see a svp marketing. PAST MEDICAL HISTORY: 1. Severe mitral valve stenosis. 2. Pbiluxle-[id number] mitral regurgitation with a balloon valvuloplasty. 3. TAVR in 2017. 4. Pulmonary hypertension. 5. Lymphoma in remission. 6. Asthma. 7. Breast cancer, status post radiation therapy. 8. Mastectomy. 9. Radiation-induced esophagitis. 10. Hypothyroidism. 11. Congestive heart failure with normal systolic function on her echo in 2018. 12. Hyperlipidemia. 13. Hypertension. 14. Hiatal hernia. 15. C difficile in 2018. 16. GERD. 17. Paroxysmal atrial fibrillation. 18. Colonoscopy complicated by perforation, status post a partial colectomy. 19. Bilateral total knee replacement. 20. Right comminuted humeral neck fracture, status post repair. 21. Chronic hyponatremia, likely secondary to SIADH. SOCIAL HISTORY: She is and lives with her . She has a daughter. She does not smoke. She does not drink alcohol. She used to work in real estate. FAMILY HISTORY: Many first-degree relatives with coronary artery disease, all after the age of 65. ALLERGIES: BRITNEY inhibitors, methadone, oxycodone, Topamax, thiazides, and amitriptyline. MEDICATIONS: Home medications: Tramadol 25 to 50 mg q.6 hours p.r.n., Coumadin 1.25 mg Tuesday, , Tuesday, 2.5 mg Tuesday, Tuesday, Tuesday, Tuesday, Evista 60 mg daily, Protonix 40 mg daily, multivitamin 1 tab daily, metoprolol 6.25 mg p.o. twice daily, magnesium oxide 400 mg at bedtime, Cozaar 50 mg p.o. daily, Synthroid 75 mcg daily, herbal supplements 1 tab daily, Neurontin 300 mg p.o. at bedtime, Flovent 1 inhalation p.o. twice daily, vitamin D3 2000 units daily, calcium carbonate 1000 mg daily, Lipitor 10 mg at bedtime, aspirin 81 mg p.o. at bedtime, vitamin C 2000 mg daily, Proventil inhaler 2 puffs inhalation twice daily p.r.n. REVIEW OF SYSTEMS: A 10-point review of system was performed and was negative other than the pertinent positives in the HPI and past medical history. PHYSICAL EXAMINATION: GENERAL: Mrs. Trevino is an 82-year-old female who appears to be in fair health. VITAL SIGNS: Blood pressure is 180/79, heart rate is 72, respiratory rate of 21, O2 saturation on room air 94%, temperature is 36.6 Celsius. HEENT: Eyes: Pupils are equal and reactive. EOMs are intact. No conjunctival injection noted. ENT: Normal ears, hearing intact. NECK: Trachea is midline. CARDIOVASCULAR: She is in a regular rate and rhythm. She has a soft systolic murmur noted to the left sternal border. She has pulses that are symmetrical. She has no edema peripherally. CHEST: Lungs normal respiratory effort. She has a few scattered expiratory wheezes. ABDOMEN : Soft, nontender. SKIN: No rashes or ulcers noted. MUSCULOSKELETAL: Equal upper and lower extremity strength. PSYCHIATRIC: She is alert and oriented. Normal mood, affect. Normal judgment, insight, and normal memory. DATA REVIEWED: A CBC shows a white blood cell count of 5.72, hemoglobin 13.4, hematocrit 39.9, platelet count of 187. Chemistry: Sodium is 131, potassium 4.5, chloride of 98, CO2 of 22, BUN of 20, creatinine 0.7, glucose 104. BNP 748. Troponin is 0.02. IMAGIN. Chest x-ray shows a stable chest. She has underlying hyperinflation compatible with COPD. She has a transverse proximal right humeral fracture incompletely characterized. 2. EKG shows sinus rhythm. She has some minimal ST elevation in leads II, III , and AVF. I reviewed her care with Dr. Angela Saavdera, emergency room physician. ASSESSMENT/PLAN: 1. Chest pain: First troponin is negative. Will cycle her troponin. Have spoke with Cardiology and they will see her. She has significant valvular heart disease. Dr. Encinas has seen her in the outpatient setting. 2. Hyponatremia: This is likely secondary to syndrome of inappropriate antidiuretic hormone secretion. She has a history of this. Will recheck her labs in the morning. 3. Hypertension: Will resume her home medications when reconciled. 4. Code status: Full. 5. Deep venous thrombosis prophylaxis: On oral anticoagulation. 6. Anemia, iron deficiency: Her hemoglobin and hematocrit are stable. 7. Length of stay: She will likely require less than a 2-midnight stay, which will make her observation status. This can be addressed if further needed. /[id number]/MODL MTDD
--- NOTE | 2018-11-06 18:59 | GCON ---
[f rep st] CONSULTATION CARDIOLOGY CONSULTATION DATE OF CONSULTATION: 11/06/2018 INDICATION FOR CONSULTATION: New onset of chest pain. HISTORY OF PRESENT ILLNESS: The patient is a pleasant 82-year-old female with an extensive cardiac h istory including severe aortic stenosis status post TAVR with a Perez 3, 23 mm valve in May, as well as severe mitral stenosis with mitral valve balloon valvuloplasty in December 2017, now with r eturn of severe mitral stenosis, severe pulmonary hypertension with RV systolic pressure of 107 mmHg on most recent echocardiogram, and a history of paroxysmal atrial fibrillation. The patient is well known to my practice at [facility]. She was last seen in the office with me o n October 12, 2018, at which time she had been complaining of increasing symptoms of exertional intoler ance, shortness of breath, dyspnea on exertion, and fatigue. This had been complicated by recent giovana ght loss, as well as anemia. She has been undergoing iron infusions managed by Dr. Donta Kaiser of Hematology with marked improvement in hemoglobin, current hemoglobin value of 13.4. Since her balloon valvuloplasty, which was performed at [facility] in [place] o n December 08, 2017, her immediate postoperative mean mitral valve gradient ranged from 7 to 9 mmHg. Her most recent echocardiogram performed at [facility] in May 2018 demonstrated nancy ed increase in gradients with a mean mitral gradient between 19 and 20 mmHg. She informs me that she has undergone an echocardiogram in July at [facility], and reports a mean mitral gradient somewhere between 21 and 26 mmHg. Her Perez 3 TAVR valve is functioning normally with a mean gradient of 26 mmHg. The patient has known severe pulmonary hypertension, which is thought to be secondary to valvular dis ease. Most recent RV systolic pressure on echocardiogram of 107 mmHg. She was recently seen by Dr. George Barros of Pulmonary Medicine with a known history of mild well-controlled asthma. Pulmonary fu nction studies performed recently were unremarkable. The patient is planning on undergoing surgical mitral valve repair with Dr. Davila in the coming tue. Plan for surgery was delayed in the setting of anemia and weight loss. The patient also has a known history of paroxysmal atrial fibrillation. This has been managed with a rate control and anticoagulation strategy. She is currently on Coumadin. The patient presents to [facility] today with complaints of new onset left-sided ches t and flank pain. She describes her pain as sharp, pressure-like pain, 8/10, radiating from the left to the right anterior chest wall, associated with some mild nausea, dizziness, and shortness of timothy th. She states these symptoms began 3 days ago while at rest. She denies any exacerbating or allevi ating factors. She states she has had similar symptoms in the past, but they have resolved and had n ot been near as intense, and she thought were related to GERD. Today, the symptoms have persisted an d prompted her to call Dr. Davila's office, who recommended she be seen at [facility] for further evaluation. At the time of my evaluation, she is resting comfortably. She just received Dilaudid. She states he r pain was still present, but down to a 2/10. She states she has been compliant with medications. She denies any fevers, chills, sweats, or vomiti ng. She does have issues with both constipation and diarrhea intermittently. She did suffer a colon ic perforation during routine colonoscopy last summer, which resulted in emergent colon resection and a postoperative course complicated by C difficile colitis. PAST MEDICAL HISTORY: 1. Severe aortic stenosis, status post TAVR in May 2017. 2. 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 Most recent gradient documented at [facility] of 20 mmHg. 3. Paroxysmal atrial fibrillation. 4. Severe pulmonary hypertension with RV systolic pressure of 107. 5. Mild asthma. 6. Anemia. 7. Nocturnal hypoxia. 8. Breast cancer, status post bilateral mastectomy. PAST SURGICAL HISTORY: Includes cholecystectomy, hysterectomy, bilateral mastectomy, total knee repl acement, and TAVR valve in May 2017. MEDICATIONS ON ADMISSION: Include aspirin 81 mg daily, atorvastatin 10 mg daily, Coumadin 2.5 mg tab lets as directed, Evista 60 mg tablets daily, Flovent 1 puff b.i.d., gabapentin 300 mg 1 to 2 caplets q.h.s., losartan 25 mg daily, magnesium 400 mg daily, metoprolol tartrate 25 mg p.o. b.i.d., multivi tamin, oxygen at night, Protonix 80 mg daily, potassium gluconate 525 mg daily, Synthroid 75 mcg susanne y, vitamin C 1000 mg 2 tablets 2 tablets daily, and Ambien 10 mg p.o. q.h.s. p.r.n. sleep. ALLERGIES TO MEDICATIONS: Include hydrochlorothiazide, iodine, and narcotics. FAMILY HISTORY: Known cardiovascular disease. SOCIAL HISTORY: She is . She lives with her . She is a nonsmoker. REVIEW OF SYSTEMS: As outlined above. Remainder of 10-point review of systems was negative. PHYSICAL EXAMINATION: VITAL SIGNS: Blood pressure 159/94, heart rate 69 in sinus rhythm, respirator y rate 20, oxygen saturation 94% on room air. GENERAL: She is awake, alert, oriented, and appropria te. She responds appropriately to questions. She is in no apparent distress. She does describe her left-sided chest pain as 2/10 currently. NECK: There is no evidence of JVP or carotid bruits. DAVID GS: Mild expiratory wheeze and slight coarse breath sounds on inspiration. CARDIAC: S1 and S2. Re gular rate and rhythm. There is a 2/4 diastolic murmur audible at the LV apex. ABDOMEN: Soft, nont finn, nondistended, and tympanitic to percussion. EXTREMITIES: No evidence of cyanosis, clubbing, or edema. DATA: White blood cell count 5.7, hemoglobin 13.4, hematocrit 39.5, and platelets 187. Sodium 131, potassium 4.5, chloride 98, bicarbonate 22, BUN 20, and creatinine 0.7. Initial troponin 0.02. BNP 748. Previous BNP on May 18, 2018, of 1030. BNP on March 07, 2018, of 3800. ECG demonstrates normal sinus rhythm at 71 beats per minute. There is evidence of poor R-wave progre ssion. There is minimal ST elevation in II, III, and aVF. Findings are essentially unchanged compar ed to previous ECG dated May 19, 2018. Chest x-ray demonstrates stable chest underlying hyperinflation consistent with COPD. No evidence of focal infiltrate or pleural effusion. IMPRESSION: 1. Atypical chest pain. 2. Elevated blood pressure. 3. Severe mitral stenosis. 4. Severe pulmonary hypertension. 5. Status post transcatheter aortic valve replacement in May 2017. 6. Paroxysmal atrial fibrillation. 7. Mild asthma. 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 Gradients have gradually increased over the last year. Most recent echocardiogram in May 2018 at [facility] with a mean gra dient of approximately 20 mmHg. She reports higher gradients on echocardiogram performed at [facility]. I am concerned that her symptoms may represent progression of her mitral valve disease. However, sym ptoms may also be secondary to elevated blood pressure. She did undergo diagnostic left heart catheterization in April 2017 prior to TAVR, with normal lynda nary arteries. Would recommend the followin. Admission to the hospitalist service to [facility] telemetry. 2. Serial troponins x3. 3. Serial ECGs x3. 4. Complete 2D echocardiogram in the morning. 5. Continue outpatient blood pressure medications. 6. Continue to monitor blood pressure closely. 7. Pending the above workup, we will consider whether the patient would benefit from undergoing surg ical mitral valve repair during this hospitalization. I have discussed my concerns with the patient and her . Over 45 minutes has been spent [employer]. /[id number]/MODL
[2018-11-06] MEDS ORDERED: GABAPENTIN 300 MG CAP PO PRN (19:02)
[2018-11-06] MEDS: PANTOPRAZOLE SODIUM 40 MG TAB PO SCH (20:30)
[2018-11-06] MEDS: ASPIRIN EC 81 MG TAB PO SCH (20:30)
[2018-11-06] MEDS: MAGNESIUM OXIDE 400 MG TAB PO SCH (20:30)
[2018-11-06] MEDS: METOPROLOL TARTRATE 25 MG TAB PO SCH (20:31)
[2018-11-06] MEDS: WARFARIN SODIUM 2.5 MG TAB PO SCH (20:31)
[2018-11-06] MEDS: ATORVASTATIN CALCIUM 10 MG TAB PO SCH (20:31)
[2018-11-06] MEDS: LOSARTAN POTASSIUM 25 MG TAB PO SCH (20:32)
[2018-11-06] MEDS: FLUTICASONE PROPIONATE 100 MCG PO SCH (21:01)
[2018-11-06] MEDS ORDERED: GABAPENTIN 300 MG CAP PO ONE (21:15)
[2018-11-07] MEDS: ONDANSETRON 4 MG/2 ML VIAL IVP PRN ×2 (00:35→14:53)
[2018-11-07] MEDS: ACETAMINOPHEN 325 MG TAB PO PRN (00:43)
[2018-11-07] MEDS: CALCIUM CARBONATE 500 MG CHEWABLE TAB PO PRN ×3 (01:10→13:42)
[2018-11-07 04:24] LABS: INR 2.06 (0.83-1.16); PROTIME(PATIENT) 22.2 SEC (12.0-15.0)
[2018-11-07] MEDS: LEVOTHYROXINE 75 MCG TAB PO SCH (05:52)
[2018-11-07] MEDS ORDERED: Herbals/Supplements -Info Only PO SCH (09:00)
[2018-11-07] MEDS: FLUTICASONE PROPIONATE 100 MCG PO SCH ×2 (09:03→20:54)
[2018-11-07] MEDS: PANTOPRAZOLE SODIUM 40 MG TAB PO SCH ×2 (10:05→19:56)
[2018-11-07] MEDS: METOPROLOL TARTRATE 25 MG TAB PO SCH ×2 (10:06→19:55)
[2018-11-07] MEDS: CHOLECALCIFEROL VIT D3 2,000 UNITS TAB/CAP PO SCH (10:08)
[2018-11-07] MEDS: ASCORBIC ACID 500 MG TAB PO SCH (10:08)
[2018-11-07] MEDS: MULTIVITAMINS 1 EACH TAB PO SCH (10:08)
[2018-11-07] MEDS: traMADol 50 MG TAB PO PRN (14:51)
[2018-11-07] MEDS: WARFARIN SODIUM 2.5 MG TAB PO SCH (14:53)
--- NOTE | 2018-11-07 16:24 | HOSPPROG ---
Hospitalist Progress Note Assessment/Plan: Chest pain - trops neg x3. EKG relatively unchanged. She is concerned this may be related to a hiatal hernia, though I don't appreciate that as significant on her CXR. -trial GI cocktail -cont ASA, BB, statin, warfarin -further cardiac risk stratification per cardiology service, discussed with Sue Eduardo Severe MR 2/2 h/o rheumatic heart disease - some concern for progression of disease -echo pending -CV surgery to consult, may consider valve replacement Severe pulmonary hypertension Paroxysmal A fib - rate controlled, INR therapeutic. -pharmacy to dose coumadin -cont BB Diastolic HF - appears euvolemic Hypertension - well controlled, cont current regimen Hyperlipidemia - statin H/O lymphoma in remission GERD - PPI, GI cocktail as above Anemia - receives IV iron outpt H/O breast cancer Full code Dispo - change to inpt for further cardiac and CV surgery eval Subjective: Pt feels a little nauseous and gassy. Feels like the chest discomfort she has is GI in origin, wonders about a hiatal hernia. No N/V. No dysphagia. No SOB, diaphoresis, or radiation of pain. Objective: Vital Signs Temp Pulse Resp BP Pulse Ox 36.6 C 80 17 122/62 H 92 11/07/18 15:05 11/07/18 15:05 11/07/18 15:05 11/07/18 15:05 11/07/18 15:05 Laboratory Results 11/07/18 03:13 11/06/18 11/07/18 11/08/18 05:59 05:59 05:59 Intake Total 580 Output Total 700 800 Balance -120 -800 PT 22.2 SEC (12.0-15.0) H 11/07/18 03:13 INR 2.06 (0.83-1.16) H 11/07/18 03:13 - Physical Exam Constitutional: no apparent distress Eyes: PERRL Ears, Nose, Mouth, Throat: moist mucous membranes Cardiovascular: regular rate and rhythym Respiratory: no respiratory distress, clear to auscultation Gastrointestinal: normoactive bowel sounds, soft, non-tender abdomen Skin: warm Musculoskeletal: full muscle strength Neurologic: AAOx3 Psychiatric: interacting appropriately ICD10 Worksheet Patient Problems: Problems Problem Status Onset Chest pain Acute CHF (congestive heart failure) Acute Chronic sinus infection Acute Diarrhea Acute GERD with esophagitis Acute Gastroenteritis Acute Humeral surgical neck fracture Acute Hypochloremia Acute Hypokalemia Acute Hyponatremia Acute Lethargy Acute Nausea Acute Pneumonia Acute Pneumonia of both lower lobes Acute Sepsis Acute chronic disease mgmt/transitional care Acute
[2018-11-07] MEDS ORDERED: HYOSCYAMINE SULFATE 0.125 MG TAB PO ONE (16:29)
[2018-11-07] MEDS ORDERED: LIDOCAINE 2% VISCOUS 15 ML UDCUP PO ONE (16:29)
[2018-11-07] MEDS ORDERED: MAG HYDROX/AL HYDROX/SIMETH 30 ML UDCUP PO ONE (16:29)
--- NOTE | 2018-11-07 16:58 | ASMTCMCOM ---
CM Note CM Note Notes: 11/07/2018 Case Management Note Discussed pt in rounds today. Pt admitted for chest pain with history of TAVR. Pt discharged May 2018 with [facility]. There are no therapy evals ordered today. Pt is . Case Management d/c poc: to be determined. Case Management to follow. Date Signed: 11/07/2018 04:57 PM Electronically Signed By:Acna Rojas RN
--- NOTE | 2018-11-07 18:24 | PDCONSULT ---
Er Nurse Note: Patient is well known by my partner, Dr. Hiram Encinas, and a consult note was synthesized. I was able to speak with the patient this afternoon at the same time CT surgery was seeing the patient to begin discussions. Echocardiography was completed, and old echocardiography to be reviewed next to this study Case conference tomorrow morning with general cardiology, interventional cardiology, structural cardiology, and cardiothoracic surgery to review images is planned. We informed the patient and her of our plans to have this conference Right heart cath may be scheduled after this meeting has occurred We will continue to see this patient while she is in house.
[2018-11-07] MEDS: ATORVASTATIN CALCIUM 10 MG TAB PO SCH (19:55)
[2018-11-07] MEDS: ASPIRIN EC 81 MG TAB PO SCH (19:55)
[2018-11-07] MEDS: DOCUSATE SODIUM 100 MG CAP PO SCH (19:56)
[2018-11-07] MEDS: LOSARTAN POTASSIUM 25 MG TAB PO SCH (19:56)
[2018-11-07] MEDS: MAGNESIUM OXIDE 400 MG TAB PO SCH (19:56)
[2018-11-07] MEDS: ALBUTEROL 60 PUFFS/8 GM MDI IH PRN (20:53)
[2018-11-07] MEDS: GABAPENTIN 300 MG CAP PO PRN (21:17)
[2018-11-07] MEDS: ZOLPIDEM TARTRATE 5 MG TAB PO PRN (21:17)
[2018-11-08 04:41] LABS: INR 2.61 (0.83-1.16); PROTIME(PATIENT) 26.6 SEC (12.0-15.0)
[2018-11-08] MEDS: LEVOTHYROXINE 75 MCG TAB PO SCH (06:16)
[2018-11-08] MEDS: METOPROLOL TARTRATE 25 MG TAB PO SCH ×2 (09:27→19:47)
[2018-11-08] MEDS: DOCUSATE SODIUM 100 MG CAP PO SCH ×2 (09:27→19:46)
[2018-11-08] MEDS: PANTOPRAZOLE SODIUM 40 MG TAB PO SCH ×2 (09:27→18:16)
[2018-11-08] MEDS: MULTIVITAMINS 1 EACH TAB PO SCH (09:34)
[2018-11-08] MEDS: ASCORBIC ACID 500 MG TAB PO SCH (09:34)
[2018-11-08] MEDS: CHOLECALCIFEROL VIT D3 2,000 UNITS TAB/CAP PO SCH (09:34)
[2018-11-08] MEDS: ACETAMINOPHEN 325 MG TAB PO PRN ×2 (09:36→20:38)
[2018-11-08] MEDS: ALBUTEROL 60 PUFFS/8 GM MDI IH PRN (09:43)
[2018-11-08] MEDS: FLUTICASONE PROPIONATE 100 MCG PO SCH ×3 (09:43→21:17)
--- NOTE | 2018-11-08 09:50 | ECHO ---
[email or web address] [address] [address] Main: [phone] Echocardiography Examination Transthoracic Name: KARLA STARK MR#: [id number] Study Date: 11/07/2018 Study Time: 11:06 AM Date of : 1935 Age: 82 year(s) Height: 170.2 cm (67 in.) Weight: 52.62 kg (116 lb.) BSA: 1.6 m2 Gender: Female Examination: Echo Contrast: Image Quality: Adequate Rhythm: Heart Rate: BP: 154 mmHg/75 mmHg Indication: Chest pain/hx of TAVR/hx of MV valvuloplasty/severe pulm HTN Procedure Staff Referring Physician: Park Keeper: Yvonne Archibald RDCS Reading Physician: Live Alex MD Requesting Provider: Ordering Physician: Pankaj Encinas Indication: Chest pain/hx of TAVR/hx of MV valvuloplasty/severe pulm HTN Measurements Chambers AV/MV Label Value Normal Value Label Value Normal Value LVOTd 1.9 cm (1.8cm - 2cm) AV PGmean 12 mmHg LVOT VTI 17.9 cm (18cm - 22cm) AV Vmax 2.25 m/s LVDd, 2D 3.9 cm (3.9cm - 5.3cm) THIERNO (VTI) 1 cm2 LVDs, 2D 2.2 cm (2.1cm - 4cm) MV E Vmax 2.31 m/s IVSd, 2D 0.9 cm (0.6cm - 1.1cm) MV A Vmax 1.91 m/s LVPWd, 2D 1 cm MV E/A 1.21 LVEF, BP 65 % (55% - 70%) MV E/E' lateral 69.8 LVEF, 2D 75 % (54% - 74%) MV E/E' septal 57.8 (0.45 - 1.25) LVOT PGmean 1 mmHg MV DT 620 ms LVOT Vmean 0.5 m/s MV E' septal 0.04 m/s LA Volume, BP 97 ml (22ml - 52ml) MV VTI 80 cm LADs, 2D 4.4 cm (2.7cm - 3.8cm) MVA D (continuity eq.) 0.6 cm2 LAESV index, BP 60.6 ml/m2 MV PGmax 17 mmHg Additional Vessels MV PGmean 7 mmHg Label Value Normal Value MV PHT 0.16 s AoAsc 3 cm MVA PHT 1.4 cm2 MV E' lateral 0.03 m/s MV E/E' mean 66 MV PHT 160 ms Patient: KARLA STARK Study Date: 11/07/2018 Page 1 of 3 11:06 AM MV E' mean 0.04 m/s TV/PV Label Value Normal Value RA Pressure 5 mmHg RVSP 52 mmHg TR Pmax 47 mmHg TR Vmax 3.41 m/s Conclusions (1) Left ventricular systolic ejection fraction was normal (65%) - no LVH - diastolic dysfunction was present (2) Normal RV size and function (3) Severe LA dilation with mild to mod RA dilation (4) Moderate mitral stenosis is noted with severe thickening of the mitral valve leaflets. Moderate MR - mean gradient was estimated to be 7 mm Hg (5) Bioprosthetic aortic valve with trace/mild insufficiency. No stenosis. - mean gradient was 11 mm Hg (6) Moderate to severe TR - RVSP was 50-55 mm Hg (7) Mild PI (8) Ascending aorta was 3.0 cm (9) No pericardial effusion (10) In comparison to prior echo from May 2011, mean gradient through the mitral valve has dropped from 20 mm Hg, and AV mean gradient was dropped from 26 mm Hg. RVSP was elevated to 107 mm Hg in prior study. Findings Left Ventricle: Diastolic dysfunction is present.. Left ventricle is normal in size. Normal global systolic left ventricular function. The ejection fraction, measured by Simpsons method, is 65 %. EF range is estimated at 60 % - 65 %. Left ventricle wall thickness is normal. There are no regional wall motion abnormalities. IVS: The septum is intact. Right Ventricle: Normal size right ventricle. Right ventricular systolic function is normal. Left Atrium: The left atrium is severely dilated. IAS: Normal appearing atrial septum. Right Atrium: The right atrium is mildly to moderately dilated. Mitral Valve: There is severe thickening of the mitral valve leaflets. Moderate mitral stenosis is present. The MV mean gradients have decreased from 19-21mmHG to 7mmHG.. Moderate mitral regurgitation. No mitral valve stenosis. Aortic Valve: Core valve in place. The oridice motion of the prosthetic aortic valve is normal. AV max PG is 20mmHG. AV mean PG is 11mmHG. The AV mean gradients have improved from the echo of 05/21 when the AV mean gradient was 26mmHG.. No aortic valve regurgitation. There is no aortic stenosis. Tricuspid Valve: The RVSP has greatly decreased from 107 to 53mmHG.. Tricuspid valve leaflets are normal in appearance and function. Moderate to severe tricuspid regurgitation. No tricuspid valve stenosis. Right Ventricular systolic pressure is measured at 52 mmHg. Pulmonary artery pressure is mildly increased. Pulmonic Valve: Patient: KARLA STARK Study Date: 11/07/2018 Page 2 of 3 11:06 AM Pulmonic leaflets exhibit normal cuspal separation. Mild pulmonic valve regurgitation is present. There is no pulmonic valve stenosis. Aorta: The aorta is normal. The ascending aorta measures 3.0 cm. Pulmonary Artery: The pulmonary artery morphology appears normal. IVC: The inferior vena cava is normal in size and course. Pericardium: Trivial anterior pericardial effusion. No pleural effusion present. Exam Details Procedure Ordered: Echo Procedure Status: Routine study Image Quality: Adequate Facility Location: Cardiac Echo 1 (No Signature Object) Patient: KARLA STARK Study Date: 11/07/2018 Page 3 of 3 11:06 AM [id number]
--- NOTE | 2018-11-08 10:48 | HOSPPROG ---
Hospitalist Progress Note Assessment/Plan: Chest pain - trops neg x3. EKG relatively unchanged. She is concerned this may be related to a hiatal hernia, though I don't appreciate that on her CXR. Improvement with GI cocktail. No CP today. -cont ASA, BB, statin, warfarin -plan for cath likely in am Severe MR 2/2 h/o rheumatic heart disease - echo shows possible improvement, but will likely proceed with valve replacement, discussed with Dr. Espinosa -heart cath in am -planning for valve surgery likely Tuesday per Dr Espinosa -will hold coumadin and let INR drift down Severe pulmonary hypertension Paroxysmal A fib - rate controlled, INR therapeutic. -hold coumadin as above -cont BB Diastolic HF - appears euvolemic Asthma - no e/o exacerbation -cont flovent, prn albuterol Hypertension - well controlled, cont current regimen Hyperlipidemia - statin H/O lymphoma in remission GERD - PPI Anemia - receives IV iron outpt Constipation - bowel protocol H/O breast cancer Full code Dispo - cont inpt Subjective: Pt feels better today. SLept well. No CP or SOB. No complaints. Objective: Vital Signs Temp Pulse Resp BP Pulse Ox 36.4 C 75 18 108/57 L 94 11/08/18 08:00 11/08/18 09:45 11/08/18 09:45 11/08/18 09:27 11/08/18 09:45 Laboratory Results 11/07/18 03:13 11/07/18 11/08/18 11/09/18 05:59 05:59 05:59 Intake Total 580 980 Output Total 700 800 Balance -120 180 PT 26.6 SEC (12.0-15.0) H 11/08/18 03:30 INR 2.61 (0.83-1.16) H 11/08/18 03:30 - Physical Exam Constitutional: no apparent distress Eyes: PERRL Ears, Nose, Mouth, Throat: moist mucous membranes Cardiovascular: regular rate and rhythym Respiratory: no respiratory distress, bronchial breath sounds Gastrointestinal: normoactive bowel sounds, soft, non-tender abdomen Skin: warm Musculoskeletal: full muscle strength Neurologic: AAOx3 Psychiatric: interacting appropriately ICD10 Worksheet Patient Problems: Problems Problem Status Onset Chest pain Acute CHF (congestive heart failure) Acute Chronic sinus infection Acute Diarrhea Acute GERD with esophagitis Acute Gastroenteritis Acute Humeral surgical neck fracture Acute Hypochloremia Acute Hypokalemia Acute Hyponatremia Acute Lethargy Acute Nausea Acute Pneumonia Acute Pneumonia of both lower lobes Acute Sepsis Acute chronic disease mgmt/transitional care Acute
--- NOTE | 2018-11-08 12:12 | ASMTCMCOM ---
CM Note CM Note Notes: 11/08/2018 Case Management Note Discussed pt in rounds today. Pt to have care conference today with cardiology team. Met w/pt and Tray [phone]. Pt lives with and adult daughter Manuelito. Pt reports she is no longer driving d/t an episode of syncope in May that resulted in a broken right arm. transports pt for errands. Pt has had home health agency support in the past, unable to recall name. Pt declines need for Home Health currently. Pt has not had SNF stay in past. Case Management d/c poc: anticipating independent with follow up as directed. Case Management available if needs change. Date Signed: 11/08/2018 12:10 PM Electronically Signed By:Anca Rojas RN
--- NOTE | 2018-11-08 12:15 | PDMN ---
Medical Necessity Medical necessity: Change to IP, as of 11/07/18, per & MCG M-89; los >2 mn for ongoing management of chest pain w/severe MR secondary to rheumatic heart disease w/concern for progression; requiring further monitoring & CV surgery eval w/possible valve replacement
[2018-11-08] MEDS ORDERED: BISACODYL 10 MG SUPP PR PRN (13:10)
[2018-11-08] MEDS ORDERED: LACTULOSE 20 GM/30 ML UDCUP PO PRN (13:10)
[2018-11-08] MEDS ORDERED: MAGNESIUM HYDROXIDE 30 ML UDCUP PO PRN (13:10)
[2018-11-08] MEDS ORDERED: SENNOSIDES 1 TAB PO PRN (13:10)
[2018-11-08] MEDS ORDERED: POLYETHYLENE GLYCOL 3350 17 GM PKT PO PRN (13:10)
[2018-11-08] MEDS: LOSARTAN POTASSIUM 25 MG TAB PO SCH (19:45)
[2018-11-08] MEDS: MAGNESIUM OXIDE 400 MG TAB PO SCH (19:46)
[2018-11-08] MEDS: ATORVASTATIN CALCIUM 10 MG TAB PO SCH (19:46)
[2018-11-08] MEDS: ASPIRIN EC 81 MG TAB PO SCH (19:46)
[2018-11-08] MEDS: GABAPENTIN 300 MG CAP PO PRN (19:47)
[2018-11-08] MEDS ORDERED: WARFARIN SODIUM 2.5 MG TAB PO SCH (21:00)
[2018-11-08] MEDS: ZOLPIDEM TARTRATE 5 MG TAB PO PRN (21:13)
[2018-11-09] MEDS: ACETAMINOPHEN 325 MG TAB PO PRN (03:54)
[2018-11-09 04:43] LABS: INR 2.54 (0.83-1.16); PROTIME(PATIENT) 26.1 SEC (12.0-15.0)
[2018-11-09] MEDS: LEVOTHYROXINE 75 MCG TAB PO SCH (05:53)
[2018-11-09] MEDS: PANTOPRAZOLE SODIUM 40 MG TAB PO SCH (08:03)
[2018-11-09] MEDS: ASCORBIC ACID 500 MG TAB PO SCH (08:04)
[2018-11-09] MEDS: DOCUSATE SODIUM 100 MG CAP PO SCH (08:04)
[2018-11-09] MEDS: CHOLECALCIFEROL VIT D3 2,000 UNITS TAB/CAP PO SCH (08:04)
[2018-11-09] MEDS: METOPROLOL TARTRATE 25 MG TAB PO SCH (08:05)
[2018-11-09] MEDS: MULTIVITAMINS 1 EACH TAB PO SCH (08:06)
[2018-11-09] MEDS: traMADol 50 MG TAB PO PRN ×2 (08:21→10:29)
[2018-11-09] MEDS: ALBUTEROL 60 PUFFS/8 GM MDI IH PRN (09:57)
[2018-11-09 11:48] VITALS: BP 124/63
--- NOTE | 2018-11-09 12:52 | ASMTLACE ---
LACE Length of stay for Answers: 2 days current admission Acuity / Level of Answers: Yes Care: Did the patient have an inpatient admission? Comorbidities - select Answers: Any tumor (including all that apply lymphoma or leukemia) Chronic pulmonary disease Congestive heart failure Opioid dependence / Chronic pain Other Notes: AFib; HTN; HLD # of Emergency department Answers: 1-2 visits in the last 6 months Score: 17 Date Signed: 11/09/2018 12:50 PM Electronically Signed By:Blanquita Vizcaino RN
--- NOTE | 2018-11-09 12:53 | ASMTDCNOTE ---
Case Management Discharge Discharge Order Complete? Answers: Yes Patient to Obtain Answers: Independently Medications Transportation Arranged Answers: Family/Friends Discharge Comments Notes: Patient has decided to f/u w her pulper at [place] Dr Davila. No needs from us. Home with family. Date Signed: 11/09/2018 12:51 PM Electronically Signed By:Blanquita Vizcaino RN
--- NOTE | 2018-11-09 20:56 | GDS ---
[f rep st] DISCHARGE SUMMARY DISCHARGE DIAGNOSES: 1. Chest pain, likely noncardiac, resolved. 2. Severe mitral regurgitation secondary to rheumatic heart disease. 3. Severe pulmonary hypertension. 4. Paroxysmal atrial fibrillation. 5. Chronic diastolic heart failure. 6. Hypertension. 7. Hyperlipidemia. CONSULTANTS: 1. Dr. Pankaj Encinas, cardiology. 2. Dr. Live Alex, cardiology. 3. Dr. Severo Pro, cardiovascular surgery. HISTORY: For details, please see history and physical dated November 06, 2018. In brief, the patient is a n 82-year-old female with history of significant valve disease, including severe mitral regurgitation , who presented to the emergency department with chest pain. She was admitted to the hospital for fu rther evaluation. HOSPITAL COURSE: Patient was admitted to the cardiac telemetry unit. She had negative troponins x3. She was evaluated by her primary hardware supplies sales representative, Dr. Sathya Encinas, who noted concern for potentially pr ogressive valve disease. Repeat echocardiogram was performed, and this was suggestive of possibly so me improvement in her valve disease with a mean gradient through the mitral valve dropping from 20 mm Hg to 7 mmHg. She underwent evaluation by Cardiovascular Surgery, Dr. Severo Pro, who offered the patient valve replacement surgery during this hospitalization. There was consideration of her under going right and left heart cath followed by potential valve surgery. However, after further discussi on with her primary hardware supplies sales representative, she has opted to return to Dr. Davila for valve surgery. Her symp toms have completely resolved. Her vital signs are stable, and she wishes to discharge [place] [facility] [place]up with her prior cardiovascular surgeon. DISPOSITION: Patient is discharged home in stable condition. FOLLOWUP: 1. Dr. Pankaj Encinas, cardiology. 2. Dr. Davila, cardiovascular surgery. 3. Dr. Rigoberto Ruiz, primary care. DISCHARGE MEDICATIONS: Please see [facility] for completed outpatient medication list. There are no n ew medications on discharge. She will [facility] all other [facility] /[id number]/MODL
== END 2018-11-09 13:08 | disposition home or self-care (01) | DRG 313 ==
LOC: F2W 17:54 → OBSVTOIN 11-07 16:59
PROVIDERS: ADMIT Internal Medicine; ATTEND Internal Medicine
DX: R07.89 Other chest pain (principal); I48.0 Paroxysmal atrial fibrillation; I27.20 Pulmonary hypertension, unspecified; D64.9 Anemia, unspecified; I11.0 Hypertensive heart disease with heart failure; I50.30 Unspecified diastolic (congestive) heart failure; E78.5 Hyperlipidemia, unspecified; E03.9 Hypothyroidism, unspecified; J44.9 Chronic obstructive pulmonary disease, unspecified; Z95.2 Presence of prosthetic heart valve; Z85.3 Personal history of malignant neoplasm of breast; Z79.01 Long term (current) use of anticoagulants; Z96.653 Presence of artificial knee joint, bilateral; Z85.72 Personal history of non-Hodgkin lymphomas; Z92.3 Personal history of irradiation
CPT/HCPCS: 84484-ER; 96374; G0378; J1170; J2270; J2405

== ENCOUNTER 2018-11-24 19:34 | Inpatient (IN) | payer OTHER ==
[2018-11-24 19:56] LABS: PLATELET COUNT 226 10^3/uL (150-400)
[2018-11-24] MEDS ORDERED: ACETAMINOPHEN 325 MG TAB PO ONE (20:15)
--- NOTE | 2018-11-24 20:19 | EDPHY ---
H & P Stated Complaint: L sided sharp CP x1 hour, worse with movement Time Seen by Provider: 11/24/18 19:48 HPI/ROS: CHIEF COMPLAINT: Chest pain HISTORY OF PRESENT ILLNESS: 82-year-old female with atrial fibrillation and COPD presents with chest pain. Sudden onset of sharp left-sided chest pain 1 hr ago. The pain 1st occurred when she was twisting her torso. The pain increases with any movement and with deep inspiration. She also has a vague dull underlying pain. History of chronic cough related to asthma and ongoing shortness of breath related to mitral valve stenosis. No recent illness. No prior similar symptoms. REVIEW OF SYSTEMS: complete 10 point ROS reviewed and is negative except for the noted elements in the HPI - Personal History Current Tetanus/Diphtheria Vaccine: Yes Tetanus Vaccine Date: April 2017 - Medical/Surgical History Hx Asthma: Yes Hx Chronic Respiratory Disease: Yes Hx Diabetes: No Hx Cardiac Disease: Yes Hx Renal Disease: No Hx Cirrhosis: No Hx Alcoholism: No Hx HIV/AIDS: No Hx Splenectomy or Spleen Trauma: No Other PMH: Bilat masectomy 2013, bilat knee replacements. five different cancers, AFIB, COPD, CHF, Mitral valve stenosis, HTN, Hyperlipidemia, ulcerated esophagus cardiac valve replaced - Social History Smoking Status: Never smoked Alcohol Use: Sober Drug Use: None Additional Social History: - Physical Exam Exam: General Appearance: Alert, pleasant Eyes: Pupils equal and round, no conjunctival pallor or injection ENT, Mouth: Mucous membranes moist Neck: Normal inspection Respiratory: Normal inspection, no chest wall tenderness, rales at the bases Cardiovascular: Regular rate and rhythm Gastrointestinal: Abdomen is soft and nontender Neurological: A&O, nonfocal, normal gait Skin: Warm and dry, no rash Extremities: Nontender, no pedal edema Psychiatric: Mood and affect normal Constitutional: Initial Vital Signs Temperature (C) 36.4 C 11/24/18 19:35 Heart Rate 80 11/24/18 19:35 Respiratory Rate 20 11/24/18 19:35 Blood Pressure 155/90 H 11/24/18 19:35 O2 Sat (%) 97 11/24/18 19:35 O2 Delivery Mode Room Air Allergies/Adverse Reactions: BRITNEY Inhibitors Allergy (Severe, Verified 11/24/18 19:36) Swelling/neck,face,throat methadone Allergy (Mild, Verified 11/24/18 19:36) GI upset oxycodone HCl [From OxyContin] Allergy (Mild, Verified 11/24/18 19:36) GI upset topiramate Allergy (Mild, Verified 11/24/18 19:36) Other-Enter Comments Iodine and Iodide Containing Produc [Iodine and Iodide Containing Products] Allergy (Unknown, Verified 11/24/18 19:36) Swelling/neck,face,throat amitriptyline Allergy (Verified 11/24/18 19:36) Other-Enter Comments moxifloxacin Allergy (Verified 11/24/18 19:36) Vomiting moxifloxacin HCl [From Avelox] Allergy (Verified 11/24/18 19:36) Vomiting Opioids - Morphine Analogues Allergy (Verified 11/24/18 19:36) Thiazides Allergy (Verified 11/24/18 19:36) Other-Enter Comments all narcotics Allergy (Uncoded 05/14/18 23:33) "I don't do well with them" Home Medications: Medication Instructions Recorded Cholecalciferol Vit D3 [Vitamin D3 2,000 units PO DAILY 01/06/17 (*)] Levothyroxine [Synthroid 75 mcg 75 mcg PO DAILY06 01/06/17 (*)] Multivitamins [Multivitamin (*)] 1 tab PO DAILY 02/23/17 Aspirin EC [Aspirin EC 81 mg (*)] 81 mg PO HS 06/13/17 Gabapentin [Neurontin 300 MG (*)] 300 mg PO HS PRN 03/07/18 Atorvastatin Calcium [Lipitor 10 10 mg PO HS 03/11/18 mg (*)] Ascorbic Acid [Vitamin C 500 mg 1,000 mg PO DAILY 05/15/18 (*)] Fluticasone Propionate [Flovent 2 inh PO BID 05/15/18 Diskus] Herbals/Supplements -Info Only 1 ea PO DAILY 05/15/18 Magnesium Oxide [Magnesium Oxide 400 mg PO HS 05/15/18 400 mg (*)] Pantoprazole Sodium [Protonix 40mg 40 mg PO BID@05/15/18 (*)] Warfarin Sodium [Coumadin 2.5MG 2.5 mg PO DAILY@1600 05/15/18 (*)] Metoprolol Tartrate [Lopressor 25 6.25 mg PO BID #60 tab 05/19/18 mg (*)] traMADol [Ultram 50 mg (*)] 25 - 50 mg PO Q6HRS PRN #20 tab 05/19/18 Albuterol Sulfate [Ventolin Hfa] 1 - 2 puffs IH Q4-6PRN PRN 11/06/18 Losartan Potassium [Cozaar 25 mg 25 mg PO HS 11/06/18 (*)] Zolpidem Tartrate [Ambien 5MG (*)] 10 mg PO HS PRN 11/06/18 Medical Decision Making - Diagnostics EKG Interpretation: EKG interpreted by me reveals normal sinus rhythm, rate 67, poor R-wave progression. Interpretation: Abnormal EKG. No change compared to prior EKG dated 11/06/2018. Imaging Results: Imaging Impressions Chest X-Ray 11/24/18 19:50 Impression: Stable chest. COPD. Aortic stent-graft. Hiatal hernia.. ED Course/Re-evaluation: This patient presents with sharp and stabbing left-sided chest pain. Old medical record reviewed. Cardiac catheterization in 2010 revealed no evidence of coronary artery disease. Stat EKG reveals no evidence of ischemia or dysrhythmia is similar to prior EKG earlier this month. Chest x-ray is unremarkable. Initial troponin is normal. Tylenol 650 mg orally given for chest pain. Laboratory evaluation including D-dimer and BNP unremarkable as well. Feel that I can safely exclude pulmonary embolism as diagnosis with normal vital signs, normal oxygen saturation and normal D-dimer. Patient continues to have chest pain. Will admit for further evaluation of chest pain. The hospitalist service was consulted for admission. Differential Diagnosis: Differential diagnosis includes though it is not limited to pneumonia, pneumothorax, pulmonary embolism, aortic dissection, pericarditis, acute coronary syndrome. - Data Points Laboratory Results: Laboratory Results 11/24/18 19:42 11/24/18 19:42 11/24/18 11/24/18 11/24/18 19:52 19:47 19:47 WBC RBC Hgb Hct MCV MCH MCHC RDW Plt Count MPV Neut % (Auto) Lymph % (Auto) [place] % (Auto) Eos % (Auto) Baso % (Auto) Nucleat RBC Rel Count Absolute Neuts (auto) Absolute Lymphs (auto) Absolute Monos (auto) Absolute Eos (auto) Absolute Basos (auto) Absolute Nucleated RBC Immature Gran % Immature Gran # PT 22.9 SEC H SEC (12.0-15.0) INR 2.14 H (0.83-1.16) D-Dimer < 0.27 ug/mLFEU ug/mLFEU (0.00-0.50) Sodium Potassium Chloride Carbon Dioxide Anion Gap BUN Creatinine Estimated GFR Glucose Calcium POC Troponin I 0.01 ng/mL ng/mL (0.00-0.08) NT-Pro-B Natriuret Pep 555 pg/mL H pg/mL (0-450) 11/24/18 11/24/18 19:42 19:42 WBC 5.75 10^3/uL 10^3/uL (3.80-9.50) RBC 4.33 10^6/uL 10^6/uL (4.18-5.33) Hgb 13.1 g/dL g/dL (12.6-16.3) Hct 39.7 % % (38.0-47.0) MCV 91.7 fL fL (81.5-99.8) MCH 30.3 pg pg (27.9-34.1) MCHC 33.0 g/dL g/dL (32.4-36.7) RDW 14.8 % % (11.5-15.2) Plt Count 226 10^3/uL 10^3/uL (150-400) MPV 9.3 fL fL (8.7-11.7) Neut % (Auto) 61.8 % % (39.3-74.2) Lymph % (Auto) 23.7 % % (15.0-45.0) [place] % (Auto) 9.6 % % (4.5-13.0) Eos % (Auto) 3.7 % % (0.6-7.6) Baso % (Auto) 0.7 % % (0.3-1.7) Nucleat RBC Rel Count 0.0 % % (0.0-0.2) Absolute Neuts (auto) 3.56 10^3/uL 10^3/uL (1.70-6.50) Absolute Lymphs (auto) 1.36 10^3/uL 10^3/uL (1.00-3.00) Absolute Monos (auto) 0.55 10^3/uL 10^3/uL (0.30-0.80) Absolute Eos (auto) 0.21 10^3/uL 10^3/uL (0.03-0.40) Absolute Basos (auto) 0.04 10^3/uL 10^3/uL (0.02-0.10) Absolute Nucleated RBC 0.00 10^3/uL 10^3/uL (0-0.01) Immature Gran % 0.5 % % (0.0-1.1) Immature Gran # 0.03 10^3/uL 10^3/uL (0.00-0.10) PT INR D-Dimer Sodium 129 mEq/L L mEq/L (135-145) Potassium 3.9 mEq/L mEq/L (3.5-5.2) Chloride 96 mEq/L L mEq/L (97-110) Carbon Dioxide 26 mEq/l mEq/l (22-31) Anion Gap 7 mEq/L mEq/L (6-14) BUN 17 mg/dL mg/dL (7-23) Creatinine 0.8 mg/dL mg/dL (0.6-1.0) Estimated GFR > 60 Glucose 84 mg/dL mg/dL (70-100) Calcium 9.0 mg/dL mg/dL (8.5-10.4) POC Troponin I NT-Pro-B Natriuret Pep Medications Given: Discontinued Medications Acetaminophen (Tylenol) 650 mg PO EDNOW ONE Stop: 11/24/18 20:16 Last Admin: 11/24/18 20:17 Dose: 650 mg Point of Care Test Results: Chemistry 11/24/18 19:52 POC Troponin I 0.01 ng/mL ng/mL (0.00-0.08) Departure - Departure Disposition: [facility] Inpatient Acute Clinical Impression: Chest pain Condition: Good
--- NOTE | 2018-11-24 20:26 | CPEKG ---
Test Reason : OPEN Blood Pressure : / mmHG Vent. Rate : 067 BPM Atrial Rate : 067 BPM P-R Int : 167 ms QRS Dur : 086 ms QT Int : 398 ms P-R-T Axes : 047 024 027 degrees QTc Int : 420 ms Sinus rhythm Anteroseptal infarct, age indeterminate Confirmed by Molly Saavedra ([id number]) on 11/24/2018 8:25:01 PM Referred By: PHYSICIAN ED Confirmed By:Molly Saavedra
[2018-11-24 20:31] LABS: INR 2.14 (0.83-1.16); PROTIME(PATIENT) 22.9 SEC (12.0-15.0)
[2018-11-24] MEDS ORDERED: ASPIRIN 81 MG CHEWABLE TAB PO ONE (20:36)
[2018-11-24] MEDS ORDERED: NITROGLYCERIN 0.4 MG BTL SL PRN ×2 (21:06→21:15)
[2018-11-24] MEDS ORDERED: NITROGLYCERIN 0.4 MG BTL SL ONE (21:08)
[2018-11-24] MEDS ORDERED: PROMETHAZINE HCL 25 MG/ML INJ IVP PRN (21:09)
[2018-11-24] MEDS ORDERED: HYDROmorphONE/DILAUDID 1 MG/ML INJ IVP PRN (21:09)
[2018-11-24] MEDS ORDERED: HYDROCODONE/APAP 5/325 TAB PO PRN (21:09)
[2018-11-24] MEDS ORDERED: ONDANSETRON DISINTEGRATING 4 MG TAB PO PRN (21:09)
[2018-11-24] MEDS ORDERED: ACETAMINOPHEN 325 MG TAB PO PRN (21:09)
[2018-11-24] MEDS ORDERED: IOPAMIDOL (ISOVUE 370) 100 ML BTL IV ONE (21:20)
[2018-11-24] MEDS: ONDANSETRON 4 MG/2 ML VIAL IVP PRN (21:26)
[2018-11-24] MEDS ORDERED: methylPREDNISolone SOD SUCC 125 MG/2 ML VIAL IVP ONE (21:46)
--- NOTE | 2018-11-24 21:47 | PDGENHP ---
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 Patient was admitted earlier this month for chest pain, echo was performed, cardiology was consulted and patient was seen by CT surgery with some thought of performing valve surgery during that hospital stay, however ultimately her pain resolved and she opted to f/u with her CT surgeon at [facility] and it was never clear what led to her presenting complaint. She states she has been doing well since that hospitalization until this evening when she developed recurrent left sided chest pain, similar to her prior sxs except in that this episode was more severe and has been persistent since it began. She notes it is sharp, present across her left chest without radiation and worsened by either taking deep breaths or bending over. She does not appreciate that it is worse with exertion or clearly positional outside of bending over. It does extend to her back at times. She has not had fever or chills. She does have some SOB associated with this, denies n/v. Some improvement with pain medications. History Information - Allergies/Home Medication List Allergies/Adverse Reactions: BRITNEY Inhibitors Allergy (Severe, Verified 11/24/18 19:36) Swelling/neck,face,throat methadone Allergy (Mild, Verified 11/24/18 19:36) GI upset oxycodone HCl [From OxyContin] Allergy (Mild, Verified 11/24/18 19:36) GI upset topiramate Allergy (Mild, Verified 11/24/18 19:36) Other-Enter Comments Iodine and Iodide Containing Produc [Iodine and Iodide Containing Products] Allergy (Unknown, Verified 11/24/18 19:36) Swelling/neck,face,throat amitriptyline Allergy (Verified 11/24/18 19:36) Other-Enter Comments moxifloxacin Allergy (Verified 11/24/18 19:36) Vomiting moxifloxacin HCl [From Avelox] Allergy (Verified 11/24/18 19:36) Vomiting Opioids - Morphine Analogues Allergy (Verified 11/24/18 19:36) Thiazides Allergy (Verified 11/24/18 19:36) Other-Enter Comments all narcotics Allergy (Uncoded 05/14/18 23:33) "I don't do well with them" Home Medications: Cholecalciferol Vit D3 [Vitamin D3 (*)] 2,000 units PO DAILY 01/06/17 [Last Taken 11/24/18] Levothyroxine [Synthroid 75 mcg (*)] 75 mcg PO DAILY06 01/06/17 [Last Taken ] Multivitamins [Multivitamin (*)] 1 tab PO DAILY 02/23/17 [Last Taken 11/24/18] Aspirin EC [Aspirin EC 81 mg (*)] 81 mg PO HS 06/13/17 [Last Taken 11/23/18] Gabapentin [Neurontin 300 MG (*)] 300 mg PO HS PRN 03/07/18 [Last Taken 11/23/18 ] Atorvastatin Calcium [Lipitor 10 mg (*)] 10 mg PO HS 03/11/18 [Last Taken ] Ascorbic Acid [Vitamin C 500 mg (*)] 1,000 mg PO DAILY 05/15/18 [Last Taken ] Fluticasone Propionate [Flovent Diskus] 2 inh PO BID 05/15/18 [Last Taken ] Herbals/Supplements -Info Only 1 ea PO DAILY 05/15/18 [Last Taken 11/24/18] Magnesium Oxide [Magnesium Oxide 400 mg (*)] 400 mg PO HS 05/15/18 [Last Taken 11/23/18] Pantoprazole Sodium [Protonix 40mg (*)] 40 mg PO BID@05/15/18 [Last Taken 11/24/18] Warfarin Sodium [Coumadin 2.5MG (*)] 2.5 mg PO DAILY@1600 05/15/18 [Last Taken 11/24/18] Albuterol Sulfate [Ventolin Hfa] 1 - 2 puffs IH Q4-6PRN PRN 11/06/18 [Last Taken Unknown] Losartan Potassium [Cozaar 25 mg (*)] 25 mg PO HS 11/06/18 [Last Taken 11/23/18] Zolpidem Tartrate [Ambien 5MG (*)] 10 mg PO HS PRN 11/06/18 [Last Taken 11/23/18 ] Gi Cocktail 15 ml PO Q6HRS PRN 11/24/18 [Last Taken 11/24/18] I have personally reviewed and updated: family history, medical history, social history, surgical history - Past Medical History atrial fibrillation, asthma, cancer, CHF, GERD, hypertension, hyperlipidemia Additional medical history: severe mitral valve stenosis, moderate to severe mitral regurgitation s/p balloon valvuloplasty, 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 Pulmonary hypertension. Lymphoma in remission. Asthma/ COPD. Breast cancer status post radiation therapy, mastectomy. Radiation induced esophagitis. hypothyroidism. esophagitis. CHF - normal systolic function echo 02/2018 with severe Mitral valve stenosis. HLD, HTN. hiatal hernia. c diff 02/14/2018 s/p PO vanco. gerd. Paroxysmal atrial fibrillation - Surgical History Additional surgical history: Bilateral mastectomy. Bilateral total knee replacement. Cardiac catheterization 2010. Colonoscopy with complicated by perforation status post partial colectomy - Family History Additional family history: many first-degree relatives with coronary artery disease all after age 65 - Social History Smoking Status: Never smoked Alcohol Use: Sober Drug Use: None Additional social history: Independent in her ADLs, get shortness of breath with ambulating stairs. and lives with her . Cor status-full. Advanced directives in place. Review of Systems Review of Systems: ROS: 10pt was reviewed & negative except for what was stated in HPI & below Physical Exam Physical Exam: Temp Pulse Resp BP Pulse Ox 36.9 C 70 18 133/72 H 93 11/24/18 21:22 11/24/18 21:22 11/24/18 21:22 11/24/18 21:22 11/24/18 21:22 Constitutional: chronically ill appearing, uncomfortable Eyes: PERRL, anicteric sclera Ears, Nose, Mouth, Throat: moist mucous membranes, hearing normal Cardiovascular: regular rate and rhythym, systolic murmur, No edema Respiratory: no respiratory distress, no rales or rhonchi, clear to auscultation Gastrointestinal: normoactive bowel sounds, soft, non-tender abdomen Genitourinary: no bladder tenderness Skin: warm, normal color Musculoskeletal: full muscle strength Neurologic: AAOx3 Psychiatric: interacting appropriately, not anxious, not encephalopathic Lab Data & Imaging Review 11/24/18 19:42 11/24/18 19:42 WBC 5.75 10^3/uL (3.80-9.50) 11/24/18 19:42 RBC 4.33 10^6/uL (4.18-5.33) 11/24/18 19:42 Hgb 13.1 g/dL (12.6-16.3) 11/24/18 19:42 Hct 39.7 % (38.0-47.0) 11/24/18 19:42 MCV 91.7 fL (81.5-99.8) 11/24/18 19:42 MCH 30.3 pg (27.9-34.1) 11/24/18 19:42 MCHC 33.0 g/dL (32.4-36.7) 11/24/18 19:42 RDW 14.8 % (11.5-15.2) 11/24/18 19:42 Plt Count 226 10^3/uL (150-400) 11/24/18 19:42 MPV 9.3 fL (8.7-11.7) 11/24/18 19:42 Neut % (Auto) 61.8 % (39.3-74.2) 11/24/18 19:42 Lymph % (Auto) 23.7 % (15.0-45.0) 11/24/18 19:42 [place] % (Auto) 9.6 % (4.5-13.0) 11/24/18 19:42 Eos % (Auto) 3.7 % (0.6-7.6) 11/24/18 19:42 Baso % (Auto) 0.7 % (0.3-1.7) 11/24/18 19:42 Nucleat RBC Rel Count 0.0 % (0.0-0.2) 11/24/18 19:42 Absolute Neuts (auto) 3.56 10^3/uL (1.70-6.50) 11/24/18 19:42 Absolute Lymphs (auto) 1.36 10^3/uL (1.00-3.00) 11/24/18 19:42 Absolute Monos (auto) 0.55 10^3/uL (0.30-0.80) 11/24/18 19:42 Absolute Eos (auto) 0.21 10^3/uL (0.03-0.40) 11/24/18 19:42 Absolute Basos (auto) 0.04 10^3/uL (0.02-0.10) 11/24/18 19:42 Absolute Nucleated RBC 0.00 10^3/uL (0-0.01) 11/24/18 19:42 Immature Gran % 0.5 % (0.0-1.1) 11/24/18 19:42 Immature Gran # 0.03 10^3/uL (0.00-0.10) 11/24/18 19:42 PT 22.9 SEC (12.0-15.0) H 11/24/18 19:47 INR 2.14 (0.83-1.16) H 11/24/18 19:47 D-Dimer < 0.27 ug/mLFEU (0.00-0.50) 11/24/18 19:47 Sodium 129 mEq/L (135-145) L 11/24/18 19:42 Potassium 3.9 mEq/L (3.5-5.2) 11/24/18 19:42 Chloride 96 mEq/L (97-110) L 11/24/18 19:42 Carbon Dioxide 26 mEq/l (22-31) 11/24/18 19:42 Anion Gap 7 mEq/L (6-14) 11/24/18 19:42 BUN 17 mg/dL (7-23) 11/24/18 19:42 Creatinine 0.8 mg/dL (0.6-1.0) 11/24/18 19:42 Estimated GFR > 60 11/24/18 19:42 Glucose 84 mg/dL (70-100) 11/24/18 19:42 Calcium 9.0 mg/dL (8.5-10.4) 11/24/18 19:42 POC Troponin I 0.01 ng/mL (0.00-0.08) 11/24/18 19:52 NT-Pro-B Natriuret Pep 555 pg/mL (0-450) H 11/24/18 19:47 Visualized and Interpreted Chest x-ray results: Yes Chest X-Ray results: other (no infiltrate, copd, hiatal hernia) Visualized and Interpreted EKG results: Yes EKG Interpretation: Positive for: normal sinsus rhythm Assessment & Plan Assessment: Chest pain (Acute) 82 yo F with PMH that includes a fib, VHD, pulm htn presenting with chest pain for the second time this month # chest pain: recent hospitalization for same and at that time etiology unclear , thought to be non cardiac. W/u in ER thus far unremarkable--trop/dimer negative, ecg without change, cxr with hiatal hernia but no other sig abnormality. Given severity of her sxs with pleuritic component and extension to the back ordered CTA to r/o dissection and PE-pending. Monitor on tele overnight, serial trops/ecg, cardiology consulted. Consider GI related given hiatal hernia noted, start PPI and GI cocktail prn recurrent pain. Consider pericarditis with some positional element, prn nsaids # VHD: hx of severe s/p TAVR, severe MS s/p balloon valvuloplasty with recurrence most recent echo noting moderated MS--has been evaluated here by CT surgery recently and has plans to f/u with CT surgeon at [facility]. Unclear if this is connected to her presenting complaints currently. Cards to see. 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 Old records reviewed and summarized as above. Care plan reviewed with ER doctor, further hx obtained from patients present at bedside.
[2018-11-24] MEDS ORDERED: methylPREDNISolone SOD SUCC 125 MG/2 ML VIAL ONE (21:50)
[2018-11-24] MEDS ORDERED: GABAPENTIN 300 MG CAP PO PRN (23:17)
[2018-11-24] MEDS ORDERED: ZOLPIDEM TARTRATE 5 MG TAB PO PRN (23:17)
[2018-11-24] MEDS ORDERED: traMADol 50 MG TAB PO PRN (23:17)
[2018-11-24] MEDS: oxyCODONE IR 5 MG TAB PO PRN (23:35)
[2018-11-25] MEDS: LEVOTHYROXINE 75 MCG TAB PO SCH (06:02)
[2018-11-25] MEDS: ONDANSETRON 4 MG/2 ML VIAL IVP PRN ×3 (06:02→15:45)
[2018-11-25] MEDS: oxyCODONE IR 5 MG TAB PO PRN ×2 (06:02→10:00)
[2018-11-25 06:08] LABS: PLATELET COUNT 202 10^3/uL (150-400)
[2018-11-25] MEDS: MULTIVITAMINS 1 EACH TAB PO SCH (08:10)
[2018-11-25] MEDS: PANTOPRAZOLE SODIUM 40 MG TAB PO SCH ×2 (08:10→17:45)
[2018-11-25] MEDS: ASCORBIC ACID 500 MG TAB PO SCH (08:10)
[2018-11-25] MEDS: SENNOSIDES/DOCUSATE SODIUM TAB PO SCH ×2 (08:10→20:38)
[2018-11-25] MEDS: CHOLECALCIFEROL VIT D3 2,000 UNITS TAB/CAP PO SCH (08:11)
[2018-11-25] MEDS: METOPROLOL TARTRATE 25 MG TAB PO SCH ×2 (08:11→20:39)
--- NOTE | 2018-11-25 09:06 | PDCARCONS ---
Cardiology Consult Reason for Consult: Chest discomfort Chief Complaint: Chest discomfort, lightheadedness Requesting Physician: Hospitalist History of Present Illness: 82-year-old female, prior history of TAVR, mitral stenosis status post balloon valvuloplasty, presenting with chest discomfort. Chest discomfort is described as respiratory phasic, worse with deep inspiration, cough or change in posture. No change in chest discomfort with exertion or walking. Chest discomfort is left-sided. It is constant over the last 12-16 hours, was worse last night and therefore she came to the emergency department. She reports postural lightheadedness. She has not had syncope. History Information - Allergies/Home Medication List Allergies/Adverse Reactions: BRITNEY Inhibitors Allergy (Severe, Verified 11/24/18 19:36) Swelling/neck,face,throat methadone Allergy (Mild, Verified 11/24/18 19:36) GI upset oxycodone HCl [From OxyContin] Allergy (Mild, Verified 11/24/18 19:36) GI upset topiramate Allergy (Mild, Verified 11/24/18 19:36) Other-Enter Comments Iodine and Iodide Containing Produc [Iodine and Iodide Containing Products] Allergy (Unknown, Verified 11/24/18 19:36) Swelling/neck,face,throat amitriptyline Allergy (Verified 11/24/18 19:36) Other-Enter Comments moxifloxacin Allergy (Verified 11/24/18 19:36) Vomiting moxifloxacin HCl [From Avelox] Allergy (Verified 11/24/18 19:36) Vomiting Opioids - Morphine Analogues Allergy (Verified 11/24/18 19:36) Thiazides Allergy (Verified 11/24/18 19:36) Other-Enter Comments all narcotics Allergy (Uncoded 05/14/18 23:33) "I don't do well with them" Home Medications: Cholecalciferol Vit D3 [Vitamin D3 (*)] 2,000 units PO DAILY 01/06/17 [Last Taken 11/24/18] Levothyroxine [Synthroid 75 mcg (*)] 75 mcg PO DAILY06 01/06/17 [Last Taken ] Multivitamins [Multivitamin (*)] 1 tab PO DAILY 02/23/17 [Last Taken 11/24/18] Aspirin EC [Aspirin EC 81 mg (*)] 81 mg PO HS 06/13/17 [Last Taken 11/23/18] Gabapentin [Neurontin 300 MG (*)] 300 mg PO HS PRN 03/07/18 [Last Taken 11/23/18 ] Atorvastatin Calcium [Lipitor 10 mg (*)] 10 mg PO HS 03/11/18 [Last Taken ] Ascorbic Acid [Vitamin C 500 mg (*)] 1,000 mg PO DAILY 05/15/18 [Last Taken ] Fluticasone Propionate [Flovent Diskus] 2 inh PO BID 05/15/18 [Last Taken ] Herbals/Supplements -Info Only 1 ea PO DAILY 05/15/18 [Last Taken 11/24/18] Magnesium Oxide [Magnesium Oxide 400 mg (*)] 400 mg PO HS 05/15/18 [Last Taken 11/23/18] Pantoprazole Sodium [Protonix 40mg (*)] 40 mg PO BID@08,18 05/15/18 [Last Taken 11/24/18] Warfarin Sodium [Coumadin 2.5MG (*)] 2.5 mg PO DAILY@1600 05/15/18 [Last Taken 11/24/18] Albuterol Sulfate [Ventolin Hfa] 1 - 2 puffs IH Q4-6PRN PRN 11/06/18 [Last Taken Unknown] Losartan Potassium [Cozaar 25 mg (*)] 25 mg PO HS 11/06/18 [Last Taken 11/23/18] Zolpidem Tartrate [Ambien 5MG (*)] 10 mg PO HS PRN 11/06/18 [Last Taken 11/23/18 ] Gi Cocktail 15 ml PO Q6HRS PRN 11/24/18 [Last Taken 11/24/18] I have personally reviewed and updated: family history, medical history, social history, surgical history Past Medical History: - Social History Smoking Status: Never smoked Alcohol Use: Sober Drug Use: None Physical Exam Physical Exam: Temp Pulse Resp BP Pulse Ox 36.9 C 83 14 128/65 H 95 11/25/18 07:29 11/25/18 08:11 11/25/18 07:29 11/25/18 08:11 11/25/18 07:29 O2 (L/minute) 2 Constitutional: no apparent distress, appears nourished Eyes: PERRL, EOMI Ears, Nose, Mouth, Throat: moist mucous membranes, hearing normal Cardiovascular: regular rate and rhythym, systolic murmur Respiratory: no respiratory distress Gastrointestinal: normoactive bowel sounds Genitourinary: no bladder fullness Skin: warm Neurologic: AAOx3 Psychiatric: interacting appropriately, not anxious, not encephalopathic Lab and Imaging 11/25/18 05:50 11/25/18 05:50 WBC 4.14 10^3/uL (3.80-9.50) 11/25/18 05:50 RBC 4.14 10^6/uL (4.18-5.33) L 11/25/18 05:50 Hgb 12.6 g/dL (12.6-16.3) 11/25/18 05:50 Hct 37.4 % (38.0-47.0) L 11/25/18 05:50 MCV 90.3 fL (81.5-99.8) 11/25/18 05:50 MCH 30.4 pg (27.9-34.1) 11/25/18 05:50 MCHC 33.7 g/dL (32.4-36.7) 11/25/18 05:50 RDW 14.6 % (11.5-15.2) 11/25/18 05:50 Plt Count 202 10^3/uL (150-400) 11/25/18 05:50 MPV 9.3 fL (8.7-11.7) 11/25/18 05:50 Neut % (Auto) 87.8 % (39.3-74.2) H 11/25/18 05:50 Lymph % (Auto) 9.9 % (15.0-45.0) L 11/25/18 05:50 Mobile % (Auto) 1.4 % (4.5-13.0) L 11/25/18 05:50 Eos % (Auto) 0.2 % (0.6-7.6) L 11/25/18 05:50 Baso % (Auto) 0.2 % (0.3-1.7) L 11/25/18 05:50 Nucleat RBC Rel Count 0.0 % (0.0-0.2) 11/25/18 05:50 Absolute Neuts (auto) 3.63 10^3/uL (1.70-6.50) 11/25/18 05:50 Absolute Lymphs (auto) 0.41 10^3/uL (1.00-3.00) L 11/25/18 05:50 Absolute Monos (auto) 0.06 10^3/uL (0.30-0.80) L 11/25/18 05:50 Absolute Eos (auto) 0.01 10^3/uL (0.03-0.40) L 11/25/18 05:50 Absolute Basos (auto) 0.01 10^3/uL (0.02-0.10) L 11/25/18 05:50 Absolute Nucleated RBC 0.00 10^3/uL (0-0.01) 11/25/18 05:50 Immature Gran % 0.5 % (0.0-1.1) 11/25/18 05:50 Immature Gran # 0.02 10^3/uL (0.00-0.10) 11/25/18 05:50 RBC/WBC/PLT Morphology TNP 11/25/18 05:50 Platelet Estimate TNP 11/25/18 05:50 PT 22.9 SEC (12.0-15.0) H 11/24/18 19:47 INR 2.14 (0.83-1.16) H 11/24/18 19:47 D-Dimer < 0.27 ug/mLFEU (0.00-0.50) 11/24/18 19:47 Sodium 132 mEq/L (135-145) L 11/25/18 05:50 Potassium 4.4 mEq/L (3.5-5.2) 11/25/18 05:50 Chloride 102 mEq/L (97-110) 11/25/18 05:50 Carbon Dioxide 22 mEq/l (22-31) 11/25/18 05:50 Anion Gap 8 mEq/L (6-14) 11/25/18 05:50 BUN 15 mg/dL (7-23) 11/25/18 05:50 Creatinine 0.6 mg/dL (0.6-1.0) 11/25/18 05:50 Estimated GFR > 60 11/25/18 05:50 Glucose 132 mg/dL (70-100) H 11/25/18 05:50 Calcium 9.3 mg/dL (8.5-10.4) 11/25/18 05:50 POC Troponin I 0.01 ng/mL (0.00-0.08) 11/24/18 19:52 Troponin I < 0.012 ng/mL (0.000-0.034) 11/25/18 05:50 NT-Pro-B Natriuret Pep 555 pg/mL (0-450) H 11/24/18 19:47 A/P Assessment: 1. Aortic stenosis status post TAVR 2. Mitral stenosis status post balloon valvuloplasty, recurrent mitral stenosis 3. Chest discomfort, pleuritic Plan: ECGs not suggestive of any acute ST or T-wave changes. Troponin is negative, will recheck. Chest discomfort is much better but still present. Differential diagnosis of chest discomfort includes pulmonary embolism, pericarditis, lung infection. CT scan was negative for pneumonia and pulmonary embolism. Will check echocardiogram to assess for pericardial effusion. She gets her cardiac care in [place] with Dr. Froylan Davila and would like to continue getting care there, she has an appointment with him on . Plan on keeping her in the hospital for the next 24 hr. Will follow.
[2018-11-25] MEDS ORDERED: IBUPROFEN 200 MG TAB PO PRN (11:10)
--- NOTE | 2018-11-25 11:52 | HOSPPROG ---
Hospitalist Progress Note Assessment/Plan: Chest pain (Acute) 82 yo F with PMH that includes a fib, VHD, pulm htn presenting with chest pain for the second time this month # chest pain: recent hospitalization for same and at that time etiology unclear , thought to be non cardiac. - W/u thus far unremarkable--trop/dimer negative, ecg without change, cxr with hiatal hernia but no other sig abnormality. - Given severity of her sxs with pleuritic component and extension to the back ordered CTA which was negative for PE or dissection, did note mucus plugging in b/l lower lobes c/w Aspiration pneumonitis. - Cardiology consulted this AM, recommend checking echo to assess for pericardial effusion - Consider GI related given hiatal hernia noted, start PPI and GI cocktail prn recurrent pain # VHD: hx of severe s/p TAVR, severe MS s/p balloon valvuloplasty with recurrence most recent echo noting moderated MS--has been evaluated here by CT surgery recently and has plans to f/u with CT surgeon at [facility]. Unclear if this is connected to her presenting complaints currently. 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, 132 this AM # CHF: diastolic dysfunction with preserved EF, no e/o volume overload currently # hiatal hernia: as above query if this is contributing to her chest pain, PPI, hx of radiation related esophagitis as well # FC Subjective: Pt reports mild chest discomfort this AM Objective: Vital Signs Temp Pulse Resp BP Pulse Ox 37.3 C 76 16 115/50 L 94 11/25/18 11:23 11/25/18 11:23 11/25/18 11:23 11/25/18 11:23 11/25/18 11:23 Laboratory Results 11/25/18 05:50 11/25/18 05:50 11/24/18 11/25/18 11/26/18 05:59 05:59 05:59 Intake Total 300 240 Output Total 1400 200 Balance -1100 40 PT 22.9 SEC (12.0-15.0) H 11/24/18 19:47 INR 2.14 (0.83-1.16) H 11/24/18 19:47 - Physical Exam Constitutional: no apparent distress Eyes: PERRL Ears, Nose, Mouth, Throat: moist mucous membranes Cardiovascular: regular rate and rhythym, No edema Respiratory: no respiratory distress Gastrointestinal: soft, non-tender abdomen Skin: warm Musculoskeletal: full muscle strength Neurologic: AAOx3 Psychiatric: interacting appropriately ICD10 Worksheet Patient Problems: Problems Problem Status Onset Chest pain Acute CHF (congestive heart failure) Acute Chronic sinus infection Acute Diarrhea Acute GERD with esophagitis Acute Gastroenteritis Acute Humeral surgical neck fracture Acute Hypochloremia Acute Hypokalemia Acute Hyponatremia Acute Lethargy Acute Nausea Acute Pneumonia Acute Pneumonia of both lower lobes Acute Sepsis Acute chronic disease mgmt/transitional care Acute
[2018-11-25] MEDS: ALBUTEROL SULFATE IH PRN ×2 (13:24→20:45)
--- NOTE | 2018-11-25 14:28 | ASMTCASEMG ---
Living Arrangements What is your living Answers: With Spouse arrangement? Who do you live with? Discharge Plan Comments Coordination Status Comments Notes: Pt was admitted yesterday through the ED for chest pain. She has a history of aortic and mitral valve stenosis addressed by TAVR and balloon valvuloplasty. She now has reurrent moderate to severe mitral valve stenosis with plans for surgical intervention through [facility]. She is to have an echocardiogram today or tomorrow, and to follow up with her counter cutter Dr. Froylan Davila next . Tests for pulmonary embolism and pneumonia were negative. CM met with pt and her Tray Tang and son in her room today. Pt wears 2L of oxygen at night at home. She does not use any other assistive devices. She does not drive, due to concerns of becoming faint. Pt and her state that she is independent in her ADLs at home. PT recommends DC home with no needs. OT eval pending. CM will be available should needs arise. CM D/C plan: Independent to home Date Signed: 11/25/2018 02:27 PM Electronically Signed By:Uma Pineda
[2018-11-25] MEDS ORDERED: WARFARIN SODIUM 2.5 MG TAB PO SCH (16:00)
[2018-11-25] MEDS ORDERED: ASPIRIN EC 81 MG TAB PO SCH (21:00)
[2018-11-25] MEDS ORDERED: LOSARTAN POTASSIUM 25 MG TAB PO SCH (21:00)
[2018-11-25] MEDS ORDERED: MAGNESIUM OXIDE 400 MG TAB PO SCH (21:00)
[2018-11-25] MEDS ORDERED: ATORVASTATIN CALCIUM 10 MG TAB PO SCH (21:00)
[2018-11-26] MEDS: LEVOTHYROXINE 75 MCG TAB PO SCH (06:01)
[2018-11-26] MEDS: ALBUTEROL SULFATE IH PRN (08:56)
[2018-11-26] MEDS: METOPROLOL TARTRATE 25 MG TAB PO SCH (09:01)
[2018-11-26] MEDS: ASCORBIC ACID 500 MG TAB PO SCH (09:02)
[2018-11-26] MEDS: SENNOSIDES/DOCUSATE SODIUM TAB PO SCH (09:02)
[2018-11-26] MEDS: CHOLECALCIFEROL VIT D3 2,000 UNITS TAB/CAP PO SCH (09:02)
[2018-11-26] MEDS: MULTIVITAMINS 1 EACH TAB PO SCH (09:02)
[2018-11-26] MEDS: PANTOPRAZOLE SODIUM 40 MG TAB PO SCH (09:02)
--- NOTE | 2018-11-26 10:47 | ECHO ---
[email or web address] [address] [address] Main: [phone] Echocardiography Examination Transthoracic Name: KARLA STARK MR#: [id number] Study Date: 11/25/2018 Study Time: 02:58 PM Date of : 1935 Age: 82 year(s) Height: 170.2 cm (67 in.) Weight: 52.62 kg (116 lb.) BSA: 1.6 m2 Gender: Female Examination: Echo Contrast: Image Quality: Adequate Rhythm: Heart Rate: BP: 121 mmHg/69 mmHg Indication: Chest Pain, assess for pericardial effusion Procedure Staff Referring Physician: Gas Or Petroleum Operator: Yesenia Loo [facility] Reading Physician: Alex Hernandez MD Requesting Provider: Ordering Physician: Alex Hernandez MD Indication: Chest Pain, assess for pericardial effusion Measurements Chambers AV/MV Label Value Normal Value Label Value Normal Value LVOTd 1.6 cm (1.8cm - 2cm) AV PGmax 28 mmHg LVOT VTI 22.7 cm (18cm - 22cm) AV PGmean 18 mmHg LVDd, 2D 4 cm (3.9cm - 5.3cm) AV Vmax 2.66 m/s LVDs, 2D 2.2 cm (2.1cm - 4cm) THIERNO (VTI) 1 cm2 IVSd, 2D 1.3 cm (0.6cm - 1.1cm) MV E Vmax 1.97 m/s LVPWd, 2D 1.3 cm MV A Vmax 1.83 m/s LVEF, BP 61 % (55% - 70%) MV E/A 1.08 LVEF, 2D 77 % (54% - 74%) MV E/E' lateral 36.8 LVOT PGmean 2 mmHg MV E/E' septal 61.2 (0.45 - 1.25) LVOT Vmean 0.74 m/s MV DT 384 ms RVDd, 2D 2.9 cm (1.9cm - 3.8cm) MV E' septal 0.03 m/s LA Volume, BP 79 ml (22ml - 52ml) MV VTI 74.7 cm LADs, 2D 4.5 cm (2.7cm - 3.8cm) MVA D (continuity eq.) 0.6 cm2 LAESV index, BP 49.4 ml/m2 MV PGmax 22 mmHg RA Area 17 cm2 MV PGmean 11 mmHg Additional Vessels MV PHT 0.11 s Label Value Normal Value MVA PHT 2 cm2 AoAsc 2.8 cm MV E' lateral 0.05 m/s AoRoot, 2D 2.3 cm (1.4cm - 2.6cm) MV E/E' mean 49.25 Patient: KARLA STARK Study Date: 11/25/2018 Page 1 of 3 02:58 PM IVC 2 cm (1.2cm - 2.3cm) MV PHT 108 ms MV E' mean 0.04 m/s TV/PV Label Value Normal Value RA Pressure 5 mmHg RVSP 77 mmHg TR Pmax 72 mmHg TR Vmax 4.24 m/s PV PGmax 4 mmHg PV Vmax, Caliper 0.95 m/s (0.6m/s - 0.9m/s) Conclusions 1. Normal LV systolic function, ejection fraction 61%. 2. grade 2 diastolic dysfunction 3. Mild LVH 4. Severe left atrial dilatation 5. Moderate to severe mitral stenosis. Mean gradient 11 mmHg across mitral valve. Mild to moderate mitral regurgitation. 6.Status post TAVR, normal function, no perivalvular regurgitation 7. Moderate to severe tricuspid regurgitation. Severe pulmonary hypertension with estimated RVSP 77 mm of mercury. Findings Left Ventricle: Left ventricle is normal in size. Normal global systolic left ventricular function. The ejection fraction, measured by Simpsons method, is 61 %. EF range is estimated at 60 % - 65 %. There is mild concentric left ventricular hypertrophy. There are no regional wall motion abnormalities. Grade II Diastolic Dysfunction. Mild Left ventricular hypertrophy . Right Ventricle: Normal size right ventricle. Right ventricular systolic function is normal. Left Atrium: The left atrium is severely dilated. Right Atrium: The right atrium is mildly dilated. Mitral Valve: Mitral valve appears structurally normal. Mild to moderate mitral regurgitation. Moderate mitral valve stenosis. There is marked mitral thickening. Mitral Valve Measurements MV PGmean is 11 mmHg. Aortic Valve: The aortic valve is a bioprosthesis. The prosthetic aortic valve is normal. Normal functioning aortic valve prosthesis. No prosthesis regurgitation. There is no evidence of perivalvular regurgitation. Tricuspid Valve: Tricuspid valve leaflets are structurally normal. Moderate to severe tricuspid regurgitation. No tricuspid valve stenosis. Right Ventricular systolic pressure is measured at 77 mmHg. Pulmonary artery pressure severely increased. Aorta: The aortic root size in 2D measures 2.3 cm. The ascending aorta measures 2.8 cm. Aorta Measurements AoRoot, 2D is 2.3 cm. IVC: The inferior vena cava is normal in size. Pericardium: No pericardial effusion. No pleural effusion present. Patient: KARLA STARK Study Date: 11/25/2018 Page 2 of 3 02:58 PM Exam Details Procedure Ordered: Echo Procedure Status: Routine study Image Quality: Adequate Facility Location: Bedside (No Signature Object) Patient: KARLA STARK Study Date: 11/25/2018 Page 3 of 3 02:58 PM [id number]
--- NOTE | 2018-11-26 10:48 | PDCARPN ---
Cardiology Progress Note Assessment/Plan: Assessment: 1. sp TAVR 2. sp mitral valvuloplasty. Recurrent mitral stenosis, mean gradient 11 mmHg across MV. Mild to moderate MR. 3. Moderate to severe TR with severe pulm HTN, RVSP 77mmHg 4. Chest pain Plan: Etiology of chest pain remains unclear. Has ruled out for NE, negative for pulmonary embolus on CT scan, echocardiogram does not show pericardial effusion. She wants to continue further evaluation at [facility] with Dr. Froylan Davila. She has an appointment with him on . She will be discharged later today and follow up with her outpatient Cardiology/ Cardiothoracic surgery physicians. 11/26/18 10:46 Subjective: Feels better but still has mild respirophasic CP L chest Reviewed/Discussed With: family, hospitalist Time Spent with Patient: greater than 25 minutes Time Spent with Patient: Greater than 25 minutes spent on this patients care, greater than 50% of time spent counseling, educating, and coordinating care regarding the above mentioned plan. Objective: Vital Signs (8 Hrs) Temp Pulse Resp BP Pulse Ox 11/26/18 09:01 77 118/54 L 11/26/18 08:00 36.6 C 77 20 118/54 L 96 11/26/18 03:50 36.8 C 77 18 126/65 H 100 Intake/Output (24 Hrs) 11/24/18 11/25/18 11/26/18 11:59 11:59 11:59 Intake Total 540 925 Output Total 1600 850 Balance -1060 75 Intake: Oral (ml) 540 925 IV Infused (ml) 0 Output: Urine (ml) 1600 850 Toilet 1600 850 Other: Weight 52.617 kg Number of Voids Toilet 1 3 Result Diagrams: 11/25/18 05:50 11/25/18 05:50 Cardiac Labs: Cardiac Lab Results (72 Hrs) 11/25/18 11/25/18 10:24 05:50 Troponin I < 0.012 < 0.012 Telemetry: NSR - Physical Exam Eyes: PERRL, EOMI Ears, Nose, Mouth, Throat: moist mucous membranes Cardiovascular: regular rate and rhythm, systolic murmur Respiratory: clear to auscultate bilat Neurologic: AAOx3 Psychiatric: cooperative, interactive, following commands, not anxious ICD10 Worksheet Patient Problems: Problems Problem Status Onset Humeral surgical neck fracture Acute chronic disease mgmt/transitional care Acute Chronic sinus infection Acute Chest pain Acute GERD with esophagitis Acute Pneumonia Acute Gastroenteritis Acute Hyponatremia Acute Lethargy Acute Hypochloremia Acute Hypokalemia Acute Nausea Acute Diarrhea Acute CHF (congestive heart failure) Acute Sepsis Acute Pneumonia of both lower lobes Acute
[2018-11-26 11:30] VITALS: BP 121/64
--- NOTE | 2018-11-26 11:51 | ASDISCHSUM ---
Discharge Information Plan Status:Home with No Needs Medically Cleared to Leave: Discharge Date: D/C Disposition: ADT D/C Disposition: Projected Discharge Date: Transportation at D/C: Discharge Delay Reason: Follow-Up Date: Discharge Slot: Final Diagnosis: Placement Information Patient Contact Information Contact Name:MARSHALL Relationship: Address:[address] [place] [address] City:[facility] Phone: State/Zip Code:[place] [address] Email: Financial Information Financial Class:Medicare Primary Plan Desc:MEDICARE OUTPATIENT Primary Plan Number:[id number] Secondary Plan Desc:AMIRA Secondary Plan Number:[id number] Assessment Information [facility] Initial CM Assessment Living Arrangements What is your living Answers: With Spouse arrangement? Who do you live with? Discharge Plan Comments Coordination Status Comments Notes: Pt was admitted yesterday through the ED for chest pain. She has a history of aortic and mitral valve stenosis addressed by TAVR and balloon valvuloplasty. She now has reurrent moderate to severe mitral valve stenosis with plans for surgical intervention through [facility]. She is to have an echocardiogram today or tomorrow, and to follow up with her machinery dismantler Dr. Froylan Davila next . Tests for pulmonary embolism and pneumonia were negative. CM met with pt and her Tray Tang and son in her room today. Pt wears 2L of oxygen at night at home. She does not use any other assistive devices. She does not drive, due to concerns of becoming faint. Pt and her state that she is independent in her ADLs at home. PT recommends DC home with no needs. OT eval pending. CM will be available should needs arise. CM D/C plan: Independent to home Date Signed: 11/25/2018 02:27 PM Electronically Signed By:Uma [email or web address] LACE LACE Length of stay for Answers: 2 days current admission Acuity / Level of Answers: Yes Care: Did the patient have an inpatient admission? Comorbidities - select Answers: Chronic pulmonary disease all that apply # of Emergency department Answers: 1-2 visits in the last 6 months Score: 8 Date Signed: 11/26/2018 11:48 AM Electronically Signed By:Uma SalinasRN Case Management Discharge Plan Note Case Management Discharge Discharge Order Complete? Answers: Yes Patient to Obtain Answers: Independently Medications Transportation Arranged Answers: Family/Friends Family Notified Answers: Yes Notes: Discharge Comments Notes: Pt is being DCd independently to home today with no needs. Her is driving her. Intervention Information
--- NOTE | 2018-11-26 12:45 | PDDCSUM ---
Discharge Summary Discharge Summary: Date of Admission: 11/24/2018 Date of Discharge: 11/26/2018 Consults: Cardiology Procedures: TTE, Chest CTA Followup: Cardiology ([facility] with Dr. Froylan Davila), CT Surgery, PCP Hospital Course Problem List: 82 yo F with PMH that includes a fib, VHD, pulm htn presenting with chest pain for the second time this month # chest pain: recent hospitalization for same and at that time etiology unclear , thought to be non cardiac. - W/u thus far unremarkable--trop/dimer negative, ecg without change, cxr with hiatal hernia but no other sig abnormality. - Given severity of her sxs with pleuritic component and extension to the back ordered CTA which was negative for PE or dissection, did note mucus plugging in b/l lower lobes c/w Aspiration pneumonitis. - Cardiology consulted, recommend checking TTE which was negative for pericardial effusion, acute changes - Likely pleuritic vs. MSK, recommended continued Tylenol for pain PRN #Aspiration Pneumonitis - Noted on CT as above - Denies SOB, has mild productive cough of clear sputum - No signs of active infection with patient being afebrile with no leukocytosis during admission, no abx given - Continue antitussive PRN, educated patient if symptoms worsening to seek further evaluation # VHD: hx of severe s/p TAVR, severe MS s/p balloon valvuloplasty with recurrence most recent echo noting moderated MS--has been evaluated here by CT surgery recently and has plans to f/u with CT surgeon at [facility]. 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
--- NOTE | 2018-11-27 10:58 | PDMN ---
Medical Necessity Medical necessity: Pt meets IP criteria as of 11/25/2018 per MD and [facility] M-89 ( Chest pain); los > 2 mn for ongoing tx and work up of chest pain in an elderly pt with a significant cardiac hx, pain has persisted despite observation care and more work up is warranted; requiring tele monitoring, cardiology consult, and TTE; hx VHD, TAVR, balloon valvuloplasty, afib, pulmonary htn, CHF, and hiatal hernia.
== END 2018-11-26 12:28 | disposition home or self-care (01) | DRG 313 ==
LOC: F2W 22:56 → OBSVTOIN 11-25 14:01
PROVIDERS: ADMIT Internal Medicine; ATTEND Internal Medicine
DX: R07.89 Other chest pain (principal); J69.0 Pneumonitis due to inhalation of food and vomit; E87.1 Hypo-osmolality and hyponatremia; I11.0 Hypertensive heart disease with heart failure; I50.32 Chronic diastolic (congestive) heart failure; I34.2 Nonrheumatic mitral (valve) stenosis; I48.0 Paroxysmal atrial fibrillation; I27.29 Other secondary pulmonary hypertension; K44.9 Diaphragmatic hernia without obstruction or gangrene; J44.9 Chronic obstructive pulmonary disease, unspecified; E78.5 Hyperlipidemia, unspecified; Z90.13 Acquired absence of bilateral breasts and nipples; Z96.653 Presence of artificial knee joint, bilateral; Z95.3 Presence of xenogenic heart valve; Z85.3 Personal history of malignant neoplasm of breast
CPT/HCPCS: 84484-ER; 92610-GN; 96374; 97161-GP; G0378; J1170; J1200; J2405; J2550; J2930; Q9967

== ENCOUNTER → 2018-12-29 | Outpatient (CLI) | payer OTHER | LOC: BMCIMAGING 09:51 ==